=== PATIENT | female | born 1945 | race Caucasian/White ===

== ENCOUNTER → 2016-08-02 | Outpatient (CLI) | payer MEDICARE, MEDICAID | LOC: NC 10:16 | PROVIDERS: ATTEND Family Medicine | DX: R30.0 Dysuria (principal) ==

== ENCOUNTER → 2016-08-10 | Outpatient (CLI) | payer MEDICARE, MEDICAID | LOC: NC 10:35 | PROVIDERS: ATTEND Family Medicine | DX: R30.0 Dysuria (principal) ==

== ENCOUNTER → 2016-09-18 | Outpatient (CLI) | payer MEDICARE, MEDICAID | END | disposition home or self-care (01) | LOC: LAB.NP 12:31 | PROVIDERS: ATTEND Internal Medicine Gastroenterology | DX: R63.4 Abnormal weight loss (principal); R19.7 Diarrhea, unspecified ==

== ENCOUNTER → 2016-09-20 | Outpatient (CLI) | payer MEDICARE, MEDICAID ==
--- NOTE | 2016-09-20 09:47 | CT ---
EXAM DESCRIPTION: Abdomen/Pelvis w/wo Contrast CLINICAL HISTORY: ABNORMAL WEIGHT LOSS COMPARISON: None. TECHNIQUE: CT of the abdomen and pelvis was performed prior to and after the administration of IV contrast.. Multiple axial images and multiplanar reconstructions were generated. FINDINGS: There is moderate emphysema seen within the lung base. There is a spiculated area of groundglass seen within the right lung base. Degenerative change of the spine noted. Aortic stent noted. Negative for obstruction. The liver enhances homogeneously. Portal vein is widely patent. Gallbladder is not visualized. The common bile duct is prominent measuring 7 mm in diameter. This can be seen in the postcholecystectomy patient. Spleen, bilateral adrenal glands and bilateral kidneys are unremarkable. No renal stones noted. No small bowel obstruction. Patient is status post hysterectomy. There is air seen within the urinary bladder or the urinary bladder wall. No catheter is noted. No lymphadenopathy noted on today's study. IMPRESSION: 1. The urinary bladder wall is thickened with stranding adjacent to the serosa. Additionally there is air noted within the urinary bladder. This can be seen with emphysematous cystitis. No evidence of a Eastman catheter at this time to suggest iatrogenic air. 2. There is a spiculated area of groundglass seen within the emphysematous lungs of the right lung base. Recommend CT of the chest for evaluation of the remaining lung to rule out the possibility of a pulmonary neoplasm. 3. There is common bile duct enlargement. This is a normal finding in a patient is status post cholecystectomy. If patient does not have a history of cholecystectomy then an ERCP is suggested to rule out the possibility of an ampullary lesion resulting in dilatation of the common bile duct. Electronically signed by: Lance Kuo MD 09/20/2016 9:45 AM BUSINESS PROCESS MODELER
== END | disposition home or self-care (01) ==
LOC: CT 08:26
PROVIDERS: ATTEND Internal Medicine Gastroenterology
DX: R63.4 Abnormal weight loss (principal)

== ENCOUNTER → 2016-10-02 | Outpatient (CLI) | payer MEDICARE, MEDICAID | LOC: NC 14:24 | PROVIDERS: ATTEND Family Medicine | DX: R30.0 Dysuria (principal) ==

== ENCOUNTER → 2016-10-03 | Outpatient (CLI) | payer MEDICARE, MEDICAID | END | disposition home or self-care (01) | LOC: NC 15:25 | PROVIDERS: ATTEND Family Medicine | DX: J44.9 Chronic obstructive pulmonary disease, unspecified (principal); I12.9 Hypertensive chronic kidney disease with stage 1 through stage 4 chronic kidney disease, or unspecified chronic kidney disease; N18.3 Chronic kidney disease, stage 3 (moderate) ==

== ENCOUNTER 2016-10-11 11:20 | Inpatient (IN) | payer MEDICARE, MEDICAID ==
--- NOTE | 2016-10-11 11:46 | ED.PDOC ---
History of Present Illness - General Chief Complaint: GI Problem Stated Complaint: n/v/d Time Seen by Provider: 10/11/16 11:23 Source: patient, RN notes reviewed, Vital Signs reviewed, EMS Exam Limitations: no limitations - History of Present Illness Initial Comments: Patient comes in for weakness and dehydration. She has been having diarrhea for quite a while. Yesterday she had an upper endoscopy. She has been feeling nauseated for several days and vomited this morning. Yesterday she also noticed her urine was really dark. Last night her muscles started cramping which she reports always happens when her dehydration gets bad. She has been admitted to the hospital in the past for dehydration. EMS reports her BP was initially 89/ 60 but improved with a 200cc NS bolus to 130/80's. She also became more alert after fluid bolus. Patient also report she is on her second round of antibiotics for a UTI - currently on Macrobid which culture reports she is sensitive to. Timing/Duration: getting worse - over past 3 days Severity: moderate Improving Factors: other - IV fluids Worsening Factors: nothing Associated Symptoms: headaches, loss of appetite, malaise, nausea/vomiting, weakness Allergies/Adverse Reactions: Allergies Ondansetron [From Zofran] Allergy (Verified 10/11/16 11:34) Home Medications: Ambulatory Orders Albuterol Sulfate Nebs [Proventil Nebs] 2.5 mg INH RTQID PRN 02/02/14 Clopidogrel Bisulfate [Plavix] 75 mg PO DAILY 02/02/14 Colestipol HCl 1 gm PO BID 02/02/14 Dicyclomine HCl [Bentyl] 10 mg PO BID 02/02/14 Levetiracetam [Keppra] 500 mg PO BID 02/02/14 Loperamide HCl [Imodium A-D] 1 - 2 ea PO DAILY PRN 02/02/14 Melatonin 5 mg PO BEDTIME 02/02/14 Multiple Vitamins W/ Minerals 1 tab PO DAILY 02/02/14 Olopatadine HCl [Pataday] 1 drop OP DAILY PRN 02/02/14 Promethazine Tab [Phenergan Tablet] 25 mg PO Q4-6H PRN 02/02/14 Sertraline HCl [Zoloft] 50 mg PO BEDTIME 02/02/14 Acetaminophen W/ Codeine [Tylenol W/ CODEINE #3] 1 ea PO Q6-8H PRN 07/09/14 B-Complex Vitamins [B Complex] 1 cap PO DAILY 07/09/14 Trazodone HCl 50 mg PO BEDTIME 07/09/14 Arformoterol Tartrate [Brovana] 15 mcg IN BID 04/03/15 Loratadine 10 mg PO BEDTIME 10/10/15 Pantoprazole Sodium [Protonix] 40 mg PO DAILY 10/10/15 amLODIPine BESYLATE [Norvasc] 10 mg PO DAILY 10/10/15 Budesonide (Inhalation) [Pulmicort] 0.25 mg IN BID 11/07/15 Potassium Chloride [K-Tab] 20 meq PO DAILY #30 tab 11/11/15 ALPRAZolam [Xanax] 0.5 mg PO BEDTIME 03/14/16 Cranberry (Vaccinium Macrocarp [Cranberry Extract] 250 mg PO DAILY 03/14/16 Cyclobenzaprine HCl 5 mg PO Q8H PRN 03/14/16 Ipratropium [place] 0.02 % IN BID PRN 03/14/16 Metoprolol Succinate [Metoprolol Succinate ER] 50 mg PO DAILY 03/15/16 Levofloxacin [Levaquin] 250 mg PO DAILY #12 tab 03/16/16 Review of Systems - Review of Systems Constitutional: States: malaise, weakness. Denies: chills, diaphoresis, fever EENTM: States: no symptoms reported Respiratory: States: no symptoms reported. Denies: short of breath Cardiology: States: no symptoms reported. Denies: chest pain, edema, palpitations Gastrointestinal/Abdominal: States: see HPI, diarrhea, nausea, vomiting Genitourinary: States: see HPI Musculoskeletal: States: see HPI - Muscle cramping Skin: States: no symptoms reported Neurological: States: headache. Denies: numbness, paresthesia, tingling, tremors Endocrine: States: no symptoms reported Hematologic/Lymphatic: States: no symptoms reported Past Medical History (General) - Patient Medical History Hx Seizures: No Hx Stroke: Yes Hx Dementia: No Hx Asthma: Yes Hx of COPD: Yes Hx Cardiac Disorders: Yes - stints Hx Congestive Heart Failure: No Hx Pacemaker: No Hx Hypertension: Yes Hx Thyroid Disease: No Hx Diabetes: No Hx Gastroesophageal Reflux: Yes Hx Renal Disease: Yes - ARF 2014 Hx Cancer: Yes - OVIARIAN Hx of HIV: No Hx Hepatitis C: No Hx MRSA: Yes Surgical History: appendectomy, cholecystectomy, tonsillectomy, Hysterectomy - Vaccination History Hx Tetanus, Diphtheria Vaccination: Yes Hx Influenza Vaccination: Yes Hx Pneumococcal Vaccination: Yes Immunizations Up to Date: Yes - Social History Hx Tobacco Use: Yes Hx Chewing Tobacco Use: No Hx Alcohol Use: No Hx Substance Use: No Hx Substance Use Treatment: No Hx Depression: No Hx Physical Abuse: No Hx Emotional Abuse: No Hx Suspected Abuse: No - Female History Patient is a Female of Child Bearing Age (10 -59 yrs old): No Patient : No Family Medical History - Family History Brother Family History: Unknown Living Status: Hx Family Asthma: No Hx Family Congestive Heart Failure: No Hx Family Hypertension: Yes Hx Family Stroke: No Hx Cardiac Disease: No Hx Family Diabetes: No Hx Family Cancer: No Hx Family;Other: liver/ etoh abuse Mother Family History: Unknown Living Status: Hx Family Asthma: No Hx Family Congestive Heart Failure: No Hx Family Hypertension: Yes Hx Family Stroke: No Hx Cardiac Disease: No Hx Family Diabetes: No Hx Family Cancer: Yes Hx Family;Other: copd Physical Exam - Physical Exam General Appearance: Alert, Comfortable, Frail, No apparent distress, Well Groomed Eye Exam: bilateral normal Ears, Nose, Throat: hearing grossly normal, other - Dry mucus membranes Neck: non-tender, full range of motion, supple, normal inspection Respiratory: chest non-tender, lungs clear, normal breath sounds, no respiratory distress, no accessory muscle use Cardiovascular/Chest: normal peripheral pulses, regular rate, rhythm, no edema, no gallop, no JVD Peripheral Pulses: dorsalis pedis,right: 2+, dorsalis pedis,left: 2+ Gastrointestinal/Abdominal: normal bowel sounds, soft, tenderness - Patient reports this is due to her hernia and is always present Extremity: normal range of motion, non-tender, normal inspection, no pedal edema Neurologic: no motor/sensory deficits, alert, normal mood/affect, oriented x 3 Skin Exam: normal color, warm/dry Lymphatic: no adenopathy Comments: Vital Signs - 24 hr 10/11/16 10/11/16 11:34 12:11 Temperature 96.0 F L Pulse Rate [ 79 71 MONITOR] Respiratory 18 16 Rate Blood Pressure 124/84 146/73 [Left Arm] O2 Sat by Pulse 98 98 Oximetry Progress - Progress Progress: 10/11/16 12:24 Patient is resting comfortably with ~800cc of NS infused. Will go ahead and order labs and urine. May need a second L of NS. 10/11/16 12:57 Patient reports she is feeling restless. May be related to the Phenergan. Will give a small dose of Ativan. 10/11/16 13:34 Patient discussed with hospitalist. Will admit for dehydration and acute renal failure. 10/11/16 13:36 Ativan changed to PO Valium due to need to replace IV and patient c/o muscle cramping. - Results/Orders Results/Orders: Laboratory Tests 10/11/16 12:40 WBC 13.1 H RBC 5.69 H Hgb 16.5 H Hct 50.3 H MCV 88.4 MCH 28.9 MCHC 32.8 L RDW 13.8 Plt Count 194 MPV 9.1 Absolute Neuts (auto) 10.90 H Absolute Lymphs (auto) 1.20 Absolute Monos (auto) 0.80 Absolute Eos (auto) 0.20 Absolute Basos (auto) 0.10 Neutrophils % 83.0 H Lymphocytes % 9.5 L Monocytes % 5.8 Eosinophils % 1.2 Basophils % 0.5 Sodium 141 Potassium 4.2 Chloride 103 Carbon Dioxide 23 Anion Gap 19.2 H BUN 74 H Creatinine 3.17 H BUN/Creatinine Ratio 23.3 H Random Glucose 147 H Serum Osmolality 305.9 H Calcium 10.5 H Total Bilirubin 0.6 AST 18 ALT 14 Alkaline Phosphatase 116 B-Natriuretic Peptide 180.0 H Serum Total Protein 9.6 H Albumin 4.8 Globulin 4.8 H Albumin/Globulin Ratio 1.0 L Departure - Departure Clinical Impression: Severe dehydration Renal failure, acute Qualifiers: Acute renal failure type: unspecified Qualifier Code: (N17.9) Acute kidney failure, unspecified Time of Disposition: 13:35 Disposition: Admit Patient Condition: Poor Departure Forms: ED Discharge - Pt. Copy, Patient Portal Self Enrollment Home Medications: Ambulatory Orders Albuterol Sulfate Nebs [Proventil Nebs] 2.5 mg INH RTQID PRN 02/02/14 Clopidogrel Bisulfate [Plavix] 75 mg PO DAILY 02/02/14 Colestipol HCl 1 gm PO BID 02/02/14 Dicyclomine HCl [Bentyl] 10 mg PO BID 02/02/14 Levetiracetam [Keppra] 500 mg PO BID 02/02/14 Loperamide HCl [Imodium A-D] 1 - 2 ea PO DAILY PRN 02/02/14 Melatonin 5 mg PO BEDTIME 02/02/14 Multiple Vitamins W/ Minerals 1 tab PO DAILY 02/02/14 Olopatadine HCl [Pataday] 1 drop OP DAILY PRN 02/02/14 Promethazine Tab [Phenergan Tablet] 25 mg PO Q4-6H PRN 02/02/14 Sertraline HCl [Zoloft] 50 mg PO BEDTIME 02/02/14 Acetaminophen W/ Codeine [Tylenol W/ CODEINE #3] 1 ea PO Q6-8H PRN 07/09/14 B-Complex Vitamins [B Complex] 1 cap PO DAILY 07/09/14 Trazodone HCl 50 mg PO BEDTIME 07/09/14 Arformoterol Tartrate [Brovana] 15 mcg IN BID 04/03/15 Loratadine 10 mg PO BEDTIME 10/10/15 Pantoprazole Sodium [Protonix] 40 mg PO DAILY 10/10/15 amLODIPine BESYLATE [Norvasc] 10 mg PO DAILY 10/10/15 Budesonide (Inhalation) [Pulmicort] 0.25 mg IN BID 11/07/15 Potassium Chloride [K-Tab] 20 meq PO DAILY #30 tab 11/11/15 ALPRAZolam [Xanax] 0.5 mg PO BEDTIME 03/14/16 Cranberry (Vaccinium Macrocarp [Cranberry Extract] 250 mg PO DAILY 03/14/16 Cyclobenzaprine HCl 5 mg PO Q8H PRN 03/14/16 Ipratropium [place] 0.02 % IN BID PRN 03/14/16 Metoprolol Succinate [Metoprolol Succinate ER] 50 mg PO DAILY 03/15/16 Levofloxacin [Levaquin] 250 mg PO DAILY #12 tab 03/16/16 Decision To Admit - Decistion To Admit Decision to Admit Reason: Admit from ER - Dehydration, acute renal failure
[2016-10-11] MEDS ORDERED: diazePAM 5 MG TAB PO ONE (13:24)
[2016-10-11] MEDS ORDERED: diazePAM 5 MG TAB ONE (13:26)
[2016-10-11] MEDS ORDERED: SODIUM CHLORIDE 0.9% 1000ML 1,000 ML IVS ONE (13:30)
--- NOTE | 2016-10-11 14:42 | HP ---
SUPERVISING PHYSICIAN: Mikhail Trejo M.D. CHIEF COMPLAINT: Nausea, vomiting and diarrhea. HISTORY OF PRESENT ILLNESS: Ms. Olmedo is a 71 year-old female that presented to the Emergency Department today complaining of severe dehydration. She has a longstanding history of diarrhea. Yesterday, she did have an upper endoscopy procedure and has been feeling nauseated for several days and vomited this morning. She also notes that her urine is significantly dark and she is having some dysuria. She was recently treated for a urinary tract infection on 10/02 with identified culture of Escherichia coli that was pansensitive and started on Macrobid. Last night, she reported she was having muscles that were cramping in her legs which is normally typical of her state of dehydration when it gets really bad. She was last admitted to the hospital on 03/14/16 for similar symptoms. Initial blood pressure by the EMS on arrival showed the patient to have a blood pressure of 89/60 which did improve after she was given a bolus of saline to 130/80. The patient does have a history of chronic kidney disease stage III and today chemistries showed that her BUN and creatinine were elevated with BUN of 74, creatinine 3.17, but her serum osmolality was 305. Her electrolytes were all within normal limits. White count showed to be elevated at 13.1 with a left shift, hemoglobin 16.5, hematocrit 50.3. Given that the patient is having significant symptoms and is obviously dehydrated with nausea, vomiting and chronic diarrhea, the patient is to be admitted for further treatment and evaluation. She was admitted in stable condition. PAST MEDICAL HISTORY: 1. Coronary artery disease. 2. Chronic obstructive pulmonary disease. 3. History of smoking having stopped 2-1/2 years previously. 4. Chronic functional diarrhea. 5. History of cerebrovascular accidents. 6. Chronic kidney disease stage III. 7. Hypertension. 8. Ovarian cancer. 9. Irritable bowel syndrome. 10. Gastroesophageal reflux disease for which she just had a recent endoscopy. 11. History of falls. 12. Dizziness. PAST SURGICAL HISTORY: 1. Right carotid endarterectomy with stents. 2. Cholecystectomy. 3. Appendectomy. 4. Removal of cancerous growths from her labia. CURRENT MEDICATIONS: Please see an updated list in the electronic medical records for verified medications. ALLERGIES: ZOFRAN. SHE DOES HAVE AN ADVERSE REACTION TO GIBSON INHIBITORS WHICH MAKES HER KIDNEY FUNCTION WORSE. FAMILY HISTORY: Positive for diabetes, cancer, heart disease and strokes. SOCIAL HISTORY: She lives alone in [place]. She does have a daughter. She does have a history of smoking, but stopped previously 2-1/2 years. She is retired and she denies any alcohol or illicit drug use. REVIEW OF SYSTEMS: She denies any chills, diaphoresis or fever. Does note that she has general malaise and weakness. HEENT: Denies any sinus symptoms, ear pain, eye pain or sore throat. RESPIRATORY: Denies any shortness of breath , coughing or wheezing. CARDIOVASCULAR: Denies any chest pains, palpitations, syncopal episodes or edema. GASTROINTESTINAL: As noted in the history of present illness, chronic diarrhea, nausea and vomiting prior to admission, but denies any constipation or bloody stools. NEUROLOGIC: She denies any headaches or seizures. No paresthesias, tingling or tremors. Does note that she had a headache on admission to the Emergency Department which has improved since fluids were started. PHYSICAL EXAMINATION: VITAL SIGNS: Temperature 96.0, pulse 79, blood pressure 135/88, respirations 18 , O2 sat 98% on 2 liters nasal cannula. Admission weight was 40.9 kg. GENERAL: The patient appears to be comfortable, in no distress but quite frail. She is alert. HEENT: Tympanic membranes are clear bilaterally. Oropharynx is known to be dry with cracking mucosal membranes. Dry tongue. No lesions. NECK: No jugular venous distention. CHEST: Lungs are clear to auscultation without any rhonchi, wheezing or rales noted. CARDIOVASCULAR: Regular rate and rhythm with no gallops, rubs or appreciable murmurs. ABDOMEN: She does have some mild tenderness which she notes is always present secondary to her hernia. There is no rebound tenderness. Bowel sounds are hyperactive. EXTREMITIES: No clubbing, cyanosis or edema. NEUROLOGIC: She is alert and oriented times three. Cranial nerves II-XII are grossly intact. Facial features are symmetrical. Extraocular movements are within normal limits. There is no notable lateralizing or localizing neuromotor deficits. LABORATORY: CBC shows white count of 13.1, hemoglobin 16.5, hematocrit 50.3, platelet count 184,000. Differential does show a left shift. Chemistries show normal electrolytes with BUN of 74, creatinine 3.17. Glucose 147, serum osmolality 305, calcium 10.5. Liver functions show to be within normal limits with BNP of 180. Serum total protein was 9.6. Urinalysis is pending. RADIOLOGY: There are no radiographic studies for review. ASSESSMENT: 1. Acute on chronic renal failure with acute exacerbation of chronic renal failure possibly secondary to medications administered for last treatment of urinary tract infection including Macrobid and complicated by previous endoscopy preparation, and nausea and vomiting. 2. Nausea and vomiting with a history of chronic diarrhea. 3. Moderate dehydration likely secondary to ongoing diarrhea. 4. History of recent urinary tract infection being treated for Escherichia coli that was pansensitive and started on Macrobid, finished 10 day antibiotics the day of admission. The patient continues to have dysuria despite having finished treatment plan. 5. History of functional chronic diarrhea. 6. Gastroesophageal reflux disease. 7. History of hypertension. 8. Chronic obstructive pulmonary disease in a previous smoker without any signs or symptoms of exacerbation. PLAN: The patient will be admitted to the Medical/Surgical floor for continued treatment and evaluation. She was given a liter of saline in the E. R. This will be continued with additional saline 1 liter at 200 mL and hour with a repeat of electrolytes in the morning, and continued fluids to assist with rehydration. Will await a urinary culture as the patient continues to be somewhat symptomatic. Will start on DVT prophylaxis as per protocol. Anticipated length of stay to be 2 to 3 days. Until discharge, will continue to monitor the patient closely and treat appropriately. #[id number] [facility]
[2016-10-11] MEDS ORDERED: SODIUM CHLORIDE 0.9% (FLUSH) 10 ML SYG IV PRN (15:41)
[2016-10-11] MEDS ORDERED: ACETAMINOPHEN 325 MG TAB PO PRN (15:41)
[2016-10-11] MEDS ORDERED: IV SET AND CAP CHANGE INJ INJ SCH (16:00)
[2016-10-11] MEDS ORDERED: BUDESONIDE NEBS 0.5 MG/2 ML VIAL NEB PRN (19:26)
[2016-10-11] MEDS ORDERED: OLOPATADINE HCL OP PRN (19:26)
[2016-10-11] MEDS ORDERED: PROMETHAZINE HCL 25 MG TAB PO PRN (19:26)
[2016-10-11] MEDS ORDERED: LOPERAMIDE CAP 2 MG CAP PO PRN (19:26)
[2016-10-11] MEDS ORDERED: ACETAMINOPHEN W/COD #3 TAB (ER Disp) PO PRN (19:26)
[2016-10-11] MEDS ORDERED: CYCLOBENZAPRINE HCL 5 MG TAB PO PRN (19:26)
--- NOTE | 2016-10-11 19:34 | PCM.CORE ---
Physician DVT/VTE - Nurse DVT Assessment & Total Each Risk Factor Represents 2 Points: Age 60-74 Each Risk Factor Represents 1 Point: Medical PT at Bed Rest Each Risk Factor is 1 Point: Hx of Inflammatory Bowel Disease DVT Assessment Score: 4 - 5 or more Very High Risk Treatments: Early Ambulation *, Sequential Compression Device Pharmacological: Enoxaparin 40mg SQ Daily
[2016-10-11] MEDS ORDERED: ENOXAPARIN SODIUM 30 MG/0.3 ML SYG SUBCU ONE (19:55)
[2016-10-11] MEDS: KCL 20MEQ/D5 1/2NS 1,000 ML IVS PRN (20:00)
[2016-10-11] MEDS ORDERED: ENOXAPARIN SODIUM 40 MG/0.4 ML SYG SUBCU SCH (20:00)
[2016-10-11] MEDS ORDERED: ACETAMINOPHEN W/COD #3 TAB 1 EA TAB ONE (20:19)
[2016-10-11] MEDS ORDERED: ACETAMINOPHEN W/COD #3 TAB 1 EA TAB PO PRN (20:24)
[2016-10-11] MEDS ORDERED: DICYCLOMINE HCL 20 MG TAB ONE (20:41)
[2016-10-11] MEDS ORDERED: levETIRAcetam 250 MG TAB ONE (20:41)
[2016-10-11] MEDS: METOPROLOL SUCCINATE XL 50 MG TAB PO SCH (20:52)
[2016-10-11] MEDS: COLESTIPOL HCL 1 GM TAB PO SCH (20:52)
[2016-10-11] MEDS: SERTRALINE HCL 50 MG TAB PO SCH (20:52)
[2016-10-11] MEDS: ALPRAZolam 0.5 MG TAB PO SCH (20:52)
[2016-10-11] MEDS ORDERED: DICYCLOMINE HCL 10 MG PO SCH (21:00)
[2016-10-11] MEDS ORDERED: traZODone HCL 50 MG TAB PO SCH (21:00)
[2016-10-11] MEDS ORDERED: NON-FORMULARY MEDICATION 1 EA MIS (Melatonin [Melatonin] 5 MG) PO SCH (21:00)
[2016-10-11] MEDS ORDERED: NON-FORMULARY MEDICATION 1 EA MIS (Levetiracetam [Keppra] 500 MG) PO SCH (21:00)
[2016-10-11] MEDS ORDERED: NON-FORMULARY MEDICATION 1 EA MIS (Arformoterol Tartrate [Brovana] 15 MCG) IN SCH ×2 (21:00→22:15)
[2016-10-11] MEDS ORDERED: MELATONIN 3 MG TAB ONE (21:16)
[2016-10-11] MEDS: MELATONIN 3 MG TAB PO SCH (21:20)
[2016-10-11] MEDS ORDERED: NON-FORMULARY MEDICATION 1 EA MIS (Metoprolol Tartrate [Lopressor] 100 MG) PO SCH (21:30)
[2016-10-11] MEDS ORDERED: METOPROLOL TARTRATE 25 MG TAB ONE (21:36)
[2016-10-12] MEDS ORDERED: DICYCLOMINE HCL 20 MG TAB ONE (07:00)
[2016-10-12] MEDS ORDERED: levETIRAcetam 250 MG TAB ONE (07:00)
[2016-10-12] MEDS ORDERED: POTASSIUM CHLORIDE 20 MEQ TAB ONE (07:01)
[2016-10-12] MEDS: KCL 20MEQ/D5 1/2NS 1,000 ML IVS PRN (08:16)
[2016-10-12] MEDS ORDERED: METOPROLOL TARTRATE 50 MG TAB PO SCH (09:00)
[2016-10-12] MEDS ORDERED: PANTOPRAZOLE SODIUM TAB 40 MG PO SCH (09:00)
[2016-10-12] MEDS: amLODIPine BESYLATE 5 MG TAB PO SCH (09:43)
[2016-10-12] MEDS: COLESTIPOL HCL 1 GM TAB PO SCH ×2 (09:43→22:29)
[2016-10-12] MEDS: levETIRAcetam 250 MG TAB PO SCH ×2 (09:44→20:43)
[2016-10-12] MEDS: DICYCLOMINE HCL 20 MG TAB PO SCH ×2 (09:44→20:42)
[2016-10-12] MEDS: CLOPIDOGREL 75 MG TAB PO SCH (09:44)
[2016-10-12] MEDS: LORATADINE 10 MG TAB PO SCH (09:44)
[2016-10-12] MEDS: POTASSIUM CHLORIDE 20 MEQ TAB PO SCH (09:46)
[2016-10-12] MEDS: METOPROLOL SUCCINATE XL 100 MG TAB PO SCH (09:58)
[2016-10-12] MEDS: METOPROLOL SUCCINATE XL 50 MG TAB PO SCH ×2 (10:01→20:54)
[2016-10-12] MEDS ORDERED: SODIUM BICARBONATE VIAL 50 MEQ/50 ML VIAL ONE ×2 (11:00→17:12)
[2016-10-12] MEDS ORDERED: DEXTROSE 5% 1000ML 1,000 ML IVS ONE ×2 (11:00→17:12)
[2016-10-12] MEDS: SODIUM BICARBONATE VIAL 75 MEQ in DEXTROSE 5% 1000ML 1,000 ML IVS PRN ×2 (11:03→17:16)
[2016-10-12] MEDS ORDERED: ACETAMINOPHEN W/COD #3 TAB 1 EA TAB PO PRN (11:22)
[2016-10-12] MEDS ORDERED: SODIUM CHL 0.9% 50ML MIN-BAG+ 50 ML IVPB ONE (12:09)
[2016-10-12] MEDS ORDERED: cefTRIAXone SODIUM 1 GM VIAL ONE (12:09)
[2016-10-12] MEDS: B COMPLEX 1 EA TAB PO SCH (12:12)
[2016-10-12] MEDS: cefTRIAXone SODIUM 1 GM in SODIUM CHL 0.9% 50ML MIN-BAG+ 50 ML IVPB SCH (12:12)
[2016-10-12] MEDS: NITROGLYCERIN 0.4 MG/HR PATCH TOP SCH (12:19)
[2016-10-12] MEDS ORDERED: traZODone HCL 100 MG TAB PO ONE (19:47)
[2016-10-12] MEDS ORDERED: MELATONIN 3 MG TAB ONE (19:47)
[2016-10-12] MEDS ORDERED: COLESTIPOL HCL 1 GM TAB PO ONE (19:47)
[2016-10-12] MEDS ORDERED: ENOXAPARIN SODIUM 30 MG/0.3 ML SYG SUBCU ONE (19:48)
[2016-10-12] MEDS ORDERED: METOPROLOL SUCCINATE XL 50 MG TAB ONE (19:49)
[2016-10-12] MEDS ORDERED: PANTOPRAZOLE SODIUM TAB 40 MG PO ONE (19:50)
--- NOTE | 2016-10-12 20:08 | PN ---
DATE: 10/12/16 SUPERVISING PHYSICIAN: Jayden Ferrera M.D. SUBJECTIVE: The patient continues to be weak. She remains afebrile. She still has some diarrhea which is chronic for her. She does know that she is having some dysuria but no nausea or vomiting. OBJECTIVE: VITAL SIGNS: T max 98.4, pulse 60, blood pressure 134/73, respirations 16, O2 sat showing 98% on nasal cannula at 2 liters. I's and O's show a positive balance today of 1362 with 2062 in, 700 out. CHEST: Lungs are clear to auscultation bilaterally. HEART: Regular rate and rhythm. ABDOMEN: Obese with some mild tenderness noted over the suprapubic area, but no rebound tenderness. Bowel sounds are present. EXTREMITIES: No clubbing, cyanosis or edema. NEUROLOGIC: She is alert and oriented times three. LABORATORY: White count remains elevated today at 14.0 with hemoglobin 14.4, hematocrit 44.6, platelet count 184,000. Differential today shows left shift has resolved. Chemistries show normal electrolytes, BUN still remains elevated at 75, creatinine went up to 3.33, calcium 8.8, serum osmolality had decreased to 299 from 305 on admission. MICROBIOLOGY: Urine culture shows gram-negative rods. ASSESSMENT: 1. Acute on chronic renal failure with acute exacerbation of renal failure possibly secondary to medications administered for last treatment of urinary tract infection including Macrobid and complicated by previous endoscopy preparation, and nausea and vomiting with continued elevation of creatinine. 2. Nausea and vomiting with a history of chronic diarrhea, resolved after starting IV fluids. 3. Moderate dehydration likely secondary to ongoing diarrhea showing some improvement after starting IV fluids. 4. History of recent urinary tract infection having been treated for Escherichia coli that was pansensitive and started on Macrobid, finished 10 day antibiotics at the day of admission. Culture results initially on urine on admission shows gram-negative rods and the patient does have some dysuria continued. The patient currently on parenteral antibiotics to include Rocephin pending further culture results. 5. History of functional chronic diarrhea. 6. Gastroesophageal reflux disease. 7. History of hypertension. 8. Chronic obstructive pulmonary disease in a previous smoker without any signs or symptoms of exacerbation. 9. Leukocytosis persistent possibly related to underlying urinary tract infection. PLAN: Will continue with fluids today but change to alkalinization with D5W with 1.5 amps of bicarb to run at 150. I did talk with Dr. Ortega. We went over the patient's laboratory studies and he agreed that she continues to probably be somewhat dehydrated but will hopefully benefit from alkalinization of her urine. Will continue with alkalinization for the next 24 hours and monitor the patient closely, repeat laboratory studies in the morning to include CBC and CMP. I will discuss findings with Dr. Ortega in the morning to further assist with management of the patient's kidney function. Given the patient has been on antibiotics previously and is continuing to have diarrhea, will go ahead and do stool cultures as well as a Clostridium Difficile to further rule out any complications from antibiotic therapy given she continues to have a high white count. Hopefully will be able to discharge the patient within the next 2 to 3 days. Until then, will continue to monitor the patient closely and treat appropriately. Should she show a decline in her renal function or any other decline, the patient will need possible transfer to [facility] for a higher level of care to include comic artist. #[id number] [facility]
[2016-10-12] MEDS: BIFIDOBACTERIUM INFANTIS 4 MG CAP PO SCH (20:42)
[2016-10-12] MEDS: ENOXAPARIN SODIUM 30 MG/0.3 ML SYG SUBCU SCH (20:43)
[2016-10-12] MEDS: MELATONIN 3 MG TAB PO SCH (20:43)
[2016-10-12] MEDS: traZODone HCL 100 MG TAB PO SCH (20:43)
[2016-10-12] MEDS: SERTRALINE HCL 50 MG TAB PO SCH (20:44)
[2016-10-12] MEDS: ALPRAZolam 0.5 MG TAB PO SCH (20:44)
[2016-10-12] MEDS: ALBUTEROL SULFATE 2.5 MG/3 ML VIAL NEB PRN (21:14)
[2016-10-12] MEDS: BUDESONIDE NEBS 0.25 MG/2 ML INH NEB PRN (21:14)
[2016-10-12] MEDS: NON-FORMULARY MEDICATION 1 EA MIS (Arformoterol Tartrate [Brovana] 15 MCG) IN SCH (21:17)
[2016-10-13] MEDS: REMOVE OLD PATCH TOP SCH ×2 (00:24→20:50)
[2016-10-13] MEDS ORDERED: DEXTROSE 5% 1000ML 0 ML IVS ONE (00:27)
[2016-10-13] MEDS ORDERED: SODIUM BICARBONATE VIAL 50 MEQ/50 ML VIAL ONE ×2 (00:27→00:29)
[2016-10-13] MEDS ORDERED: DEXTROSE 5% 1000ML 1,000 ML IVS ONE (00:29)
[2016-10-13] MEDS: SODIUM BICARBONATE VIAL 75 MEQ in DEXTROSE 5% 1000ML 1,000 ML IVS PRN (01:03)
[2016-10-13] MEDS ORDERED: POTASSIUM CHLORIDE 20 MEQ TAB PO ONE ×2 (06:28→10:18)
[2016-10-13] MEDS: PANTOPRAZOLE SODIUM TAB 40 MG PO SCH (06:33)
[2016-10-13] MEDS: POTASSIUM CHLORIDE 20 MEQ TAB PO SCH (08:05)
[2016-10-13] MEDS ORDERED: MAGNESIUM SULFATE PREMIX 2GM 2 GM in PREMIX BAG 1 BAG IVPB ONE (08:25)
[2016-10-13] MEDS: NON-FORMULARY MEDICATION 1 EA MIS (Arformoterol Tartrate [Brovana] 15 MCG) IN SCH ×2 (08:39→20:20)
[2016-10-13] MEDS: BUDESONIDE NEBS 0.25 MG/2 ML INH NEB PRN (08:39)
[2016-10-13] MEDS: ALBUTEROL SULFATE 2.5 MG/3 ML VIAL NEB PRN (08:39)
[2016-10-13] MEDS ORDERED: MAGNESIUM SULFATE PREMIX 2GM 50 ML IVPB ONE (08:55)
[2016-10-13] MEDS: LORATADINE 10 MG TAB PO SCH (09:04)
[2016-10-13] MEDS: BIFIDOBACTERIUM INFANTIS 4 MG CAP PO SCH ×2 (09:04→20:43)
[2016-10-13] MEDS: levETIRAcetam 250 MG TAB PO SCH ×2 (09:04→20:43)
[2016-10-13] MEDS: B COMPLEX 1 EA TAB PO SCH (09:04)
[2016-10-13] MEDS: CLOPIDOGREL 75 MG TAB PO SCH (09:04)
[2016-10-13] MEDS: amLODIPine BESYLATE 5 MG TAB PO SCH (09:04)
[2016-10-13] MEDS: DICYCLOMINE HCL 20 MG TAB PO SCH ×2 (09:05→20:43)
[2016-10-13] MEDS: COLESTIPOL HCL 1 GM TAB PO SCH ×2 (09:05→22:07)
[2016-10-13] MEDS: NITROGLYCERIN 0.4 MG/HR PATCH TOP SCH (09:06)
[2016-10-13] MEDS: METOPROLOL SUCCINATE XL 100 MG TAB PO SCH (09:06)
[2016-10-13] MEDS: KCL 40 MEQ/D5 1/2NS 1,000 ML IVS PRN (10:24)
[2016-10-13] MEDS ORDERED: cefTRIAXone SODIUM 1 GM VIAL ONE (10:29)
[2016-10-13] MEDS ORDERED: SODIUM CHL 0.9% 50ML MIN-BAG+ 50 ML IVPB ONE (10:30)
[2016-10-13] MEDS: cefTRIAXone SODIUM 1 GM in SODIUM CHL 0.9% 50ML MIN-BAG+ 50 ML IVPB SCH (11:59)
--- NOTE | 2016-10-13 15:55 | PN ---
DATE: 10/13/16 SUPERVISING PHYSICIAN: Jayden Ferrera M.D. SUBJECTIVE: The patient is feeling much better today. She continues to have a little diarrhea, but remains afebrile. OBJECTIVE: VITAL SIGNS: T max 98.7, pulse 61, blood pressure 111/65, respirations 20, SpO2 is 96% on nasal cannula at 2 liters. I's and O's show a positive balance of 141 with 3516 in, 3375 out. Weight 44.1 kg. CHEST: Lungs are clear to auscultation bilaterally. HEART: Regular rate and rhythm. ABDOMEN : Soft, non-tender. Positive bowel sounds. EXTREMITIES: No clubbing, cyanosis or edema. NEUROLOGIC: She is alert and oriented times three. LABORATORY: White count now has normalized at 10.1, hemoglobin 13.2, hematocrit 40.0, platelet count 162,000. Differential shows to be without a left shift. Chemistries show low potassium at 2.5, but BUN has improved to 55 from admission of 74 and creatinine has decreased to 1.6 from 3.33. Calcium 8.1 , glucose 128, magnesium was low at 1.5. MICROBIOLOGY: Urine culture did show Escherichia coli that was sensitive to everything but ESBL and Nitrofurantoin. RADIOLOGY: There are no additional radiographic studies today. ASSESSMENT: 1. Acute on chronic renal failure with acute exacerbation of renal failure possibly secondary to medications administered for last treatment of urinary tract infection including Macrobid and complicated by previous endoscopy procedure with nausea and vomiting with continued elevation of creatinine, now with improving creatinine after alkalinization by IV fluids. 2. Nausea and vomiting with history of chronic diarrhea, resolved after starting IV fluids. 3. Electrolyte imbalance to include moderate hypokalemia and hypomagnesemia. 4. Moderate dehydration secondary to ongoing diarrhea showing improvement after starting IV fluids. 5. History of recent urinary tract infection having been treated for Escherichia coli that was pansensitive and having been started on Macrobid, finished 10 days of antibiotics on the date of admission with current culture results showing Escherichia coli again, but this time resistant to Macrobid with the patient having been continuing to have some dysuria on admission. She currently is on parenteral antibiotics to include Rocephin which shows sensitive on final culture results. 6. History of functional chronic diarrhea. 7. Gastroesophageal reflux disease. 8. Hypertension. 9. Chronic obstructive pulmonary disease in a previous smoker without any signs or symptoms of exacerbation. 10. Leukocytosis possibly related to underlying urinary tract infection now showing improvement after starting IV antibiotics and IV fluids. PLAN: The patient's renal function has improved to a good degree today after D5W with 1/2 amps of bicarb over the last 24 hours. Will switch her IV fluids now to D5 and a half with 40 of potassium as well as provide p.o. replacement with an additional 20 of potassium along with her scheduled medications. Will plan to replace her magnesium with 2 grams of magnesium IV and continue to monitor closely. The patient notes that her diarrhea has slowed down. We have yet to see a Clostridium Difficile result. Will anticipate possible discharge tomorrow after reevaluation in the morning. Until then, will continue to monitor the patient closely and treat appropriately. #[id number] [facility]
[2016-10-13] MEDS: MELATONIN 3 MG TAB PO SCH (20:42)
[2016-10-13] MEDS: traZODone HCL 100 MG TAB PO SCH (20:42)
[2016-10-13] MEDS: ENOXAPARIN SODIUM 30 MG/0.3 ML SYG SUBCU SCH (20:42)
[2016-10-13] MEDS: ALPRAZolam 0.5 MG TAB PO SCH (20:42)
[2016-10-13] MEDS: METOPROLOL SUCCINATE XL 50 MG TAB PO SCH (20:43)
[2016-10-13] MEDS: SERTRALINE HCL 50 MG TAB PO SCH (20:43)
[2016-10-14] MEDS: KCL 40 MEQ/D5 1/2NS 1,000 ML IVS PRN (00:35)
[2016-10-14] MEDS: PANTOPRAZOLE SODIUM TAB 40 MG PO SCH (06:11)
[2016-10-14] MEDS: POTASSIUM CHLORIDE 20 MEQ TAB PO SCH (08:08)
[2016-10-14] MEDS: NON-FORMULARY MEDICATION 1 EA MIS (Arformoterol Tartrate [Brovana] 15 MCG) IN SCH (08:40)
[2016-10-14] MEDS: BUDESONIDE NEBS 0.25 MG/2 ML INH NEB PRN (08:45)
[2016-10-14] MEDS: BIFIDOBACTERIUM INFANTIS 4 MG CAP PO SCH (08:58)
[2016-10-14] MEDS: METOPROLOL SUCCINATE XL 100 MG TAB PO SCH (08:58)
[2016-10-14] MEDS: B COMPLEX 1 EA TAB PO SCH (08:59)
[2016-10-14] MEDS: DICYCLOMINE HCL 20 MG TAB PO SCH (08:59)
[2016-10-14] MEDS: amLODIPine BESYLATE 5 MG TAB PO SCH (08:59)
[2016-10-14] MEDS: CLOPIDOGREL 75 MG TAB PO SCH (08:59)
[2016-10-14] MEDS: LORATADINE 10 MG TAB PO SCH (08:59)
[2016-10-14] MEDS: levETIRAcetam 250 MG TAB PO SCH (08:59)
[2016-10-14] MEDS: NITROGLYCERIN 0.4 MG/HR PATCH TOP SCH (09:00)
[2016-10-14] MEDS ORDERED: cefTRIAXone SODIUM 1 GM VIAL IM ONE (09:49)
[2016-10-14 10:05] VITALS: BP 140/70; TEMP 98; O2SAT 95
[2016-10-14] MEDS ORDERED: LIDOCAINE 1% 10 ML VIAL INJ ONE (10:46)
[2016-10-14] MEDS: COLESTIPOL HCL 1 GM TAB PO SCH (10:55)
--- NOTE | 2016-10-15 13:49 | DS ---
SUPERVISING PHYSICIAN: Erick Ferrera MD DISCHARGE DIAGNOSIS: 1. Acute on chronic renal failure with an exacerbation, possibly secondary to medications administered for last treatment of urinary tract infection to include Macrobid, complicated by previous endoscopy procedure with nausea and vomiting and dehydration showing creatinine elevation and improving, normalizing to baseline creatinine after alkalinization with IV fluids and continued IV therapy. 2. Nausea and vomiting with a history of chronic diarrhea, resolved after starting IV fluids, possibly secondary to continued urinary tract infection. 3. Electrolyte imbalance to include moderate hypokalemia and hypomagnesemia, improved after replacement. 4. Moderate dehydration likely secondary to ongoing diarrhea, showing improvement after starting IV fluids. 5. Recent urinary tract infection having been treated in outpatient setting for Escherichia coli that was pansensitive, started on 10 day course of Macrobid with current culture results showing again Escherichia coli, but at this time resistant to Macrobid with the patient having been continued to have dysuria on admission with the patient transitioned to parenteral antibiotics that included Rocephin with sensitivity on culture results. 6. History of functional chronic diarrhea. 7. Gastroesophageal reflux disease. 8. Hypertension. 9. Chronic obstructive pulmonary disease in a previous smoker without any signs or symptoms of exacerbation. 10. Leukocytosis, probably related to underlying urinary tract infection, showing improvement after starting IV antibiotics and IV fluids. HISTORY OF PRESENT ILLNESS: Ms. Olmedo is a 71-year-old female that presented to the Emergency Department on date of admission, 10/11/16, complaining of severe dehydration. She has a longstanding history of functional diarrhea. The day before admission, she did have an upper endoscopy procedure and had been feeling nauseated for several days and vomited that morning. She also noted that her urine is significantly dark and she was having some dysuria. She was recently treated for a urinary tract infection on 10/02/16 with identified culture of Escherichia coli that was pansensitive and started on Macrobid. The night before admission, she reported she was having muscles that were cramping in her legs which is normally typical of her state of dehydration when it gets really bad. She was last admitted to the hospital on 03/14/16 for similar symptoms. Initial blood pressure by the EMS on arrival showed the patient to have a blood pressure of 89/60 which did improve after she was given a bolus of saline to 130/80. The patient does have a history of chronic kidney disease stage III and chemistries on admission showed that her BUN and creatinine were elevated with BUN of 74, creatinine 3.17, but her serum osmolality was 305. Her electrolytes were all within normal limits at time of admission. White count showed to be elevated at 13.1 with a left shift, hemoglobin 16.5, hematocrit 50.3. Given that the patient is having significant symptoms and is obviously dehydrated with nausea, vomiting and chronic diarrhea, the patient was admitted for further treatment and evaluation. She was admitted in stable condition. LABORATORY: Initial white count on admission was 13.1. It did go to a max of 14.0. After initiation of therapy and treatment, at time of discharge, white count had normalized to 8.2. Hemoglobin and hematocrit stabilized to 11.8 and 36.2 at time of discharge with platelet count 148,000. Differential initially did show a left shift which resolved prior to discharge. Chemistries initially showed electrolytes to be within normal limits with potassium 4.2, BUN 74, creatinine 3.17, serum osmolality 305. Calcium 10.5. Liver functions within normal limits with an elevated BNP of 180. After initiation of treatment and fluids and alkalinization of her urine, creatinine and BUN slowly responded and returned to baseline. However, she did drop her potassium and magnesium with magnesium 1.5 and potassium 2.5, BUN 55, creatinine 1.6. Alkalinization was stopped. She was started on normal saline. At time of discharge, her potassium normalized after replacement to 4.5 as well as magnesium to 2.0. At time of discharge, BUN 29, creatinine 1.02, serum osmolality 290. Urinalysis on admission showed specific gravity greater than 1.030, protein greater than 300, small amount of blood, trace leukocyte esterase. Microscopic revealed 5 to 10 RBCs, 20 to 30 WBCs, 10 to 20 epithelials, 2+ amorphus, 4+ bacteria with 1 to 3 hyaline casts. MICROBIOLOGY: Repeat urine culture at admission again demonstrated Escherichia coli, this time it was resistant to Macrobid and ESBL, but sensitive to all other antibiotics to include Bactrim, Cipro, Levaquin, first, second and third generation cephalosporin. RADIOLOGY: There are no radiographic studies completed during this admission. HOSPITAL COURSE: Ms. Olmedo was admitted on 10/11/16 as noted in history of present illness for severe dehydration and worsening kidney function along with a recurrence of urinary tract infection. She was started on IV fluids initially on the day of admission with normal saline and potassium. However, this resulted in minimal improvement. After that point on the next day, she was started on alkalinization with D5 and half with 1.5 amp bicarb at 150 mL per hour. This was continued for 24 hours. She did show good results in her repeat laboratory studies. She was started back no antibiotics that included Rocephin and her symptoms resolved prior to discharge. She showed good clinical improvement, was no longer having nausea and vomiting, continued to have diarrhea, but said that was her baseline status. Electrolytes had balanced out. She was replaced on magnesium with 2 grams of magnesium as well as p.o. potassium and IV potassium. On date of discharge, the patient was feeling much better and was felt stable to be discharged to continue with outpatient treatment plan and to followup with her primary care provider, Dr. Trejo. Dr. Ortega was consulted during this hospitalization via phone and per his recommendations, fluid management was completed and, again, she showed good clinical improvement with kidney function responding well. PLAN: The patient was discharged on 10/14/16 with instructions to continue with her previous medications as directed except for the Macrobid and if she had any left, to stop that. She was encouraged to drink plenty of fluids to prevent dehydration. She was instructed to call Dr. Trejo' office on Saturday to schedule followup in the next week to have repeat laboratory studies including BMP and repeat urinalysis. She was given an IM injection of Rocephin as she had lost her IV prior to discharge and instructed to start her antibiotics in the morning as it was Saturday and she was unable to fill the prescription. She was encouraged to increase activities as tolerated, return to her usual diet, and return to the hospital should she have any worsening or any other concerning symptoms. At discharge, she was provided new prescriptions to include: 1. Ceftin 500 mg twice daily, #16, for total of ten day course treatment including hospitalization. All other medications were continued as prior to hospitalization except for any antibiotics she was on. She was discharged in stable condition. #[id number] [facility]
== END 2016-10-14 11:20 | disposition home or self-care (01) | DRG 683 ==
LOC: ER 11:20 → MS 14:41
PROVIDERS: ADMIT Nurse Practitioner Family; ATTEND Nurse Practitioner Family
DX: N17.9 Acute kidney failure, unspecified (principal); N39.0 Urinary tract infection, site not specified; T37.8X5A Adverse effect of other specified systemic anti-infectives and antiparasitics, initial encounter; E86.0 Dehydration; E87.6 Hypokalemia; E83.42 Hypomagnesemia; B96.20 Unspecified Escherichia coli [E. coli] as the cause of diseases classified elsewhere; I25.10 Atherosclerotic heart disease of native coronary artery without angina pectoris; J44.9 Chronic obstructive pulmonary disease, unspecified; I12.9 Hypertensive chronic kidney disease with stage 1 through stage 4 chronic kidney disease, or unspecified chronic kidney disease; N18.3 Chronic kidney disease, stage 3 (moderate); K58.0 Irritable bowel syndrome with diarrhea; K21.9 Gastro-esophageal reflux disease without esophagitis; Y92.9 Unspecified place or not applicable; Z60.2 Problems related to living alone; Z88.8 Allergy status to other drugs, medicaments and biological substances; Z87.891 Personal history of nicotine dependence; Z85.43 Personal history of malignant neoplasm of ovary; Z86.73 Personal history of transient ischemic attack (TIA), and cerebral infarction without residual deficits; Z95.828 Presence of other vascular implants and grafts; Z79.899 Other long term (current) drug therapy

== ENCOUNTER → 2016-10-23 | Outpatient (CLI) | payer MEDICARE, OTHER | LOC: NC 10:12 | PROVIDERS: ATTEND Family Medicine | DX: I12.9 Hypertensive chronic kidney disease with stage 1 through stage 4 chronic kidney disease, or unspecified chronic kidney disease (principal); N18.3 Chronic kidney disease, stage 3 (moderate); F32.9 Major depressive disorder, single episode, unspecified ==

== ENCOUNTER → 2016-11-23 | Outpatient (CLI) | payer MEDICARE, MEDICAID ==
--- NOTE | 2016-11-24 07:06 | CT ---
Procedure: CT CHEST WITHOUT IV CONTRAST Exam Date: 11/23/2016 Ordering Provider: KIMBERLY DAVILA Clinical Indication: CHRONIC COUGH, ABN CXR, SMOKER Comparison: 09/20/2016 TECHNIQUE: 5 mm images were taken through the chest without intravenous contrast material. Coronal and sagittal reformatted images were generated. This exam was performed according to our departmental dose optimization program which includes use of automated exposure control, adjustment of the mA and/or kV according to patient size and/or use of iterative reconstruction technique. FINDINGS: Lines/Tubes/Devices: None Lungs and large airways: Central airways are patent. No focal lung consolidation. Advanced Emphysematous changes. Calcified granuloma in the right middle lobe. There are a few 3 mm nodules scattered throughout both lungs. There is scarring in the right middle lobe as well as the dependent lower lobes bilaterally. Pleura: No pleural effusion. No pneumothorax. Mediastinum and sadie: Prominent mediastinal lymph nodes. Calcified mediastinal lymph nodes. Heart and great vessels: Heart is not enlarged. No pericardial effusion. No aortic aneurysm. Extensive aortic and coronary artery calcifications. Chest wall, lower neck, axillae: No axillary lymphadenopathy. Unremarkable thyroid. Upper abdomen: No acute abnormalities in the visualized upper abdomen. Bones: Nonacute IMPRESSION: 1. Advanced emphysema. No focal lung consolidation. 2. There are a few 3 mm nodules scattered throughout both lungs. No lung mass. 2017 Fleischner Society Recommendations for Multiple Solid Lung Nodules Follow-Up base on size (average of long- and short-axis diameters). Use most suspicious nodule for followup. Nodule Size <6 mm Low-Risk Patient: No routine follow-up Nodule Size <6 mm High-Risk Patient: Optional CT at 12 months Electronically signed by: Kleber Rosas MD 11/24/2016 7:05 AM CDT
== END | disposition home or self-care (01) ==
LOC: CT 09:03
PROVIDERS: ATTEND Internal Medicine Gastroenterology
DX: J41.0 Simple chronic bronchitis (principal); R63.4 Abnormal weight loss; R19.7 Diarrhea, unspecified

== ENCOUNTER 2016-11-29 12:32 | Inpatient (IN) | payer MEDICARE, MEDICAID ==
--- NOTE | 2016-11-29 13:25 | CT ---
EXAM DESCRIPTION: Head CLINICAL HISTORY: 71 years, Female, fell and hit back of head COMPARISON: None. FINDINGS: Unenhanced images through the brain. Study slightly degraded by suboptimal positioning. This examination was performed according to our departmental dose optimization program, which includes automatic exposure control, adjustment of the MA and/or kV according to the patient size and/or use of iterative reconstruction technique. Mild microischemic change periventricular white matter. No definite hemorrhage or mass. Mild ethmoid sinus mucosal thickening. No depressed calvarial fracture. Large right posterior parietal subcutaneous contusion low to mid convexity. IMPRESSION: Study degraded by motion and suboptimal positioning. No definite intracranial hemorrhage or mass. Mild age-related microischemic ischemic changes. Large left posterior parietal subcutaneous contusion Electronically signed by: Murphy Miranda MD 11/29/2016 1:25 PM CDT
[2016-11-29] MEDS ORDERED: MORPHINE SULFATE INJ 10 MG/ML VIAL IV ONE (13:27)
--- NOTE | 2016-11-29 13:33 | RAD ---
EXAM DESCRIPTION: Hip,Right 2 Views CLINICAL HISTORY: fell onto back and hit head,right hip pain COMPARISON: None Available. TECHNIQUE: AP/frog leg lateral FINDINGS: The exam is obtained through backboard. An aortic stent graft is observed in place. The exam suggests a basicervical right femoral neck fracture. No pelvic fracturing is detected. IMPRESSION: The exam suggests a basicervical femoral neck fracture. The injury is difficult to find is the exam is obtained through backboard. Repeat without the backboard or CT could be considered. Electronically signed by: Rico Damon MD 11/29/2016 1:33 PM CDT
--- NOTE | 2016-11-29 13:41 | CT ---
EXAM DESCRIPTION: Cervical Spine CLINICAL HISTORY: 71 years Female, fell and hit back of head COMPARISON: None. TECHNIQUE: Transaxial images were obtained without intravenous contrast media. Sagittal and coronal reconstruction was performed.This exam was performed according to our departmental dose-optimization program, which includes automated exposure control, adjustment of the mA and/or kV according to patient size and/or use of iterative reconstruction technique. FINDINGS: Calcific atherosclerotic changes observed in both carotid arteries. No further extra spinous abnormality is seen. Lung apices are clear. Surgical clips are observed in the left side of neck. The cervical vertebral bodies are in good AP alignment. Degenerative changes are observed most pronounced at the C5-6 level. A 2 mm posterior disc osteophyte is observed at this level. It is slightly more pronounced to the left. There is mild left neural foraminal narrowing at this level. No fracturing is detected. IMPRESSION: Focal degenerative changes seen at the C5-6 level with a 2 mm posterior disc osteophyte. There is no evidence for fracture. Electronically signed by: Rico Damon MD 11/29/2016 1:40 PM CDT
[2016-11-29] MEDS ORDERED: fentaNYL CITRATE INJ 50 MCG/ML AMP IV ONE ×2 (13:46→14:10)
--- NOTE | 2016-11-29 14:34 | RAD ---
EXAM DESCRIPTION: Hip,Right 2 Views CLINICAL HISTORY: repeat x-ray without backboard per Hay hip fracture COMPARISON: None. TECHNIQUE: AP/lateral FINDINGS: The exam reveals intratrochanteric right hip fracture. The injury is essentially nondisplaced. No pelvic fracturing is observed. IMPRESSION: Nondisplaced right intratrochanteric hip fracture. Electronically signed by: Rico Damon MD 11/29/2016 2:34 PM CDT
--- NOTE | 2016-11-29 15:00 | ED.PDOC ---
History of Present Illness - General Chief Complaint: Lower Extremity Injury Stated Complaint: s/p fall,right hip pain Time Seen by Provider: 11/29/16 13:34 Source: patient, family Exam Limitations: no limitations - History of Present Illness Initial Comments: FELL AT HOME ONTO TILE FLOOR. Occurred: just prior to arrival Severity: severe Pain Location: lower extremity Method of Injury: fall Improving Factors: immobilization Worsening Factors: movement Loss of Consciousness: no loss of consciousness Associated Symptoms (Fall): trouble walking Allergies/Adverse Reactions: Allergies Ondansetron [From Zofran] Allergy (Verified 10/11/16 11:34) Home Medications: Ambulatory Orders Albuterol Sulfate Nebs [Proventil Nebs] 2.5 mg INH RTQID PRN 02/02/14 Clopidogrel Bisulfate [Plavix] 75 mg PO DAILY 02/02/14 Dicyclomine HCl [Bentyl] 10 mg PO BID 02/02/14 Levetiracetam [Keppra] 500 mg PO BID 02/02/14 Loperamide HCl [Imodium A-D] 1 - 2 ea PO DAILY PRN 02/02/14 Melatonin 10 mg PO BEDTIME 02/02/14 Olopatadine HCl [Pataday] 1 drop OP DAILY 02/02/14 Promethazine Tab [Phenergan Tablet] 25 mg PO Q4-6H PRN 02/02/14 Sertraline HCl [Zoloft] 50 mg PO BEDTIME 02/02/14 B-Complex Vitamins [B Complex] 1 cap PO DAILY 07/09/14 Trazodone HCl 50 - 100 mg PO BEDTIME 07/09/14 Loratadine 10 mg PO DAILY 10/10/15 Pantoprazole Tablet [Protonix] 40 mg PO DAILY 10/10/15 amLODIPine BESYLATE [Norvasc] 2.5 mg PO DAILY 10/10/15 Budesonide (Inhalation) [Pulmicort] 0.25 mg IN Q12H PRN 11/07/15 Potassium Chloride [K-Tab] 20 meq PO DAILY #30 tab 11/11/15 ALPRAZolam [Xanax] 1 mg PO BEDTIME 03/14/16 Cranberry (Vaccinium Macrocarp [Cranberry Extract] 250 mg PO DAILY 03/14/16 Cyclobenzaprine HCl 5 mg PO Q8H PRN 03/14/16 Ipratropium [place] 0.02 % IN BID PRN 03/14/16 Arformoterol Tartrate [Brovana] 15 mcg IN Q12H PRN 10/11/16 Nitroglycerin Patch 0.4 mg/Hr [Nitro-Dur PATCH 0.4 mg/hour] 0.4 mg TOP QD Nitroglycerin [Nitrostat] 1 ea SL [id number] PRN 10/11/16 Metoprolol Succinate [Toprol Xl] 100 mg PO .NOON AND HS 10/12/16 Colestipol HCl 1 gm PO BID 11/29/16 Tylenol #3 1 - 2 each PO QID PRN 11/29/16 Review of Systems - Review of Systems Constitutional: States: no symptoms reported EENTM: States: no symptoms reported Respiratory: States: no symptoms reported Cardiology: States: no symptoms reported Gastrointestinal/Abdominal: States: no symptoms reported Genitourinary: States: no symptoms reported Musculoskeletal: States: joint pain, muscle pain. Denies: back pain, neck pain Skin: States: lesions, lumps Neurological: States: no symptoms reported Endocrine: States: no symptoms reported Hematologic/Lymphatic: States: no symptoms reported All other Systems: Reviewed and Negative Past Medical History (General) - Patient Medical History Hx Seizures: Yes - on Keppra Hx Stroke: Yes - rt sided weakness Hx Dementia: No Hx Asthma: No Hx of COPD: Yes Hx Cardiac Disorders: Yes - stints Hx Congestive Heart Failure: No Hx Pacemaker: No Hx Hypertension: Yes Hx Thyroid Disease: No Hx Diabetes: No Hx Gastroesophageal Reflux: Yes Hx Renal Disease: Yes - ARF 2014 Hx Cancer: Yes - OVIARIAN Hx of HIV: No Hx Hepatitis C: No Hx MRSA: No Surgical History: cholecystectomy, Hysterectomy - Vaccination History Hx Tetanus, Diphtheria Vaccination: Yes Hx Influenza Vaccination: Yes Hx Pneumococcal Vaccination: Yes - Social History Hx Tobacco Use: Yes Hx Chewing Tobacco Use: No Hx Alcohol Use: No Hx Substance Use: No Hx Substance Use Treatment: No Hx Depression: No Hx Physical Abuse: No Hx Emotional Abuse: No Hx Suspected Abuse: No - Female History Patient : No Family Medical History - Family History Brother Family History: Unknown Living Status: Hx Family Asthma: No Hx Family Congestive Heart Failure: No Hx Family Hypertension: Yes Hx Family Stroke: No Hx Cardiac Disease: No Hx Family Diabetes: No Hx Family Cancer: No Hx Family;Other: liver/ etoh abuse Mother Family History: Unknown Living Status: Hx Family Asthma: No Hx Family Congestive Heart Failure: No Hx Family Hypertension: Yes Hx Family Stroke: No Hx Cardiac Disease: No Hx Family Diabetes: No Hx Family Cancer: Yes Hx Family;Other: copd Physical Exam - Physical Exam General Appearance: Alert, Obvious distress Head Injury: swelling, tenderness, other - R SUBQ OCCIPITAL SCALP HEMATOMA 6X6 CM. DRIED BLOOD BUT NO ACTIVE HEMORRHAGE AND NO LAC NEEDING REPAIR. Eye Exam: bilateral normal ENT Exam: hearing grossly normal, no dental injury Neck Exam: non-tender, full range of motion Cardiovascular/Respiratory: regular rate, rhythm, no M/R/G, normal breath sounds , no respiratory distress Gastrointestinal/Abdominal: normal bowel sounds, non tender Back Exam: normal inspection, no vertebral tenderness Extremity Exam: pelvis stable, bony-point tenderness, pain with movement - R THIGH, unable to bear weight Neurologic: manager adult II-XII nml as tested, alert, oriented x 3 Skin Exam: other - L FOREARM SKIN TEAR. HEMATOMA PER HEAD EXAM. Progress - Results/Orders Results/Orders: HEAD AND NECK CT NEG FOR ACUTE CHANGES (OTHER THAN SUPERFICIAL SCALP HEMATOMA). R HIP XRAY AND CT = R NONDISPLACED INTERTROCHANTERIC HIP FRX. I SPOKE WITH DR. CORREA, ORTHO. HE WOULD LIKE THE PT ADMITTED HERE FOR SURGERY. I SPOKE WITH JEISON, HOSPITALIST INDUSTRIAL ECONOMIST, WHO ACCEPTED ADMISSION OF THE PT. THANK YOU BOTH VERY MUCH. Departure - Departure Clinical Impression: Intertrochanteric fracture of right hip, Acute right hip pain, Skin tear of left forearm without complication, Subcutaneous hematoma Disposition: Admit Patient Condition: Serious Departure Forms: ED Discharge - Pt. Copy, Patient Portal Self Enrollment Diet: other - NPO Activity: other - NON-WEIGHT BEARING ON RLE. Home Medications: Ambulatory Orders Albuterol Sulfate Nebs [Proventil Nebs] 2.5 mg INH RTQID PRN 02/02/14 Clopidogrel Bisulfate [Plavix] 75 mg PO DAILY 02/02/14 Dicyclomine HCl [Bentyl] 10 mg PO BID 02/02/14 Levetiracetam [Keppra] 500 mg PO BID 02/02/14 Loperamide HCl [Imodium A-D] 1 - 2 ea PO DAILY PRN 02/02/14 Melatonin 10 mg PO BEDTIME 02/02/14 Olopatadine HCl [Pataday] 1 drop OP DAILY 02/02/14 Promethazine Tab [Phenergan Tablet] 25 mg PO Q4-6H PRN 02/02/14 Sertraline HCl [Zoloft] 50 mg PO BEDTIME 02/02/14 B-Complex Vitamins [B Complex] 1 cap PO DAILY 07/09/14 Trazodone HCl 50 - 100 mg PO BEDTIME 07/09/14 Loratadine 10 mg PO DAILY 10/10/15 Pantoprazole Tablet [Protonix] 40 mg PO DAILY 10/10/15 amLODIPine BESYLATE [Norvasc] 2.5 mg PO DAILY 10/10/15 Budesonide (Inhalation) [Pulmicort] 0.25 mg IN Q12H PRN 11/07/15 Potassium Chloride [K-Tab] 20 meq PO DAILY #30 tab 11/11/15 ALPRAZolam [Xanax] 1 mg PO BEDTIME 03/14/16 Cranberry (Vaccinium Macrocarp [Cranberry Extract] 250 mg PO DAILY 03/14/16 Cyclobenzaprine HCl 5 mg PO Q8H PRN 03/14/16 Ipratropium [place] 0.02 % IN BID PRN 03/14/16 Arformoterol Tartrate [Brovana] 15 mcg IN Q12H PRN 10/11/16 Nitroglycerin Patch 0.4 mg/Hr [Nitro-Dur PATCH 0.4 mg/hour] 0.4 mg TOP QD Nitroglycerin [Nitrostat] 1 ea SL [id number] PRN 10/11/16 Metoprolol Succinate [Toprol Xl] 100 mg PO .NOON AND HS 10/12/16 Colestipol HCl 1 gm PO BID 11/29/16 Tylenol #3 1 - 2 each PO QID PRN 11/29/16 Decision To Admit - Decistion To Admit Decision to Admit Reason: Accidental Injury
[2016-11-29] MEDS ORDERED: HYDROmorphone HCL INJ 2 MG/ML VIAL IV ONE (15:07)
--- NOTE | 2016-11-29 15:15 | CT ---
EXAM DESCRIPTION: Lower Extremity CLINICAL HISTORY: hip fx. per Dr Dillon COMPARISON: None. TECHNIQUE: CT of the right hip was performed . Multiple axial images and multiplanar reconstructions were generated. This exam was performed according to our department minimal dose optimization program which includes automated exposure control, adjustment of mA and/or kV according to patient size and/or use of iterative reconstructed techniques. FINDINGS: There is a nearly nondisplaced intertrochanteric fracture of the proximal right femur. There is no varus or valgus abnormality. The femoral head is unremarkable. There is no evidence of an acetabular fracture on today's study. Atherosclerotic disease noted within the femoral vessels. IMPRESSION: 1. Nondisplaced intertrochanteric fracture of the proximal right femur. No evidence of acetabular fracture on today's study. 2. No evidence of degenerative change of the right hip. Electronically signed by: Lance Kuo MD 11/29/2016 3:14 PM CDT
--- NOTE | 2016-11-29 15:29 | HP ---
SUPERVISING PHYSICIAN: Mikhail Trejo MD CHIEF COMPLAINT: Traumatic fall with injury to right hip. HISTORY OF PRESENT ILLNESS: This is a 71-year-old female patient who lives with her daughter. She has been in her usual state of health. She got up this evening and fell. She hit the back of her head as well as her right elbow and right hip. There was no loss of consciousness. After her fall, she had a difficult time getting up and was brought to the Emergency Room. In the Emergency Room, her head CT per radiologic interpretation showed no definite intracranial hemorrhage or mass with mild age-related micro-ischemic changes and a large left posterior subcutaneous contusion. Her cervical spine CT per radiologic interpretation showed focal degenerative changes at C5-C6 level with a 2 mm posterior disc osteophyte, but no evidence for fracture. Her right hip x -ray per radiologic interpretation showed a nondisplaced right intertrochanteric hip fracture. The lower extremity CT per radiologic interpretation showed a nondisplaced intertrochanteric fracture of the proximal right femur with no evidence of an acetabular fracture and no evidence for degenerative change of the right hip. Dr. Dillon was contacted and he agreed to surgical intervention tomorrow. I was called for admission to the Floor. PAST MEDICAL HISTORY: 1. Congestive heart failure of unknown etiology. 2. Hypertension. 3. Chronic obstructive pulmonary disease. 4. Hiatal hernia. 5. History of C. difficile. 6. Acute renal failure due to GIBSON inhibitors and ARBs. 7. Uterine cancer. 8. Osteoarthritis. 9. Esophageal reflux. PAST SURGICAL HISTORY: 1. Cholecystectomy. 2. Hysterectomy. 3. Removal of a tumor on the back. 4. Removal of a labial carcinoma. 5. Ovarian cyst removal. 6. Carotid stents. OUTPATIENT MEDICATIONS: Per the EMR and awaiting verification. ALLERGIES: ZOFRAN, ADVERSE REACTIONS TO GIBSON INHIBITORS AND ARBs DUE TO RENAL FAILURE. SOCIAL HISTORY: She is retired. She is . She has five children. She lives with her daughter. She has a past history of cigarette smoking, but quit in 2013. She denies any ETOH or illicit drug use. REVIEW OF SYSTEMS: Negative except for as per history of present illness. PHYSICAL EXAMINATION: VITAL SIGNS: Temperature 100.2. Pulse 69. Blood pressure 147/53. Respiratory rate 22. Oxygen saturation 94% GENERAL: This is a 71-year-old, thin female who is lying in her hospital bed. She looks to be in mild pain. HEENT: Normocephalic. There is a hematoma to the left occipital region of her head with a small laceration to it that is oozing blood. There is a 4x4 [address]. Pupils are equal and reactive. Oropharynx is dry. NECK: Supple without mass. RESPIRATORY: Somewhat diminished at the bases with hyper-resonant breath sounds. CARDIOVASCULAR: Regular rate and rhythm. ABDOMEN: Soft, nondistended, nontender. Bowel sounds are positive. EXTREMITIES: No cyanosis, clubbing or edema to the lower extremities. There is some pain with palpation to the right lateral thigh. She has a dressing to her right elbow that has a small amount of dried blood on it. NEUROLOGIC: Alert and oriented times three. LABORATORY: WBC 11.8, hemoglobin 13.1, hematocrit 40.1, platelet count 240. PT 11.3, INR 1, PT-T 29.1. Sodium 142, potassium 2.9, chloride 105, carbon dioxide 31, anion gap 8.9, BUN 31, creatinine 1.19, glucose 122. All other labs and films have been reviewed via the EMR. ASSESSMENT: 1. Right intertrochanteric fracture of the proximal right femur, anticipating surgical intervention tomorrow by Dr. Ted Dillon, orthopedic surgeon. 2. Hypokalemia. 3. Dehydration. 4. History of acute renal failure. 5. Laceration to the occipital region of the patient's head due to traumatic fall without loss of consciousness. 6. History of Clostridium difficile. 7. Chronic obstructive pulmonary disease. 8. Hypertension. 9. Congestive heart failure. PLAN: We will admit the patient to the hospital. We place her NPO at midnight. I have given her morphine for pain. I have initiated Dr. Dillon's preoperative orders for right gamma nail. I will hold off on starting her home medications until after surgery tomorrow. I will give her some oral and IV potassium replacement. I will repeat her potassium in the morning. I will also do an elbow x-ray in the morning. Meanwhile, we will continue to monitor the patient closely and follow as needed. I have consulted Dr. Dillon who is aware of the patient's admission. Dr. Trejo is the collaborating physician and available for consultation. #[id number] [facility]
[2016-11-29] MEDS ORDERED: LACTATED RINGERS 1,000 ML IVS PRN (16:42)
[2016-11-29] MEDS ORDERED: SODIUM CHLORIDE 0.9% (FLUSH) 10 ML SYG IV PRN (17:11)
[2016-11-29] MEDS: SODIUM CHLORIDE 0.9% 1000ML 1,000 ML IVS PRN (17:13)
[2016-11-29] MEDS ORDERED: PROCHLORPERAZINE INJ 10 MG/2 ML VIAL IV PRN (17:16)
[2016-11-29] MEDS: MORPHINE SULFATE INJ 10 MG/ML VIAL IV PRN ×3 (17:19→22:51)
[2016-11-29] MEDS: IV SET AND CAP CHANGE INJ INJ SCH (17:20)
[2016-11-29] MEDS ORDERED: IV SET AND CAP CHANGE INJ INJ SCH (17:30)
[2016-11-29] MEDS: PANTOPRAZOLE SODIUM IV 40 MG VIAL IV SCH (20:15)
[2016-11-29] MEDS ORDERED: POTASSIUM CHLORIDE 20 MEQ TAB PO ONE (22:37)
[2016-11-29] MEDS ORDERED: KCL 20MEQ/WATER FOR INJ 100ML 20 MEQ in PREMIX BAG 1 BAG IVPB ONE (22:37)
[2016-11-29] MEDS ORDERED: NON-FORMULARY MEDICATION 1 EA MIS (Arformoterol Tartrate [Brovana] 15 MCG) IN SCH (22:45)
[2016-11-29] MEDS ORDERED: KCL 20MEQ/WATER FOR INJ 100ML 100 ML IVPB ONE (23:09)
[2016-11-30] MEDS: MORPHINE SULFATE INJ 10 MG/ML VIAL IV PRN ×4 (02:11→20:44)
[2016-11-30] MEDS: SODIUM CHLORIDE 0.9% 1000ML 1,000 ML IVS PRN ×2 (04:31→15:10)
[2016-11-30] MEDS ORDERED: SODIUM CHL 0.9% 50ML MIN-BAG+ 50 ML IVPB ONE (05:30)
[2016-11-30] MEDS ORDERED: SODIUM CHLORIDE 0.9% 250ML 250 ML ONE ×2 (05:30→19:40)
[2016-11-30] MEDS ORDERED: ceFAZolin SODIUM 1 GM VIAL ONE ×2 (05:30→07:58)
[2016-11-30] MEDS ORDERED: VANCOMYCIN HCL INJ 1,000 MG VIAL IVPB ONE ×3 (05:30→19:42)
[2016-11-30] MEDS ORDERED: VANCOMYCIN HCL INJ 1,000 MG in SODIUM CHLORIDE 0.9% 250ML 250 ML IVPB ONE (06:00)
[2016-11-30] MEDS ORDERED: ceFAZolin SODIUM 1 GM in SODIUM CHL 0.9% 50ML MIN-BAG+ 50 ML IVPB ONE (06:00)
[2016-11-30] MEDS ORDERED: DEXAMETHASONE INJ 10 MG/ML VIAL ONE (07:00)
[2016-11-30] MEDS ORDERED: PROPOFOL 200 MG/20 ML VIAL IV ONE (07:00)
[2016-11-30] MEDS ORDERED: raNITIdine HCL INJ 25 MG/ML VIAL ONE (07:00)
[2016-11-30] MEDS ORDERED: LIDOCAINE 1% 10 ML VIAL INJ ONE (07:00)
[2016-11-30] MEDS ORDERED: ePHEDrine SULF 50 MG/ML ONE (07:00)
--- NOTE | 2016-11-30 07:34 | RAD ---
Procedure: XR CHEST 1 VIEW Exam Date: 11/30/2016 Ordering Provider: JEISON KRAUSE Clinical Indication: Pre-Op Comparison: 03/14/2016 Findings: Battery pack projects over the right lower chest wall. Cardiac silhouette: Magnified by technique Pulmonary vasculature : Unremarkable Mediastinal contour: Unremarkable Aortic contour: Aortic calcification. Focal lung consolidation: None. Bibasilar scarring. Evidence of prior granulomatous disease. Emphysema. Pleural effusion: No large pleural effusions. Pneumothorax: None Acute bony or soft tissue abnormality: None Impression: 1. No acute abnormalities in the chest. Electronically signed by: Kleber Rosas MD 11/30/2016 7:33 AM CDT
--- NOTE | 2016-11-30 07:34 | RAD ---
Right elbow two views INDICATION: Elbow pain status post trauma IMPRESSION: Small IV catheter is noted. No evidence of acute fracture or dislocation. Bones are osteopenic. Electronically signed by: Madhu Upton MD 11/30/2016 7:33 AM CDT
[2016-11-30] MEDS ORDERED: VANCOMYCIN HCL INJ 1,000 MG in SODIUM CHLORIDE 0.9% 250ML 250 ML IVPB SCH (08:30)
[2016-11-30] MEDS ORDERED: ENOXAPARIN SODIUM 30 MG/0.3 ML SYG SUBCU SCH (08:30)
[2016-11-30] MEDS ORDERED: fentaNYL CITRATE INJ 50 MCG/ML AMP ONE (08:40)
[2016-11-30] MEDS ORDERED: CARBOXYMETHYLCELLULOSE 0.5% 0.4 ML UD ONE (08:40)
[2016-11-30] MEDS ORDERED: ELECTROLYTE-A 1,000 ML IVS ONE (08:40)
[2016-11-30] MEDS ORDERED: MIDAZOLAM INJ 5 MG/5 ML VIAL ONE (08:44)
[2016-11-30] MEDS ORDERED: BUPIVACAINE 0.25% INJ 30 ML VIAL INJ ONE (09:19)
[2016-11-30] MEDS ORDERED: MORPHINE SULFATE INJ 10 MG/ML VIAL ONE (10:52)
[2016-11-30] MEDS: NON-FORMULARY MEDICATION 1 EA MIS (Arformoterol Tartrate [Brovana] 15 MCG) INH SCH ×3 (11:08→20:12)
--- NOTE | 2016-11-30 11:09 | RAD ---
EXAM DESCRIPTION: Hip,Right 2 Views CLINICAL HISTORY: post op nailing COMPARISON: 29 Nov 2016 TECHNIQUE: 2 views FINDINGS: A gamma nail is seen to traverse a intratrochanteric fracture of the right hip the fracture is reduced to near-anatomic alignment. Postoperative air is observed laterally. IMPRESSION: Gamma nail fixation of the right intratrochanteric hip fracture Electronically signed by: Rico Damon MD 11/30/2016 11:09 AM CDT
[2016-11-30] MEDS ORDERED: METOPROLOL SUCCINATE XL 100 MG TAB PO SCH (15:00)
[2016-11-30] MEDS ORDERED: POTASSIUM CHLORIDE 20 MEQ TAB PO ONE (15:37)
[2016-11-30] MEDS: BUDESONIDE NEBS 0.5 MG/2 ML VIAL NEB SCH ×2 (16:20→20:13)
--- NOTE | 2016-11-30 16:24 | PN ---
DATE: 11/30/16 SUPERVISING PHYSICIAN: Jayden Ferrera M.D. SUBJECTIVE: The patient is sitting up in her hospital bed. She is eating Jello. I am seeing her postoperatively after a gamma nail to the right hip per Dr. Dillon. She denies any shortness of breath, nausea or vomiting, chest pain, but she does complain that the back of her head is hurting where the hematoma from her fall yesterday. OBJECTIVE: VITAL SIGNS: Temperature 99.3, pulse 92, blood pressure 136/58, respirations 18, O2 sat 97%. HEENT: Large occipital scalp hematoma with dried blood but no active bleeding at this time. Very tender to palpation. RESPIRATORY: Clear to auscultation bilaterally. Slightly diminished at the bases. CARDIAC: Regular rate and rhythm. ABDOMEN: Soft, nondistended, non- tender. Bowel sounds are positive. EXTREMITIES: She has a dressing to her right lateral hip that is dry and intact. Her lower extremities are warm and dry. Bilateral pedal pulses are palpable at +2. NEUROLOGIC: She is awake, alert and oriented times three. LABORATORY: Sodium 140, potassium 3.2, chloride 108, carbon dioxide 27, BUN 25 , creatinine 1.06, glucose 117. Right elbow x-ray shows no evidence of acute fracture or dislocation. All labs and films have been reviewed via the EMR. ASSESSMENT: 1. Right intertrochanteric fracture of the proximal right femur with surgical repair today with a gamma nail per Dr. Ted Dillon, orthopedic surgeon. 2. Hypokalemia, slightly improved. 3. Dehydration. 4. History of acute renal failure. 5. Laceration to the occipital region of the patient's head due to traumatic fall without loss of consciousness. 6. History of Clostridium difficile. 7. Chronic obstructive pulmonary disease. 8. Hypertension. 9. Congestive heart failure. PLAN: We will continue present supportive care. I will get her home medications restarted. I will recheck her labs in the morning. I will also give her some oral potassium. Will defer orthopedic issues to Dr. Dillon and orthopedic services. She will start her physical therapy tomorrow. Otherwise, we will continue to monitor the patient closely and followup as needed. Dr. Ferrera is the collaborating physician and available for consultation. #[id number] [facility]
[2016-11-30] MEDS: PANTOPRAZOLE SODIUM IV 40 MG VIAL IV SCH (18:00)
[2016-11-30] MEDS ORDERED: DICYCLOMINE HCL 20 MG TAB ONE (19:40)
[2016-11-30] MEDS ORDERED: COLESTIPOL HCL 1 GM TAB PO ONE (19:40)
[2016-11-30] MEDS ORDERED: levETIRAcetam 250 MG TAB ONE (19:40)
[2016-11-30] MEDS ORDERED: MELATONIN 3 MG TAB ONE (19:41)
[2016-11-30] MEDS ORDERED: traZODone HCL 100 MG TAB PO ONE (19:41)
[2016-11-30] MEDS ORDERED: SERTRALINE HCL 50 MG TAB ONE (19:41)
[2016-11-30] MEDS ORDERED: ENOXAPARIN SODIUM 30 MG/0.3 ML SYG SUBCU ONE (19:41)
[2016-11-30] MEDS ORDERED: ALPRAZolam 0.5 MG TAB ONE (19:42)
[2016-11-30] MEDS: VANCOMYCIN HCL INJ 1,000 MG in SODIUM CHLORIDE 0.9% 250ML 250 ML IVPB SCH (20:04)
[2016-11-30] MEDS: SODIUM CHLORIDE 0.9% (FLUSH) 10 ML SYG IV PRN ×2 (20:05→20:44)
[2016-11-30] MEDS: REMOVE OLD PATCH TOP SCH (20:45)
[2016-11-30] MEDS: DICYCLOMINE HCL 20 MG TAB PO SCH (20:51)
[2016-11-30] MEDS: levETIRAcetam 250 MG TAB PO SCH (20:52)
[2016-11-30] MEDS: ALPRAZolam 0.5 MG TAB PO SCH (20:54)
[2016-11-30] MEDS: MELATONIN 3 MG TAB PO SCH (20:54)
[2016-11-30] MEDS: SERTRALINE HCL 50 MG TAB PO SCH (20:54)
[2016-11-30] MEDS: traZODone HCL 50 MG TAB PO SCH (20:55)
[2016-11-30] MEDS: COLESTIPOL HCL 1 GM TAB PO SCH ×2 (20:55→20:57)
[2016-11-30] MEDS ORDERED: traZODone HCL 50 MG TAB PO SCH (21:00)
[2016-11-30] MEDS: ENOXAPARIN SODIUM 30 MG/0.3 ML SYG SUBCU SCH (22:30)
[2016-12-01] MEDS: MORPHINE SULFATE INJ 10 MG/ML VIAL IV PRN ×3 (05:41→20:37)
[2016-12-01] MEDS: SODIUM CHLORIDE 0.9% (FLUSH) 10 ML SYG IV PRN (05:41)
[2016-12-01] MEDS: METOPROLOL TARTRATE 50 MG TAB PO SCH ×3 (06:34→17:16)
[2016-12-01] MEDS ORDERED: LORATADINE 10 MG TAB PO ONE (07:59)
[2016-12-01] MEDS: NON-FORMULARY MEDICATION 1 EA MIS (Arformoterol Tartrate [Brovana] 15 MCG) INH SCH ×2 (08:00→20:45)
[2016-12-01] MEDS ORDERED: amLODIPine BESYLATE 5 MG TAB ONE (08:00)
[2016-12-01] MEDS ORDERED: SODIUM CHLORIDE 0.9% 250ML 250 ML ONE (08:00)
[2016-12-01] MEDS ORDERED: VANCOMYCIN HCL INJ 1,000 MG VIAL IVPB ONE (08:01)
[2016-12-01] MEDS ORDERED: NITROGLYCERIN 0.4 MG/HR PATCH TOP ONE (08:01)
[2016-12-01] MEDS: BUDESONIDE NEBS 0.5 MG/2 ML VIAL NEB SCH ×2 (08:10→21:00)
[2016-12-01] MEDS: POTASSIUM CHLORIDE 20 MEQ TAB PO SCH (08:30)
[2016-12-01] MEDS ORDERED: POTASSIUM CHLORIDE 20 MEQ TAB PO ONE (08:34)
[2016-12-01] MEDS: VANCOMYCIN HCL INJ 1,000 MG in SODIUM CHLORIDE 0.9% 250ML 250 ML IVPB SCH (08:39)
[2016-12-01] MEDS: levETIRAcetam 250 MG TAB PO SCH ×2 (08:40→20:38)
[2016-12-01] MEDS: NITROGLYCERIN 0.4 MG/HR PATCH TOP SCH (08:40)
[2016-12-01] MEDS: LORATADINE 10 MG TAB PO SCH (08:41)
[2016-12-01] MEDS: amLODIPine BESYLATE 5 MG TAB PO SCH (08:41)
[2016-12-01] MEDS: COLESTIPOL HCL 1 GM TAB PO SCH ×2 (08:41→21:40)
[2016-12-01] MEDS: DICYCLOMINE HCL 20 MG TAB PO SCH ×2 (08:41→20:39)
[2016-12-01] MEDS: SODIUM CHLORIDE 0.9% (FLUSH) 10 ML SYG IV SCH ×2 (09:13→20:37)
[2016-12-01] MEDS: OLOPATADINE HCL OP SCH (10:44)
[2016-12-01] MEDS: ENOXAPARIN SODIUM 30 MG/0.3 ML SYG SUBCU SCH ×2 (10:44→22:00)
--- NOTE | 2016-12-01 12:07 | PN ---
DATE: 12/01/16 SUPERVISING PHYSICIAN: Jayedn Ferrera M.D. SUBJECTIVE: The patient is sitting up in bed. She is talking to her family members. She has no complaints of nausea or vomiting, shortness of breath or diarrhea. She does state she is a little bit weak but she is looking forward to getting out of bed today. OBJECTIVE: VITAL SIGNS: She is afebrile, heart rate 81, blood pressure 157/79, respiratory rate 18, O2 sat is 97% on 2 liters nasal cannula. RESPIRATORY: Clear to auscultation bilaterally. CARDIAC: Regular rate and rhythm. ABDOMEN: Soft, nondistended, non-tender. Bowel sounds are positive. EXTREMITIES: She has a dressing to her right lateral hip that is dry and intact. Her lower extremities are warm and dry. Pedal pulses are palpable bilaterally at +2. NEUROLOGIC: She is awake, alert and oriented times three. LABORATORY: White count has normalized at 10.4, hemoglobin 11, hematocrit 33.8. Potassium is slightly low at 3.4. BUN and creatinine have improved to 21 and 0.89. Chest x-ray per radiology interpretation shows no acute abnormalities of the chest. All other labs and films have been reviewed via the EMR. ASSESSMENT: 1. Right intertrochanteric fracture of the proximal right femur with surgical repair on 11/30/[address] Ted Dillon, orthopedic surgeon. Today is postoperative day number 1. 2. Hypokalemia that is improving. 3. Dehydration. 4. History of acute renal failure. 5. Laceration to the occipital region of the patient's head due to a traumatic fall without loss of consciousness. 6. History of Clostridium Difficile. 7. Chronic obstructive pulmonary disease. 8. Hypertension. 9. Congestive heart failure of unknown etiology. PLAN: We will continue present supportive care. Physical Therapy has evaluated her. Initially she required maximum assistance. They will work with her again this afternoon. We may consider Swing Bed at some point for strengthening and conditioning, but otherwise we will continue with physical therapy for strengthening and conditioning. Will defer to Orthopedics for anything to do with her hip. Otherwise we will monitor her closely. Encourage good pulmonary hygiene. I have given her an extra dose of potassium today and will recheck her potassium in the morning. Monitor her closely and followup as needed. Dr. Ferrera is the collaborating physician and available for consultation. #[id number] [facility]
[2016-12-01] MEDS: PANTOPRAZOLE SODIUM IV 40 MG VIAL IV SCH ×2 (17:16→17:40)
[2016-12-01] MEDS ORDERED: PANTOPRAZOLE SODIUM TAB 40 MG PO ONE (18:14)
[2016-12-01] MEDS: PANTOPRAZOLE SODIUM TAB 40 MG PO SCH (18:30)
[2016-12-01] MEDS: REMOVE OLD PATCH TOP SCH (20:37)
[2016-12-01] MEDS: traZODone HCL 50 MG TAB PO SCH (20:38)
[2016-12-01] MEDS: SERTRALINE HCL 50 MG TAB PO SCH (20:39)
[2016-12-01] MEDS: MELATONIN 3 MG TAB PO SCH (20:39)
[2016-12-01] MEDS: ALPRAZolam 0.5 MG TAB PO SCH (20:41)
[2016-12-02] MEDS: NON-FORMULARY MEDICATION 1 EA MIS (Arformoterol Tartrate [Brovana] 15 MCG) INH SCH ×2 (07:35→20:35)
[2016-12-02] MEDS: BUDESONIDE NEBS 0.5 MG/2 ML VIAL NEB SCH ×2 (07:35→20:45)
[2016-12-02] MEDS: METOPROLOL TARTRATE 50 MG TAB PO SCH ×2 (08:05→16:52)
[2016-12-02] MEDS: POTASSIUM CHLORIDE 20 MEQ TAB PO SCH (08:06)
[2016-12-02] MEDS: DICYCLOMINE HCL 20 MG TAB PO SCH ×2 (08:28→21:25)
[2016-12-02] MEDS: COLESTIPOL HCL 1 GM TAB PO SCH ×2 (08:28→21:48)
[2016-12-02] MEDS: amLODIPine BESYLATE 5 MG TAB PO SCH (08:28)
[2016-12-02] MEDS: OLOPATADINE HCL OP SCH (08:28)
[2016-12-02] MEDS: NITROGLYCERIN 0.4 MG/HR PATCH TOP SCH (08:28)
[2016-12-02] MEDS: LORATADINE 10 MG TAB PO SCH (08:28)
[2016-12-02] MEDS: levETIRAcetam 250 MG TAB PO SCH ×2 (08:28→21:25)
[2016-12-02] MEDS: SODIUM CHLORIDE 0.9% (FLUSH) 10 ML SYG IV SCH ×2 (08:29→21:25)
[2016-12-02] MEDS ORDERED: POTASSIUM CHLORIDE 20 MEQ TAB PO ONE (10:23)
[2016-12-02] MEDS ORDERED: NITROGLYCERIN 0.4 MG/HR PATCH TOP SCH (10:30)
--- NOTE | 2016-12-02 12:09 | CT ---
EXAMINATION: CT BRAIN WITHOUT CONTRAST 12/02/2016 10:34 AM CDT INDICATION: MAIN TECHNIQUE: Axial images of the brain were performed without administration of contrast. Sagittal and coronal reconstructions were also performed. COMPARISON: CT chest 10/02/2015, 11/29/2016 Total radiation dose: DLP 773.97 mGy FINDINGS: There is no evidence of intra or extra-axial hemorrhage. Periventricular hypodensities.. No definite acute infarct The ventricles are within normal limits. There is no midline shift or hydrocephalus. The orbits are intact. The sinuses and mastoid air cells are unremarkable. Soft tissues are unremarkable. Osseous structures are unremarkable. IMPRESSION: No acute brain abnormality. Periventricular microangiopathic disease appears stable. Electronically signed by: Aaron Cyr MD 12/02/2016 12:08 PM CDT
[2016-12-02] MEDS: ENOXAPARIN SODIUM 30 MG/0.3 ML SYG SUBCU SCH ×2 (12:39→22:30)
--- NOTE | 2016-12-02 15:53 | PN ---
DATE: 12/02/16 SUPERVISING PHYSICIAN: Jayden Ferrera M.D. SUBJECTIVE: The patient is lying in bed. She does communicate openly but just complains of hurting all over and being very weak. It was reported that she had a very difficult time even pushing up to stand on her feet. Physical Therapy had not been by when I went to see her, but the nursing staff said that she needed full assist with any kind of transferring, although they reported that she did not seem short of breath. She was not quite as alert mentally as she has been in the past. She only received 1 dose of morphine this morning. The patient denies nausea, vomiting or headache, but she does complain of weakness with her legs as well as the back of her head hurts where she has the hematoma. OBJECTIVE: VITAL SIGNS: She is afebrile, heart rate 78, blood pressure 148/66, respiratory rate 20, O2 sat is 98%. HEENT: Her eyes have a difficult time focusing, although she can after of giving her instructions to do so, they seem to gravitate down and to the right but her pupils are equal and reactive. RESPIRATORY: Essentially clear to auscultation bilaterally. She is quite diminished at the bases. CARDIAC: Regular rate and rhythm. ABDOMEN: Soft, nondistended, non-tender. Bowel sounds are positive. EXTREMITIES: The dressing to her right lateral hip is dry and intact. Bilateral pedal pulses are palpable at +1. NEUROLOGIC: She is slightly more lethargic today than yesterday, but she answers questions appropriately and she is oriented times three. LABORATORY: A blood gas was performed and her PCO2 was 42, PO2 was 72, bicarb 23.9, O2 sat is 96. Potassium 3.4, BUN 21, glucose 107. A head CT was done this morning and per radiology interpretation shows no acute brain abnormality and periventricular microangiopathic disease appears stable. All other labs and films have been reviewed via the EMR. ASSESSMENT: 1. Right intertrochanteric fracture of the proximal right femur with surgical repair on 11/30/[address] Ted Dillon, orthopedic surgeon. Today is postoperative day number 2. 2. Change in mental status with a negative head CT that most likely is due to weakness as well as some concussion syndrome. 3. Concussion syndrome related to a traumatic fall without loss of consciousness and a laceration and hematoma to the patient's occipital region. 4. Hypokalemia that continues in spite of supplementation. 5. History of acute renal failure with normal creatinine at this time. 6. History of Clostridium Difficile. 7. Chronic obstructive pulmonary disease. 8. Hypertension. 9. Congestive heart failure of unknown etiology. PLAN: We will continue present supportive care. I am not sure why she is having mental status changes. Her head CT was within normal limits and she does answer questions appropriately. She just may be very weak and her symptoms may be due to a concussive syndrome as well as having surgery and she has poor lung compliance. Hopefully tomorrow when Physical Therapy can be a little bit more aggressive with her we can see what her strength is. Her strengthening and conditioning may just take somewhat longer and she will most likely have to have some sort of rehabilitation at some point. I will check her labs in the morning. We will continue to monitor her closely and followup as needed. Dr. Ferrera is the collaborating physician and available for consultation. #[id number] [facility]
[2016-12-02] MEDS: PANTOPRAZOLE SODIUM TAB 40 MG PO SCH (16:52)
[2016-12-02] MEDS: HYDROcodone 5MG/APAP 325MG 1 EA TAB PO PRN ×2 (16:52→21:47)
[2016-12-02] MEDS: ALPRAZolam 0.5 MG TAB PO SCH (21:25)
[2016-12-02] MEDS: REMOVE OLD PATCH TOP SCH (21:25)
[2016-12-02] MEDS: MELATONIN 3 MG TAB PO SCH (21:25)
[2016-12-02] MEDS: traZODone HCL 50 MG TAB PO SCH (21:25)
[2016-12-02] MEDS: IV SET AND CAP CHANGE INJ INJ SCH (21:25)
[2016-12-02] MEDS: SERTRALINE HCL 50 MG TAB PO SCH (21:25)
[2016-12-03] MEDS: PANTOPRAZOLE SODIUM TAB 40 MG PO SCH ×2 (06:14→17:13)
[2016-12-03] MEDS ORDERED: METOPROLOL TARTRATE 50 MG TAB PO SCH (07:30)
[2016-12-03] MEDS: POTASSIUM CHLORIDE 20 MEQ TAB PO SCH ×2 (08:04→17:12)
[2016-12-03] MEDS: METOPROLOL TARTRATE 50 MG TAB PO SCH ×2 (08:04→17:12)
--- NOTE | 2016-12-03 08:17 | PN ---
DATE: 12/03/16 SUBJECTIVE: Ms. Olmedo is doing pretty well and is resting right now. She has no significant pain at this point. OBJECTIVE: Afebrile. Vital signs stable. Wounds are clean. There are no signs or symptoms of infection. ASSESSMENT: Status post intertrochanteric fracture. PLAN: The plan at this point is for her to continue with physical therapy. We will transition her to Swing Bed when she is a candidate. [facility][id number] [facility]
--- NOTE | 2016-12-03 08:19 | PN ---
DATE: 12/01/16 SUBJECTIVE: Ms. Olmedo is doing well. She is sitting up eating breakfast and not having any significant pain. OBJECTIVE: Afebrile. Vital signs stable. Dressings are clean, dry and intact. ASSESSMENT: Status post gamma nail. PLAN: The plan at this point is for her continue with physical therapy. #[id number] [facility]
--- NOTE | 2016-12-03 08:29 | OP ---
DATE OF PROCEDURE: 11/30/16 PREOPERATIVE DIAGNOSIS: 1. Right intertrochanteric hip fracture. POSTOPERATIVE DIAGNOSIS: 1. Right intertrochanteric hip fracture. PROCEDURE: 1. Right Gamma nail. SURGEON: Ted Dillon MD. RIVET TOSSER: Shant Shipman CST, SA-C. ANESTHESIA: General anesthesia. COMPLICATIONS: None. FINDINGS: Intertrochanteric fracture of the right hip. INDICATION: Ms. Olmedo has a history of a fall with subsequent acute onset of hip pain. Ms. Olmedo was brought to the Emergency Room and x-rays revealed a fracture of the intertrochanteric region. She was admitted and I was consulted. After discussing the risks, benefits and alternatives to operative therapy with she and her family, informed consent was obtained. PROCEDURE: The patient was brought to the Operating Room and placed in the supine position. General anesthesia was administered and the patient was placed on the fracture table. The fracture was provisionally reduced under fluoroscopic imaging and after reduction, the leg and hemipelvis were sterilely prepped and draped. An incision was made just proximal to the greater trochanter and dissection was carried through the iliotibial band and down to the greater trochanter. A starting pin was placed and a one-step reamer was used to open the femoral canal. A 125 degree angled Gamma nail was inserted into the canal to the appropriate level. A guide pin was placed from the lateral cortex into the femoral head. The appropriate length compression screw was measured and inserted with the placement guided under direct imaging. Following that, the distal locking screw was drilled, measured, and placed under imaging. The proximal locking screw was placed through the outrigger into the top of the nail and the outrigger removed. The final construct was imaged and the wounds were thoroughly irrigated, followed by closure with Monocryl suture. Sterile dressings were placed. The patient was awoken from anesthesia and taken to the Recovery Room. POSTOPERATIVE INSTRUCTIONS: She will be partial weight-bearing on postoperative day 1. #[id number] [facility]
[2016-12-03] MEDS: amLODIPine BESYLATE 5 MG TAB PO SCH (08:51)
[2016-12-03] MEDS: COLESTIPOL HCL 1 GM TAB PO SCH ×2 (08:51→21:02)
[2016-12-03] MEDS: DICYCLOMINE HCL 20 MG TAB PO SCH ×2 (08:51→20:59)
[2016-12-03] MEDS: NITROGLYCERIN 0.4 MG/HR PATCH TOP SCH (08:51)
[2016-12-03] MEDS: LORATADINE 10 MG TAB PO SCH (08:51)
[2016-12-03] MEDS: levETIRAcetam 250 MG TAB PO SCH ×2 (08:51→20:57)
[2016-12-03] MEDS: OLOPATADINE HCL OP SCH (08:52)
[2016-12-03] MEDS: SODIUM CHLORIDE 0.9% (FLUSH) 10 ML SYG IV SCH ×2 (08:52→21:07)
[2016-12-03] MEDS: NON-FORMULARY MEDICATION 1 EA MIS (Arformoterol Tartrate [Brovana] 15 MCG) INH SCH ×2 (09:12→20:01)
[2016-12-03] MEDS: BUDESONIDE NEBS 0.5 MG/2 ML VIAL NEB SCH ×2 (09:12→20:00)
[2016-12-03] MEDS: ENOXAPARIN SODIUM 30 MG/0.3 ML SYG SUBCU SCH ×2 (11:00→22:35)
[2016-12-03] MEDS: HYDROcodone 5MG/APAP 325MG 1 EA TAB PO PRN ×2 (11:28→20:56)
--- NOTE | 2016-12-03 12:41 | RAD ---
EXAM DESCRIPTION: Chest,1 View CLINICAL HISTORY: 71 years Female, SOB IMPRESSION: Heart size is stable when compared to November 30, 2016. Prior granulomatous disease. Interval development of small bilateral pleural effusions. No definitive infiltrates at this time Electronically signed by: Lance Kuo MD 12/03/2016 12:41 PM CDT
[2016-12-03] MEDS: IPRATROPIUM/ALBUTEROL 3 ML VIAL NEB SCH ×3 (13:40→19:58)
[2016-12-03] MEDS ORDERED: methylPREDNISolone SODIUM SUC 125 MG/2 ML VIAL IV ONE (15:05)
[2016-12-03] MEDS ORDERED: POTASSIUM CHLORIDE 20 MEQ TAB ONE (15:26)
[2016-12-03] MEDS: SODIUM CHLORIDE 0.9% (FLUSH) 10 ML SYG IV PRN (15:48)
[2016-12-03] MEDS ORDERED: ARFORMOTEROL TARTRATE 15 MCG/2 ML NEB NEB ONE (19:45)
--- NOTE | 2016-12-03 20:37 | PN ---
DATE: 12/03/16 SUPERVISING PHYSICIAN: Mikhail Trejo M.D. SUBJECTIVE: The patient is sitting in the bedside chair visiting family. She says her pain is well controlled. She continues to have difficulty with posttraumatic stress disorder with continuing shortness of breath with any exertional effort. She has not had any nausea, vomiting or diarrhea. She says she does have some weakness but it is bilateral and she denies any significant headaches. OBJECTIVE: VITAL SIGNS: T max 98.6, pulse 76, blood pressure 115/59, respirations 18, satting 92% on nasal cannula at rest. I's and O's show a negative balance of 1,000 with 600 in, 1600 out. She has had 1 bowel movement. CHEST: Lungs are significantly diminished throughout, just very faint expiratory wheezing heard more on the right than the left. HEART: Regular rate and rhythm. ABDOMEN: Soft, non-tender. EXTREMITIES: Right hip has dressing in place and intact. There is no redness. Pulses distally are 1+ with capillary refill brisk. NEUROLOGIC: She is alert to herself and is appropriate answering questions and assisting with family, and seems to be more her baseline status. LABORATORY: Hemoglobin 10.4, hematocrit 31.5 with a normal white count of 8.1. There is no left shift noted. Platelet count remains within normal limits at 166,000. Chemistries show persistent low potassium of 3.0 with BUN 21 creatinine 0.75, glucose 94. RADIOLOGY: Portable chest x-ray today per radiology interpretation showed heart size to be stable compared to 11/30/16 with prior granulomatous disease noted. There is mention of being revealed small bilateral pleural effusions but no definite infiltrative processes at this time. ASSESSMENT: 1. Right intertrochanteric fracture of the proximal right femur with surgical repair on 11/30/[address] Ted Dillon. Postoperative day 3. 2. Previous acute mental status change with negative CT for acute injury with continued weakness felt to be secondary to concussion syndrome with the patient's mental status improving. 3. Concussion syndrome related to traumatic fall same level without mention of loss of consciousness with a large hematoma to the occipital region. 4. Persistent electrolyte imbalance with hypokalemia on supplementation. 5. History of acute renal failure with normal creatinine currently. 6. History of Clostridium Difficile. 7. Chronic obstructive pulmonary disease with advanced emphysemic changes noted on radiographic studies with some mild exacerbation resulting in decreased ability to participate with physical therapy and rehabilitation. 8. Hypertension, stable. 9. Congestive heart failure, unknown etiology. PLAN: She is still having some difficulty participating with physical therapy secondary to shortness of breath. I will go ahead and start her on q.i.d. DuoNeb treatments and aggressive pulmonary hygiene. I have encouraged her to continue with her deep breathing exercises to increase her lung compliance. Will plan to repeat laboratory studies in the morning. Continue to follow the patient closely and treat appropriately. #[id number] [facility]
[2016-12-03] MEDS: ALPRAZolam 0.5 MG TAB PO SCH (20:57)
[2016-12-03] MEDS: MELATONIN 3 MG TAB PO SCH (20:57)
[2016-12-03] MEDS: SERTRALINE HCL 50 MG TAB PO SCH (20:59)
[2016-12-03] MEDS: traZODone HCL 50 MG TAB PO SCH (20:59)
[2016-12-03] MEDS: REMOVE OLD PATCH TOP SCH (21:07)
--- NOTE | 2016-12-03 23:37 | PCM.CORE ---
Physician DVT/VTE - Prophylaxis Currently: Patient already on anticoagulation therapy - Nurse DVT Assessment & Total Each Risk Factor Represents 5 Points: Major Trauma < 1 month Each Risk Factor Represents 2 Points: Age 60-74 Each Risk Factor is 1 Point: Serious Lung disease (pnemonia <1month, COPD, emphysema,etc) DVT Assessment Score: 8 - 5 or more Very High Risk Treatments: Early Ambulation *, Sequential Compression Device Pharmacological: Enoxaparin 30mg SQ BID
[2016-12-04] MEDS: PANTOPRAZOLE SODIUM TAB 40 MG PO SCH ×3 (06:27→17:38)
[2016-12-04] MEDS ORDERED: ARFORMOTEROL TARTRATE 15 MCG/2 ML NEB NEB ONE (07:51)
[2016-12-04] MEDS: METOPROLOL TARTRATE 50 MG TAB PO SCH ×2 (07:53→17:38)
[2016-12-04] MEDS: POTASSIUM CHLORIDE 20 MEQ TAB PO SCH ×2 (07:53→17:37)
[2016-12-04] MEDS: BUDESONIDE NEBS 0.5 MG/2 ML VIAL NEB SCH ×2 (08:27→20:42)
[2016-12-04] MEDS: ARFORMOTEROL TARTRATE 15 MCG/2 ML NEB NEB SCH ×2 (08:27→20:42)
[2016-12-04] MEDS: DICYCLOMINE HCL 20 MG TAB PO SCH ×2 (09:06→21:01)
[2016-12-04] MEDS: levETIRAcetam 250 MG TAB PO SCH ×2 (09:06→21:02)
[2016-12-04] MEDS: COLESTIPOL HCL 1 GM TAB PO SCH ×2 (09:06→21:03)
[2016-12-04] MEDS: LORATADINE 10 MG TAB PO SCH (09:08)
[2016-12-04] MEDS: amLODIPine BESYLATE 5 MG TAB PO SCH (09:08)
[2016-12-04] MEDS: NITROGLYCERIN 0.4 MG/HR PATCH TOP SCH (09:09)
[2016-12-04] MEDS: SODIUM CHLORIDE 0.9% (FLUSH) 10 ML SYG IV SCH ×2 (09:09→21:03)
[2016-12-04] MEDS: IPRATROPIUM/ALBUTEROL 3 ML VIAL NEB SCH ×4 (09:10→20:42)
[2016-12-04] MEDS: OLOPATADINE HCL OP SCH (09:19)
[2016-12-04] MEDS: HYDROcodone 5MG/APAP 325MG 1 EA TAB PO PRN ×2 (09:19→21:14)
[2016-12-04] MEDS: ENOXAPARIN SODIUM 30 MG/0.3 ML SYG SUBCU SCH ×2 (11:00→21:35)
--- NOTE | 2016-12-04 15:18 | PN ---
DATE: 12/04/16 SUBJECTIVE: She is doing well and has been ambulating at increasing distances. OBJECTIVE: Afebrile. Vital signs stable. Wounds are clean. There are no signs or symptoms of infection. ASSESSMENT: Status post Gamma nail for intertrochanteric fracture. PLAN: The plan at this point is for her to continue with her physical therapy. She will continue with inpatient rehab until she meets qualification for discharge. #[id number] [facility]
--- NOTE | 2016-12-04 19:55 | PN ---
DATE: 12/04/16 SUPERVISING PHYSICIAN: Mikhail Trejo M.D. SUBJECTIVE: The patient is doing much better today in regards to her pulmonary function after starting breathing treatments. This has allowed her to sleep better within her physical therapy regimen. She remains afebrile and has no reported chest pains or diarrhea. OBJECTIVE: VITAL SIGNS: T max 98.6, pulse 72, blood pressure 134/72, respirations 18, satting 94% on nasal cannula at rest. I's and O's are fairly well balanced. She has had a couple of bowel movements since admission. Weight currently is 44.3 kg. CHEST: Lungs are much better aerated today. There is no wheezing. Still diminished towards the bases but improved. HEART: Regular rate and rhythm. ABDOMEN: Soft, non-tender. Positive bowel sounds. EXTREMITIES: No clubbing, cyanosis or edema. Right hip has a bandage in place. It is clean. No signs of infection. Pulses are strong distally. Capillary refill is brisk. NEUROLOGIC: She is alert and oriented times three. LABORATORY: Today, normal white count at 8.8 with hemoglobin 10.4, hematocrit 31.5, platelet count was 166,000. Differential shows to be within normal limits. Chemistries show a persistent low potassium at 3.4 with BUN of 26, creatinine 0.78, glucose 152. MICROBIOLOGY: There are no specimens to review. RADIOLOGY: There are no radiographic studies today. She did have a chest x- ray yesterday and per radiology interpretation showed just a small bilateral pleural effusion by no definite infiltrative processes. ASSESSMENT: 1. Right intertrochanteric fracture of the proximal right femur with surgical repair on 11/30/[address] Ted Dillon with being postoperative day 4. 2. Concussion syndrome related to same level fall without any mention of loss of consciousness with large hematoma in the occipital region. 3. Persistent electrolyte imbalance with hypokalemia on supplementation. 4. History of acute renal insufficiency with improvement in her creatinine. 5. History of previous Clostridium Difficile infection. 6. Chronic obstructive pulmonary disease with advanced emphysematous changes with some mild exacerbation with the patient not participating in her incentive spirometry adequately resulting in a delay in her physical therapy, but improved after starting on bronchial therapy and breathing treatments. 7. Hypertension, stable. 8. Congestive heart failure, unknown etiology. PLAN: The patient is starting to do better with her physical therapy after starting on breathing treatments. Will continue this plan at this point and monitor as she progresses through her physical therapy. Anticipate hopefully discharging by Saturday, possibly needing an extended stay through Swing Bed, but if the patient progresses clinically well and meets physical therapy goals, hopefully she can be discharged this coming Saturday. Until then will continue to monitor the patient closely and treat appropriately. #[id number] [facility]
[2016-12-04] MEDS: MELATONIN 3 MG TAB PO SCH (21:02)
[2016-12-04] MEDS: traZODone HCL 50 MG TAB PO SCH (21:02)
[2016-12-04] MEDS: REMOVE OLD PATCH TOP SCH (21:03)
[2016-12-04] MEDS: ALPRAZolam 0.5 MG TAB PO SCH (21:03)
[2016-12-04] MEDS: SERTRALINE HCL 50 MG TAB PO SCH (21:03)
[2016-12-05] MEDS: PANTOPRAZOLE SODIUM TAB 40 MG PO SCH (06:09)
[2016-12-05] MEDS: POTASSIUM CHLORIDE 20 MEQ TAB PO SCH (08:00)
[2016-12-05] MEDS: METOPROLOL TARTRATE 50 MG TAB PO SCH (08:04)
[2016-12-05] MEDS: ARFORMOTEROL TARTRATE 15 MCG/2 ML NEB NEB SCH (08:55)
[2016-12-05] MEDS: BUDESONIDE NEBS 0.5 MG/2 ML VIAL NEB SCH (08:55)
[2016-12-05] MEDS: COLESTIPOL HCL 1 GM TAB PO SCH (09:48)
[2016-12-05] MEDS: levETIRAcetam 250 MG TAB PO SCH (09:48)
[2016-12-05] MEDS: DICYCLOMINE HCL 20 MG TAB PO SCH (09:48)
[2016-12-05] MEDS: NITROGLYCERIN 0.4 MG/HR PATCH TOP SCH (09:48)
[2016-12-05] MEDS: LORATADINE 10 MG TAB PO SCH (09:52)
[2016-12-05] MEDS: amLODIPine BESYLATE 5 MG TAB PO SCH (09:53)
[2016-12-05] MEDS: SODIUM CHLORIDE 0.9% (FLUSH) 10 ML SYG IV SCH (09:53)
[2016-12-05] MEDS: OLOPATADINE HCL OP SCH (09:55)
[2016-12-05] MEDS: ENOXAPARIN SODIUM 30 MG/0.3 ML SYG SUBCU SCH (09:55)
[2016-12-05] MEDS: IPRATROPIUM/ALBUTEROL 3 ML VIAL NEB SCH (10:53)
[2016-12-05] MEDS ORDERED: ALBUTEROL SULFATE 2.5 MG/3 ML VIAL NEB PRN (11:00)
[2016-12-05 12:27] VITALS: BP 135/72; TEMP 97.2; O2SAT 96
--- NOTE | 2016-12-09 15:09 | DS ---
SUPERVISING PHYSICIAN: Jayden Ferrera M.D. DISCHARGE DIAGNOSIS: 1. Right intertrochanteric fracture of the proximal right femur with surgical repair being done on 11/30/[address] Ted Dillon with the patient requiring admission to Swing Bed on postoperative day 4 for continued rehabilitation and strengthening. 2. Concussion syndrome related to same level fall without any evidence of loss of consciousness with large hematoma to the occipital region, stable. 3. Persistent electrolyte imbalance, improved prior to discharge from Acute Care with hypokalemia noted and currently on supplementation on admission to Swing Bed. 4. History of renal insufficiency secondary to previous ARBs and Srinivasa inhibitors showing to be stable. 5. History of previous Clostridium Difficile. 6. History of Chronic obstructive pulmonary disease with advanced emphysematous changes with some mild exacerbation during acute phase prior to discharge to Swing Bed with the patient showing improvement after initiation of pulmonary hygiene and incentive spirometry, bronchial therapy and breathing treatments to allow the patient to better participate with her physical therapy that did decrease her clinical progression and delayed her rehab, therefore need for Swing Bed admission. 7. Hypertension, stable. 8. Congestive heart failure, unknown etiology. HISTORY OF PRESENT ILLNESS: Ms. Olmedo is a 71-year-old female patient that lives with her daughter. On date of admission, 11/29/16, the patient was seen in the Emergency Department after she sustained a same level fall. She noted that she had gotten up one evening and fell, hit the back of her head as well as right elbow and right hip. After the fall, she had a very difficult time getting up and was then brought to the Emergency Room. In the Emergency Room, her head CT per radiologic interpretation showed no definite intracranial hemorrhage or mass with just age-related micro- ischemic changes and a large left posterior subcutaneous contusion. Her cervical spine CT per radiologic interpretation showed focal degenerative changes at C5-C6 with a 2 mm posterior disc osteophyte, but no evidence for fractures. Her right hip x-ray per radiologic interpretation showed a nondisplaced right intertrochanteric hip fracture. The lower extremity CT per radiologic interpretation showed a nondisplaced intertrochanteric fracture of the proximal right femur without any evidence of an acetabular fracture and no evidence for degenerative changes within the right hip. In the Emergency Department, Dr. Dillon was notified of the patient's injuries and the patient was then admitted for surgical intervention that was performed on 11/30/16 after admission. The patient had a right gamma nail procedure for the right intertrochanteric hip fracture performed on 11/30/[address] Ted Dillon, orthopedic surgeon. The patient was then admitted back to the Medical/Surgical floor for continued treatment and rehabilitation. The patient had slow progression of her physical therapy secondary to some mild confusion from the same level fall and contusion to her head as well as significant desaturations noted when she made any attempt to get out of a chair. Change in mental status slowly resolved as well as initiated some bronchial hygiene regimen helped increase her lung function after which she was able to participate with her physical therapy. She did progress clinically but not to a point that she was able to be discharged home. It was felt that the best interest of the patient Swing Bed admission was warranted to help the patient continue to improve physically and gain strength as that once discharged the patient was able to function at home safely. The patient was discharged from the Surgical floor to Swing Bed admission for continued physical therapy and reconditioning. LABORATORY: Initially on admission, white count was 11.8, this had normalized prior to admission to Swing Bed and at discharge it was 8.1. Hemoglobin and hematocrit were stable at 10.4 and 31.5. Platelet count at 166,000. Differential showed to be within normal limits. Coagulation studies all were in normal limits. She had a blood gas that showed essentially to be within normal limits, just a mildly low PO2 of 72. Chemistries initially on admission showed a low potassium at 3.2 which persisted through admission and discharged and it was 3.2 at discharge. BUN and creatinine remained stable, on discharge was 29 and creatinine 0.93. Liver functions all showed to be within normal limits. Urinalysis showed dipstick to be within normal limits with microscopic revealing 3 to 5 WBCs, 1+ bacteria and 1 to 3 hyaline casts and small amount of mucous. MICROBIOLOGY: There were no specimens submitted. RADIOLOGY: She had a chest x-ray that showed no definitive infiltrates or pleural effusions which essentially remained unchanged through admission. She also had a head CT with no contrast and per radiology interpretation there were no acute brain abnormalities. Elbow x-ray of the right elbow showed no evidence of acute fracture or dislocation. She also had a hip x-ray of the right hip and per radiology interpretation after surgery there was noted a gamma nail fixation of the right intertrochanteric hip fracture. She also had a cervical spine CT and per radiology interpretation showed focal degenerative changes of C5 to C6 level with 2 mm posterior disc osteophyte with no evidence of fractures. She had a lower extremity CT and per radiology interpretation showed nondisplaced intertrochanteric fracture of the proximal right femur with no evidence of acetabular fracture. No evidence of degenerative change in the right hip. 12 lead EKG showed sinus rhythm with no notable ST or T wave changes. CONSULTATION: Orthopedic Services by Dr. Ted Dillon. Please refer to his report for full details. HOSPITAL COURSE: Ms. Olmedo was admitted as noted in the History of Present Illness through the Emergency Department on 11/29/16 for right hip fracture which was repaired by Dr. Ted Dillon with a gamma nail. She did well through surgery and through recovery was slowly progressed in regards to her lung function which made it difficult for her to do any physical therapy. She had good pain control and after initiation of bronchial therapy was able to participate with physical therapy. She did progress slowly and it was felt that it would benefit that she go to Swing Bed once she discharged to be safe. The patient did have a slight episode of confusion secondary to concussion, but this had resolved and normalized prior to discharge. She showed no other neurologic symptoms through admission. She was discharged to continue with Swing Bed admission. PLAN: The patient will be discharged on 12/05/16 to continue with rehabilitation and strengthening through Swing Bed admission. Diet as tolerated. Activity as per Physical Therapy. Condition on discharge was stable. #[id number] [facility]
== END 2016-12-05 12:00 | disposition swing bed (61) | DRG 481 ==
LOC: ER 12:32 → MS 15:28
PROVIDERS: ADMIT Nurse Practitioner Acute Care; ATTEND Nurse Practitioner Family
PROC: 0QH634Z Insertion of Internal Fixation Device into Right Upper Femur, Percutaneous Approach (ICD-10-PCS; principal; 2016-11-29)
DX: S72.144A Nondisplaced intertrochanteric fracture of right femur, initial encounter for closed fracture (principal); I69.351 Hemiplegia and hemiparesis following cerebral infarction affecting right dominant side; J44.1 Chronic obstructive pulmonary disease with (acute) exacerbation; E86.0 Dehydration; S00.03XA Contusion of scalp, initial encounter; F32.9 Major depressive disorder, single episode, unspecified; G40.909 Epilepsy, unspecified, not intractable, without status epilepticus; I25.10 Atherosclerotic heart disease of native coronary artery without angina pectoris; K21.9 Gastro-esophageal reflux disease without esophagitis; K44.9 Diaphragmatic hernia without obstruction or gangrene; F07.81 Postconcussional syndrome; E87.6 Hypokalemia; I11.0 Hypertensive heart disease with heart failure; M19.90 Unspecified osteoarthritis, unspecified site; I50.9 Heart failure, unspecified; W19.XXXA Unspecified fall, initial encounter; Y93.9 Activity, unspecified; Y92.009 Unspecified place in unspecified non-institutional (private) residence as the place of occurrence of the external cause; Y99.9 Unspecified external cause status; Z85.42 Personal history of malignant neoplasm of other parts of uterus; Z95.828 Presence of other vascular implants and grafts; Z87.891 Personal history of nicotine dependence; Z88.8 Allergy status to other drugs, medicaments and biological substances; Z79.51 Long term (current) use of inhaled steroids; Z79.899 Other long term (current) drug therapy

== ENCOUNTER 2016-12-05 12:06 | Inpatient (IN) | payer MEDICARE, MEDICAID ==
[2016-12-05] MEDS ORDERED: ACETAMINOPHEN 500 MG TAB PO PRN (12:36)
[2016-12-05] MEDS ORDERED: SODIUM PHOS/BIPHOS ENEMA ADULT 133 ML BTTL PR PRN (12:36)
[2016-12-05] MEDS ORDERED: ALBUTEROL SULFATE 2.5 MG/3 ML VIAL NEB PRN (12:36)
[2016-12-05] MEDS ORDERED: MAGNESIUM HYDROXIDE 30 ML UD PO PRN (12:36)
[2016-12-05] MEDS ORDERED: CYCLOBENZAPRINE HCL 5 MG TAB PO PRN (14:38)
[2016-12-05] MEDS ORDERED: IPRATROPIUM BROMIDE NEBS 0.5 MG/2.5 ML VIAL NEB PRN (14:38)
[2016-12-05] MEDS ORDERED: RIVAROXABAN 10 MG TAB PO SCH (15:00)
--- NOTE | 2016-12-05 15:11 | PCM.CORE ---
Physician DVT/VTE - Prophylaxis Currently: Patient already on anticoagulation therapy - xarelto - Nurse DVT Assessment & Total Each Risk Factor Represents 5 Points: Hip,Pelvis,leg Fx <1month Each Risk Factor Represents 2 Points: Age 60-74 Each Risk Factor Represents 1 Point: Hx Major Surgery <1month Each Risk Factor is 1 Point: Serious Lung disease (pnemonia <1month, COPD, emphysema,etc) DVT Assessment Score: 9 - 5 or more Very High Risk Treatments: Early Ambulation *, Sequential Compression Device
[2016-12-05] MEDS: METOPROLOL TARTRATE 50 MG TAB PO SCH (17:44)
[2016-12-05] MEDS ORDERED: PANTOPRAZOLE SODIUM TAB 40 MG PO ONE (19:27)
[2016-12-05] MEDS ORDERED: COLESTIPOL HCL 1 GM TAB PO ONE (19:27)
[2016-12-05] MEDS ORDERED: traZODone HCL 50 MG TAB ONE (19:27)
[2016-12-05] MEDS ORDERED: DICYCLOMINE HCL 20 MG TAB ONE (19:27)
[2016-12-05] MEDS ORDERED: SERTRALINE HCL 50 MG TAB ONE (19:27)
[2016-12-05] MEDS ORDERED: levETIRAcetam 250 MG TAB ONE (19:27)
[2016-12-05] MEDS ORDERED: MELATONIN 3 MG TAB ONE (19:28)
[2016-12-05] MEDS ORDERED: ALPRAZolam 0.5 MG TAB ONE (19:28)
[2016-12-05] MEDS: BUDESONIDE NEBS 0.5 MG/2 ML VIAL NEB SCH (19:40)
[2016-12-05] MEDS: ARFORMOTEROL TARTRATE 15 MCG/2 ML NEB NEB SCH (19:40)
--- NOTE | 2016-12-05 20:52 | HP ---
SUPERVISING PHYSICIAN: Jayden Ferrera M.D. REASON FOR SWING BED ADMISSION: Continued rehabilitation, physical therapy and strengthening. HISTORY OF PRESENT ILLNESS: Ms. Olmedo is a 71 year-old female patient that lives with her daughter. On date of admission, 11/29/16, the patient was seen in the Emergency Department after she sustained a same level fall. She noted that she had gotten up one evening and fell, and hit the back of her head as well as right elbow and the right hip. After the fall, she had a very difficult time getting up and was then brought to the Emergency Room. In the Emergency Room, her head CT per radiology interpretation showed no definite intracranial hemorrhage or masses, just age- related micro ischemic changes and a large posterior subcutaneous contusion. Her cervical spine CT per radiology interpretation showed focal degenerative changes at C5 to C6 with a 2 mm posterior disc osteophyte but no evidence of fractures. A right hip x-ray per radiology interpretation showed a nondisplaced right intertrochanteric hip fracture. The lower extremity CT per radiology interpretation showed a nondisplaced intertrochanteric fracture of the proximal right femur without any evidence of acetabular fracture and no evidence of degenerative changes within the hip. In the Emergency Department, Dr. Dillon was notified of the patient's injuries and the patient was then admitted for surgical intervention that was performed on 11/30/16 after admission. The patient had a right gamma nail procedure for the right intertrochanteric hip fracture and was performed on 11/29/[address] Ted Dillon, orthopedic surgeon. The patient was then admitted back to the Medical/Surgical floor for continued treatment and rehabilitation. The patient had slow progression of her physical therapy secondary to some mild confusion from the same level fall and contusion to her head as well as she had significant desaturations noted when she would even attempt to even get out of a chair. The change in mental status slowly resolved as well as initiation of bronchial hygiene regimen helped to increase her lung function after which she was able to participate with her physical therapy. She did progress well clinically but not to a point that she was safe to be discharged home. It was felt that in the best interest of the patient Swing Bed admission was warranted to help the patient continue to improve physically and gain strength so that once discharged the patient was able to function at home and safely. The patient is now being discharged from the surgical floor to Swing Bed admission for continued physical therapy and reconditioning. She was admitted in stable condition. PAST MEDICAL HISTORY: 1. Congestive heart failure, unknown etiology. 2. Hypertension. 3. Chronic obstructive pulmonary disease. 4. Hiatal hernia. 5. History of Clostridium Difficile. 6. Acute renal failure due to Srinivasa inhibitors and ARBs. 7. Uterine cancer. 8. Osteoarthritis. 9. Gastroesophageal reflux disease. PAST SURGICAL HISTORY: 1. Recent surgery as noted above, gamma nail to the right hip for right intertrochanteric hip fracture. 2. Cholecystectomy. 3. Hysterectomy. 4. Removal of tumor on the back. 5. Removal of labial carcinoma. 6. Ovarian cancer removal. 7. Carotid stents. HOME MEDICATIONS: 1. Xanax 1 mg at bedtime. 2. Bentyl 10 mg twice daily. 3. Cyclobenzaprine 5 mg every 8 hours as needed. 4. Colestipol 1 gram twice daily. 5. Plavix 75 mg daily. 6. Pulmicort 0.25 mg every 12 hours as needed. 7. B complex vitamin 1 capsule daily. 8. Brovana 15 mcg inhaled every 12 hours. 9. Proventil nebulizers 2.5 mg inhaled q.i.d. as needed. 10. Pataday 1 drop daily. 11. Nitro-Dur patch 0.4 mg per hour, 0.4 mg topical daily. 12. Nitrostat 1 sublingual every 15 minutes times 3 as needed. 13. Lopressor 100 mg twice daily. 14. Melatonin 10 mg at bedtime. 15. Loratadine 10 mg daily. 16. Imodium AD 1 to 2 daily as needed. 17. Keppra 500 mg twice daily. 18. Ipratropium bromide 0.02% inhaled b.i.d. as needed. 19. Potassium chloride 20 mEq daily. 20. Protonix 40 mg daily. 21. Trazodone 100 mg at bedtime. 22. Zoloft 50 mg at bedtime. 23. Xarelto 10 mg daily. 24. Phenergan tablets 25 mg every 4 to 6 hours p.r.n. 25. Amlodipine 2.5 mg daily. 26. Tylenol #3 one to two q.i.d. as needed for pain. ALLERGIES: ZOFRAN. ADVERSE REACTION TO SRINIVASA INHIBITORS AND ARBS DUE TO RENAL FAILURE. SOCIAL HISTORY: The patient is retired. She is . She has 5 children. She lives with her daughter. She has a history of cigarette smoking but quit in 2013. She denies any alcohol or illicit drug use. REVIEW OF SYSTEMS: Negative except as per History of Present Illness. PHYSICAL EXAMINATION: VITAL SIGNS: Temperature 97.2, pulse 55, blood pressure 135/72, respirations 18 , satting 96% on nasal cannula at rest. Admission weight 43.9 kg. GENERAL: The patient is very pleasant, well-nourished and well-hydrated. Appears to be in no acute distress. HEENT: Tympanic membranes are clear bilaterally. Oropharynx is pink and moist without any lesions. NECK: Supple without tenderness. Full range of motion. There is no jugular venous distention. CHEST: Clear to auscultation bilaterally without any rhonchi, wheezing or rales , although diminished towards the bases. CARDIOVASCULAR: Regular rate and rhythm without appreciable murmurs, gallops, or rubs. ABDOMEN: Soft, non-tender. Positive bowel sounds. EXTREMITIES: No clubbing, cyanosis or edema. Right hip has bandage in place. There is no erythema. There is minimal swelling. There is no sign of infection. Distally pulses are strong. Capillary refill is brisk. NEUROLOGIC: She is alert and oriented times three. Facial features are symmetrical. Extraocular movements are within normal limits. Cranial nerves II -XII are grossly intact. LABORATORY: No laboratory pending. RADIOLOGY: No radiographic studies pending. She did have a chest x-ray on and per radiology interpretation showed stable heart size compared to with prior granulomatous disease and interval development of small bilateral pleural effusions but no definite infiltrates on initial exam. ASSESSMENT: 1. Right intertrochanteric fracture of the proximal right femur with surgical repair being done on 11/30/[address] Ted Dillon with the patient being admitted to Swing Bed on postoperative day 4 for continued rehabilitation and strengthening. 2. Concussion syndrome related to her same level fall without any evidence of loss of consciousness with a large hematoma to the occipital region. 3. Persistent electrolyte imbalance although showing improvement prior to discharge with hypokalemia currently on supplementation. 4. History of renal insufficiency secondary to ARBs and Srinivasa inhibitors showing to be stable. 5. History of previous Clostridium Difficile infection. 6. History of chronic obstructive pulmonary disease with advanced emphysematous change with some mild exacerbation during acute phase prior to discharge to Swing Bed with the patient showing improvement which resulted in the patient not being able to participate in her physical therapy and delaying rehab, but improved after starting on aggressive pulmonary hygiene with incentive spirometry, bronchial therapy and breathing treatments. 7. Hypertension, stable. 8. Congestive heart failure, unknown etiology. PLAN: The patient is discharged from Acute Care on 12/05/16 and admitted to Swing Bed on the same date, 12/05/16, for continued rehabilitation and strengthening. Anticipate length of stay to be 3 to 5 days. Will continue to follow the patient closely as she progresses through her rehabilitation efforts. Will continue with breathing treatments as needed. Encourage incentive spirometry to assist with improvement of lung function. Once all of her medications have been updated and re-verified, those will be restarted. She will be on DVT prophylaxis as per protocol. Until discharge, which hopefully will be this Saturday or Saturday, will continue to monitor the patient closely and treat appropriately. #[id number] [facility]
[2016-12-05] MEDS: traZODone HCL 50 MG TAB PO SCH (20:55)
[2016-12-05] MEDS: MELATONIN 3 MG TAB PO SCH (20:55)
[2016-12-05] MEDS: HYDROcodone 5MG/APAP 325MG 1 EA TAB PO PRN (20:55)
[2016-12-05] MEDS: levETIRAcetam 250 MG TAB PO SCH (20:56)
[2016-12-05] MEDS: SERTRALINE HCL 50 MG TAB PO SCH (20:56)
[2016-12-05] MEDS: DICYCLOMINE HCL 20 MG TAB PO SCH (20:56)
[2016-12-05] MEDS: ALPRAZolam 0.5 MG TAB PO SCH (20:56)
[2016-12-05] MEDS: REMOVE OLD PATCH TOP SCH (20:57)
[2016-12-05] MEDS: COLESTIPOL HCL 1 GM TAB PO SCH (20:57)
[2016-12-06] MEDS: PANTOPRAZOLE SODIUM TAB 40 MG PO SCH (06:34)
[2016-12-06] MEDS: POTASSIUM CHLORIDE 20 MEQ TAB PO SCH (08:06)
[2016-12-06] MEDS: METOPROLOL TARTRATE 50 MG TAB PO SCH ×2 (08:06→17:30)
[2016-12-06] MEDS ORDERED: OLOPATADINE HCL OP SCH (09:00)
[2016-12-06] MEDS: ARFORMOTEROL TARTRATE 15 MCG/2 ML NEB NEB SCH ×2 (09:04→19:35)
[2016-12-06] MEDS: BUDESONIDE NEBS 0.5 MG/2 ML VIAL NEB SCH ×2 (09:04→19:35)
[2016-12-06] MEDS: amLODIPine BESYLATE 5 MG TAB PO SCH (09:20)
[2016-12-06] MEDS: NITROGLYCERIN 0.4 MG/HR PATCH TOP SCH (09:20)
[2016-12-06] MEDS: CLOPIDOGREL 75 MG TAB PO SCH (09:20)
[2016-12-06] MEDS: COLESTIPOL HCL 1 GM TAB PO SCH ×3 (09:20→21:56)
[2016-12-06] MEDS: HYDROcodone 5MG/APAP 325MG 1 EA TAB PO PRN ×3 (09:20→21:56)
[2016-12-06] MEDS: RIVAROXABAN 10 MG TAB PO SCH (09:21)
[2016-12-06] MEDS: levETIRAcetam 250 MG TAB PO SCH ×2 (09:21→20:22)
[2016-12-06] MEDS: DICYCLOMINE HCL 20 MG TAB PO SCH ×2 (09:21→20:22)
[2016-12-06] MEDS: DOCUSATE SODIUM 100 MG CAP PO SCH (09:22)
[2016-12-06] MEDS: LORATADINE 10 MG TAB PO SCH (09:22)
[2016-12-06] MEDS: MELATONIN 3 MG TAB PO SCH (20:21)
[2016-12-06] MEDS: ALPRAZolam 0.5 MG TAB PO SCH (20:21)
[2016-12-06] MEDS: SERTRALINE HCL 50 MG TAB PO SCH (20:22)
[2016-12-06] MEDS: traZODone HCL 50 MG TAB PO SCH (20:22)
[2016-12-06] MEDS: REMOVE OLD PATCH TOP SCH (20:25)
[2016-12-07] MEDS: PANTOPRAZOLE SODIUM TAB 40 MG PO SCH (06:08)
[2016-12-07] MEDS: METOPROLOL TARTRATE 50 MG TAB PO SCH ×2 (07:54→17:21)
[2016-12-07] MEDS: POTASSIUM CHLORIDE 20 MEQ TAB PO SCH (07:54)
[2016-12-07] MEDS: ARFORMOTEROL TARTRATE 15 MCG/2 ML NEB NEB SCH ×2 (08:17→20:04)
[2016-12-07] MEDS: BUDESONIDE NEBS 0.5 MG/2 ML VIAL NEB SCH ×2 (08:33→20:04)
[2016-12-07] MEDS: NITROGLYCERIN 0.4 MG/HR PATCH TOP SCH (08:42)
[2016-12-07] MEDS: levETIRAcetam 250 MG TAB PO SCH ×2 (08:42→20:07)
[2016-12-07] MEDS: amLODIPine BESYLATE 5 MG TAB PO SCH (08:42)
[2016-12-07] MEDS: CLOPIDOGREL 75 MG TAB PO SCH (08:42)
[2016-12-07] MEDS: DOCUSATE SODIUM 100 MG CAP PO SCH (08:43)
[2016-12-07] MEDS: LORATADINE 10 MG TAB PO SCH (08:43)
[2016-12-07] MEDS: DICYCLOMINE HCL 20 MG TAB PO SCH ×2 (08:43→20:07)
[2016-12-07] MEDS: COLESTIPOL HCL 1 GM TAB PO SCH ×3 (08:44→22:21)
[2016-12-07] MEDS: RIVAROXABAN 10 MG TAB PO SCH (08:44)
[2016-12-07] MEDS ORDERED: ACETAMINOPHEN W/COD #3 TAB 1 EA TAB PO PRN (10:58)
[2016-12-07] MEDS: HYDROcodone 5MG/APAP 325MG 1 EA TAB PO PRN ×2 (11:33→20:07)
[2016-12-07] MEDS: traZODone HCL 50 MG TAB PO SCH (20:07)
[2016-12-07] MEDS: MELATONIN 3 MG TAB PO SCH (20:07)
[2016-12-07] MEDS: REMOVE OLD PATCH TOP SCH (20:11)
[2016-12-07] MEDS: ALPRAZolam 0.5 MG TAB PO SCH (20:37)
[2016-12-07] MEDS: SERTRALINE HCL 50 MG TAB PO SCH (20:37)
[2016-12-08] MEDS: PANTOPRAZOLE SODIUM TAB 40 MG PO SCH (05:58)
[2016-12-08] MEDS: ARFORMOTEROL TARTRATE 15 MCG/2 ML NEB NEB SCH (08:21)
[2016-12-08] MEDS: BUDESONIDE NEBS 0.5 MG/2 ML VIAL NEB SCH (08:21)
[2016-12-08] MEDS: POTASSIUM CHLORIDE 20 MEQ TAB PO SCH (08:41)
[2016-12-08] MEDS: METOPROLOL TARTRATE 50 MG TAB PO SCH (08:41)
[2016-12-08] MEDS: COLESTIPOL HCL 1 GM TAB PO SCH (08:42)
[2016-12-08] MEDS: levETIRAcetam 250 MG TAB PO SCH (08:42)
[2016-12-08] MEDS: LORATADINE 10 MG TAB PO SCH (08:42)
[2016-12-08] MEDS: DICYCLOMINE HCL 20 MG TAB PO SCH (08:42)
[2016-12-08] MEDS: CLOPIDOGREL 75 MG TAB PO SCH (08:42)
[2016-12-08] MEDS: NITROGLYCERIN 0.4 MG/HR PATCH TOP SCH (08:42)
[2016-12-08] MEDS: DOCUSATE SODIUM 100 MG CAP PO SCH (08:43)
[2016-12-08] MEDS: RIVAROXABAN 10 MG TAB PO SCH (08:43)
[2016-12-08] MEDS: amLODIPine BESYLATE 5 MG TAB PO SCH (08:43)
[2016-12-08 10:09] VITALS: BP 145/74; TEMP 97.8; O2SAT 93
--- NOTE | 2016-12-10 19:03 | DS ---
SUPERVISING PHYSICIAN: Mikhail Trejo M.D. DISCHARGE DIAGNOSIS: 1. Right intertrochanteric fracture of the proximal right femur with surgical repair being done on 11/30/[address] Ted Dillon with the patient requiring admission to Swing Bed on postoperative day 4 for continued rehabilitation and strengthening. 2. Concussion syndrome related to same level fall without any evidence of loss of consciousness with large hematoma to the occipital region, stable. 3. Persistent electrolyte imbalance on Acute Care with hypokalemia noted, continues on supplementation while in Swing Bed. 4. History of renal insufficiency secondary to previous ARBs and Srinivasa inhibitors showing to be stable. 5. History of previous Clostridium Difficile infection. 6. History of chronic obstructive pulmonary disease with advanced emphysematous changes with mild exacerbation during acute phase prior to discharge to Swing Bed with the patient showing improvement after initiation of bronchial hygiene and incentive spirometry, bronchodilator therapy so she can continue with physical therapy showing good progression through Swing Bed. 7. Hypertension, stable. 8. Congestive heart failure, unknown etiology. HISTORY OF PRESENT ILLNESS: Ms. Olmedo is a 71 year-old female patient that lives with her daughter. On date of admission to Acute Care on , the patient was seen in the Emergency Department after she sustained a same level fall after which she presented to the Emergency Department. In the Emergency Department, it was found that she had a right intertrochanteric fracture of the proximal right femur as well as a concussion secondary to a hematoma from same level fall. She was admitted to Acute Care on with surgery being performed on 11/30/[address] Dillon. She progressed slowly through her postoperative phase due to ongoing chronic obstructive pulmonary disease requiring aggressive pulmonary hygiene. She was then admitted to Swing Bed for continued physical therapy secondary to her slow progression. She was admitted to Swing Bed on 12/05/16 to continue rehabilitation and strengthening. LABORATORY: Chemistries showed sodium 145, calcium was low at 3.2, BUN 29, creatinine 0.93. No additional laboratory studies were completed. MICROBIOLOGY: No microbiology specimens submitted for review. RADIOLOGY: No additional radiographic studies. HOSPITAL COURSE: Ms. Olmedo was admitted to Swing Bed as noted in the History of Present Illness on 12/05/16 after she had improvement in her lung function and was able to continue with physical therapy strengthening. She progressed well to report on day of discharge on 12/08/16 it was felt that she could continue in the outpatient setting with home health through [facility]. PLAN: Ms. Olmedo is discharged on 12/08/16 from Swing Bed to have close clinical followup with Dr. Dillon as scheduled in 2 weeks on 12/20/16 at 9:30. She was to have continued physical therapy arranged through [facility]. She was instructed to resume her home medications as instructed and start new prescriptions as directed. She was told to return to the hospital or call Dr. Dillon is any concerning symptoms occurred or she had other questions regarding care. Wound care management was instructed as per Dr. Dillon's postoperative wound management. On discharge, she was discharged with new prescriptions to include: 1. [place] 5/325 one every 4 to 6 hours as needed, #30. 2. Xarelto 10 mg daily for a total of 25 days. All other prescriptions were continued as previous to admission. Diet at discharge was as tolerated. Activity was as per physical therapy to walk with a walker and as directed. Condition at discharge was improved and stable. #[id number] [facility]
== END 2016-12-08 10:30 | disposition home health service (06) | DRG 561 ==
LOC: MS 12:06
PROVIDERS: ADMIT Family Medicine; ATTEND Nurse Practitioner Family
DX: S72.141D Displaced intertrochanteric fracture of right femur, subsequent encounter for closed fracture with routine healing (principal); F07.81 Postconcussional syndrome; E87.6 Hypokalemia; J44.9 Chronic obstructive pulmonary disease, unspecified; I11.0 Hypertensive heart disease with heart failure; I50.9 Heart failure, unspecified; S00.03XD Contusion of scalp, subsequent encounter; K44.9 Diaphragmatic hernia without obstruction or gangrene; M19.90 Unspecified osteoarthritis, unspecified site; K21.9 Gastro-esophageal reflux disease without esophagitis; Z85.42 Personal history of malignant neoplasm of other parts of uterus; Z98.890 Other specified postprocedural states; Z95.828 Presence of other vascular implants and grafts; Z79.02 Long term (current) use of antithrombotics/antiplatelets; Z79.51 Long term (current) use of inhaled steroids; Z79.899 Other long term (current) drug therapy; Z79.01 Long term (current) use of anticoagulants; Z88.8 Allergy status to other drugs, medicaments and biological substances; Z87.891 Personal history of nicotine dependence

== ENCOUNTER → 2016-12-24 | Outpatient (CLI) | payer MEDICARE, MEDICAID ==
--- NOTE | 2016-12-25 09:04 | RAD ---
EXAM DESCRIPTION: Hip,Right 2 Views CLINICAL HISTORY: 71 years, Female, PAIN IN RIGHT HIP COMPARISON: November 30 FINDINGS: Stable position right hip which has been reduced following intertrochanteric fracture. Threaded femoral head screw and intramedullary serafin in satisfactory position. Some interval callus formation noted inferior medially at the fracture site. Resolution of subcutaneous soft tissue changes related to prior surgery. IMPRESSION: Satisfactory appearance of left hip following reduction intertrochanteric fracture. No findings of hardware failure. Slight interval callus formation. Electronically signed by: Murphy Miranda MD 12/25/2016 9:03 AM CDT
== END | disposition home or self-care (01) ==
LOC: RAD 08:59
PROVIDERS: ATTEND Orthopaedic Surgery
DX: M25.551 Pain in right hip (principal)

== ENCOUNTER → 2017-01-24 | Outpatient (CLI) | payer MEDICARE, MEDICAID ==
--- NOTE | 2017-01-24 14:22 | RAD ---
EXAM DESCRIPTION: Hip,Right 2 Views CLINICAL HISTORY: CLOSED FX OF FEMUR COMPARISON: December 24, 2016 TECHNIQUE: AP/frog leg lateral FINDINGS: Two views of the right hip demonstrate internal fixation with an interlocking compression screw and short intramedullary serafin fixed distally in the femoral shaft. The alignment is essentially anatomic and unchanged from prior study 12/24/2016. New injury or abnormality is not apparent. The recent intertrochanteric fracture of the hip is difficult to appreciate on current examination. IMPRESSION: Stable alignment and internal fixation of right intertrochanteric hip fracture. New injuries are not apparent. Electronically signed by: Jayden Davidson MD 01/24/2017 2:21 PM CDT
== END ==
LOC: RAD 08:22
PROVIDERS: ATTEND Orthopaedic Surgery
DX: S72.8X1D Other fracture of right femur, subsequent encounter for closed fracture with routine healing (principal)

== ENCOUNTER → 2017-03-07 | Outpatient (CLI) | payer MEDICARE, MEDICAID ==
--- NOTE | 2017-03-08 10:59 | RAD ---
EXAM DESCRIPTION: Hip,Right 2 Views CLINICAL HISTORY: FX OF FEMUR COMPARISON: January 24, 2017 IMPRESSION: 2 views of the right hip show intramedullary serafin and gamma nail fixation of the proximal femur. Fracture appears healed. No acute fracture, focal bone destruction, or joint dislocation is seen. No hardware failure. No obvious flattening of the femoral head. No advanced osteoarthritic changes. Moderate vascular calcifications are seen. Electronically signed by: Farhat Barros MD 03/08/2017 10:57 AM CDT
== END | disposition home or self-care (01) ==
LOC: RAD 09:38
PROVIDERS: ATTEND Orthopaedic Surgery
DX: S72.8X1D Other fracture of right femur, subsequent encounter for closed fracture with routine healing (principal)

== ENCOUNTER 2017-03-09 18:30 | Emergency (ER) | payer MEDICARE, MEDICAID ==
--- NOTE | 2017-03-09 18:32 | ED.PDOC ---
History of Present Illness - General Chief Complaint: General Stated Complaint: right side of face swollen and fever Time Seen by Provider: 03/09/17 18:31 Source: patient, RN notes reviewed, Vital Signs reviewed Additional Information: Pt presented to ER with daughter c/o right sided jaw swelling/pain/redness x 1 day. Pt noted to have slight fever. She reports having some pain related to her dentures a few days ago. - History of Present Illness Timing/Duration: other - 1 to 3 days Severity: moderate Improving Factors: nothing Worsening Factors: other - chewing Associated Symptoms: fever/chills, malaise Allergies/Adverse Reactions: Allergies Ondansetron [From Zofran] Allergy (Verified 10/11/16 11:34) Home Medications: Ambulatory Orders Albuterol Sulfate Nebs [Proventil Nebs] 2.5 mg INH RTQID PRN 02/02/14 Clopidogrel Bisulfate [Plavix] 75 mg PO DAILY 02/02/14 Dicyclomine HCl [Bentyl] 10 mg PO BID 02/02/14 Levetiracetam [Keppra] 500 mg PO BID 02/02/14 Loperamide HCl [Imodium A-D] 1 - 2 ea PO DAILY PRN 02/02/14 Melatonin 10 mg PO BEDTIME 02/02/14 Olopatadine HCl [Pataday] 1 drop OP DAILY 02/02/14 Promethazine Tab [Phenergan Tablet] 25 mg PO Q4-6H PRN 02/02/14 Sertraline HCl [Zoloft] 50 mg PO BEDTIME 02/02/14 B-Complex Vitamins [B Complex] 1 cap PO DAILY 07/09/14 Trazodone HCl 100 mg PO BEDTIME 07/09/14 Loratadine 10 mg PO DAILY 10/10/15 Pantoprazole Tablet [Protonix] 40 mg PO DAILY 10/10/15 amLODIPine BESYLATE [Norvasc] 2.5 mg PO DAILY 10/10/15 Potassium Chloride [K-Tab] 20 meq PO DAILY #30 tab 11/11/15 ALPRAZolam [Xanax] 1 mg PO BEDTIME 03/14/16 Cranberry (Vaccinium Macrocarp [Cranberry Extract] 250 mg PO DAILY 03/14/16 Cyclobenzaprine HCl 5 mg PO Q8H PRN 08/31/16 Ipratropium [place] 0.02 % IN BID PRN 03/14/16 Arformoterol Tartrate [Brovana] 15 mcg IN Q12H PRN 10/11/16 Nitroglycerin Patch 0.4 mg/Hr [Nitro-Dur PATCH 0.4 mg/hour] 0.4 mg TOP QD Nitroglycerin [Nitrostat] 1 ea SL [id number] PRN 10/11/16 Acetaminophen W/ Codeine [Tylenol W/ CODEINE #3] 1 - 2 ea PO QID PRN #0 Colestipol HCl 1 gm PO BID 11/29/16 Metoprolol Tartrate [Lopressor] 100 mg PO BID 11/30/16 Rivaroxaban [Xarelto] 10 mg PO QD #28 tab 12/05/16 Budesonide Nebs [Pulmicort Respules] 0.5 mg INH BID 12/07/16 HYDROcodone 5MG/APAP 325MG [[place] 5/325] 1 ea PO Q4H PRN #30 12/08/16 Rivaroxaban [Xarelto] 10 mg PO DAILY #25 12/08/16 Amoxicillin & Pot Clavulanate [Augmentin] 875 mg PO BID 12 Days 03/09/17 Review of Systems - Review of Systems Constitutional: States: see HPI, fever, malaise EENTM: States: see HPI, mouth swelling - right side of jaw Respiratory: States: no symptoms reported Cardiology: States: no symptoms reported Gastrointestinal/Abdominal: States: no symptoms reported Genitourinary: States: no symptoms reported Musculoskeletal: States: no symptoms reported Skin: States: see HPI - right cheek with erythema and swelling Neurological: States: no symptoms reported Endocrine: States: no symptoms reported Hematologic/Lymphatic: States: no symptoms reported Past Medical History (General) - Patient Medical History Hx Seizures: Yes Hx Stroke: Yes Hx Dementia: No Hx Asthma: No Hx of COPD: Yes Hx Cardiac Disorders: Yes - stints Hx Congestive Heart Failure: No Hx Pacemaker: No Hx Hypertension: Yes Hx Thyroid Disease: No Hx Diabetes: No Hx Gastroesophageal Reflux: Yes Hx Renal Disease: Yes - ARF 2014 Hx Cancer: Yes - [place]VI[place] Hx of HIV: No Hx Hepatitis C: No Hx MRSA: No - Vaccination History Hx Tetanus, Diphtheria Vaccination: Yes Hx Influenza Vaccination: Yes Hx Pneumococcal Vaccination: Yes - Social History Hx Tobacco Use: Yes Hx Chewing Tobacco Use: No Hx Alcohol Use: No Hx Substance Use: No Hx Substance Use Treatment: No Hx Depression: No Hx Physical Abuse: No Hx Emotional Abuse: No Hx Suspected Abuse: No - Female History Patient : No Family Medical History - Family History Brother Family History: Unknown Living Status: Hx Family Asthma: No Hx Family Congestive Heart Failure: No Hx Family Hypertension: Yes Hx Family Stroke: No Hx Cardiac Disease: No Hx Family Diabetes: No Hx Family Cancer: No Hx Family;Other: liver/ etoh abuse Mother Family History: Unknown Living Status: Hx Family Asthma: No Hx Family Congestive Heart Failure: No Hx Family Hypertension: Yes Hx Family Stroke: No Hx Cardiac Disease: No Hx Family Diabetes: No Hx Family Cancer: Yes Hx Family;Other: copd Physical Exam - Physical Exam General Appearance: Alert, Comfortable, No apparent distress Eye Exam: bilateral normal Ears, Nose, Throat: hearing grossly normal, normal pharynx, other - Right side of mouth (inferior buccal mucosa) with some mild to moderate soft tissue swelling and TTP Neck: non-tender, full range of motion, supple Respiratory: no respiratory distress, no accessory muscle use Cardiovascular/Chest: regular rate, rhythm Extremity: normal range of motion, non-tender, normal inspection Neurologic: checking department supervisor II-XII nml as tested, no motor/sensory deficits, alert, normal mood/affect, oriented x 3 Progress - Progress Progress: 03/10/17 00:20 Pt responded well to 1 liter NS IV as well as Unasyn 3 grams IV x 1. Pt states she felt comfortable going home, stating she felt better than when she came in. Pt knows to take full course of oral antibiotics as prescribed and return to ER if condition worsens. - Results/Orders Results/Orders: Laboratory Results - last 24 hr 03/09/17 03/09/17 03/09/17 18:50 18:50 18:50 WBC 20.5 H* RBC 4.47 Hgb 12.9 Hct 38.7 MCV 86.7 MCH 28.8 MCHC 33.4 RDW 14.1 Plt Count 241 MPV 7.9 Absolute Neuts (auto) Not Reportable Absolute Lymphs (auto) Not Reportable Absolute Monos (auto) Not Reportable Absolute Eos (auto) Not Reportable Neutrophils % Not Reportable Neutrophils % (Manual) 80.0 Lymphocytes % Not Reportable Lymphocytes % (Manual) 10.0 Monocytes % Not Reportable Monocytes % (Manual) 10.0 Eosinophils % Not Reportable Basophils % Not Reportable Platelet Estimate Normal Normal RBC Morphology Normal rbc morph Sodium 136 Potassium 3.3 L Chloride 104 Carbon Dioxide 21 Anion Gap 14.3 BUN 42 H Creatinine 1.50 H BUN/Creatinine Ratio 28.0 H Random Glucose 132 H Serum Osmolality 284.3 Calcium 9.3 Total Bilirubin 0.5 AST 16 ALT 12 Alkaline Phosphatase 110 C-Reactive Protein 18.1 H* Serum Total Protein 7.9 Albumin 3.6 Globulin 4.3 H Albumin/Globulin Ratio 0.8 L Departure - Departure Clinical Impression: Odontogenic infection of jaw Time of Disposition: 20:29 Disposition: Discharge to Home or Self Care Condition: Fair Departure Forms: ED Discharge - Pt. Copy, Patient Portal Self Enrollment Instructions: Tooth Abscess Referrals: Mikhail Trejo MD [Primary Care Provider] - 1-5 Days Prescriptions: Amoxicillin & Pot Clavulanate [Augmentin] 875 mg PO BID 12 Days Home Medications: Ambulatory Orders Albuterol Sulfate Nebs [Proventil Nebs] 2.5 mg INH RTQID PRN 02/02/14 Clopidogrel Bisulfate [Plavix] 75 mg PO DAILY 02/02/14 Dicyclomine HCl [Bentyl] 10 mg PO BID 02/02/14 Levetiracetam [Keppra] 500 mg PO BID 02/02/14 Loperamide HCl [Imodium A-D] 1 - 2 ea PO DAILY PRN 02/02/14 Melatonin 10 mg PO BEDTIME 02/02/14 Olopatadine HCl [Pataday] 1 drop OP DAILY 02/02/14 Promethazine Tab [Phenergan Tablet] 25 mg PO Q4-6H PRN 02/02/14 Sertraline HCl [Zoloft] 50 mg PO BEDTIME 02/02/14 B-Complex Vitamins [B Complex] 1 cap PO DAILY 07/09/14 Trazodone HCl 100 mg PO BEDTIME 07/09/14 Loratadine 10 mg PO DAILY 10/10/15 Pantoprazole Tablet [Protonix] 40 mg PO DAILY 10/10/15 amLODIPine BESYLATE [Norvasc] 2.5 mg PO DAILY 10/10/15 Potassium Chloride [K-Tab] 20 meq PO DAILY #30 tab 11/11/15 ALPRAZolam [Xanax] 1 mg PO BEDTIME 03/14/16 Cranberry (Vaccinium Macrocarp [Cranberry Extract] 250 mg PO DAILY 03/14/16 Cyclobenzaprine HCl 5 mg PO Q8H PRN 03/14/16 Ipratropium [place] 0.02 % IN BID PRN 03/14/16 Arformoterol Tartrate [Brovana] 15 mcg IN Q12H PRN 10/11/16 Nitroglycerin Patch 0.4 mg/Hr [Nitro-Dur PATCH 0.4 mg/hour] 0.4 mg TOP QD Nitroglycerin [Nitrostat] 1 ea SL [id number] PRN 10/11/16 Acetaminophen W/ Codeine [Tylenol W/ CODEINE #3] 1 - 2 ea PO QID PRN #0 Colestipol HCl 1 gm PO BID 11/29/16 Metoprolol Tartrate [Lopressor] 100 mg PO BID 11/30/16 Rivaroxaban [Xarelto] 10 mg PO QD #28 tab 12/05/16 Budesonide Nebs [Pulmicort Respules] 0.5 mg INH BID 12/07/16 HYDROcodone 5MG/APAP 325MG [[place] 5/325] 1 ea PO Q4H PRN #30 12/08/16 Rivaroxaban [Xarelto] 10 mg PO DAILY #25 12/08/16 Amoxicillin & Pot Clavulanate [Augmentin] 875 mg PO BID 12 Days 03/09/17 Additional Instructions: Take full course of antibiotics as prescribed. Take Tylenol 500 to 650 mg every 5 hours as needed for pain. Follow-up with primary care provider if unimproved in 5 to 7 days. Return to ER if condition worsens. Stay well hydrated with at least 1.5 to 2 liters of water daily.
[2017-03-09] MEDS ORDERED: SODIUM CHLORIDE 0.9% 1000ML 1,000 ML IVS ONE (18:35)
[2017-03-09] MEDS ORDERED: AMPICILLIN & SULBACTAM SODIUM 3 GM in SODIUM CHL 0.9% 100ML MINI-BAG 100 ML IVPB ONE (19:09)
[2017-03-09] MEDS ORDERED: AMPICILLIN & SULBACTAM SODIUM 3 GM VIAL ONE (19:17)
[2017-03-09] MEDS ORDERED: SODIUM CHL 0.9% 100ML MINI-BAG 100 ML IVPB ONE (19:18)
[2017-03-09] MEDS ORDERED: AMOXICILLIN & POT CLAVULANATE 875 MG TAB PO ONE (19:39)
[2017-03-09] MEDS ORDERED: ACETAMINOPHEN 500 MG TAB PO ONE (19:39)
[2017-03-09] MEDS ORDERED: AMOXICILLIN & POT CLAVULANATE 875 MG TAB ONE (19:41)
[2017-03-09 20:41] VITALS: BP 137/73; TEMP 101.7; O2SAT 98
== END 2017-03-09 20:42 | disposition home or self-care (01) ==
LOC: ER 18:30
DX: M27.2 Inflammatory conditions of jaws (principal); J44.9 Chronic obstructive pulmonary disease, unspecified; I10 Essential (primary) hypertension; K21.9 Gastro-esophageal reflux disease without esophagitis; Z85.43 Personal history of malignant neoplasm of ovary; Z86.73 Personal history of transient ischemic attack (TIA), and cerebral infarction without residual deficits; Z87.891 Personal history of nicotine dependence; Z88.8 Allergy status to other drugs, medicaments and biological substances; Z79.02 Long term (current) use of antithrombotics/antiplatelets; Z79.899 Other long term (current) drug therapy
CPT/HCPCS: 36415; 80053; 85025; 86140; J0295; J7030; J7050

== ENCOUNTER → 2017-04-16 | Outpatient (CLI) | payer MEDICARE, MEDICAID | END | disposition home or self-care (01) | LOC: NC 19:27 | PROVIDERS: ATTEND Family Medicine | DX: R30.0 Dysuria (principal) ==

== ENCOUNTER 2017-06-26 11:01 | Inpatient (IN) | payer MEDICARE, MEDICAID ==
--- NOTE | 2017-06-26 11:20 | ED.PDOC ---
History of Present Illness - General Chief Complaint: Respiratory Problem Stated Complaint: sob cough Time Seen by Provider: 06/26/17 11:19 Source: patient, family Exam Limitations: no limitations - History of Present Illness Initial Comments: Nata Olmedo 72 y/o female stated that for the past 10 days had been productive cough and 4 days ago has gradually progressive worsening of SOB no chest pains,no fever no chills has .COPD,CAD,HTN.Uses home O2 at 2-3 l /min / NC.Quit smoking 3 years ago. Timing/Duration: other - see hpi Severity: moderate Improving Factors: nothing Worsening Factors: other - weather Associated Symptoms: shortness of breath, other - see hpi Allergies/Adverse Reactions: Allergies Ondansetron [From Zofran] Allergy (Verified 06/26/17 11:20) Home Medications: Ambulatory Orders Albuterol Sulfate Nebs [Proventil Nebs] 2.5 mg INH RTQID PRN 02/02/14 Clopidogrel Bisulfate [Plavix] 75 mg PO DAILY 02/02/14 Dicyclomine HCl [Bentyl] 10 mg PO BID 02/02/14 Levetiracetam [Keppra] 500 mg PO BID 02/02/14 Loperamide HCl [Imodium A-D] 1 - 2 ea PO DAILY PRN 02/02/14 Melatonin 10 mg PO BEDTIME 02/02/14 Olopatadine HCl [Pataday] 1 drop OP DAILY 02/02/14 Promethazine Tab [Phenergan Tablet] 25 mg PO Q4-6H PRN 02/02/14 Sertraline HCl [Zoloft] 50 mg PO BEDTIME 02/02/14 B-Complex Vitamins [B Complex] 1 cap PO DAILY 07/09/14 Trazodone HCl 100 mg PO BEDTIME 07/09/14 Loratadine 10 mg PO DAILY 10/10/15 Pantoprazole Tablet [Protonix] 40 mg PO DAILY 10/10/15 amLODIPine BESYLATE [Norvasc] 2.5 mg PO DAILY 10/10/15 Potassium Chloride [K-Tab] 20 meq PO DAILY #30 tab 11/11/15 ALPRAZolam [Xanax] 1 mg PO BEDTIME 03/14/16 Cranberry (Vaccinium Macrocarp [Cranberry Extract] 250 mg PO DAILY 03/14/16 Cyclobenzaprine HCl 5 mg PO Q8H PRN 03/14/16 Ipratropium [place] 0.02 % IN BID PRN 03/14/16 Arformoterol Tartrate [Brovana] 15 mcg IN Q12H PRN 10/11/16 Nitroglycerin Patch 0.4 mg/Hr [Nitro-Dur PATCH 0.4 mg/hour] 0.4 mg TOP QD Nitroglycerin [Nitrostat] 1 ea SL [id number] PRN 10/11/16 Acetaminophen W/ Codeine [Tylenol W/ CODEINE #3] 1 - 2 ea PO QID PRN #0 Colestipol HCl 1 gm PO BID 11/29/16 Metoprolol Tartrate [Lopressor] 100 mg PO BID 11/30/16 Rivaroxaban [Xarelto] 10 mg PO QD #28 tab 12/05/16 Budesonide Nebs [Pulmicort Respules] 0.5 mg INH BID 12/07/16 HYDROcodone 5MG/APAP 325MG [[place] 5/325] 1 ea PO Q4H PRN #30 12/08/16 Rivaroxaban [Xarelto] 10 mg PO DAILY #25 12/08/16 Amoxicillin & Pot Clavulanate [Augmentin] 875 mg PO BID 12 Days tab 03/09/17 Review of Systems - Review of Systems Constitutional: States: no symptoms reported EENTM: States: no symptoms reported Respiratory: States: see HPI Cardiology: States: no symptoms reported Gastrointestinal/Abdominal: States: no symptoms reported Genitourinary: States: no symptoms reported Musculoskeletal: States: no symptoms reported Skin: States: no symptoms reported Neurological: States: no symptoms reported Hematologic/Lymphatic: States: no symptoms reported Past Medical History (General) - Patient Medical History Hx Seizures: Yes Hx Stroke: Yes Hx Dementia: No Hx Asthma: No Hx of COPD: Yes Hx Cardiac Disorders: Yes - stents Hx Congestive Heart Failure: No Hx Pacemaker: No Hx Hypertension: Yes Hx Thyroid Disease: No Hx Diabetes: No Hx Gastroesophageal Reflux: Yes Hx Renal Disease: Yes - ARF 2014 Hx Cancer: Yes - ovarian Hx of HIV: No Hx Hepatitis C: No Hx MRSA: No Surgical History: cholecystectomy, other - cardiac stents ,left carotid endarterectomy,hysterectomy - Vaccination History Hx Tetanus, Diphtheria Vaccination: Yes Hx Influenza Vaccination: Yes Hx Pneumococcal Vaccination: Yes - Social History Hx Tobacco Use: Yes Hx Chewing Tobacco Use: No Hx Alcohol Use: No Hx Substance Use: No Hx Substance Use Treatment: No Hx Depression: No Hx Physical Abuse: No Hx Emotional Abuse: No Hx Suspected Abuse: No - Activities of Daily Living Patient Lives Alone: No - family Grooming Ability: Independent Eating (Feeding) Ability: Independent Toileting Ability: Independent - Female History Patient : No Family Medical History - Family History Brother Family History: Unknown Living Status: Hx Family Asthma: No Hx Family Congestive Heart Failure: No Hx Family Hypertension: Yes Hx Family Stroke: Yes - brother Hx Cardiac Disease: No Hx Family Diabetes: Yes - brother Hx Family Cancer: Yes - liver cancer -dad Hx Family;Other: liver/ etoh abuse Mother Family History: Unknown Living Status: Hx Family Asthma: No Hx Family Congestive Heart Failure: No Hx Family Hypertension: Yes Hx Family Stroke: No Hx Cardiac Disease: No Hx Family Diabetes: No Hx Family Cancer: Yes Hx Family;Other: copd Physical Exam - Physical Exam General Appearance: Alert, Anxious, No apparent distress Eye Exam: bilateral normal Ears, Nose, Throat: hearing grossly normal, normal ENT inspection Neck: non-tender, full range of motion, supple Respiratory: chest non-tender, no respiratory distress, no accessory muscle use , decreased breath sounds Cardiovascular/Chest: normal peripheral pulses, regular rate, rhythm, no gallop , no murmur Peripheral Pulses: radial,right: 2+, radial,left: 2+ Gastrointestinal/Abdominal: normal bowel sounds, non tender, soft, no organomegaly Extremity: normal range of motion, non-tender, normal inspection Neurologic: alert, normal mood/affect, oriented x 3 Skin Exam: normal color, warm/dry Lymphatic: no adenopathy Progress - Progress Progress: 06/26/17 12:27 Last Vital Signs Temp 99.4 F 06/26/17 11:07 Pulse 68 06/26/17 12:13 Resp 20 06/26/17 12:13 BP 121/54 06/26/17 11:07 Pulse Ox 92 L 06/26/17 12:13 - Results/Orders Results/Orders: Laboratory Tests 06/26/17 06/26/17 06/26/17 11:21 12:03 12:03 WBC 14.2 H RBC 4.36 Hgb 12.7 Hct 38.4 MCV 88.1 MCH 29.1 MCHC 33.0 RDW 13.0 Plt Count 259 MPV 8.0 Absolute Neuts (auto) 11.30 H Absolute Lymphs (auto) 1.60 Absolute Monos (auto) 1.10 H Absolute Eos (auto) 0.20 Absolute Basos (auto) 0.00 Neutrophils % 79.4 H Lymphocytes % 11.2 L Monocytes % 8.0 Eosinophils % 1.1 Basophils % 0.3 D-Dimer, Quantitative pCO2 42 pO2 68 L HCO3 21.6 ABG pH 7.330 L ABG O2 Saturation 95.7 ABG Base Excess -3.8 ABG Deoxyhemoglobin 4.2 Oxyhemoglobin % 93.8 L Carboxyhemoglobin % 1.3 Methemoglobin % Sat 0.7 Calc Total Hemoglobin 15.6 Sodium 134 L Potassium 2.6 L Chloride 97 L Carbon Dioxide 25 Anion Gap 14.6 BUN 33 H Creatinine 1.55 H BUN/Creatinine Ratio 21.3 H Random Glucose 115 H Serum Osmolality 276.4 Calcium 9.5 Magnesium Total Bilirubin 0.4 AST 21 ALT 15 Alkaline Phosphatase 98 Troponin I B-Natriuretic Peptide 282.0 H* Serum Total Protein 8.0 Albumin 3.5 Globulin 4.5 H Albumin/Globulin Ratio 0.8 L 06/26/17 06/26/17 06/26/17 12:03 12:03 12:28 WBC RBC Hgb Hct MCV MCH MCHC RDW Plt Count MPV Absolute Neuts (auto) Absolute Lymphs (auto) Absolute Monos (auto) Absolute Eos (auto) Absolute Basos (auto) Neutrophils % Lymphocytes % Monocytes % Eosinophils % Basophils % D-Dimer, Quantitative 315 H* pCO2 pO2 HCO3 ABG pH ABG O2 Saturation ABG Base Excess ABG Deoxyhemoglobin Oxyhemoglobin % Carboxyhemoglobin % Methemoglobin % Sat Calc Total Hemoglobin Sodium Potassium Chloride Carbon Dioxide Anion Gap BUN Creatinine BUN/Creatinine Ratio Random Glucose Serum Osmolality Calcium Magnesium 1.6 L Total Bilirubin AST ALT Alkaline Phosphatase Troponin I < 0.02 B-Natriuretic Peptide Serum Total Protein Albumin Globulin Albumin/Globulin Ratio - EKG/XRAY/CT EKG: Sinus, nonspecific ST T wave Chg Comments: heart rate-86 XRAY: chest - hazy opacities right mid lung Departure - Departure Clinical Impression: COPD exacerbation, Hypomagnesemia, Hypokalemia Pneumonia Qualifiers: Pneumonia type: due to unspecified organism Laterality: right Lung location: middle lobe of lung Qualified Code(s): J18.1 - Lobar pneumonia, unspecified organism Time of Disposition: 14:04 Disposition: Admit Patient Condition: Fair Departure Forms: ED Discharge - Pt. Copy, Patient Portal Self Enrollment Referrals: Mikhail Trejo MD [Primary Care Provider] - 1-2 Weeks Home Medications: Ambulatory Orders Albuterol Sulfate Nebs [Proventil Nebs] 2.5 mg INH RTQID PRN 02/02/14 Clopidogrel Bisulfate [Plavix] 75 mg PO DAILY 02/02/14 Dicyclomine HCl [Bentyl] 10 mg PO BID 02/02/14 Levetiracetam [Keppra] 500 mg PO BID 02/02/14 Loperamide HCl [Imodium A-D] 1 - 2 ea PO DAILY PRN 02/02/14 Melatonin 10 mg PO BEDTIME 02/02/14 Olopatadine HCl [Pataday] 1 drop OP DAILY 02/02/14 Promethazine Tab [Phenergan Tablet] 25 mg PO Q4-6H PRN 02/02/14 Sertraline HCl [Zoloft] 50 mg PO BEDTIME 02/02/14 B-Complex Vitamins [B Complex] 1 cap PO DAILY 07/09/14 Trazodone HCl 100 mg PO BEDTIME 07/09/14 Loratadine 10 mg PO DAILY 10/10/15 Pantoprazole Tablet [Protonix] 40 mg PO DAILY 10/10/15 amLODIPine BESYLATE [Norvasc] 2.5 mg PO DAILY 10/10/15 Potassium Chloride [K-Tab] 20 meq PO DAILY #30 tab 11/11/15 ALPRAZolam [Xanax] 1 mg PO BEDTIME 03/14/16 Cranberry (Vaccinium Macrocarp [Cranberry Extract] 250 mg PO DAILY 03/14/16 Cyclobenzaprine HCl 5 mg PO Q8H PRN 03/14/16 Ipratropium [place] 0.02 % IN BID PRN 03/14/16 Arformoterol Tartrate [Brovana] 15 mcg IN Q12H PRN 10/11/16 Nitroglycerin Patch 0.4 mg/Hr [Nitro-Dur PATCH 0.4 mg/hour] 0.4 mg TOP QD Nitroglycerin [Nitrostat] 1 ea SL [id number] PRN 10/11/16 Acetaminophen W/ Codeine [Tylenol W/ CODEINE #3] 1 - 2 ea PO QID PRN #0 Colestipol HCl 1 gm PO BID 11/29/16 Metoprolol Tartrate [Lopressor] 100 mg PO BID 11/30/16 Rivaroxaban [Xarelto] 10 mg PO QD #28 tab 12/05/16 Budesonide Nebs [Pulmicort Respules] 0.5 mg INH BID 12/07/16 HYDROcodone 5MG/APAP 325MG [[place] 5/325] 1 ea PO Q4H PRN #30 12/08/16 Rivaroxaban [Xarelto] 10 mg PO DAILY #25 12/08/16 Amoxicillin & Pot Clavulanate [Augmentin] 875 mg PO BID 12 Days tab 03/09/17 Decision To Admit - Decistion To Admit Decision to Admit Reason: Admit from ER Decision to Admit Date: 06/26/17 - D/W Miko Cardenas-ANP/Hospitalist Decision to Admit Time: 14:03
[2017-06-26] MEDS ORDERED: methylPREDNISolone SODIUM SUC 125 MG/2 ML VIAL IV ONE (11:23)
[2017-06-26] MEDS ORDERED: IPRATROPIUM/ALBUTEROL 3 ML VIAL NEB ONE ×2 (11:35→11:39)
--- NOTE | 2017-06-26 12:25 | RAD ---
EXAM DESCRIPTION: Chest,1 View CLINICAL HISTORY: Shortness of breath COMPARISON: December 03, 2016 Findings: Single upright portable frontal view of the chest. Cardiac silhouette and pulmonary vascularity are within normal limits. Calcific atherosclerosis and tortuosity noted of the thoracic aorta. There is subtle hazy opacity over the lateral mid right lung, concerning for early pneumonia. Left lung is clear. Stable calcified granuloma within the right lung. Mild blunting of the right costophrenic angle, tiny pleural effusion versus pleural thickening. No pneumothorax. IMPRESSION: 1. Subtle hazy opacity over the lateral mid right lung, concerning for infectious/inflammatory processes such as pneumonia. Please correlate clinically. 2. Mild blunting of the right costophrenic angle, tiny pleural effusion versus pleural thickening. 3. Prior calcified granulomatous disease, stable. Electronically signed by: Rico Gross MD 06/26/2017 12:23 PM [facility]
[2017-06-26] MEDS ORDERED: POTASSIUM CHLORIDE 20 MEQ TAB PO ONE (12:28)
[2017-06-26] MEDS ORDERED: KCL 40 MEQ/D5 1/2NS 1,000 ML IVS PRN (12:29)
[2017-06-26] MEDS ORDERED: MAGNESIUM SULFATE PREMIX 2GM 2 GM in PREMIX BAG 1 BAG IVPB ONE (12:47)
[2017-06-26] MEDS ORDERED: MAGNESIUM SULFATE PREMIX 2GM 50 ML IVPB ONE (13:25)
[2017-06-26] MEDS ORDERED: cefTRIAXone SODIUM 1 GM in SODIUM CHL 0.9% 50ML MIN-BAG+ 50 ML IVPB ONE ×2 (13:31→17:27)
[2017-06-26] MEDS ORDERED: cefTRIAXone SODIUM 1 GM VIAL ONE ×2 (14:05→18:00)
[2017-06-26] MEDS ORDERED: SODIUM CHL 0.9% 50ML MIN-BAG+ 50 ML IVPB ONE ×2 (14:06→18:00)
--- NOTE | 2017-06-26 15:25 | HP ---
SUPERVISING PHYSICIAN: Mikhail Trejo M.D. CHIEF COMPLAINT: Shortness of breath with a cough. HISTORY OF PRESENT ILLNESS: Ms. Olmedo is a 72 year-old female patient of Dr. Trejo. She had noted that she had been progressively having shortness of breath with a purulent cough and just feeling general malaise. She presented to the clinic today. Due to the patient's past history and the concern for developing pneumonia, she was referred to the Emergency Department for further evaluation and treatment. She does wear O2 at home but was denying any chest pains, but was having worsening shortness of breath with again increasing sputum that was becoming purulent. History is significant for chronic obstructive pulmonary disease. In the Emergency Room, laboratory studies showed that she had a leukocytosis of 14,200 with a left shift. Her blood gas analysis showed mild hypoxemia with a PO2 of 68 with PCO2 of 42, bicarb 21 with a pH of 7.33, base excess was -3.8. She was satting 95% at rest on 2 liters nasal cannula. Her chemistries indicated that she had a moderate hyponatremia with sodium 134 but her potassium was significantly low at 2.6 along with magnesium of 1.6. Radiographic studies completed in the E. R. per radiology interpretation with a single view chest showed a hazy opacity overlying the lateral mid right lung concerning for early pneumonia. Given the degree of leukocytosis with a left shift and radiographic findings concerning for early pneumonia and a longstanding history of COPD, Dr. Landrum, E. R. physician, requested the patient be admitted for treatment of the developing pneumonia with exacerbation of her chronic obstructive pulmonary disease. Blood cultures were completed. She was started on antibiotics initially with Rocephin and also given Solu-Medrol 125 mg. Magnesium was replaced initially with 2 grams in the E. R. along with IV fluids with potassium. She is now to be admitted for ongoing treatment of right sided pneumonia with exacerbation of COPD with severe electrolyte imbalance to include hyponatremia, hypokalemia and hypomagnesemia. She was admitted in stable condition. PAST MEDICAL HISTORY: 1. Congestive heart failure, unknown etiology with on echocardiogram for review at time of admission. 2. Hypertension. 3. Chronic obstructive pulmonary disease. 4. Hiatal hernia. 5. Past history of Clostridium Difficile. 6. Acute renal failure due to previous Srinivasa inhibitor and ARBs. 7. History of uterine cancer. 8. Osteoarthritis. 9. Gastroesophageal reflux disease. PAST SURGICAL HISTORY: 1. Gamma nail to the right hip for a right intertrochanteric hip fracture in November 2016. 2. Cholecystectomy. 3. Hysterectomy. 4. Removal of tumor on her back. 5. Removal of labial carcinoma. 6. Ovarian cancer removal. 7. Carotid stents. HOME MEDICATIONS: 1. Budesonide 0.25 mg every 12 hours as needed. 2. Vitamin B complex 1 tablet daily. 3. Bentyl 10 mg twice daily. 4. Brovana 15 mcg every 12 hours as needed. 5. Cranberry extract 250 mg daily. 6. Imodium AD 2 mg daily as needed. 7. Cyclobenzaprine 5 mg every 8 hours as needed. 8. Ipratropium bromide 0.02% inhaled b.i.d. 9. Levetiracetam 500 mg twice daily. 10. Melatonin 10 mg at bedtime. 11. Loratadine 10 mg daily. 12. Metoprolol succinate extended release 100 mg twice daily. 13. Promethazine 25 mg every 4 hours as needed. 14. Pataday 0.2% ophthalmic drops daily. 15. Potassium chloride 20 mEq daily. 16. Plavix 75 mg daily. 17. Protonix 40 mg daily. 18. Trazodone 1 to 2 tablets at bedtime as needed. 19. Zoloft 50 mg at bedtime. 20. Nitrostat 1 sublingual every 5 minutes as needed for chest pains. 21. Nitroglycerin transdermal patch 0.4 mg transdermally daily. 22. Norvasc 2.5 mg daily. 23. Centrum Adult vitamins 1 tablet daily. 24. Picacho 5/325 one tablet every 4 hours as needed. 25. Tylenol #3 one tablet t.i.d. as needed. 26. Doxepin 50 mg at bedtime. 27. Imitrex 50 mg as needed. 28. Proventil nebs 2.5 mg inhaled as needed. ALLERGIES: ZOFRAN, ADVERSE REACTION TO SRINIVASA INHIBITORS AND ARBs DUE TO RENAL FAILURE. SOCIAL HISTORY: The patient is retired and . She has 5 children. She lives with her daughter. She does have a history of cigarette smoking but quit in 2013. She denies any alcohol or illicit drug use. REVIEW OF SYSTEMS: CONSTITUTIONAL: Notes general malaise but no fever or chills. HEENT: No nasal congestion or sore throat. RESPIRATORY: As noted in History of Present Illness. CARDIOVASCULAR: No chest pains, palpitations or syncopal episodes. GASTROINTESTINAL: No abdominal pains, constipation or diarrhea. No other bowel habit changes. GENITOURINARY: Denies any dysuria, hematuria, nocturia or other urinary symptoms. NEUROLOGIC: Denies any neurological deficits, syncopal episodes, vision changes , hearing changes. PHYSICAL EXAMINATION: VITAL SIGNS: In the Emergency Department, temperature initially 99.4, pulse 83 , blood pressure 121/54 with respirations 20, satting 92 to 96% on nasal cannula at rest on 2 liters. Admission weight 41.3 kg. GENERAL: In the Emergency Room, the patient appeared to be in no acute distress resting comfortably. She is alert and oriented times three, well nourished and well hydrated. HEENT: Tympanic membranes were clear bilaterally. Oropharynx was pink and moist without any lesions. NECK: Supple, non-tender with full range of motion. No jugular venous distention . CHEST: Decreased breath sounds bilaterally with notable rhonchi on the posterior right lateral aspect but no wheezing or rales noted. CARDIOVASCULAR: Heart was regular rate and rhythm without appreciable murmurs, gallops, or rubs. ABDOMEN: Soft, non-tender with positive bowel sounds. EXTREMITIES: No clubbing, cyanosis or edema. NEUROLOGIC: She is alert and oriented times three. Cranial nerves II-XII are grossly intact. Facial features were symmetrical. Extraocular movements are within normal limits. There is no notable nystagmus. LABORATORY STUDIES: CBC showed a leukocytosis of 14,200 with hemoglobin 12.7, hematocrit 38.4, platelet count 259,000. Differential did show a left shift. Coagulation studies showed a D-dimer of 315. Blood gas analysis showed a partially compensated respiratory acidosis with a pH of 7.33, PCO2 was 42, PO2 was 68, bicarb 21, base excess negative at 3.8 satting 95% on 2 liters nasal cannula at rest. Chemistries showed hyponatremia with sodium of 134, hypokalemia with 2.6 potassium, chloride was low at 97, carbon dioxide was normal at 25. She had a normal anion gap. BUN was elevated at 33, creatinine 1.55 with glucose 115. Serum osmolality was 276, calcium normal at 9.6, magnesium was low at 1.6. Liver functions all showed to be within normal limits. Troponin was less than 0.02 with BNP slightly elevated at 282. Urinalysis was pending. MICROBIOLOGY: Sputum culture is pending. Blood culture is pending. RADIOLOGY: Chest x-ray per radiology interpretation of portable chest showed a subtle hazy opacity overlying the lateral mid lung zone concerning for infectious or inflammatory process such as pneumonia with mild blunting of the right costophrenic angle with a tiny pleural effusion versus pleural thickening and prior calcified granulomatous disease, stable. ASSESSMENT: 1. Acute exacerbation of chronic obstructive pulmonary disease with concerns for developing early pneumonia community acquired. 2. Leukocytosis secondary to underlying early pneumonia as noted in #1. 3. Right middle lobe pneumonia community acquire as noted on radiographic studies. 4. Moderate electrolyte imbalance with a hypokalemia, hyponatremia and hypomagnesemia requiring replacement with IV fluids likely chronic with some exacerbation from underlying pneumonia. 5. Renal insufficiency with a prerenal azotemia likely secondary to mild dehydration and developing right sided pneumonia. 6. History of congestive heart failure, unknown etiology with no current echocardiogram for review. 7. Hypertension. PLAN: Ms. Olmedo will be admitted to the Medical/Surgical floor for ongoing treatment of the developing pneumonia and exacerbation of her COPD as well as treatment of underlying electrolyte imbalance. She was started on Rocephin in the Emergency Department. This will be continued with Rocephin 2 grams every 24 hours with Zithromax 500 mg IV. She will be on aggressive pulmonary hygiene with q.i.d. DuoNeb treatments and chest percussive therapy. Will await a sputum culture to further target antibiotic therapy. She will be on DVT prophylaxis as per protocol. Will continue to replace her electrolytes based off repeat laboratory studies both with p.o. potassium and then IV supplements as needed for magnesium and sodium. Will anticipate length of stay to be 2 to 3 days and until clinically stable. Will continue to monitor and treat appropriately. #[id number] [facility]
[2017-06-26] MEDS ORDERED: ALBUTEROL SULFATE 2.5 MG/3 ML VIAL NEB PRN (16:25)
[2017-06-26] MEDS ORDERED: ACETAMINOPHEN 325 MG TAB PO PRN (16:25)
[2017-06-26] MEDS ORDERED: SODIUM CHLORIDE 0.9% (FLUSH) 10 ML SYG IV PRN (16:25)
[2017-06-26] MEDS: IV SET AND CAP CHANGE INJ INJ SCH (16:42)
[2017-06-26] MEDS ORDERED: SODIUM CHLORIDE 0.9% 250ML 250 ML ONE (16:44)
[2017-06-26] MEDS ORDERED: AZITHROMYCIN IV 500 MG VIAL IVPB ONE (16:44)
[2017-06-26] MEDS: AZITHROMYCIN IV 500 MG in SODIUM CHLORIDE 0.9% 250ML 250 ML IVPB SCH (16:49)
[2017-06-26] MEDS ORDERED: traZODone HCL 50 MG TAB PO PRN (17:28)
[2017-06-26] MEDS ORDERED: ACETAMINOPHEN W/COD #3 TAB 1 EA TAB PO PRN (17:28)
[2017-06-26] MEDS ORDERED: HYDROcodone 5MG/APAP 325MG 1 EA TAB PO PRN (17:28)
[2017-06-26] MEDS: CLOPIDOGREL 75 MG TAB PO SCH (18:02)
[2017-06-26] MEDS: KCL 40MEQ/NS 1,000 ML IVS PRN (18:03)
[2017-06-26] MEDS ORDERED: levETIRAcetam 250 MG TAB ONE (20:44)
[2017-06-26] MEDS ORDERED: DOXEPIN HCL 25 MG CAP ONE (20:44)
[2017-06-26] MEDS ORDERED: DICYCLOMINE HCL 20 MG TAB ONE (20:44)
[2017-06-26] MEDS: METOPROLOL SUCCINATE XL 100 MG TAB PO SCH (20:57)
[2017-06-26] MEDS: DICYCLOMINE HCL 10 MG PO SCH (20:57)
[2017-06-26] MEDS: NON-FORMULARY MEDICATION 1 EA MIS (Levetiracetam [Levetiracetam] 500 MG) PO SCH (20:58)
[2017-06-26] MEDS: ALPRAZolam 0.5 MG TAB PO SCH (21:00)
[2017-06-26] MEDS: SERTRALINE HCL 50 MG TAB PO SCH (21:00)
[2017-06-26] MEDS ORDERED: NON-FORMULARY MEDICATION 1 EA MIS (Melatonin [Melatonin] 10 MG) PO SCH (21:00)
[2017-06-26] MEDS ORDERED: NON-FORMULARY MEDICATION 1 EA MIS (Doxepin Hcl [Doxepin Hcl] 50 MG) PO SCH (21:00)
[2017-06-26] MEDS: IPRATROPIUM/ALBUTEROL 3 ML VIAL INH SCH (22:05)
[2017-06-26] MEDS: CYCLOBENZAPRINE HCL 5 MG TAB PO SCH (22:37)
[2017-06-27] MEDS: CYCLOBENZAPRINE HCL 5 MG TAB PO SCH ×3 (06:28→22:52)
[2017-06-27] MEDS ORDERED: PANTOPRAZOLE SODIUM IV 40 MG VIAL IV SCH (06:30)
[2017-06-27] MEDS: KCL 40MEQ/NS 1,000 ML IVS PRN (06:52)
--- NOTE | 2017-06-27 08:07 | RAD ---
EXAM DESCRIPTION: Chest,2 Views CLINICAL HISTORY: Pneumonia COMPARISON: June 26, 2017 TECHNIQUE: PA/lateral FINDINGS: Right midlung field has slightly improved in comparison to prior study but residual patchy infiltrate persists, superimposed upon a pattern of diffuse mild but predominantly basilar fibrotic lung disease. No significant pleural effusion is seen and heart size and vascularity remain normal. Except for interstitial and fibrotic changes left lung remains clear. IMPRESSION: Persistent stranding and coarsened markings right midlung field consistent with patchy pneumonitis with slight interval improvement from previous day's study. Electronically signed by: Jayden Davidson MD 06/27/2017 8:06 AM [facility]
[2017-06-27] MEDS: IPRATROPIUM/ALBUTEROL 3 ML VIAL INH SCH ×4 (08:26→20:25)
[2017-06-27] MEDS ORDERED: cefTRIAXone SODIUM 2 GM in SODIUM CHL 0.9% 100ML MINI-BAG 100 ML IVPB SCH (09:00)
[2017-06-27] MEDS ORDERED: SODIUM CHL 0.9% 100ML MINI-BAG 100 ML IVPB ONE (09:35)
[2017-06-27] MEDS: POTASSIUM CHLORIDE 20 MEQ TAB PO SCH (09:49)
[2017-06-27] MEDS: levETIRAcetam 250 MG TAB PO SCH ×2 (09:50→20:42)
[2017-06-27] MEDS: LORATADINE 10 MG TAB PO SCH (09:50)
[2017-06-27] MEDS: DICYCLOMINE HCL 20 MG TAB PO SCH ×2 (09:50→20:40)
[2017-06-27] MEDS: CLOPIDOGREL 75 MG TAB PO SCH ×2 (09:51→13:13)
[2017-06-27] MEDS: METOPROLOL SUCCINATE XL 100 MG TAB PO SCH ×2 (09:51→20:43)
[2017-06-27] MEDS: NITROGLYCERIN 0.4 MG/HR PATCH TOP SCH (09:52)
[2017-06-27] MEDS: amLODIPine BESYLATE 5 MG TAB PO SCH (09:52)
[2017-06-27] MEDS: OLOPATADINE HCL 0.2% OP SCH (09:53)
[2017-06-27] MEDS ORDERED: MEROPENEM 1 GM in SODIUM CHL 0.9% 50ML MIN-BAG+ 50 ML IVPB SCH (13:00)
[2017-06-27] MEDS: DICYCLOMINE HCL 10 MG PO SCH (13:12)
[2017-06-27] MEDS: NON-FORMULARY MEDICATION 1 EA MIS (Levetiracetam [Levetiracetam] 500 MG) PO SCH (13:13)
[2017-06-27] MEDS ORDERED: SODIUM CHLORIDE 0.9% 250ML 250 ML ONE (13:25)
[2017-06-27] MEDS ORDERED: SODIUM CHL 0.9% 50ML MIN-BAG+ 50 ML IVPB ONE (13:25)
[2017-06-27] MEDS ORDERED: AZITHROMYCIN IV 500 MG VIAL IVPB ONE (13:26)
[2017-06-27] MEDS ORDERED: MEROPENEM 1 GM VIAL IVPB ONE (13:26)
[2017-06-27] MEDS: AZITHROMYCIN IV 500 MG in SODIUM CHLORIDE 0.9% 250ML 250 ML IVPB SCH (17:42)
[2017-06-27] MEDS ORDERED: DOXEPIN HCL 25 MG CAP ONE (19:57)
[2017-06-27] MEDS ORDERED: METOPROLOL SUCCINATE XL 100 MG TAB PO ONE (19:57)
[2017-06-27] MEDS ORDERED: PANTOPRAZOLE SODIUM TAB 40 MG PO ONE (19:58)
[2017-06-27] MEDS ORDERED: MELATONIN 3 MG TAB ONE (19:58)
[2017-06-27] MEDS: MELATONIN 3 MG TAB PO SCH (20:42)
[2017-06-27] MEDS: SODIUM CHLORIDE 0.9% (FLUSH) 10 ML SYG IV SCH (20:42)
[2017-06-27] MEDS: DOXEPIN HCL 25 MG CAP PO SCH (20:43)
[2017-06-27] MEDS: REMOVE OLD PATCH TOP SCH (20:44)
[2017-06-27] MEDS: ALPRAZolam 0.5 MG TAB PO SCH (20:44)
[2017-06-27] MEDS: SERTRALINE HCL 50 MG TAB PO SCH (20:44)
--- NOTE | 2017-06-27 20:55 | PN ---
DATE: 06/27/17 SUPERVISING PHYSICIAN: Mikhail Trejo M.D. SUBJECTIVE: The patient notes that she is feeling better compared to admission. She continues to cough up copious amounts of sputum. She does remain afebrile. She has not had any worsening shortness of breath. Has no nausea or vomiting. OBJECTIVE: VITAL SIGNS: Temperature 98.2, pulse 78, blood pressure 127/71, respirations 18, satting 99% on nasal cannula at 2 liters at rest. I's and O's show a positive balance of 1860 with 2260 in, 400 out. Weight is 42.0 kg. CHEST: Breath sounds are still diminished but somewhat improved from previous assessment with continued very faint rhonchi heard on the posterolateral aspect but no wheezing or rales are noted. HEART: Regular rate and rhythm. ABDOMEN: Soft, non-tender. Positive bowel sounds. EXTREMITIES: No clubbing, cyanosis or edema. NEUROLOGIC: She is alert and oriented times three. LABORATORY: White count remains elevated at 14,000 with a left shift. Hemoglobin and hematocrit are stable at 11.2 and 33.9 with platelet count of 263 ,000. Chemistries show normal electrolytes today with potassium 3.7, sodium 141 , BUN 33, creatinine 1.13 with magnesium of 2.0. Urinalysis showed positive nitrites with trace leukocyte esterase, 20 to 30 WBCs and 2+ bacteria. MICROBIOLOGY: Blood cultures remain negative at 24 hours. Sputum culture shows preliminary Haemophilus influenza and urine culture preliminary shows no growth at 24 hours. RADIOLOGY: Repeat chest x-ray today 2 view chest showed persistent stranding and coarsened markings right mid lung field consistent with patchy pneumonitis with slight interval improvement from previous days' study per radiology interpretation. ASSESSMENT: 1. Acute exacerbation of chronic obstructive pulmonary disease with right middle lobe pneumonia community acquired with preliminary culture results showing Haemophilus influenza with the patient on Rocephin and Azithromycin, and initially started on dose of Meropenem today with concerns for Pseudomonas initially based off initial gram stain of the cultures. 2. Leukocytosis, persistent secondary to underlying pneumonia as noted in #1. 3. Right middle lobe pneumonia community acquired noted on radiographic studies with sputum culture showing Haemophilus influenza and additional species awaiting final culture results. 4. Moderate electrolyte imbalance on admission with hypokalemia, hyponatremia and a low magnesium improving with IV replacement. 5. Renal insufficiency with prerenal azotemia felt to be secondary to dehydration secondary to right sided pneumonia showing some improvement with IV fluids. 6. History of congestive heart failure, unknown etiology and without any current echocardiogram for review. 7. Hypertension. PLAN: Will continue with current plan of care with aggressive pulmonary hygiene with chest physiotherapy. Based off the preliminary culture results I will continue Rocephin and Azithromycin. I did start her on Meropenem this morning initially with the gram stain results showing a gram negative bacilli with concerns for possible Pseudomonas. With the current results, will discontinue the Meropenem and continue with Rocephin as there is a rare occurrence of resistance to Ceftriaxone. Will await additional culture results for the second species that shows to be a hemolytic gram positive cocci. The patient is showing good clinical improvement. Will continue with antibiotic therapy as noted previously. Will continue with DVT prophylaxis. Given that she has normalized her chemistries today, will saline lock her and plan to repeat a chest x-ray in the morning as well as a CBC and BNP to closely monitor renal function. Will anticipate at least another 24 to 48 hours of need for parenteral antibiotics before transitioning to p.o. medication and awaiting further culture results. Until discharge, will continue to monitor and treat appropriately. #[id number] [facility]
--- NOTE | 2017-06-27 21:42 | PCM.CORE ---
Physician DVT/VTE - Nurse DVT Assessment & Total Each Risk Factor Represents 3 Points: Medical PT with Hx of [place], CHF, Severe infection/sepsis Each Risk Factor Represents 2 Points: Age 60-74 Each Risk Factor is 1 Point: Serious Lung disease (pnemonia <1month, COPD, emphysema,etc) DVT Assessment Score: 6 - 5 or more Very High Risk Treatments: Early Ambulation *, Sequential Compression Device Pharmacological: Enoxaparin 40mg SQ Daily
[2017-06-27] MEDS ORDERED: ENOXAPARIN SODIUM 40 MG/0.4 ML SYG SUBCU SCH (22:00)
[2017-06-28] MEDS: CYCLOBENZAPRINE HCL 5 MG TAB PO SCH ×3 (06:27→22:16)
[2017-06-28] MEDS: PANTOPRAZOLE SODIUM TAB 40 MG PO SCH (06:27)
--- NOTE | 2017-06-28 08:24 | RAD ---
EXAM DESCRIPTION: Chest,2 Views CLINICAL HISTORY: pneumonia COMPARISON: March 14, 2016. June 26, 2017. June 27, 2017. FINDINGS: Frontal and lateral views of the thorax. Relatively stable airspace opacity is again seen within the more anterior segment of the right upper lobe. Stable stranding seen along the medial aspect of the right middle lobe. No other new or enlarging airspace opacities present. This is superimposed on chronic lung disease. Heart and mediastinum are within normal limits. Osseous structures are maintained. Surgical clips noted within the lower left neck. IMPRESSION: Stable chest. Electronically signed by: Jesus Fuentes MD 06/28/2017 8:22 AM PREPARATION SUPERVISOR
[2017-06-28] MEDS: IPRATROPIUM/ALBUTEROL 3 ML VIAL INH SCH ×4 (09:02→19:49)
[2017-06-28] MEDS: POTASSIUM CHLORIDE 20 MEQ TAB PO SCH (09:43)
[2017-06-28] MEDS: CLOPIDOGREL 75 MG TAB PO SCH (09:43)
[2017-06-28] MEDS: LORATADINE 10 MG TAB PO SCH (09:44)
[2017-06-28] MEDS: NITROGLYCERIN 0.4 MG/HR PATCH TOP SCH (09:45)
[2017-06-28] MEDS: amLODIPine BESYLATE 5 MG TAB PO SCH (09:46)
[2017-06-28] MEDS: levETIRAcetam 250 MG TAB PO SCH ×2 (09:50→21:08)
[2017-06-28] MEDS ORDERED: VANCOMYCIN PER PHARMACY IVPB SCH (10:30)
[2017-06-28] MEDS: BUDESONIDE NEBS 0.25 MG/2 ML INH NEB SCH ×2 (10:45→20:04)
[2017-06-28] MEDS: ARFORMOTEROL TARTRATE 15 MCG/2 ML NEB NEB SCH ×2 (10:45→20:03)
[2017-06-28] MEDS ORDERED: SODIUM CHL 0.9% 100ML MINI-BAG 100 ML IVPB ONE (11:27)
[2017-06-28] MEDS: SODIUM CHLORIDE 0.9% (FLUSH) 10 ML SYG IV SCH ×2 (11:44→21:09)
[2017-06-28] MEDS: cefTRIAXone SODIUM 2 GM in SODIUM CHL 0.9% 100ML MINI-BAG 100 ML IVPB SCH (11:46)
[2017-06-28] MEDS: OLOPATADINE HCL 0.2% OP SCH (11:48)
[2017-06-28] MEDS: DICYCLOMINE HCL 20 MG TAB PO SCH ×2 (11:48→21:10)
[2017-06-28] MEDS: METOPROLOL SUCCINATE XL 100 MG TAB PO SCH ×2 (11:49→21:08)
[2017-06-28] MEDS ORDERED: VANCOMYCIN HCL INJ 750 MG in SODIUM CHLORIDE 0.9% 250ML 250 ML IVPB SCH (12:00)
[2017-06-28] MEDS ORDERED: SODIUM CHLORIDE 0.9% 250ML 250 ML ONE ×2 (12:17→16:57)
[2017-06-28] MEDS ORDERED: VANCOMYCIN HCL INJ 1,000 MG VIAL IVPB ONE (12:17)
[2017-06-28] MEDS ORDERED: AZITHROMYCIN IV 500 MG VIAL IVPB ONE (16:57)
[2017-06-28] MEDS: AZITHROMYCIN IV 500 MG in SODIUM CHLORIDE 0.9% 250ML 250 ML IVPB SCH (17:05)
--- NOTE | 2017-06-28 19:09 | PN ---
DATE: 06/28/17 SUPERVISING PHYSICIAN: Mikhail Trejo M.D. SUBJECTIVE: The patient continues to note that she is feeling a little bit better. She still produces a copious amount of sputum. She is responding well with chest physiotherapy. She has not had any acute changes in her respiratory effort. I did discuss with her the fact that she has a urinary tract infection as well as pneumonia requiring multiple antibiotics as we have identified 3 separate organisms, one including Haemophilus and another yet to be isolated which possibly could be a Staphylococcus aureus MRSA species along with the urine showing gram-negative rods. She has been having a good appetite. She has not yet been up and active. I have encouraged her to continue with her deep breathing exercises. After we further have results on the sputum cultures , she will be encouraged to ambulate to increase her endurance and prevent any deconditioning. OBJECTIVE: VITAL SIGNS: T max 98.3, blood pressure 124/76, respirations 16, satting 97% on nasal cannula at 2 liters. I's and O's show a positive balance of 370 with 1070 in, 700 out. Weight is 44.4 kg. CHEST: Lungs are somewhat improved today with a little more lung sounds heard towards the bases, but continue to be diminished throughout with no rhonchi heard today nor was there any wheezing noted. HEART: Regular rate and rhythm. ABDOMEN: Soft, non- tender. Positive bowel sounds. EXTREMITIES: No clubbing, cyanosis or edema. NEUROLOGIC: She was alert and oriented times three. LABORATORY: She remains persistently with a leukocytosis. Today it is 14,900 with hemoglobin 11.1, hematocrit 34.0, platelet count 266,000. Differential continues to show a left shift. Chemistries show normal electrolytes with potassium 4.2, BUN 31, creatinine 1.17. Liver functions show to be within normal limits. MICROBIOLOGY: Blood cultures remain negative at 48 hours. Sputum culture showed Haemophilus influenza which was also present with gram positive cocci pending further studies with concerns for possible MRSA. Urine culture showed gram-negative rods with final cultures pending. RADIOLOGY: Chest x-ray today 2 view chest per radiology interpretation showed to be stable with a relatively stable airspace opacity seen within the more anterior segment of the right upper lobe and stable stranding along the middle aspect of the right middle lobe. There are no other new or enlarging airspace opacities present. ASSESSMENT: 1. Acute exacerbation of chronic obstructive pulmonary disease with right middle lobe pneumonia community acquired with 2 separate organisms, the first one being identified as Haemophilus influenza with the patient having been on Rocephin and Azithromycin, and the second organism is gram positive cocci with concerns for MRSA with the patient having been started on vancomycin awaiting further culture results. 2. Right middle lobe pneumonia community acquired again with sputum culture showing Haemophilus influenza and gram positive cocci with the patient being on Rocephin, Azithromycin and vancomycin awaiting final culture results. 3. Persistent leukocytosis despite aggressive antibiotic therapy, although the patient shows clinically to be stable and improving. Given that we have not yet identified one of the species on the sputum and concerns for MRSA, additional antibiotics today included the addition of vancomycin per Pharmacy protocol. 4. Moderate electrolyte imbalance on admission with hypokalemia, hyponatremia and low magnesemia, improved and resolved with IV replacements. 5. Renal insufficiency with prerenal azotemia secondary to dehydration showing improvement and having some exacerbation from underlying right sided pneumonia and showing improvement with IV fluids. 6. History of congestive heart failure, unknown etiology without any current echocardiogram for review. 7. Hypertension. PLAN: Will await final culture results and given the patient's persistent leukocytosis and the number of organisms in the sputum with the one being identified as Haemophilus covered by Rocephin, will utilize vancomycin per Pharmacy protocol to cover for possible MRSA and will continue with Azithromycin to cover for any atypicals. Will continue with aggressive pulmonary hygiene and chest percussive therapy which she has responded to well. Will anticipate hopefully getting an identification on final sputum culture results tomorrow and target antibiotic therapy accordingly with anticipation of , if clinically stable, transitioning the patient in the next 24 to 48 hours to p.o. medications and hopefully discharging. Until then, will continue to monitor and treat appropriately. #[id number] [facility]
[2017-06-28] MEDS ORDERED: ENOXAPARIN SODIUM 40 MG/0.4 ML SYG SUBCU ONE (19:38)
[2017-06-28] MEDS: MELATONIN 3 MG TAB PO SCH (21:08)
[2017-06-28] MEDS: DOXEPIN HCL 25 MG CAP PO SCH (21:08)
[2017-06-28] MEDS: ALPRAZolam 0.5 MG TAB PO SCH (21:08)
[2017-06-28] MEDS: ENOXAPARIN SODIUM 40 MG/0.4 ML SYG SUBCU SCH (21:09)
[2017-06-28] MEDS: SERTRALINE HCL 50 MG TAB PO SCH (21:09)
[2017-06-28] MEDS: REMOVE OLD PATCH TOP SCH (21:10)
[2017-06-29] MEDS: CYCLOBENZAPRINE HCL 5 MG TAB PO SCH ×3 (06:17→21:50)
[2017-06-29] MEDS: PANTOPRAZOLE SODIUM TAB 40 MG PO SCH (06:17)
--- NOTE | 2017-06-29 06:51 | RAD ---
EXAM DESCRIPTION: Chest,2 Views CLINICAL HISTORY: RML pneumonia COMPARISON: 06/28/2017 FINDINGS: Frontal and lateral views of the chest. Atherosclerotic calcification and tortuosity of thoracic aorta. Heart is not enlarged. Findings suggestive of obstructive lung disease. Right mid and lower lung airspace opacity are unchanged. No pneumothorax. Possible small right pleural effusion. No new osseous abnormalities. Upper abdominal soft tissues are unremarkable. IMPRESSION: 1. No significant interval change with persistent right mid and lower lung airspace opacity and possible small right pleural effusion. Electronically signed by: Austen Vance 06/29/2017 6:50 AM COMMUNICATIONS DIRECTOR
[2017-06-29] MEDS ORDERED: AZITHROMYCIN IV 500 MG VIAL IVPB ONE (07:51)
[2017-06-29] MEDS ORDERED: SODIUM CHL 0.9% 100ML MINI-BAG 100 ML IVPB ONE (07:51)
[2017-06-29] MEDS ORDERED: SODIUM CHLORIDE 0.9% 250ML 0 ML ONE (07:51)
[2017-06-29] MEDS: POTASSIUM CHLORIDE 20 MEQ TAB PO SCH (07:57)
[2017-06-29] MEDS: ARFORMOTEROL TARTRATE 15 MCG/2 ML NEB NEB SCH ×2 (08:34→20:36)
[2017-06-29] MEDS: BUDESONIDE NEBS 0.25 MG/2 ML INH NEB SCH ×2 (08:34→20:37)
[2017-06-29] MEDS: IPRATROPIUM/ALBUTEROL 3 ML VIAL INH SCH ×4 (08:34→20:36)
[2017-06-29] MEDS: CLOPIDOGREL 75 MG TAB PO SCH (09:01)
[2017-06-29] MEDS: amLODIPine BESYLATE 5 MG TAB PO SCH (09:01)
[2017-06-29] MEDS: DICYCLOMINE HCL 20 MG TAB PO SCH ×2 (09:03→21:30)
[2017-06-29] MEDS: levETIRAcetam 250 MG TAB PO SCH ×2 (09:03→21:30)
[2017-06-29] MEDS: METOPROLOL SUCCINATE XL 100 MG TAB PO SCH ×2 (09:03→21:30)
[2017-06-29] MEDS: LORATADINE 10 MG TAB PO SCH (09:03)
[2017-06-29] MEDS: SODIUM CHLORIDE 0.9% (FLUSH) 10 ML SYG IV SCH ×2 (09:04→21:30)
[2017-06-29] MEDS: NITROGLYCERIN 0.4 MG/HR PATCH TOP SCH (09:04)
[2017-06-29] MEDS: OLOPATADINE HCL 0.2% OP SCH (09:04)
[2017-06-29] MEDS: cefTRIAXone SODIUM 2 GM in SODIUM CHL 0.9% 100ML MINI-BAG 100 ML IVPB SCH (09:08)
[2017-06-29] MEDS: IV SET AND CAP CHANGE INJ INJ SCH (16:15)
--- NOTE | 2017-06-29 17:37 | PN ---
DATE: 06/29/17 SUPERVISING PHYSICIAN: Mikhail Trejo M.D. SUBJECTIVE: Ms. Olmedo continues to note that she is feeling better. She is still producing copious amounts of sputum. She is responding well to the antibiotics. She is up and ambulating to the bathroom with minimal shortness of breath at present. She has not had any acute changes in her respiratory effort. She was noted to have Haemophilus influenza in her lungs as well as Staphylococcus aureus, however it was not MRSA. She did have Escherichia coli in her urine which is susceptible to the antibiotic she is currently taking. She states that she has been more active. She was encouraged to ambulate in the hallway 3 times a day to the nurses' station and back to her room. This is to increase her endurance and prevent any deconditioning. OBJECTIVE: VITAL SIGNS: Temperature 97.8, pulse 61, blood pressure 134/75, respiratory rate 14, oxygen saturation 96% on 1.5 liters per nasal cannula. Intake and output: Intake is 1970 mL in, out 400 mL. Weight was 43.95 kg today. WBC is improved to 12.2 today. She continues to be slightly anemic with a hemoglobin of 11.1, hematocrit was 34.5, platelet count 278. Her x-ray today indicated no significant interval change with persistent right middle and lower lung airspace opacities and possible small right pleural effusion. On examination, lung sounds have diminished breath sounds bibasilar, particularly right greater than the left. There is no rhonchi auscultated. There is slight expiratory wheezing on the right side. HEART: Sounds normal S1 and S2, regular rate and rhythm. No murmurs, clicks or rubs. Peripheral pulses are palpable bilaterally with no edema of the extremities. ABDOMEN: Soft, non-tender. Bowel sounds are active in all four quadrants. No organomegaly. No masses palpated. EXTREMITIES: No clubbing, cyanosis or edema. NEUROLOGIC: She is intact, alert and oriented times three. Mood and affect are within normal limits. There is no new microbiology. ASSESSMENT: 1. Acute exacerbation of chronic obstructive pulmonary disease with right middle lobe pneumonia community acquired with 2 separate organisms, the first one being identified as Haemophilus influenza with the patient having been on Rocephin and Azithromycin, and the second organism is gram positive cocci with concerns for MRSA with the patient having been started on vancomycin awaiting further culture results. 2. Right middle lobe pneumonia community acquired again with sputum culture showing Haemophilus influenza and gram positive cocci with the patient being on Rocephin, Azithromycin and vancomycin awaiting final culture results. 3. Persistent leukocytosis despite aggressive antibiotic therapy, although the patient shows clinically to be stable and improving. Given that we have not yet identified one of the species on the sputum and concerns for MRSA, additional antibiotics today included the addition of vancomycin per Pharmacy protocol. 4. Moderate electrolyte imbalance on admission with hypokalemia, hyponatremia and low magnesemia, improved and resolved with IV replacements. 5. Renal insufficiency with prerenal azotemia secondary to dehydration showing improvement and having some exacerbation from underlying right sided pneumonia and showing improvement with IV fluids. 6. History of congestive heart failure, unknown etiology without any current echocardiogram for review. 7. Hypertension. PLAN: Discontinue the vancomycin today. We will change her Azithromycin from IV to oral 250 mg p.o. daily. Her Ceftriaxone will be discontinued today and she will be placed on Keflex 500 mg 1 p.o. t.i.d. We will continue aggressive pulmonary hygiene and chest percussive therapy and have her ambulate in the hallway more frequently to improve her conditioning. If she tolerates the ambulation today and tomorrow morning, and tolerates the oral antibiotics well and has no significant changes, she may be discharged tomorrow. Until then, we will continue to monitor and treat her appropriately. Mikhail Trejo M.D. is the supervising physician and is available for consultation by telephone as needed. #[id number] [facility]
[2017-06-29] MEDS: DOXEPIN HCL 25 MG CAP PO SCH (21:30)
[2017-06-29] MEDS: ENOXAPARIN SODIUM 40 MG/0.4 ML SYG SUBCU SCH (21:30)
[2017-06-29] MEDS: ALPRAZolam 0.5 MG TAB PO SCH (21:30)
[2017-06-29] MEDS: MELATONIN 3 MG TAB PO SCH (21:30)
[2017-06-29] MEDS: REMOVE OLD PATCH TOP SCH (21:30)
[2017-06-29] MEDS: SERTRALINE HCL 50 MG TAB PO SCH (21:30)
[2017-06-30] MEDS: CYCLOBENZAPRINE HCL 5 MG TAB PO SCH ×2 (06:12→13:58)
[2017-06-30] MEDS: PANTOPRAZOLE SODIUM TAB 40 MG PO SCH (06:12)
[2017-06-30] MEDS: IPRATROPIUM/ALBUTEROL 3 ML VIAL INH SCH ×2 (08:19→11:55)
[2017-06-30] MEDS: ARFORMOTEROL TARTRATE 15 MCG/2 ML NEB NEB SCH (08:19)
[2017-06-30] MEDS: BUDESONIDE NEBS 0.25 MG/2 ML INH NEB SCH (08:19)
[2017-06-30] MEDS: METOPROLOL SUCCINATE XL 100 MG TAB PO SCH (10:03)
[2017-06-30] MEDS: POTASSIUM CHLORIDE 20 MEQ TAB PO SCH (10:03)
[2017-06-30] MEDS: CLOPIDOGREL 75 MG TAB PO SCH (10:03)
[2017-06-30] MEDS: amLODIPine BESYLATE 5 MG TAB PO SCH (10:04)
[2017-06-30] MEDS: LORATADINE 10 MG TAB PO SCH (10:04)
[2017-06-30] MEDS: NITROGLYCERIN 0.4 MG/HR PATCH TOP SCH (10:04)
[2017-06-30] MEDS: levETIRAcetam 250 MG TAB PO SCH (10:04)
[2017-06-30] MEDS: DICYCLOMINE HCL 20 MG TAB PO SCH (10:04)
[2017-06-30] MEDS: OLOPATADINE HCL 0.2% OP SCH (10:05)
[2017-06-30] MEDS: SODIUM CHLORIDE 0.9% (FLUSH) 10 ML SYG IV SCH (10:05)
[2017-06-30 12:48] VITALS: BP 127/78; TEMP 97.4
[2017-06-30] MEDS ORDERED: CEPHALEXIN MONOHYDRATE 500 MG CAP PO ONE (12:55)
[2017-06-30] MEDS ORDERED: AZITHROMYCIN 250 MG TAB PO SCH (13:00)
[2017-06-30] MEDS ORDERED: INFLUENZA VIRUS VACC (ADULT) 0.5 ML SYG IM ONE (13:19)
[2017-06-30] MEDS ORDERED: PNEUMOCOCCAL VACCINE 0.5 ML INJ IM ONE (13:19)
[2017-06-30] MEDS ORDERED: AZITHROMYCIN 250 MG TAB PO ONE (13:30)
--- NOTE | 2017-06-30 16:05 | DS ---
SUPERVISING PHYSICIAN: Mikhail Trejo M.D. DISCHARGE DIAGNOSIS: 1. Acute exacerbation of chronic obstructive pulmonary disease with right middle lobe pneumonia community acquired with 2 separate organisms, the first one being identified as Haemophilus influenza with the patient having been on Rocephin and Azithromycin, and the second organism is gram positive cocci with concerns for MRSA with the patient having been started on vancomycin awaiting further culture results. 2. Right middle lobe pneumonia community acquired again with sputum culture showing Haemophilus influenza and gram positive cocci with the patient being on Rocephin, Azithromycin and vancomycin awaiting final culture results. 3. Persistent leukocytosis despite aggressive antibiotic therapy, although the patient shows clinically to be stable and improving. Given that we have not yet identified one of the species on the sputum and concerns for MRSA, additional antibiotics today included the addition of vancomycin per Pharmacy protocol. 4. Moderate electrolyte imbalance on admission with hypokalemia, hyponatremia and low magnesemia, improved and resolved with IV replacements. 5. Renal insufficiency with prerenal azotemia secondary to dehydration showing improvement and having some exacerbation from underlying right sided pneumonia and showing improvement with IV fluids. 6. History of congestive heart failure, unknown etiology without any current echocardiogram for review. 7. Hypertension. HISTORY OF PRESENT ILLNESS: Ms. Olmedo is a 72 year-old white female that presented to the Emergency Room with progressively worsening shortness of breath , purulent cough and general malaise. She does wear oxygen at home. She was evaluated in the Emergency Room and admitted to the hospital for the above diagnoses. LABORATORY: Prior to discharge white blood count 12.2, hemoglobin 11.1, hematocrit 34.5. Metabolic panel: Sodium 141, potassium 4.2, chloride 113, carbon dioxide 23, BUN 31, creatinine 1.17. Liver enzymes are stable and normal. Her urine on admission was positive for nitrites. MICROBIOLOGY: She had Escherichia coli in her urine, Haemophilus influenza and Staphylococcus aureus not Methicillin resistant. Blood cultures were negative for growth after 3 days. HOSPITAL COURSE: Ms. Olmedo was admitted to the hospital on 06/26/17. She was started on Rocephin in the Emergency Room and Azithromycin on day 1. She was treated for DVT prophylaxis as per protocol and they continued to replace her electrolytes based off of her lab studies using oral potassium and IV supplementation. On day 2, she was changed from Rocephin and Azithromycin to vancomycin due to possible MRSA, however on day 4 the results of the culture came back and it was not MRSA. The vancomycin was stopped and she was placed on oral vancomycin and oral Keflex. On day 5, she was doing quite well ambulating in the shay without assistance. Her leukocytosis was improving considerably and we discussed discharge. PLAN: Ms. Olmedo will be discharged home in good condition. She will have close followup with Dr. Trejo within the week. She will continue the Azithromycin for 5 days 250 mg and the Keflex for 10 day 500 mg t.i.d. She will continue her home medications. Diet at discharge is as tolerated. Activity as tolerated. She is encouraged to walk and ambulate a good bit. Condition at discharge is good and will improve and is stable. Mikhail Trejo M.D. is available for consultation by telephone. [facility][id number] [facility]ISION[facility]
[2017-06-30 17:54] VITALS: O2SAT 96
[2017-06-30] MEDS ORDERED: CEPHALEXIN 500MG CAP (ER DISP) PO SCH (21:00)
== END 2017-06-30 14:20 | disposition home or self-care (01) | DRG 178 ==
LOC: ER 11:01 → MS 15:10
PROVIDERS: ADMIT Family Medicine; ATTEND Nurse Practitioner Family
DX: J15.211 Pneumonia due to Methicillin susceptible Staphylococcus aureus (principal); J44.0 Chronic obstructive pulmonary disease with (acute) lower respiratory infection; J44.1 Chronic obstructive pulmonary disease with (acute) exacerbation; E87.1 Hypo-osmolality and hyponatremia; J14 Pneumonia due to Hemophilus influenzae; E87.6 Hypokalemia; E83.42 Hypomagnesemia; E86.0 Dehydration; N28.9 Disorder of kidney and ureter, unspecified; I11.0 Hypertensive heart disease with heart failure; I50.9 Heart failure, unspecified; K44.9 Diaphragmatic hernia without obstruction or gangrene; M19.90 Unspecified osteoarthritis, unspecified site; B96.20 Unspecified Escherichia coli [E. coli] as the cause of diseases classified elsewhere; K21.9 Gastro-esophageal reflux disease without esophagitis; Z95.828 Presence of other vascular implants and grafts; Z22.322 Carrier or suspected carrier of Methicillin resistant Staphylococcus aureus; Z99.81 Dependence on supplemental oxygen; Z79.02 Long term (current) use of antithrombotics/antiplatelets; Z79.891 Long term (current) use of opiate analgesic; Z88.8 Allergy status to other drugs, medicaments and biological substances; Z87.891 Personal history of nicotine dependence

== ENCOUNTER → 2017-07-18 | Outpatient (CLI) | payer MEDICARE, MEDICAID ==
--- NOTE | 2017-07-18 15:41 | CT ---
EXAM DESCRIPTION: Chest w/Contrast CT. CLINICAL HISTORY: PULMONARY NODULE COMPARISON: CT scan of the lungs without contrast 11/23/2016. TECHNIQUE: Spiral-axial scans at 5.0 mm intervals through the lungs and thorax without IV contrast. 2.5 mm lung algorithm axial reconstructions. Coronal and sagittal 2.0 Mm reconstructions. No adverse reactions. Total Exam DLP: 244.26 mGy-cm. This exam was performed according to our departmental dose-optimization program which includes automated exposure control, adjustment of the mA and/or kV according to patient size and/or use of iterative reconstruction technique; to reduce radiation dose to as low as reasonably achievable (ALARA). FINDINGS: Bilateral dilated airspaces in the lungs more prominent in the upper lung maier compared to the lung bases. Scattered blebs in the lungs bilaterally. 7 mm calcified nodule in the right lateral middle lobe abutting the horizontal fissure. (Series 4, image 74). 6.4 mm nodule with irregular margins versus scarring in the lateral base of the right upper lobe (image 60 not as well seen on the prior study. Oval-shaped subpleural soft tissue nodule lateral right upper lobe measuring approximately 4.5 mm (image 50) smaller nodule , approximately 3 mm diameter, lateral but more posterior and subpleural. Pleural thickening and parenchymal scarring in the right lower lobe with minimal pleural thickening only in the left lower lobe. Pleural-based blebs and bulla bilaterally. Focal pleural thickening in the left base. Symmetric enhancement in the thyroid gland. No masses at the base of the neck. Small lymph nodes in the mediastinum and hilar regions with short axis within the normal range. 2.9 x 3.2 cm well-defined mass again seen abutting the left atrium and right atrium and the right SVC right atrial junction without enhancement; Hounsfield density ranging from -20 to -40. No axillary mediastinal or hilar adenopathy. Thoracic aorta atherosclerotic calcifications. Atherosclerotic calcifications in the coronary arteries. The included subdiaphragmatic peritoneal space shows no evidence of free air or fluid. Atherosclerotic changes in the abdominal aorta. Adrenal glands are unremarkable. Arterial phase inhomogeneous enhancement of the spleen. Diffuse atherosclerotic calcification of the included aorta. Cannot exclude a aortic stent. Multiple levels of spondylosis in the thoracic spine. Multiple levels of endplate deformities of the thoracic spine but no bone destruction. No bone destruction of the other osseous structures of the chest. IMPRESSION: 1. Focal soft tissue nodules or areas of parenchymal scarring are visible in the right upper lobe. Stable since the prior study November 2016. Based upon 2017 Fleischner Society recommendations for multiple solid lung nodules,, adopted by [employer] Best Practice recommendations, consider follow-up chest CT scan in one year interval. Please see below.* 2. Moderate emphysematous changes in the lungs bilaterally and also affecting the pleura. No acute infiltrate. 3. Atherosclerotic calcifications of the thoracic aorta. Coronary artery calcifications. Stable well-defined lipoma in the right mediastinum abutting the right atrium and right ventricle and superior vena cava. No hilar or mediastinal masses or adenopathy. *2017 Fleischner Society Recommendations for Multiple Solid Lung Nodules Follow-Up base on size (average of long- and short-axis diameters). Use most suspicious nodule for followup. Nodule Size <6 mm Low-Risk Patient: No routine follow-up Nodule Size <6 mm High-Risk Patient: Optional CT at 12 months Nodule Size 6-8 mm Low-Risk Patient: CT at 3-[address] at 18-24 months Nodule Size 6-8 mm High-Risk Patient: CT at 3-6 months then at 18-24 months Nodule Size (mm) >8 Low-Risk Patient: CT at 3-6 months, then consider CT at 18-24 months Nodule Size (mm) >8 High-Risk Patient: CT at 3-6 months, then at 18-24 months Electronically signed by: Shant Carbajal MD 07/18/2017 3:40 PM VEHICLE LEASING AND RENTAL MANAGER
== END | disposition home or self-care (01) ==
LOC: CT 09:39
PROVIDERS: ATTEND Family Medicine
DX: R91.1 Solitary pulmonary nodule (principal)

== ENCOUNTER → 2017-10-14 | Outpatient (CLI) | payer MEDICARE, MEDICAID ==
--- NOTE | 2017-10-14 11:17 | RAD ---
EXAM DESCRIPTION: Hip,Right 2 Views CLINICAL HISTORY: 72 years, Female, CLOSED FRACTURE OF FEMUR RIGHT COMPARISON: Previous study March 07, 2017 TECHNIQUE: AP and frog leg lateral views of the hip FINDINGS: Orthopedic hardware is seen in the proximal right femur. 2 views of the right hip reveal no acute fracture or dislocation. No lytic bone lesion. Bones appear osteopenic. Extensive vascular calcification. There is no joint space abnormality observed. IMPRESSION: Orthopedic hardware in the proximal right femur with no complicating fracture or dislocation. Electronically signed by: Molina Rubin MD 10/14/2017 11:16 AM CDT
== END ==
LOC: RAD 08:52
PROVIDERS: ATTEND Orthopaedic Surgery
DX: S72.8X1D Other fracture of right femur, subsequent encounter for closed fracture with routine healing (principal)

== ENCOUNTER → 2017-10-29 | Outpatient (CLI) | payer MEDICARE, OTHER | LOC: NC 09:25 | PROVIDERS: ATTEND Family Medicine | DX: J44.9 Chronic obstructive pulmonary disease, unspecified (principal); I25.10 Atherosclerotic heart disease of native coronary artery without angina pectoris; I13.0 Hypertensive heart and chronic kidney disease with heart failure and stage 1 through stage 4 chronic kidney disease, or unspecified chronic kidney disease; N18.3 Chronic kidney disease, stage 3 (moderate); Z86.73 Personal history of transient ischemic attack (TIA), and cerebral infarction without residual deficits ==

== ENCOUNTER → 2018-03-25 | Outpatient (CLI) | payer MEDICARE, OTHER | LOC: NC 10:19 | PROVIDERS: ATTEND Family Medicine | DX: J44.9 Chronic obstructive pulmonary disease, unspecified (principal); I25.10 Atherosclerotic heart disease of native coronary artery without angina pectoris; I13.0 Hypertensive heart and chronic kidney disease with heart failure and stage 1 through stage 4 chronic kidney disease, or unspecified chronic kidney disease; I50.9 Heart failure, unspecified ==

== ENCOUNTER → 2018-05-30 | Outpatient (CLI) | payer MEDICARE, OTHER ==
--- NOTE | 2018-05-30 14:41 | RAD ---
EXAM DESCRIPTION: Ribs,Right 3 Views CLINICAL HISTORY: 73 years Female, RIB PAIN COMPARISON: February 14, 2010 x-ray of the chest FINDINGS: 3 views of the right ribs shows remote healed displaced fracture of the right third rib. No acute displaced fracture or focal bone destruction is seen. Calcified pulmonary nodules in the right mid chest are seen consistent with old granulomatous disease. Chronic increased interstitial markings in the lungs are noted. Abdominal aortic stent graft is seen in place. IMPRESSION: Remote fracture of the right third rib is seen. Otherwise negative right rib series. Electronically signed by: Farhat Barros MD 05/30/2018 2:[address] [facility]
--- NOTE | 2018-05-30 14:43 | RAD ---
EXAM DESCRIPTION: Chest,1 View CLINICAL HISTORY: RIB PAIN COMPARISON: June 29, 2017 IMPRESSION: Single AP portable upright view of the chest shows enlargement of the cardiac silhouette without pulmonary vascular congestion. Lungs are normally aerated. Increased interstitial markings in the lower lobes right greater than left are seen likely representing chronic changes on the left. There could be acute infiltrate or atelectasis developing in the right costophrenic angle region.. The right hilar infiltrate seen on previous exam is resolved. Calcified pulmonary nodules in the right lower lobe with calcified lymph nodes in the right hilar region are seen consistent with old granulomatous disease. Electronically signed by: Farhat Barros MD 05/30/2018 2:41 PM FIELD SERVICES MANAGER
== END ==
LOC: RAD 14:01
PROVIDERS: ATTEND Nurse Practitioner Family
DX: S22.31XA Fracture of one rib, right side, initial encounter for closed fracture (principal); R07.82 Intercostal pain; R91.8 Other nonspecific abnormal finding of lung field

== ENCOUNTER → 2018-07-23 | Outpatient (CLI) | payer MEDICARE, OTHER | LOC: NC 08:24 | PROVIDERS: ATTEND Family Medicine | DX: J44.9 Chronic obstructive pulmonary disease, unspecified (principal); I13.0 Hypertensive heart and chronic kidney disease with heart failure and stage 1 through stage 4 chronic kidney disease, or unspecified chronic kidney disease; I50.9 Heart failure, unspecified; N18.3 Chronic kidney disease, stage 3 (moderate); I25.10 Atherosclerotic heart disease of native coronary artery without angina pectoris ==

== ENCOUNTER → 2018-08-13 | Outpatient (CLI) | payer MEDICARE, OTHER ==
--- NOTE | 2018-08-13 11:47 | CT ---
Study: CT abdomen and pelvis. Indication: Diarrhea Technique: Venous and delayed phase CT imaging of the abdomen and pelvis obtained after intravenous administration of contrast. This exam was performed according to our departmental dose-optimization program, which includes automated exposure control, adjustment of the mA and/or kV according to patient size and/or use of iterative reconstruction technique. Comparison: None. Findings: Mild patchy consolidation base of the right lower lobe. Mild to moderate intrahepatic and extrahepatic biliary dilatation which may relate to postcholecystectomy state but is nonspecific. Spleen, adrenal glands, kidneys, and bladder unremarkable. Uterus and ovaries are either small or surgically absent. Scattered fluid noted throughout the colon which can be seen with a diarrheal state. No wall thickening or pericolonic inflammation. Appendix not visualized. Questionable mild wall thickening throughout the stomach which could relate to underdistention. Small bowel unremarkable. No free fluid. No free air. No pathologically enlarged lymphadenopathy. Pronounced atherosclerosis aorta and its branches. Aortic stent graft noted. Degenerative changes of the spine noted. Prior ORIF of a right femoral neck fracture. Likely remote T11 superior endplate fracture noted. Impression: Scattered fluid throughout the colon which can be seen with a diarrheal states. Mild patchy opacity right lower lobe base concerning for pneumonia. Follow up to resolution recommended. Questionable wall thickening of the stomach versus underdistention. Upper GI versus EGD could better evaluate. Mild to moderate intrahepatic and extrahepatic ductal dilatation which could relate to the postcholecystectomy state, however correlation with liver function tests recommended. Additional findings as above. Electronically signed by: Royer Magana MD 08/13/2018 11:46 AM CHECK CASHIER
== END ==
LOC: CT 09:00
PROVIDERS: ATTEND Family Medicine
DX: R19.7 Diarrhea, unspecified (principal)

== ENCOUNTER → 2018-10-29 | Outpatient (CLI) | payer MEDICARE, MEDICAID | LOC: NC 09:11 | PROVIDERS: ATTEND Family Medicine | DX: I13.0 Hypertensive heart and chronic kidney disease with heart failure and stage 1 through stage 4 chronic kidney disease, or unspecified chronic kidney disease (principal); N18.3 Chronic kidney disease, stage 3 (moderate); I50.9 Heart failure, unspecified; J44.9 Chronic obstructive pulmonary disease, unspecified ==

== ENCOUNTER 2018-12-23 16:37 | Inpatient (IN) | payer MEDICARE, MEDICAID ==
--- NOTE | 2018-12-23 16:40 | HP ---
SUPERVISING PHYSICIAN: Jayden Ferrera MD CHIEF COMPLAINT: Shortness of breath, cough. HISTORY OF PRESENT ILLNESS: Ms. Olmedo is a 73 year-old female patient. She was seen today in the walk-in clinic at [facility] due to worsening upper respiratory symptoms including cough, shortness of breath, productive sputum. She does have a significant history of chronic obstructive pulmonary disease. She denies any chest pain, palpitations or other symptoms and had not seen any providers prior to this episode, trying [id number] relief. In the clinic, workup showed she had a leukocytosis with a white count of 15,000 with a left shift, hemoglobin 12.7, hematocrit 30.6. Chest x-ray per radiology interpretation showed no consolidation but emphysemic and chronic obstructive pulmonary disease changes. Vital signs in the clinic did show that saturation on room air into the low 80s, improving with breathing treatments and oxygen up to 92 and 95%. Chemistries showed that she had a slight elevation in her creatinine and BUN, potassium low at 3.2. Otherwise, all other chemistries were within normal limits. Given her significant hypoxemia on evaluation, extensive chronic obstructive pulmonary disease, advanced age and concerns for developing community acquired pneumonia with an exacerbation of chronic obstructive pulmonary disease, Dr. Trejo requested the patient be admitted for treatment of acute exacerbation of chronic obstructive pulmonary disease. She was admitted from the clinic in stable condition. PAST MEDICAL HISTORY: 1. Congestive heart failure, unknown etiology with no echocardiogram for review at time of admission. 2. Hypertension. 3. Chronic obstructive pulmonary disease. 4. Hiatal hernia. 5. Past history of previous Clostridium Difficile.infections. 6. Acute renal failure due to previous Srinivasa inhibitor and ARBs. 7. History of uterine cancer. 8. Osteoarthritis. 9. Gastroesophageal reflux disease. PAST SURGICAL HISTORY: 1. Gamma nail to the right hip for a right intertrochanteric hip fracture in November 2016. 2. Cholecystectomy. 3. Hysterectomy. 4. Removal of tumor on her back. 5. Removal of labial carcinoma. 6. Ovarian cancer removal. 7. Multiple carotid stents. 8. Irritable bowel syndrome. CURRENT MEDICATIONS: 1. Trazodone 50 to 100 mg at bedtime p.r.n. 2. Zoloft 50 mg at bedtime. 3. Potassium chloride 20 mEq daily. 4. Plavix 75 mg daily. 5. Protonix 40 mg daily. 6. Nitroglycerin 0.4 mg as needed sublingual. 7. Nitroglycerin transdermal patch 0.4 mg daily. 8. Multiple vitamin 1 tablet daily. 9. Metoprolol succinate extended release 100 mg daily. 10. Melatonin 5 mg at bedtime. 11. Loratadine 10 mg daily. 12. Imodium AD liquid 7.5 mLs as needed. 13. Levetiracetam 500 mg daily. 14. Duoneb q.i.d. as needed. 15. Vibramycin 100 mg every 12 hours. 16. Doxepin 50 mg at bedtime. 17. Bentyl 10 mg b.i.d. 18. Cyclobenzaprine 5 mg every 8 hours as needed. 19. Cranberry Extract 250 mg daily. 20. Budesonide 0.25 mg every 12 hours as needed. 21. Vitamin B Complex, one capsule daily. 22. Brovana 15 mcg every 12 hours as needed. 23. Norvasc 5 mg daily. 24. Proventil Nebs 2.5 mg every 4 hours as needed. 25. Tylenol No. 3, one tablet every 4 hours as needed. 26. Xanax 0.5 to 1 mg at bedtime. ALLERGIES: ONDANSETRON, ADVERSE REACTION TO SRINIVASA INHIBITORS AND ARBS DUE TO RENAL FAILURE. FAMILY HISTORY: Noncontributory. SOCIAL HISTORY: the patient is retired and . She has 5 children and currently lives with her daughter. She does have a history of cigarette smoking but quit in 2013. She denies any alcohol or illicit drug use. REVIEW OF SYSTEMS: CONSTITUTIONAL: Positive for general malaise but denies fever or chills. HEENT: Negative for nasal congestion, sore throat, earaches or headaches. RESPIRATORY: As noted in History of Present Illness, ongoing shortness of breath with a cough. CARDIOVASCULAR: Denies chest pains, palpitations or syncopal episodes. GASTROINTESTINAL: Denies abdominal pains, constipation, has had some diarrhea but has a history of irritable bowel syndrome but no significant bowel habit changes. GENITOURINARY: Denies any dysuria, hematuria, polyuria or other urinary symptoms. NEUROLOGIC: Denies any neurological deficits, syncopal episodes, vision changes, hearing loss, ataxia or seizures. PHYSICAL EXAMINATION: VITAL SIGNS: In the clinic she was showing saturations in the low 80s on room air, improved to 92 to 93% with 2 liters nasal cannula and breathing treatments. On admission, initial vital signs show a temperature of 98.8, pulse 78, blood pressure 104/53, respirations 18, saturation 88% on room air, showing 94% on 2 liter nasal cannula. Admission weight 38 kg. GENERAL: The patient is thin in appearance, she does appear tired but in no acute distress. She is alert. HEENT: Hearing aids in place. Oropharynx is pink, moist, without lesions. NECK: Supple, non-tender, full range of motion, no jugular venous distention. CHEST: Lung sounds were diminished throughout with some inspiratory and expiratory wheezing. No obvious rhonchi or rales. CARDIOVASCULAR: Heart regular rate and rhythm without appreciable murmurs, rubs, or gallops. ABDOMEN: Soft, non-tender, positive bowel sounds. EXTREMITIES: Without cyanosis, clubbing, or edema. NEUROLOGIC: She is alert and oriented x 3. Skin warm, pink and dry. LABORATORY: Chemistries showed a BUN of 38, creatinine 1.8, potassium 3.2. All other indices were within normal limits including liver function. Magnesium is ordered for the morning. Urinalysis is pending. MICROBIOLOGY: Sputum culture pending. There were no blood cultures drawn. RADIOLOGY: 2-view chest at [facility] per radiology interpretation showed no acute consolidations but just emphysemic and chronic obstructive pulmonary disease changes. ASSESSMENT: 1. Acute exacerbation of chronic obstructive pulmonary disease with significant hypoxia on room air with the patient being O2 dependent at night. . 2. Renal insufficiency probably due to some mild dehydration. 3. Electrolyte imbalance with a mild hypokalemia. 4. Leukocytosis with a left shift probably secondary to #1. 5. History of congestive heart failure with no signs of exacerbation and no current echocardiogram on admission for review. 6. Chronic hypertension. 7. History of past Clostridioides difficile with history of irritable bowel syndrome. 8. History of uterine cancer. 9. Chronic gastroesophageal reflux disease. PLAN: Ms. Olmedo is going to be admitted for exacerbation of chronic obstructive pulmonary disease. I have started her on antibiotic coverage of Rocephin and azithromycin. She is on aggressive pulmonary hygiene with chest percussion therapy as well as Duoneb treatments. We will go ahead and put her on Solu-Medrol, initially 80 mg and will follow this up with 40 every 6 hours for 2 doses and reassess tomorrow. Will go ahead and put her on some IV fluids with D5 normal saline with 20 of potassium. She will be on DVT prophylaxis per protocol with Lovenox. Will resume her medications as soon as they have been updated and verified. Will anticipate her length of stay to be 2 to 3 days. Will repeat chest x-ray and laboratory studies in the morning. Until she can transition to outpatient management, will continue to monitor and treat as needed. [facility][id number] [facility]
[2018-12-23] MEDS ORDERED: SODIUM CHLORIDE 0.9% (FLUSH) 10 ML SYG IV PRN (17:36)
[2018-12-23] MEDS ORDERED: ACETAMINOPHEN 325 MG TAB PO PRN (17:36)
[2018-12-23] MEDS ORDERED: methylPREDNISolone SODIUM SUC 125 MG/2 ML VIAL IV ONE (17:44)
[2018-12-23] MEDS ORDERED: KCL 20MEQ/D5NS 1,000 ML IVS PRN (17:47)
[2018-12-23] MEDS ORDERED: ALBUTEROL SULFATE 2.5 MG/3 ML VIAL NEB PRN (17:48)
[2018-12-23] MEDS ORDERED: cefTRIAXone SODIUM 1 GM in SODIUM CHL 0.9% 50ML MIN-BAG+ 50 ML IVPB SCH (18:00)
[2018-12-23] MEDS ORDERED: IV SET AND CAP CHANGE INJ INJ SCH (18:00)
[2018-12-23] MEDS ORDERED: AZITHROMYCIN IV 500 MG in SODIUM CHLORIDE 0.9% 250ML 250 ML IVPB SCH (18:00)
[2018-12-23] MEDS: IPRATROPIUM/ALBUTEROL 3 ML VIAL NEB SCH ×2 (18:16→20:50)
[2018-12-23] MEDS ORDERED: cefTRIAXone SODIUM 1 GM VIAL ONE (18:22)
[2018-12-23] MEDS ORDERED: SODIUM CHL 0.9% 50ML MIN-BAG+ 50 ML IVPB ONE (18:23)
[2018-12-23] MEDS ORDERED: AZITHROMYCIN IV 500 MG VIAL IVPB ONE (19:26)
[2018-12-23] MEDS ORDERED: SODIUM CHLORIDE 0.9% 250ML 250 ML ONE (19:27)
[2018-12-23] MEDS ORDERED: traZODone HCL 50 MG TAB PO PRN (22:32)
[2018-12-23] MEDS ORDERED: CYCLOBENZAPRINE HCL 5 MG TAB PO PRN (22:32)
[2018-12-23] MEDS ORDERED: ACETAMINOPHEN W/COD #3 TAB (ER Disp) PO PRN (22:32)
[2018-12-23] MEDS ORDERED: METOPROLOL SUCCINATE XL 100 MG TAB PO ONE (22:43)
[2018-12-23] MEDS ORDERED: MELATONIN 3 MG TAB ONE (22:44)
[2018-12-23] MEDS ORDERED: NON-FORMULARY MEDICATION 1 EA MIS (Levetiracetam [Levetiracetam] 500 MG) PO SCH (22:45)
[2018-12-23] MEDS ORDERED: DICYCLOMINE HCL 10 MG PO SCH (22:45)
[2018-12-23] MEDS: NON-FORMULARY MEDICATION 1 EA MIS (Melatonin [Melatonin] 5 MG) PO SCH (22:50)
[2018-12-23] MEDS: SERTRALINE HCL 50 MG TAB PO SCH (22:52)
[2018-12-23] MEDS: METOPROLOL SUCCINATE XL 50 MG TAB PO SCH (22:52)
[2018-12-23] MEDS: ALPRAZolam 0.5 MG TAB PO SCH (22:53)
[2018-12-23] MEDS: NON-FORMULARY MEDICATION 1 EA MIS (Doxepin Hcl [Doxepin Hcl] 50 MG) PO SCH (22:57)
[2018-12-23] MEDS ORDERED: DICYCLOMINE HCL 20 MG TAB ONE (22:58)
[2018-12-23] MEDS ORDERED: levETIRAcetam 250 MG TAB ONE (22:59)
[2018-12-23] MEDS: DOXYCYCLINE HYCLATE CAP 100 MG CAP PO SCH (23:04)
[2018-12-23] MEDS: methylPREDNISolone SODIUM SUC 40 MG/ML VIAL IV SCH (23:57)
[2018-12-24] MEDS ORDERED: methylPREDNISolone SODIUM SUC 40 MG/ML VIAL IV SCH (00:12)
[2018-12-24] MEDS: methylPREDNISolone SODIUM SUC 40 MG/ML VIAL IV SCH (00:14)
[2018-12-24] MEDS: OMEPRAZOLE CAP 20 MG CAP PO SCH (06:12)
--- NOTE | 2018-12-24 07:27 | RAD ---
EXAM DESCRIPTION: Chest,2 Views CLINICAL HISTORY: 73 years Female Pneumonia COMPARISON: Portable chest dated 05/30/2018 TECHNIQUE: PA and lateral views of the chest are obtained. Heart: The heart is normal in size and configuration. Vasculature: There is mild tortuosity and atherosclerosis of the aorta. There is no evidence of aortic aneurysm or acute findings. The pulmonary vascularity is normal. Mediastinum: Unremarkable otherwise. No evidence of mass or adenopathy. Lungs: Lungs are hyperinflated and hyperlucent with diffuse interstitial prominence consistent with centrilobular emphysema and some fibrosis . Superimposed viral lower respiratory tract illness and/or mild interstitial edema also considerations. There is minimal left basilar discoid atelectasis or scarring. No gross consolidation. There is a tiny calcified granuloma in the right lower lobe Pleural spaces: There are no pleural effusions. There are no pneumothoraces. Osseous structures: The bones appear demineralized. Mild anterior wedging noted at T11 or T12, chronicity uncertain. Tubes and catheters: None Upper abdomen: No acute findings. Chest wall: Unremarkable. IMPRESSION: Diffuse centrilobular emphysema and probable fibrosis. Nonspecific interstitial prominence may be acute or chronic as from interstitial edema or an acute lower respiratory tract viral illness versus fibrosis. There is no evidence of acute consolidative pneumonia. Antecedent granulomatous disease. Electronically signed by: Ariana Noriega MD 12/24/2018 7:25 AM CDT
[2018-12-24] MEDS: IPRATROPIUM/ALBUTEROL 3 ML VIAL NEB SCH ×4 (08:37→20:11)
[2018-12-24] MEDS ORDERED: traZODone HCL 50 MG TAB PO PRN (09:00)
[2018-12-24] MEDS: POTASSIUM CHLORIDE 20 MEQ TAB PO SCH (09:09)
[2018-12-24] MEDS: DICYCLOMINE HCL 20 MG TAB PO SCH ×2 (09:09→20:45)
[2018-12-24] MEDS: NITROGLYCERIN 0.4 MG/HR PATCH TOP SCH (09:09)
[2018-12-24] MEDS: B COMPLEX 1 EA TAB PO SCH (09:10)
[2018-12-24] MEDS: DOXYCYCLINE HYCLATE CAP 100 MG CAP PO SCH ×2 (09:10→22:14)
[2018-12-24] MEDS: amLODIPine BESYLATE 5 MG TAB PO SCH (09:10)
[2018-12-24] MEDS: PANTOPRAZOLE SODIUM TAB 40 MG PO SCH (09:10)
[2018-12-24] MEDS: levETIRAcetam 250 MG TAB PO SCH ×2 (09:11→20:46)
[2018-12-24] MEDS: LORATADINE 10 MG TAB PO SCH (09:11)
[2018-12-24] MEDS: ENOXAPARIN SODIUM 30 MG/0.3 ML SYG SUBCU SCH (09:26)
[2018-12-24] MEDS: CLOPIDOGREL 75 MG TAB PO SCH (09:27)
[2018-12-24] MEDS ORDERED: predniSONE 20 MG TAB PO SCH (10:00)
--- NOTE | 2018-12-24 11:44 | PN ---
SUPERVISING PHYSICIAN: Jayden Ferrera MD DATE: 12/24/18 SUBJECTIVE: The patient is sitting in bed. She feels much better than she did yesterday. She continues to have some mild shortness of breath, but she does wear oxygen at night, but again she feels much better. There is no chest pain, nausea, vomiting or diarrhea. OBJECTIVE: VITAL SIGNS: Temperature 98.3. Heart rate 67. Blood pressure 103/64. Respiratory rate 18. O2 saturation 97% on 2 liters nasal cannula. RESPIRATORY: Diminished breath sounds throughout with a few scattered rhonchi. CARDIAC: Regular rate and rhythm. GASTROINTESTINAL: Abdomen is soft, nondistended, nontender. Bowel sounds are positive. NEUROLOGIC: Awake, alert and oriented times three. LABORATORY: WBCs 6.3, hemoglobin 11.9, hematocrit 36.9. She does have a left shift on her differential. Sodium 138, potassium 3.6, chloride 105, carbon dioxide 25, BUN 34, creatinine 1.42. Calcium 8.3. Sputum culture pending. Chest x-ray shows diffuse interlobular emphysema, probable fibrosis, nonspecific interstitial prominence, may be acute or chronic as from interstitial edema or an acute lower respiratory tract viral illness versus fibrosis. There is no evidence of acute consolidative pneumonia. Antecedent granulomatosis disease. All other labs and films have been reviewed via the EMR. ASSESSMENT: 1. Acute exacerbation of chronic obstructive pulmonary disease with significant hypoxia on room air with the patient being O2 dependent at night. 2. Renal insufficiency, probably due to some mild dehydration. 3. Electrolyte imbalance with a mild hypokalemia. 4. Leukocytosis with a left shift, probably secondary to #1. 5. History of congestive heart failure with no signs of exacerbation and no current echocardiogram on admission for review. 6. Chronic hypertension. 7. History of past Clostridioides difficile with history of irritable bowel syndrome. 8. History of uterine cancer. 9. Chronic gastroesophageal reflux disease. PLAN: We will continue present supportive care. She is improved greatly overnight and I will change her IV Solu-Medrol to p.o. prednisone. I have also transitioned her to p.o. antibiotics. I will repeat her lab and chest x-ray in the morning and her IV has been stopped. I encouraged good pulmonary hygiene and monitor sputum culture as those results become available. Hopefully she can be discharged tomorrow or the next day with close followup with Dr. Trejo. #[id number] [facility]
[2018-12-24] MEDS: CEFDINIR 300 MG CAP PO SCH (18:01)
[2018-12-24] MEDS ORDERED: AZITHROMYCIN IV 500 MG in SODIUM CHLORIDE 0.9% 250ML 250 ML IVPB SCH (19:00)
[2018-12-24] MEDS ORDERED: AZITHROMYCIN 250 MG TAB PO ONE (20:05)
[2018-12-24] MEDS ORDERED: predniSONE 20 MG TAB ONE (20:05)
[2018-12-24] MEDS ORDERED: MELATONIN 3 MG TAB ONE (20:06)
[2018-12-24] MEDS: NON-FORMULARY MEDICATION 1 EA MIS (Melatonin [Melatonin] 5 MG) PO SCH (20:44)
[2018-12-24] MEDS: ALPRAZolam 0.5 MG TAB PO SCH (20:44)
[2018-12-24] MEDS: SERTRALINE HCL 50 MG TAB PO SCH (20:45)
[2018-12-24] MEDS: METOPROLOL SUCCINATE XL 50 MG TAB PO SCH (20:45)
[2018-12-24] MEDS: NON-FORMULARY MEDICATION 1 EA MIS (Doxepin Hcl [Doxepin Hcl] 50 MG) PO SCH (20:46)
[2018-12-25] MEDS: OMEPRAZOLE CAP 20 MG CAP PO SCH (05:34)
[2018-12-25] MEDS: CEFDINIR 300 MG CAP PO SCH (05:34)
[2018-12-25] MEDS: predniSONE 20 MG TAB PO SCH ×2 (05:34→08:17)
[2018-12-25] MEDS ORDERED: AZITHROMYCIN 250 MG TAB PO SCH (06:00)
[2018-12-25 06:26] VITALS: BP 150/54; TEMP 98.7
--- NOTE | 2018-12-25 07:12 | RAD ---
CHEST 12/25/2018 CLINICAL HISTORY: COPD exacerbation. COMPARISON: 12/24/2018 TECHNIQUE: AP Chest. FINDINGS: Heart is normal in size. No edema. Lungs are clear. Lungs are hyperinflated. Minimal calcified aortic plaque. Pleural spaces are clear. Calcified 7 mm granuloma within the right lower lobe. Lungs are hyperinflated. Stable surgical clips in the left lower neck subcutaneous tissues. Unremarkable remaining soft tissues. Mild levoconvex mid thoracic spine curve. Minimal degenerative thoracic spine changes. IMPRESSION: 1. Hyperinflation. No acute chest disease. Electronically signed by: Ashley Kaiser DO 12/25/2018 7:10 AM CDT
[2018-12-25] MEDS: LORATADINE 10 MG TAB PO SCH (08:17)
[2018-12-25] MEDS: levETIRAcetam 250 MG TAB PO SCH (08:17)
[2018-12-25] MEDS: DICYCLOMINE HCL 20 MG TAB PO SCH (08:17)
[2018-12-25] MEDS: B COMPLEX 1 EA TAB PO SCH (08:17)
[2018-12-25] MEDS: amLODIPine BESYLATE 5 MG TAB PO SCH (08:18)
[2018-12-25] MEDS: NITROGLYCERIN 0.4 MG/HR PATCH TOP SCH (08:18)
[2018-12-25] MEDS ORDERED: POTASSIUM CHLORIDE 20 MEQ TAB PO ONE (08:18)
[2018-12-25] MEDS: CLOPIDOGREL 75 MG TAB PO SCH (08:18)
[2018-12-25] MEDS: POTASSIUM CHLORIDE 20 MEQ TAB PO SCH (08:18)
[2018-12-25] MEDS: PANTOPRAZOLE SODIUM TAB 40 MG PO SCH (08:18)
[2018-12-25] MEDS: ENOXAPARIN SODIUM 30 MG/0.3 ML SYG SUBCU SCH (08:18)
[2018-12-25] MEDS ORDERED: MAGNESIUM SULFATE PREMIX 2GM 2 GM in PREMIX BAG 1 BAG IVPB ONE (08:18)
[2018-12-25] MEDS ORDERED: MAGNESIUM SULFATE PREMIX 2GM 50 ML IVPB ONE (08:22)
[2018-12-25] MEDS: IPRATROPIUM/ALBUTEROL 3 ML VIAL NEB SCH (08:43)
[2018-12-25 08:46] VITALS: O2SAT 97
--- NOTE | 2018-12-25 10:58 | DS ---
SUPERVISING PHYSICIAN: Jayden Ferrera MD DISCHARGE DIAGNOSIS: 1. Acute exacerbation of chronic obstructive pulmonary disease with significant hypoxia on room air with the patient being O2 dependent at night. 2. Renal insufficiency, most likely due to mild dehydration. 3. Electrolyte imbalance with hypokalemia and hypomagnesemia. She has required supplementation throughout her hospital stay. 4. Leukocytosis with a left shift, probably secondary to #1. 5. History of congestive heart failure with no signs of exacerbation and no current echocardiogram to review. 6. Chronic hypertension. 7. History of past Clostridioides difficile with history of irritable bowel syndrome. 8. History of uterine cancer. 9. Chronic gastroesophageal reflux disease. HISTORY OF PRESENT ILLNESS: This is a 73-year-old female patient who was seen in the walk-in clinic at [facility] due to worsening upper respiratory symptoms including cough, shortness of breath, and productive sputum. She does have a significant history of chronic obstructive pulmonary disease and is O2 dependent at night. She denied any chest pain, palpitations or other symptoms. She tried [id number] relief. She had leukocytosis at the clinic with a white count of 15,000 and a left shift, hemoglobin 12.7, hematocrit 30.6. Chest x-ray per radiology interpretation showed no consolidation but emphysemic and chronic obstructive pulmonary disease changes. Vital signs at the clinic did showed O2 saturation on room air into the low 80s. She improved with multiple breathing treatments and her oxygen saturation came up to 92%. Chemistries showed that she had a slight elevation in her BUN and creatinine with a potassium low at 3.2. Her other chemistries were within normal limits. Given her significant hypoxemia on evaluation, extensive chronic obstructive pulmonary disease, advanced age and concerns for developing community acquired pneumonia with an exacerbation of chronic obstructive pulmonary disease as well as her being oxygen dependent, Dr. Trejo requested the patient be admitted for treatment of acute exacerbation of chronic obstructive pulmonary disease. She was admitted from the clinic to the hospital in stable condition. HOSPITAL COURSE: She was started on antibiotic coverage with Rocephin and azithromycin as well as aggressive pulmonary hygiene with chest percussion and DuoNeb treatments. She got an initial dose of Solu-Medrol 80 mg and then followed by scheduled doses of 40 mg IV. Judicious IV fluids were given. She was also on DVT prophylaxis with Lovenox. Her home medications were resumed. Her IV steroids were transitioned to an oral prednisone taper. Over the last 48 hours, she has improved greatly and has been able to walk in her room. She has required oxygen, but she is oxygen dependent. She will receive a dose of IV magnesium this morning as well as some oral potassium due to her low magnesium and potassium. She will be discharged today after supplementation in stable condition. LABORATORY: As per the history of present illness with the addition of her followup labs. Sodium today was 3.1, BUN 34 and 31. Creatinine today was 1.26. Magnesium 1.4. WBCs on admission were 15,000 and went down to 6.3, but after giving steroids, WBCs are 17,500. Hemoglobin and hematocrit are stable at 11.5 and 35.4. She continues to have a left shift on her differential. MICROBIOLOGY: There was no microbiology to report on this admission. RADIOLOGY: Her followup chest x-ray shows hyperinflation with no acute disease. DISCHARGE PLAN: The patient will be discharged home in stable condition after she receives her magnesium and potassium supplementation. She is to resume her previous diet as well as her previous medications. She is to increase her activity as tolerated. She has a followup appointment with her primary care physician, Dr. Mikhail Trejo, on 12/31/18 at 2:30 PM. In addition to her home medications, she has received a prednisone taper as well as 8 days of cefdinir and 3 additional days of azithromycin. She did have an elevation in her WBCs today which is most likely due to her prednisone and it may be beneficial to recheck her CBC as well as CMP plus magnesium at her followup appointment. She has been encouraged to call Dr. Trejo' office or return to the hospital with any complications or problems. DISCHARGE MEDICATIONS: 1. B-Complex vitamins. 2. Dicyclomine. 3. Brovana. 4. Budesonide. 5. Cranberry extract. 6. Cyclobenzaprine. 7. Levetiracetam. 8. Loratadine. 9. Potassium chloride. 10. Pantoprazole. 11. Trazodone. 12. Sertraline. 13. Alprazolam. 14. Nitroglycerin. 15. Amlodipine. 16. Multivitamins. 17. Acetaminophen with codeine. 18. Doxepin. 19. Metoprolol. 20. Albuterol sulfate. 21. Melatonin. 22. Plavix. 23. Loperamide. 24. DuoNeb. 25. Cefdinir. 26. Prednisone taper. 27. Azithromycin. [id number] [facility]
[2018-12-25] MEDS ORDERED: MELATONIN 3 MG TAB PO SCH (21:00)
== END 2018-12-25 09:20 | disposition home health service (06) | DRG 192 ==
LOC: MS 16:37
PROVIDERS: ADMIT Nurse Practitioner Family; ATTEND Nurse Practitioner Acute Care
DX: J44.1 Chronic obstructive pulmonary disease with (acute) exacerbation (principal); R09.02 Hypoxemia; E86.0 Dehydration; N28.9 Disorder of kidney and ureter, unspecified; E87.6 Hypokalemia; E83.42 Hypomagnesemia; I11.0 Hypertensive heart disease with heart failure; I50.9 Heart failure, unspecified; K21.9 Gastro-esophageal reflux disease without esophagitis; M19.90 Unspecified osteoarthritis, unspecified site; K44.9 Diaphragmatic hernia without obstruction or gangrene; K58.9 Irritable bowel syndrome, unspecified; Z85.42 Personal history of malignant neoplasm of other parts of uterus; Z99.81 Dependence on supplemental oxygen; Z95.828 Presence of other vascular implants and grafts; Z79.02 Long term (current) use of antithrombotics/antiplatelets; Z79.899 Other long term (current) drug therapy; Z88.8 Allergy status to other drugs, medicaments and biological substances; Z87.891 Personal history of nicotine dependence

== ENCOUNTER → 2018-12-31 | Outpatient (CLI) | payer MEDICARE, MEDICAID | LOC: GMAJ 17:06 | PROVIDERS: ATTEND Family Medicine | DX: N18.2 Chronic kidney disease, stage 2 (mild) (principal) ==

== ENCOUNTER → 2019-01-06 | Outpatient (CLI) | payer MEDICARE, MEDICAID | LOC: NC 13:04 | PROVIDERS: ATTEND Family Medicine | DX: D72.829 Elevated white blood cell count, unspecified (principal) ==

== ENCOUNTER → 2019-01-13 | Outpatient (CLI) | payer MEDICARE, MEDICAID | LOC: NC 18:02 | PROVIDERS: ATTEND Family Medicine | DX: E83.42 Hypomagnesemia (principal); I13.0 Hypertensive heart and chronic kidney disease with heart failure and stage 1 through stage 4 chronic kidney disease, or unspecified chronic kidney disease; N18.3 Chronic kidney disease, stage 3 (moderate); I50.9 Heart failure, unspecified ==

== ENCOUNTER 2019-02-13 14:46 | Inpatient (IN) | payer MEDICARE, MEDICAID ==
[2019-02-13] MEDS ORDERED: SODIUM CHLORIDE 0.9% 1000ML 1,000 ML IVS PRN (16:01)
--- NOTE | 2019-02-13 16:23 | ED.PDOC ---
History of Present Illness - General Chief Complaint: General Time Seen by Provider: 02/13/19 16:20 Source: patient, RN notes reviewed, Vital Signs reviewed Additional Information: 73 YEAR OLD PRESENTS WITH WEAKNESS AND DIZZINESS FOR 2 WEEKS SHE HAS HISTORY OF COPD CHRONIC DIARRHEA FOR YEARS BEING ATTENDED BY DR DAVILA [employer] ESTATE CL[employer]ER RECENTLY DIAGNOSED WITH UTI JUST COMPLETED THE COURSE OF ANTIBIOTICS LAST WEEK SHE HAS NO BLOOD OR MUCOUS IN STOOLS - History of Present Illness Timing/Duration: changing over time Severity: moderate Improving Factors: nothing Worsening Factors: nothing Associated Symptoms: weakness Allergies/Adverse Reactions: Allergies Ondansetron [From Zofran] Allergy (Verified 12/23/18 20:37) Unknown Home Medications: Ambulatory Orders ALPRAZolam [Xanax] 0.5 - 1 mg PO BEDTIME 06/26/17 Acetaminophen W/ Codeine [Tylenol W/ CODEINE #3] 1 ea PO Q4H PRN 06/26/17 Amlodipine Besylate [Norvasc] 5 mg PO DAILY 06/26/17 Arformoterol Tartrate [Brovana] 15 mcg IN Q12HR PRN 06/26/17 B-Complex Vitamins [B Complex] 1 cap PO DAILY 06/26/17 Budesonide (Inhalation) [Budesonide] 0.25 mg IN Q12HRS PRN 06/26/17 Cranberry (Vaccinium Macrocarp [Cranberry Extract] 250 mg PO DAILY 06/26/17 Cyclobenzaprine HCl 5 mg PO Q8HR PRN 06/26/17 Dicyclomine HCl [Bentyl] 10 mg PO BID 06/26/17 Doxepin HCl 50 mg PO BEDTIME 06/26/17 Levetiracetam 500 mg PO BID 06/26/17 Loratadine 10 mg PO DAILY 06/26/17 Multiple Vitamins W/ Minerals [Centrum Adults] 1 tablet PO DAILY 06/26/17 Nitroglycerin [Nitroglycerin Transdermal] 0.4 mg TD QAM 06/26/17 Nitroglycerin [Nitrostat] 1 ea SL [id number] PRN 06/26/17 Pantoprazole Tablet [Protonix] 40 mg PO DAILY 06/26/17 Potassium Chloride [K-Tab] 20 meq PO DAILY 06/26/17 Sertraline HCl [Zoloft] 50 mg PO BEDTIME 06/26/17 Trazodone HCl [Trazodone Hydrochloride] 50 - 100 tablet PO BEDTIME PRN 06/26/17 Albuterol Sulfate Nebs [Proventil Nebs] 2.5 mg INH Q4H PRN #75 vial 06/30/17 Metoprolol Succinate [Metoprolol Succinate ER] 100 mg PO BEDTIME 06/30/17 Ipratropium/Albuterol [Duoneb] 3 ml INH RTQID PRN 12/23/18 Loperamide Liquid [Imodium A-D Liquid] 7.5 ml PO PRN PRN 12/23/18 Melatonin 5 mg PO BEDTIME 12/23/18 Plavix 75 mg PO DAILY 12/23/18 Azithromycin Tab [Zithromax Tab] 250 mg PO DAILY #3 tab 12/25/18 Cefdinir [Omnicef] 300 mg PO BID #16 cap 12/25/18 Prednisone See Taper PO DAILY #30 [id number] 12/25/18 Review of Systems - Review of Systems Constitutional: States: no symptoms reported, weakness EENTM: States: no symptoms reported Respiratory: States: no symptoms reported, short of breath Cardiology: States: no symptoms reported Gastrointestinal/Abdominal: States: no symptoms reported Genitourinary: States: no symptoms reported Musculoskeletal: States: no symptoms reported Skin: States: no symptoms reported Neurological: States: no symptoms reported Endocrine: States: no symptoms reported Hematologic/Lymphatic: States: no symptoms reported Past Medical History (General) - Patient Medical History Hx Seizures: Yes Hx Stroke: Yes - 2007 Hx Dementia: No Hx Asthma: No Hx of COPD: Yes Hx Cardiac Disorders: Yes - stents Hx Congestive Heart Failure: No Hx Pacemaker: No Hx Hypertension: Yes Hx Thyroid Disease: No Hx Diabetes: No Hx Gastroesophageal Reflux: Yes Hx Renal Disease: Yes - ARF 2014 Hx Cancer: Yes - ovarian Hx of HIV: No Hx Hepatitis C: No Hx MRSA: No - Vaccination History Hx Tetanus, Diphtheria Vaccination: Yes Hx Influenza Vaccination: Yes Hx Pneumococcal Vaccination: Yes - Social History Hx Tobacco Use: Yes Hx Chewing Tobacco Use: No Hx Alcohol Use: No Hx Substance Use: No Hx Substance Use Treatment: No Hx Depression: No Hx Physical Abuse: No Hx Emotional Abuse: No Hx Suspected Abuse: No - Female History Patient : No Family Medical History - Family History Brother Family History: Unknown Living Status: Hx Family Asthma: No Hx Family Congestive Heart Failure: No Hx Family Hypertension: Yes Hx Family Stroke: Yes - brother Hx Cardiac Disease: No Hx Family Diabetes: Yes - brother Hx Family Cancer: Yes - liver cancer -dad Hx Family;Other: liver/ etoh abuse Mother Family History: Unknown Living Status: Hx Family Asthma: No Hx Family Congestive Heart Failure: No Hx Family Hypertension: Yes Hx Family Stroke: No Hx Cardiac Disease: No Hx Family Diabetes: No Hx Family Cancer: Yes Hx Family;Other: copd Physical Exam - Physical Exam General Appearance: Alert, Emaciated, Frail Ears, Nose, Throat: hearing grossly normal, normal ENT inspection, normal pharynx, other - DRY ORAL MUCOSA Neck: non-tender, full range of motion, supple Respiratory: chest non-tender, lungs clear, normal breath sounds, no respiratory distress, no accessory muscle use Cardiovascular/Chest: normal peripheral pulses, regular rate, rhythm, no edema, no JVD Gastrointestinal/Abdominal: normal bowel sounds, non tender, soft, no organomegaly, no pulsatile mass Back Exam: normal inspection, no CVA tenderness 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 Copy, Patient Portal Self Enrollment Referrals: Mikhail Trejo MD [Primary Care Provider] - 1-2 Weeks Home Medications: Ambulatory Orders ALPRAZolam [Xanax] 0.5 - 1 mg PO BEDTIME 06/26/17 Acetaminophen W/ Codeine [Tylenol W/ CODEINE #3] 1 ea PO Q4H PRN 06/26/17 Amlodipine Besylate [Norvasc] 5 mg PO DAILY 06/26/17 Arformoterol Tartrate [Brovana] 15 mcg IN Q12HR PRN 06/26/17 B-Complex Vitamins [B Complex] 1 cap PO DAILY 06/26/17 Budesonide (Inhalation) [Budesonide] 0.25 mg IN Q12HRS PRN 06/26/17 Cranberry (Vaccinium Macrocarp [Cranberry Extract] 250 mg PO DAILY 06/26/17 Cyclobenzaprine HCl 5 mg PO Q8HR PRN 06/26/17 Dicyclomine HCl [Bentyl] 10 mg PO BID 06/26/17 Doxepin HCl 50 mg PO BEDTIME 06/26/17 Levetiracetam 500 mg PO BID 06/26/17 Loratadine 10 mg PO DAILY 06/26/17 Multiple Vitamins W/ Minerals [Centrum Adults] 1 tablet PO DAILY 06/26/17 Nitroglycerin [Nitroglycerin Transdermal] 0.4 mg TD QAM 06/26/17 Nitroglycerin [Nitrostat] 1 ea SL [id number] PRN 06/26/17 Pantoprazole Tablet [Protonix] 40 mg PO DAILY 06/26/17 Potassium Chloride [K-Tab] 20 meq PO DAILY 06/26/17 Sertraline HCl [Zoloft] 50 mg PO BEDTIME 06/26/17 Trazodone HCl [Trazodone Hydrochloride] 50 - 100 tablet PO BEDTIME PRN 06/26/17 Albuterol Sulfate Nebs [Proventil Nebs] 2.5 mg INH Q4H PRN #75 vial 06/30/17 Metoprolol Succinate [Metoprolol Succinate ER] 100 mg PO BEDTIME 06/30/17 Ipratropium/Albuterol [Duoneb] 3 ml INH RTQID PRN 12/23/18 Loperamide Liquid [Imodium A-D Liquid] 7.5 ml PO PRN PRN 12/23/18 Melatonin 5 mg PO BEDTIME 12/23/18 Plavix 75 mg PO DAILY 12/23/18 Azithromycin Tab [Zithromax Tab] 250 mg PO DAILY #3 tab 12/25/18 Cefdinir [Omnicef] 300 mg PO BID #16 cap 12/25/18 Prednisone See Taper PO DAILY #30 fadumo 12/25/18 Comments: DISCUSSED WITH ME LORETTA BEARD AT 7 PM WILL ADMIT
[2019-02-13] MEDS ORDERED: SODIUM CHLORIDE 0.9% 1000ML 1,000 ML IVS ONE (17:18)
[2019-02-13] MEDS ORDERED: SODIUM BICARBONATE VIAL 50 MEQ/50 ML VIAL IV ONE (18:52)
[2019-02-13] MEDS ORDERED: CALCIUM GLUCONATE INJ 1 GM/10 ML VIAL IV ONE (18:53)
[2019-02-13] MEDS ORDERED: DEXTROSE 50% 25 GM/50 ML SYG IV ONE (18:53)
[2019-02-13] MEDS ORDERED: INSULIN, REG.(HUMAN) 100 U/ML VIAL IV ONE (18:58)
[2019-02-13] MEDS ORDERED: SODIUM CHLORIDE 0.9% 50ML 50 ML ONE (19:18)
[2019-02-13] MEDS ORDERED: SODIUM CHLORIDE 0.9% (FLUSH) 10 ML SYG IV PRN (21:59)
[2019-02-13] MEDS ORDERED: ACETAMINOPHEN 325 MG TAB PO PRN (21:59)
[2019-02-13] MEDS ORDERED: IV SET AND CAP CHANGE INJ INJ SCH (22:00)
[2019-02-13] MEDS: DEX 5% W/NACL 0.45% 1000ML 1,000 ML IVS PRN (23:00)
[2019-02-13] MEDS ORDERED: [UNRECOGNIZED DRUG - OTHER] PO SCH (23:45)
[2019-02-13] MEDS ORDERED: DEXTROMETHORPHAN PO SCH (23:45)
[2019-02-13] MEDS ORDERED: DICYCLOMINE HCL 10 MG PO SCH (23:45)
[2019-02-13] MEDS ORDERED: IPRATROPIUM BROM 0.03% NASAL 30 ML BTTL NAS SCH (23:45)
[2019-02-13] MEDS ORDERED: NON-FORMULARY MEDICATION 1 EA MIS (Levetiracetam [Levetiracetam] 500 MG) PO SCH (23:45)
[2019-02-13] MEDS ORDERED: GUAIFENESIN PO SCH (23:45)
[2019-02-13] MEDS ORDERED: LOPERAMIDE CAP 2 MG CAP PO PRN (23:48)
[2019-02-13] MEDS ORDERED: ACETAMINOPHEN W/COD #3 TAB (ER Disp) PO PRN (23:48)
[2019-02-13] MEDS ORDERED: CYCLOBENZAPRINE HCL 5 MG TAB PO PRN (23:48)
[2019-02-13] MEDS ORDERED: ALBUTEROL SULFATE 2.5 MG/3 ML VIAL NEB PRN (23:48)
[2019-02-13] MEDS ORDERED: LOPERAMIDE 1 MG/5 ML 120 ML BTTL PO PRN (23:54)
[2019-02-14] MEDS ORDERED: DICYCLOMINE HCL 20 MG TAB ONE (00:19)
[2019-02-14] MEDS ORDERED: levETIRAcetam 250 MG TAB ONE (00:19)
[2019-02-14] MEDS: ALPRAZolam 0.5 MG TAB PO SCH ×2 (00:22→20:34)
[2019-02-14] MEDS: ALOSETRON HCL 1 MG PO SCH ×3 (00:25→20:33)
[2019-02-14] MEDS ORDERED: LOPERAMIDE CAP 2 MG CAP ONE (04:30)
[2019-02-14] MEDS: LOPERAMIDE CAP 2 MG CAP PO PRN (04:38)
[2019-02-14] MEDS: IPRATROPIUM/ALBUTEROL 3 ML VIAL NEB PRN ×4 (08:39→20:17)
[2019-02-14] MEDS: CLOPIDOGREL 75 MG TAB PO SCH (08:58)
[2019-02-14] MEDS: levETIRAcetam 250 MG TAB PO SCH ×2 (08:58→20:34)
[2019-02-14] MEDS: BIFIDOBACTERIUM INFANTIS 4 MG CAP PO SCH (08:58)
[2019-02-14] MEDS: PANTOPRAZOLE SODIUM TAB 40 MG PO SCH (08:58)
[2019-02-14] MEDS: amLODIPine BESYLATE 5 MG TAB PO SCH (08:58)
[2019-02-14] MEDS: POTASSIUM CHLORIDE 20 MEQ TAB PO SCH (08:58)
[2019-02-14] MEDS: B COMPLEX 1 EA TAB PO SCH (08:58)
[2019-02-14] MEDS: DICYCLOMINE HCL 20 MG TAB PO SCH ×2 (08:59→20:35)
[2019-02-14] MEDS ORDERED: OLOPATADINE HCL 0.2% OP SCH (09:00)
[2019-02-14] MEDS: LORATADINE 10 MG TAB PO SCH (09:01)
[2019-02-14] MEDS ORDERED: ACETAMINOPHEN W/COD #3 TAB 1 EA TAB PO PRN (09:30)
[2019-02-14] MEDS: MULTIPLE VITAMINS W/ MINERALS 1 EA TAB PO SCH (09:59)
--- NOTE | 2019-02-14 11:20 | HP ---
SUPERVISING PHYSICIAN: Jayden Ferrera MD CHIEF COMPLAINT: Dizziness, weakness. HISTORY OF PRESENT ILLNESS: Ms. Olmedo is a 73 year-old female patient who presented to the Emergency Room today complaining of generalized weakness and dizziness that has been occurring for over 2 weeks. She does have a history of chronic obstructive pulmonary disease and chronic diarrhea for multiple years and is being followed by Dr. Reyez, biofuels production associate. She just recently finished treatments for a urinary tract infection with Bactrim within the last week. She denied any significant change in her stools, no notable blood or mucous. She has had no chest pain. Initially in the Emergency Room, she was noted to be hypotensive with a blood pressure of 79/56, heart rate of 90, oxygen saturation 94% on room air, temperature 97.5. Laboratory studies showed she had a hemoglobin of 15.1 and hematocrit of 45.4. Baseline hemoglobin 11.9. Renal function was showing a significant elevation with creatinine of 2.72, potassium 6.2, carbon dioxide of 19, anion gap 19.2. She was initiated on treatment for hyperkalemia with bicarb, calcium, gluconate and D50 insulin. She was also given a bolus of fluid with good response. Vital signs after initial bolus showed blood pressure 108/58. She is now going to be admitted for hypokalemia treatment, further cardiac telemetry monitoring and evaluation. She is admitted in stable condition. PAST MEDICAL HISTORY: 1. Congestive heart failure, uncertain etiology with no echocardiogram for review at time of admission. 2. Hypertension. 3. Chronic obstructive pulmonary disease. 4. Hiatal hernia. 5. Previous Clostridium Difficile infection. 6. 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 7. History of uterine cancer. 8. Osteoarthritis. 9. Gastroesophageal reflux disease. PAST SURGICAL HISTORY: 1. Gamma nail to the right hip 2016. 2. Cholecystectomy. 3. Hysterectomy. 4. Removal of tumor on her back. 5. Removal of labial carcinoma. 6. Ovarian cancer removal. 7. Multiple carotid stents. 8. Irritable bowel syndrome. CURRENT MEDICATIONS: Awaiting updated list of medications from medical records. ALLERGIES: ONDANSETRON, ADVERSE REACTION TO SRINIVASA INHIBITORS AND ARBS DUE TO RENAL FAILURE. FAMILY HISTORY: Noncontributory. SOCIAL HISTORY: The patient is retired and . She has 5 children and currently lives with her daughter. She does have a history of cigarette smoking but quit in 2013. She denies any alcohol or illicit drug use. REVIEW OF SYSTEMS: CONSTITUTIONAL: Positive for general malaise, denies fever or chills. HEENT: Negative for nasal congestion, sore throat, earaches or headaches. RESPIRATORY: Denies shortness of breath, wheezing or coughing. CARDIOVASCULAR: Denies chest pains, palpitations, has reported orthostatic hypotension. . GASTROINTESTINAL: Denies abdominal pains, constipation, has had chronic diarrhea with a history of irritable bowel syndrome but no significant bowel habit changes apparently. GENITOURINARY: Denies any dysuria, hematuria, polyuria or other urinary symptoms. Just recently for urinary tract infection with Bactrim. NEUROLOGIC: Denies any neurological deficits, has had some dizziness but no syncopal episodes, no vision changes, hearing loss, ataxia or seizures. PHYSICAL EXAMINATION: VITAL SIGNS: Initially in the Emergency Room showed blood pressure of 79/56 with a heart rate of 90, oxygen saturation 94%. Temperature 97.5, initial weight 78.6 kg. GENERAL: The patient appeared to be in no acute distress. She does appear quite dehydrated but is alert. HEENT: Tympanic membranes clear bilateral. Oropharynx is pink, with dry mucous membranes, no lesions. . NECK: Supple, non-tender, full range of motion, no jugular venous distention. CHEST: Lung sounds were clear to auscultation bilaterally without any rhonchi, rales, or wheezes. . CARDIOVASCULAR: Heart regular rate and rhythm without appreciable murmurs, rubs, or gallops. ABDOMEN: Soft, non-tender, positive bowel sounds. EXTREMITIES: Without cyanosis, clubbing, or edema. BACK: Without vertebral or CVA tenderness. NEUROLOGIC: Cranial nerves II through XII grossly intact. No motor or sensory deficits noted. She is alert and oriented x 3. LABORATORY: White count 10,200, hemoglobin 15.1, hematocrit 45.4, platelet count 352,000. Differential showed to be without a left shift. Chemistries showed initial sodium of 135, potassium 6.2 with anion gap of 19.2, BUN 87, creatinine 2.72, osmolality 297. Liver functions within normal limits. Urinalysis is pending. RADIOLOGY: No radiographic studies were obtained at admission. ASSESSMENT: 1. Severe dehydration. 2. Acute renal failure with prerenal azotemia secondary to #1. 3. Dizziness secondary to #1. 4. Hypotension secondary to #1 responding to fluid boluses with orthostatic hypotension. 5. Metabolic acidosis secondary to dehydration and acute renal failure. 6. Electrolyte imbalance with a hyperkalemia secondary to metabolic acidosis exacerbated by dehydration. Patient on potassium supplements. 7. History of chronic obstructive pulmonary disease without any signs of exacerbation on admission. 8. History of congestive heart failure, unknown etiology without any echocardiogram available at time of admission. 9. Chronic hypertension but hypotensive secondary to dehydration with orthostatic hypotension. 8. History of past Clostridioides difficile and history of irritable bowel syndrome followed by Dr. Reyez with no current episodes or bowel habit changes. 9. Recent urinary tract infection having been treated with Bactrim, likely contributed to #1. 10. History of uterine cancer, surgically cured. 11. Chronic gastroesophageal reflux disease. PLAN: Ms. Olmedo is going to be admitted for severe dehydration and hyperkalemia. Initially, she was treated in the Emergency Room for the hyperkalemia with calcium gluconate, bicarb, D50 and insulin. Will continue with IV fluids. Will follow her labs as needed to insure that her potassium is returning to baseline levels and creatinine is responding to treatment. Will anticipate her length of stay to be at least 2 to 3 days. Given her advanced age and small status and frailty, certainly will need to hydrate slowly to prevent any exacerbation of congestive heart failure. Will put her on DVT prophylaxis as per protocol. Will repeat laboratory studies in the morning and until we can transition to outpatient management, continue to monitor and treat as needed. #[id number] [facility]
[2019-02-14] MEDS: DEX 5% W/NACL 0.45% 1000ML 1,000 ML IVS PRN (12:40)
[2019-02-14] MEDS: OLOPATADINE 0.1% OPHTH SOL 1 DROP BOTH_EYES SCH (13:39)
--- NOTE | 2019-02-14 13:50 | PN ---
DATE: 02/14/19 SUPERVISING PHYSICIAN: Jayden Ferrera M.D. SUBJECTIVE: The patient notes that she is feeling a little bit better this morning. She has not had any dizziness. She has had no diarrhea, nausea or vomiting. She remains afebrile. OBJECTIVE: VITAL SIGNS: Temperature 98, pulse 79, blood pressure 100/64, respirations 16, satting 93% on room air. I's and O's are not documented yet. Weight is 38.6 kg. GENERAL: The patient this morning is alert. She appears to be in no acute distress. CHEST: Lung sounds remain clear to auscultation. HEART: Regular rate and rhythm. ABDOMEN: Soft, non-tender. Positive bowel sounds. EXTREMITIES: Without any clubbing, cyanosis or edema. NEUROLOGIC: She is alert and oriented times three. LABORATORY: Hemoglobin this morning is 11.9, hematocrit 35.8 with white count 9,600. Differential shows to be without a left shift. Platelet count 228,000. Chemistries show normal electrolytes with sodium 137, potassium 3.6, BUN 55 down from 87 on admission, creatinine is down from 2.72 to 1.52 with calcium 8.4. RADIOLOGY: No radiographic studies. ASSESSMENT: 1. Severe dehydration showing improvement with IV fluids. 2. Acute renal failure with prerenal azotemia secondary to #1 improving with IV hydration. 3. Dizziness secondary to #1 resolved with fluids and no reported episodes. 4. Hypotension secondary to #1 responding to fluid boluses with orthostatic hypotension improved with treatment with IV fluids. 5. Metabolic acidosis secondary to dehydration and acute renal failure, resolved. 6. Electrolyte imbalance with a hyperkalemia secondary to metabolic acidosis exacerbated by dehydration. Patient on potassium supplements, resolved. 7. History of chronic obstructive pulmonary disease without any signs of exacerbation on admission. 8. History of congestive heart failure, unknown etiology without any echocardiogram available at time of admission. 9. Chronic hypertension but hypotensive secondary to dehydration with orthostatic hypertension. 8. History of past Clostridioides difficile and history of irritable bowel syndrome followed by Dr. Reyez with no current episodes or bowel habit changes. 9. Recent urinary tract infection having been treated with Bactrim, likely contributed to #1. 10. History of uterine cancer, surgically cured. 11. Chronic gastroesophageal reflux disease. PLAN: Will continue with hydration therapy and close monitoring. Will go ahead and get some orthostatic blood pressures later today. She will be on DVT prophylaxis with Lovenox. Hopefully be able to discharge tomorrow. Will recheck labs in the morning. Until we can discharge to transition to outpatient management will continue to monitor and treat as needed. #[id number] [facility]
[2019-02-14] MEDS ORDERED: METOPROLOL SUCCINATE XL 100 MG TAB PO ONE (17:52)
[2019-02-14] MEDS: METOPROLOL SUCCINATE XL 50 MG TAB PO SCH ×2 (18:08→20:36)
[2019-02-14] MEDS: NON-FORMULARY MEDICATION 1 EA MIS (Doxepin Hcl [Doxepin Hcl] 50 MG) PO SCH (20:32)
[2019-02-14] MEDS: MELATONIN 3 MG TAB PO SCH (20:34)
[2019-02-14] MEDS: SERTRALINE HCL 50 MG TAB PO SCH (20:34)
[2019-02-14] MEDS: ENOXAPARIN SODIUM 30 MG/0.3 ML SYG SUBCU SCH (20:36)
[2019-02-15] MEDS: DEX 5% W/NACL 0.45% 1000ML 1,000 ML IVS PRN (03:14)
[2019-02-15] MEDS: IPRATROPIUM/ALBUTEROL 3 ML VIAL NEB PRN (08:26)
[2019-02-15] MEDS: MULTIPLE VITAMINS W/ MINERALS 1 EA TAB PO SCH (09:00)
[2019-02-15] MEDS: B COMPLEX 1 EA TAB PO SCH (09:01)
[2019-02-15] MEDS: DICYCLOMINE HCL 20 MG TAB PO SCH ×2 (09:01→21:45)
[2019-02-15] MEDS: POTASSIUM CHLORIDE 20 MEQ TAB PO SCH (09:01)
[2019-02-15] MEDS: amLODIPine BESYLATE 5 MG TAB PO SCH ×2 (09:01→09:22)
[2019-02-15] MEDS: BIFIDOBACTERIUM INFANTIS 4 MG CAP PO SCH (09:01)
[2019-02-15] MEDS: CLOPIDOGREL 75 MG TAB PO SCH (09:03)
[2019-02-15] MEDS: PANTOPRAZOLE SODIUM TAB 40 MG PO SCH (09:03)
[2019-02-15] MEDS: LORATADINE 10 MG TAB PO SCH (09:03)
[2019-02-15] MEDS: levETIRAcetam 250 MG TAB PO SCH ×2 (09:03→21:45)
[2019-02-15] MEDS: ALOSETRON HCL 1 MG PO SCH ×2 (09:04→21:44)
[2019-02-15] MEDS: OLOPATADINE 0.1% OPHTH SOL 1 DROP BOTH_EYES SCH (09:05)
[2019-02-15] MEDS: LOPERAMIDE CAP 2 MG CAP PO PRN (09:15)
[2019-02-15] MEDS: IPRATROPIUM/ALBUTEROL 3 ML VIAL NEB SCH ×2 (13:51→20:27)
[2019-02-15] MEDS ORDERED: SODIUM CHLORIDE 0.9% (FLUSH) 10 ML SYG IV ONE (14:05)
--- NOTE | 2019-02-15 15:48 | PN ---
DATE: 02/15/19 SUPERVISING PHYSICIAN: Jayden Ferrera M.D. SUBJECTIVE: The patient notes that she is feeling fairly well today. She said her diarrhea has not change but is her usual normal bowel habits. We discussed saline-locking her today and continue with oral fluids. She did have a little episode apparently of rapid heart rate up into the 140s to 150s which was transient. Did not require any resolution as it resolved on its own. I did discuss with her that we will closely monitor her cardiac rehab nurse and anticipate discharge tomorrow, be sure that she does not have any further episodes of tachycardia and needs further intervention. She remains afebrile. OBJECTIVE: VITAL SIGNS: Pulse 74, blood pressure 87/55 with respirations 16, oxygen saturation 98% on room air with temperature of 98. There was report of some tachycardia that resolved without any interventions, 140s to 150s apparently. Her weight is 39.4 kg. GENERAL: The patient appears to be comfortable and in no acute distress. She is alert. CHEST: Lung clear to auscultation bilaterally. HEART: Regular rate and rhythm. ABDOMEN: Soft, non-tender. Positive bowel sounds. EXTREMITIES: Without any edema. NEUROLOGIC: She is alert and oriented times three. LABORATORY: Chemistries today showed normal electrolytes with BUN 26, creatinine now down to baseline levels at 1.15, calcium 7.8. RADIOLOGY: No radiology reports. ASSESSMENT: 1. Severe dehydration showing improvement with IV fluids, now euvolemic after fluid replacement. 2. Acute renal failure with prerenal azotemia secondary to #1 improving with IV hydration with creatinine now returned to baseline levels. 3. Transient episode of tachycardia possibly contributing to some of her dizziness reported prior to admission exacerbated by the dehydration with no further reported episodes of dizziness. 4. Hypotension with some orthostatic hypotension on admission but now showing to be stable, although her blood pressure does run low but she only weighs 84 pounds. We will to continue to monitor. 5. Metabolic acidosis secondary to dehydration and acute renal failure, resolved after fluid replacement. 6. Electrolyte imbalance to include hyperkalemia secondary to metabolic acidosis exacerbated by dehydration with potassium levels now at baseline levels. 7. History of chronic obstructive pulmonary disease without any signs of exacerbation on admission. 8. History of congestive heart failure, unknown etiology without any echocardiogram available at time of admission. 9. Chronic hypertension but hypotensive secondary to dehydration with orthostatic hypotension. 10. History of past Clostridioides difficile and history of irritable bowel syndrome followed by Dr. Reyez with no current episodes or bowel habit changes. 11. Recent urinary tract infection having been treated with Bactrim, likely contributed to #1. 12. History of uterine cancer, surgically cured. 13. Chronic gastroesophageal reflux disease. PLAN: I was hoping to be able to send the patient home today, however, with the transient tachycardia and the fact that she did report some dizziness on and off prior to admission, it would certainly warrant further cardiac monitoring now that she is back to a euvolemic state, therefore we will keep her on cardiac telemetry tonight and monitor. Given that she is now back to a normal fluid level, we will go ahead and saline-lock her. Anticipate discharge tomorrow. It would probably be warranted that we send her home on continued cardiac telemetry for further evaluation as an outpatient. She remains on DVT prophylaxis. Again, will hopefully discharge tomorrow. Until we can discharge to transition to outpatient management will continue to monitor and treat as needed. #[id number] [facility]
[2019-02-15] MEDS: NON-FORMULARY MEDICATION 1 EA MIS (Doxepin Hcl [Doxepin Hcl] 50 MG) PO SCH (21:45)
[2019-02-15] MEDS: ENOXAPARIN SODIUM 30 MG/0.3 ML SYG SUBCU SCH (21:45)
[2019-02-15] MEDS: MELATONIN 3 MG TAB PO SCH (21:46)
[2019-02-15] MEDS: METOPROLOL SUCCINATE XL 50 MG TAB PO SCH (21:46)
[2019-02-15] MEDS: SERTRALINE HCL 50 MG TAB PO SCH (21:46)
[2019-02-15] MEDS: ALPRAZolam 0.5 MG TAB PO SCH (21:46)
[2019-02-16] MEDS: POTASSIUM CHLORIDE 20 MEQ TAB PO SCH (07:37)
[2019-02-16] MEDS: PANTOPRAZOLE SODIUM TAB 40 MG PO SCH (07:37)
[2019-02-16] MEDS: IPRATROPIUM/ALBUTEROL 3 ML VIAL NEB SCH (07:42)
[2019-02-16] MEDS: LORATADINE 10 MG TAB PO SCH (09:08)
[2019-02-16] MEDS: BIFIDOBACTERIUM INFANTIS 4 MG CAP PO SCH (09:08)
[2019-02-16] MEDS: levETIRAcetam 250 MG TAB PO SCH (09:08)
[2019-02-16] MEDS: amLODIPine BESYLATE 5 MG TAB PO SCH (09:08)
[2019-02-16] MEDS: CLOPIDOGREL 75 MG TAB PO SCH (09:08)
[2019-02-16] MEDS: MULTIPLE VITAMINS W/ MINERALS 1 EA TAB PO SCH (09:08)
[2019-02-16] MEDS: OLOPATADINE 0.1% OPHTH SOL 1 DROP BOTH_EYES SCH (09:09)
[2019-02-16] MEDS: DICYCLOMINE HCL 20 MG TAB PO SCH (09:09)
[2019-02-16] MEDS: ALOSETRON HCL 1 MG PO SCH (09:09)
[2019-02-16] MEDS: B COMPLEX 1 EA TAB PO SCH (09:09)
[2019-02-16 10:36] VITALS: BP 108/69; TEMP 97.5; O2SAT 96
--- NOTE | 2019-02-16 13:34 | DS ---
SUPERVISING PHYSICIAN: Espinoza Washington MD DISCHARGE DIAGNOSIS: 1. Severe dehydration showing improvement with IV fluids, now euvolemic after fluid replacement. 2. Acute renal failure with prerenal azotemia secondary to #1, improving with IV hydration with creatinine now returned to baseline levels. 3. Transient episode of tachycardia possibly contributing to some of her dizziness reported prior to admission exacerbated by the dehydration with no further reported episodes of dizziness. 4. Hypotension with some orthostatic hypotension on admission, but now showing to be stable. Her blood pressure does run low but she only weighs 84 pounds. 5. Metabolic acidosis secondary to dehydration and acute renal failure, resolved after fluid replacement. 6. Electrolyte imbalance to include hyperkalemia secondary to metabolic acidosis exacerbated by dehydration with potassium levels now at baseline levels. 7. History of chronic obstructive pulmonary disease without any signs of exacerbation. 8. History of congestive heart failure, unknown etiology without any current echocardiogram available at this time with no signs of exacerbation. 9. Chronic hypertension, but hypotensive secondary to dehydration with orthostatic hypotension. 10. History of past Clostridioides difficile and history of irritable bowel syndrome followed by Dr. Reyez with no current episodes or bowel habit changes. 11. Recent urinary tract infection having been treated with Bactrim, likely contributing to #1. 12. History of uterine cancer, surgically cured. 13. Chronic gastroesophageal reflux disease. HISTORY OF PRESENT ILLNESS: This is a 73-year-old female patient who presented to the Emergency Room after complaining of generalized weakness and dizziness that had been occurring for about 2 weeks. She does have a history of chronic obstructive pulmonary disease and chronic diarrhea for multiple years and is being followed by Dr. Reyez, contract designer. She just recently finished treatments for a urinary tract infection with Bactrim. There had been no changes in her bowel habits, no notable blood or mucous. She had had no chest pain. In the Emergency Room, she was noted to be hypotensive with a blood pressure of 79/56, heart rate of 90, oxygen saturation 94% on room air, temperature 97.5. Laboratory studies showed she had a hemoglobin of 15.1 and hematocrit of 45.4. Her baseline hemoglobin is 11.9. Renal function was showing a significant elevation with creatinine of 2.72, potassium 6.2, carbon dioxide of 19, anion gap 19.2. She was treated for hyperkalemia with bicarb, calcium gluconate and D50 insulin. She was also given fluids with good response. Vital signs after initial bolus showed blood pressure 108/58. She was admitted to the hospital. HOSPITAL COURSE: She was admitted for dehydration and hyperkalemia. After initial treatment in the Emergency Room, she continued with IV fluids. Her labs were followed closely and they did return to baseline. She was hydrated slowly especially given her history of congestive heart failure although she showed no signs of exacerbation that. She was put on DVT prophylaxis. Her labs returned to baseline. There was no dizziness, nausea, vomiting or diarrhea. Initially she was be discharged yesterday, but she had an episode of a rapid heart rate in the 140s to 150s. It resolved without any intervention. We monitored her heart rate overnight. She has had no further complaints of tachycardia, so she will be discharged home today in stable condition with a 48 hour Holter monitor. LABORATORY: WBCs remain stable with her final count being 9,600 with hemoglobin 11.9 and hematocrit 35.8. Her sodium was 134 on admission and is now 139. Potassium came down to 6.2 after her initial evaluation in the Emergency Room and today is 3.6. Initial creatinine was elevated at 2.7 and is now 1.15. Her baseline creatinine is about 1.1. Her serum osmolality normalized to 282.7. She does have a slightly low calcium at 7.8. RADIOLOGY: There is no radiology to report. DISCHARGE PLAN: The patient will be discharged home in stable condition . She is to resume her previous diet and increase her activity as tolerated. She has a followup appointment with her primary care physician, Dr. Trejo on 02/20/19 at 11 AM. She will go home on a 48 hour Holter Monitor and she can review that at her followup appointment with Dr. Trejo. She is to resume her previous medications. There are no new medications to send her home on. She is to return to the hospital or call Dr. Trejo' office for any problems or complications. DISCHARGE MEDICATIONS: 1. B vitamin. 2. Ventolin. 3. Brovana. 4. Budesonide. 5. Cranberry extract. 6. Cyclobenzaprine. 7. Levetiracetam. 8. K-tab. 9. Protonix. 10. Trazodone. 11. Sertraline. 12. Alprazolam. 13. Nitroglycerin. 14. Amlodipine. 15. Multivitamin. 16. Acetaminophen with codeine. 17. Doxepin. 18. Metoprolol. 19. Albuterol. 20. Melatonin. 21. Plavix. 22. DuoNeb. 23. Imitrex. 24. Promethazine. 25. Probiotics. 26. Olopatadine ophthalmic. 27. Nitroglycerin patch. 28. Neomycin topical. 29. Loperamide. 30. Guaifenesin. 31. Lotronex. #[id number] #[id number] [facility]
== END 2019-02-16 10:30 | disposition home or self-care (01) | DRG 641 ==
LOC: ER 14:46 → MS 21:24
PROVIDERS: ADMIT Nurse Practitioner Family; ATTEND Nurse Practitioner Acute Care
DX: E86.0 Dehydration (principal); N17.9 Acute kidney failure, unspecified; I13.0 Hypertensive heart and chronic kidney disease with heart failure and stage 1 through stage 4 chronic kidney disease, or unspecified chronic kidney disease; R00.0 Tachycardia, unspecified; I95.1 Orthostatic hypotension; E78.2 Mixed hyperlipidemia; E87.5 Hyperkalemia; J44.9 Chronic obstructive pulmonary disease, unspecified; I50.9 Heart failure, unspecified; K21.9 Gastro-esophageal reflux disease without esophagitis; N18.9 Chronic kidney disease, unspecified; K44.9 Diaphragmatic hernia without obstruction or gangrene; M19.90 Unspecified osteoarthritis, unspecified site; K58.9 Irritable bowel syndrome, unspecified; Z85.42 Personal history of malignant neoplasm of other parts of uterus; Z88.8 Allergy status to other drugs, medicaments and biological substances; Z87.891 Personal history of nicotine dependence; Z85.43 Personal history of malignant neoplasm of ovary; Z85.89 Personal history of malignant neoplasm of other organs and systems; Z87.440 Personal history of urinary (tract) infections; Z79.891 Long term (current) use of opiate analgesic; Z79.02 Long term (current) use of antithrombotics/antiplatelets; Z79.899 Other long term (current) drug therapy; Z86.73 Personal history of transient ischemic attack (TIA), and cerebral infarction without residual deficits; Z95.5 Presence of coronary angioplasty implant and graft

== ENCOUNTER 2019-05-04 12:35 | Observation (INO) | payer MEDICARE, MEDICAID ==
[2019-05-04] MEDS ORDERED: MORPHINE SULFATE INJ 10 MG/ML VIAL IV ONE (13:01)
[2019-05-04] MEDS ORDERED: SODIUM CHLORIDE 0.9% (FLUSH) 10 ML SYG IV PRN ×2 (13:01→17:53)
[2019-05-04] MEDS ORDERED: PROMETHAZINE HCL INJ 12.5 MG in SODIUM CHLORIDE 0.9% 50ML 50 ML IVPB ONE (13:02)
--- NOTE | 2019-05-04 13:10 | ED.PDOC ---
History of Present Illness - General Chief Complaint: Trauma Time Seen by Provider: 05/04/19 12:51 Source: patient Exam Limitations: no limitations - History of Present Illness Initial Comments: 74 y/o F presents to the ED c/o R hand pain and H/A after 2 falls in the last 3 days. She reports that she fell initially on Saturday evening and landed on her R hand/wrist. Last night when she got up to go to the restroom she started feeling lightheaded and was unable to keep herself from falling. She again landed on her R hand/wrist and also hit her head on the tile floor. She reports brief LOC but was unable to get herself up due to generalized weakness so she laid on the floor until her caregiver came this morning. She denies any abd pain and no hip pain. She is supposed to walk with a walker and normally does but did not have either her walker or cane with her last night. Pain is moderate in severity and worse with palpation and movement. She denies any focal numbness/weakness. Tetanus is UTD within the last 2-3 years. Allergies/Adverse Reactions: Allergies Ondansetron [From Zofran] Allergy (Verified 12/23/18 20:37) Unknown Home Medications: Ambulatory Orders ALPRAZolam [Xanax] 0.5 mg PO BEDTIME 06/26/17 Acetaminophen W/ Codeine [Tylenol W/ CODEINE #3] 1 ea PO Q4H PRN 06/26/17 Amlodipine Besylate [Norvasc] 5 mg PO DAILY 06/26/17 Arformoterol Tartrate [Brovana] 15 mcg IN Q12HR PRN 06/26/17 B-Complex Vitamins [B Complex] 500 mcg PO DAILY 06/26/17 Budesonide (Inhalation) [Budesonide] 0.25 mg IN Q12HRS PRN 06/26/17 Cranberry (Vaccinium Macrocarp [Cranberry Extract] 250 mg PO DAILY 06/26/17 Cyclobenzaprine HCl 5 mg PO Q8HR PRN 06/26/17 Dicyclomine HCl [Bentyl] 10 mg PO BID 06/26/17 Doxepin HCl 50 mg PO BEDTIME 06/26/17 Levetiracetam 500 mg PO BID 06/26/17 Multiple Vitamins W/ Minerals [Centrum Adults] 1 tablet PO DAILY 06/26/17 Nitroglycerin [Nitrostat] 1 ea SL [id number] PRN 06/26/17 Pantoprazole Tablet [Protonix] 40 mg PO DAILY 06/26/17 Potassium Chloride [K-Tab] 20 meq PO DAILY 06/26/17 Sertraline HCl [Zoloft] 50 mg PO BEDTIME 06/26/17 Trazodone HCl [Trazodone Hydrochloride] 50 - 100 tablet PO BEDTIME PRN 06/26/17 Albuterol Sulfate Nebs [Proventil Nebs] 2.5 mg INH Q4H PRN #75 vial 06/30/17 Metoprolol Succinate [Metoprolol Succinate ER] 100 mg PO BEDTIME 06/30/17 Ipratropium/Albuterol [Duoneb] 3 ml INH RTQID PRN 12/23/18 Melatonin 5 mg PO BEDTIME 12/23/18 Plavix 75 mg PO DAILY 12/23/18 Alosetron HCl [Lotronex] 1 mg PO BID 02/13/19 Dextromethorphan-Guaifenesin [Mucinex Dm 30-600 mg] 1 tab PO PRN 02/13/19 Loperamide Cap [Imodium Cap] 2 mg PO DAILY PRN 02/13/19 Lzkujwbt-Qjkajj-Zwgncxye [Neomycin/Polymyxin/Dexame 3.5-39392-7.1] 1 oin OP TID 02/13/19 Nitroglycerin Patch 0.4 mg/Hr [Nitro-Dur PATCH 0.4 mg/hour] 0.4 mg TD DAILY 02/13/19 Olopatadine HCl [Pataday] 0.2 % OP DAILY 02/13/19 Probiotic Product [Futurefleet] 1 cap PO DAILY 02/13/19 Promethazine HCl 25 mg PO Q6H PRN 02/13/19 Sumatriptan Succinate [Imitrex] 50 mg PO DAILY PRN 02/13/19 Loperamide HCl [Imodium A-D] 1 - 2 capsule PO PRN PRN 02/14/19 Review of Systems - Review of Systems Constitutional: Denies: chills, fever EENTM: Denies: blurred vision, double vision, nose congestion, throat pain Respiratory: Denies: cough, short of breath Cardiology: States: syncope. Denies: chest pain, palpitations Gastrointestinal/Abdominal: Denies: abdominal pain, diarrhea, nausea, vomiting Genitourinary: Denies: dysuria, frequency Musculoskeletal: States: joint pain, muscle pain. Denies: neck pain Skin: States: other - multiple skin tears. Denies: rash Neurological: States: headache Past Medical History (General) - Patient Medical History Hx Seizures: Yes - prescribed keppra Hx Stroke: Yes - 2007 right sided weakness Hx Dementia: No Hx Asthma: No Hx of COPD: Yes Hx Cardiac Disorders: Yes - stents Hx Congestive Heart Failure: No Hx Pacemaker: No Hx Hypertension: Yes Hx Thyroid Disease: No Hx Diabetes: No Hx Gastroesophageal Reflux: Yes Hx Renal Disease: Yes - ARF 2014 Hx Cancer: Yes - ovarian Hx of HIV: No Hx Hepatitis C: No Hx MRSA: No - Vaccination History Hx Tetanus, Diphtheria Vaccination: Yes Hx Influenza Vaccination: Yes Hx Pneumococcal Vaccination: Yes - Social History Hx Tobacco Use: Yes Hx Chewing Tobacco Use: No Hx Alcohol Use: No Hx Substance Use: No Hx Substance Use Treatment: No Hx Depression: No Hx Physical Abuse: No Hx Emotional Abuse: No Hx Suspected Abuse: No - Female History Patient : No Family Medical History - Family History Brother Family History: Unknown Living Status: Hx Family Asthma: No Hx Family Congestive Heart Failure: No Hx Family Hypertension: Yes Hx Family Stroke: Yes - brother Hx Cardiac Disease: No Hx Family Diabetes: Yes - brother Hx Family Cancer: Yes - liver cancer -dad Hx Family;Other: liver/ etoh abuse Mother Family History: Unknown Living Status: Hx Family Asthma: No Hx Family Congestive Heart Failure: No Hx Family Hypertension: Yes Hx Family Stroke: No Hx Cardiac Disease: No Hx Family Diabetes: No Hx Family Cancer: Yes Hx Family;Other: copd Physical Exam - Physical Exam General Appearance: Alert, Frail, Other - thin Eye Exam: bilateral normal Ears, Nose, Throat: normal ENT inspection Neck: non-tender, full range of motion, supple, normal inspection Respiratory: chest non-tender, lungs clear, normal breath sounds, no respiratory distress, other - small skin tear to R upper chest wall Cardiovascular/Chest: regular rate, rhythm, no edema Peripheral Pulses: radial,right: 2+, radial,left: 2+, dorsalis pedis,right: 2+, dorsalis pedis,left: 2+ Gastrointestinal/Abdominal: normal bowel sounds, non tender, soft Back Exam: normal inspection, no vertebral tenderness Extremity: deformity - R 4th and 5th fingers held in flexion with ecchymosis and edema over the proximal phalanx. NVID, other - FROM Bilat hips without pain. Ecchymosis to R wrist and 3-5 metacarpls and prox phalanx Progress - Progress Progress: 05/04/19 14:49 Pt recheck: discussed all lab and imaging results discussed with pt and family at the bedside along with plan to admit for continued IV fluids and cardiac monitoring. Pt and family voiced understanding and agree with plan. 05/04/19 14:51 Spoke with Zak Kraus with the hospitalist service, agrees to admit. - Results/Orders Results/Orders: 05/04/19 13:01 IV Care:Saline Lock per Protoc QSHIFT Telemetry ONCE Sodium Chloride 0.9% (Flush) [Saline Flush Syringe] 3 ml IV PRN PRN URINALYSIS Stat 05/04/19 13:03 Vital Signs-Tilt PRN 05/04/19 13:04 Dressing Change,Wet to Dry .PRN Wound Irrigation PRN 05/04/19 13:15 EKG STAT 05/04/19 14:40 Sodium Chloride 0.9% 1000ML [Ns 1000 ml] 1,000 ml IVS .QD 05/05/19 09:00 Pulse Ox Daily Laboratory Results - last 24 hr 05/04/19 13:25 WBC 8.3 RBC 4.83 Hgb 14.3 Hct 42.1 MCV 87.2 MCH 29.7 MCHC 34.1 RDW 13.3 Plt Count 229 MPV 8.1 Absolute Neuts (auto) 5.00 Absolute Lymphs (auto) 1.90 Absolute Monos (auto) 1.10 H Absolute Eos (auto) 0.30 Absolute Basos (auto) 0.10 Neutrophils % 59.7 Lymphocytes % 22.3 Monocytes % 13.6 H Eosinophils % 3.3 Basophils % 1.1 PT 10.4 INR 1.04 PTT (SP) 26.2 Sodium 137 Potassium 3.4 L Chloride 99 L Carbon Dioxide 22 Anion Gap 19.4 H BUN 72 H Creatinine 2.93 H BUN/Creatinine Ratio 24.6 H Random Glucose 100 Serum Osmolality 295.1 H Calcium 9.3 Magnesium 1.6 L Creatine Kinase 27 CK-MB (CK-2) 1.4 CK-MB (CK-2) % Not Reportable Troponin I < 0.02 CT Head: IMPRESSION: 1. No acute intracranial abnormality. 2. Senescent changes. Electronically signed by: Mario Lozano MD 05/04/2019 1:54 PM CDT 1003 R hand XR: IMPRESSION: Degenerative changes and osteopenia are observed. No fracturing is detected. Electronically signed by: Rico Damon MD 05/04/2019 1:46 PM CDT R Wrist XR: IMPRESSION: Osteopenia is observed without evidence of fracturing. Electronically signed by: Rico Damon MD 05/04/2019 1:50 PM CDT CXR: IMPRESSION: I see no acute cardiopulmonary pathology. Electronically signed by: Rico Damon MD 05/04/2019 1:47 PM CDT - EKG/XRAY/CT EKG: Sinus, nonspecific ST T wave Chg Comments: Nl axis. Nl intervals. No ST elevation. Departure - Departure Clinical Impression: LONI (acute kidney injury) Head injury Qualifiers: Encounter type: initial encounter Qualified Code(s): S09.90XA - Unspecified injury of head, initial encounter Skin tear of left forearm without complication Qualifiers: Encounter type: initial encounter Qualified Code(s): S51.812A - Laceration without foreign body of left forearm, initial encounter Contusion of right hand including fingers Qualifiers: Encounter type: initial encounter Qualified Code(s): S60.221A - Contusion of right hand, initial encounter Disposition: Discharge to Home or Self Care Departure Forms: ED Discharge - Pt. Copy, Patient Portal Self Enrollment Instructions: DI for Trauma Referrals: Mikhail Trejo MD [Primary Care Provider] - 1-2 Weeks Home Medications: Ambulatory Orders ALPRAZolam [Xanax] 0.5 mg PO BEDTIME 06/26/17 Acetaminophen W/ Codeine [Tylenol W/ CODEINE #3] 1 ea PO Q4H PRN 06/26/17 Amlodipine Besylate [Norvasc] 5 mg PO DAILY 06/26/17 Arformoterol Tartrate [Brovana] 15 mcg IN Q12HR PRN 06/26/17 B-Complex Vitamins [B Complex] 500 mcg PO DAILY 06/26/17 Budesonide (Inhalation) [Budesonide] 0.25 mg IN Q12HRS PRN 06/26/17 Cranberry (Vaccinium Macrocarp [Cranberry Extract] 250 mg PO DAILY 06/26/17 Cyclobenzaprine HCl 5 mg PO Q8HR PRN 06/26/17 Dicyclomine HCl [Bentyl] 10 mg PO BID 06/26/17 Doxepin HCl 50 mg PO BEDTIME 06/26/17 Levetiracetam 500 mg PO BID 06/26/17 Multiple Vitamins W/ Minerals [Centrum Adults] 1 tablet PO DAILY 06/26/17 Nitroglycerin [Nitrostat] 1 ea SL [id number] PRN 06/26/17 Pantoprazole Tablet [Protonix] 40 mg PO DAILY 06/26/17 Potassium Chloride [K-Tab] 20 meq PO DAILY 06/26/17 Sertraline HCl [Zoloft] 50 mg PO BEDTIME 06/26/17 Trazodone HCl [Trazodone Hydrochloride] 50 - 100 tablet PO BEDTIME PRN 06/26/17 Albuterol Sulfate Nebs [Proventil Nebs] 2.5 mg INH Q4H PRN #75 vial 06/30/17 Metoprolol Succinate [Metoprolol Succinate ER] 100 mg PO BEDTIME 06/30/17 Ipratropium/Albuterol [Duoneb] 3 ml INH RTQID PRN 12/23/18 Melatonin 5 mg PO BEDTIME 12/23/18 Plavix 75 mg PO DAILY 12/23/18 Alosetron HCl [Lotronex] 1 mg PO BID 02/13/19 Dextromethorphan-Guaifenesin [Mucinex Dm 30-600 mg] 1 tab PO PRN 02/13/19 Loperamide Cap [Imodium Cap] 2 mg PO DAILY PRN 02/13/19 Ktyertae-Xzhcul-Xncecmjo [Neomycin/Polymyxin/Dexame 3.5-03135-0.1] 1 oin OP TID 02/13/19 Nitroglycerin Patch 0.4 mg/Hr [Nitro-Dur PATCH 0.4 mg/hour] 0.4 mg TD DAILY 02/13/19 Olopatadine HCl [Pataday] 0.2 % OP DAILY 02/13/19 Probiotic Product [Futurefleet] 1 cap PO DAILY 02/13/19 Promethazine HCl 25 mg PO Q6H PRN 02/13/19 Sumatriptan Succinate [Imitrex] 50 mg PO DAILY PRN 02/13/19 Loperamide HCl [Imodium A-D] 1 - 2 capsule PO PRN PRN 02/14/19 Decision To Admit - Decistion To Admit Decision to Admit Reason: Admit from ER Decision to Admit Date: 05/04/19 Decision to Admit Time: 14:48
[2019-05-04] MEDS ORDERED: PROMETHAZINE HCL INJ 25 MG/ML VIAL ONE (13:15)
[2019-05-04] MEDS ORDERED: SODIUM CHLORIDE 0.9% 50ML 50 ML ONE ×2 (13:16→22:40)
--- NOTE | 2019-05-04 13:48 | RAD ---
EXAM DESCRIPTION: Hand,Right 3 Views CLINICAL HISTORY: fall, pain COMPARISON: None. TECHNIQUE: 3 views right FINDINGS: Mild diffuse osteopenia is observed. Distal interphalangeal joint arthritis is observed. The fingers are held in flexion. No fracturing is detected. IMPRESSION: Degenerative changes and osteopenia are observed. No fracturing is detected. Electronically signed by: Rico Damon MD 05/04/2019 1:46 PM CDT
--- NOTE | 2019-05-04 13:49 | RAD ---
EXAM DESCRIPTION: Chest,1 View CLINICAL HISTORY: syncope COMPARISON: None available TECHNIQUE: AP portable chest FINDINGS: Minimal parenchymal scarring and parenchymal calcifications observed in the right chest. The lungs are free of acute infiltrate. The heart is within range of normal. Surgical clips are observed in the base of the left side of the neck. Deformity of right posterior ribs is observed from prior fracturing. IMPRESSION: I see no acute cardiopulmonary pathology. Electronically signed by: Rico Damon MD 05/04/2019 1:47 PM CDT
--- NOTE | 2019-05-04 13:51 | RAD ---
EXAM DESCRIPTION: Wrist,Right 3 Views CLINICAL HISTORY: fall, pain COMPARISON: None. TECHNIQUE: 3 views right FINDINGS: Diffuse osteopenia is observed. No fracturing is detected. No significant degenerative changes are observed. IMPRESSION: Osteopenia is observed without evidence of fracturing. Electronically signed by: Rico Damon MD 05/04/2019 1:50 PM CDT
--- NOTE | 2019-05-04 13:56 | CT ---
EXAM DESCRIPTION: Head CLINICAL HISTORY: 74 years Female, trauma on plavix COMPARISON: CT head 12/02/2016 TECHNIQUE: Axial images obtained from the skull base to the vertex without intravenous contrast with images. Coronal and sagittal reformations provided. This exam was performed according to our departmental dose-optimization program, which includes automated exposure control, adjustment of the mA and/or kV according to patient size and/or use of iterative reconstruction technique. Time Last Seen Well (If known) for Code Stroke: n/a FINDINGS: Brain Parenchyma, ventricles, meninges, and extra-axial spaces: Mild generalized cerebral volume loss. Moderate Nonspecific white matter hypodensities in the cerebral hemispheres likely related to ischemic small vessel disease. Possible difficulty differentiating a small acute infarction given these hypodensities. No acute intracranial hemorrhage. No abnormal extra-axial fluid collection. Vascular: Atherosclerosis is within the carotid siphons and vertebral arteries. Calvarium, paranasal sinuses, mastoids, and orbits: Calvarium intact. Visualized paranasal sinuses and mastoid air cells clear. Orbits unremarkable. IMPRESSION: 1. No acute intracranial abnormality. 2. Senescent changes. Electronically signed by: Mario Lozano MD 05/04/2019 1:54 PM CDT
[2019-05-04] MEDS ORDERED: SODIUM CHLORIDE 0.9% 1000ML 1,000 ML IVS PRN (14:40)
[2019-05-04] MEDS ORDERED: IV SET AND CAP CHANGE INJ INJ SCH (18:00)
[2019-05-04] MEDS: KCL 20 MEQ/NS 1,000 ML IVS PRN (18:03)
--- NOTE | 2019-05-04 18:06 | PCM.H&P ---
History of Present Illnes - History of Present Illness Reason for Visit: dehydration History of Present Illness: This is a 74 yo female who presented to the ER with right hand pain and headache after falling twice in the last three days. She fell on Saturday and landed on her right wrist. She then also got up and tried to go to the restroom last night, but was unable to stand and fell again. She was unable to get up, and tried to pull a blanket on herself. She was discovered by her caregiver this morning. She normally walks with a walker, but apparently did not last night. Her workup in the ER showed elevation in her creatinine from baseline, which according to an older visit, was 2.[address] of the head and wrist x- rays do not show any acute abnormalities. - Past Medical History Cardiac: CHF, HTN Pulmonary: COPD Gastrointestinal: GERD, Irritable bowel disease - Hiatal Hernia, C-diff Heme/Onc: Cancer - uterine Musculoskeletal: Osteoarthritis Renal/: Chronic renal failure - Past Surgical History Past Surgical History: Cholecystectomy, Hysterectomy, Other - Right hip gamma nail, tumor removal from back, labial tumor removal, carotid stent - Past Family History Family History: CAD, Hyperlipidemia, Hypertension - Past Social History Smoke: Quit Alcohol: None Drugs: None Review of Systems - Review of Systems Constitutional: States: Weakness. Denies: Fever, Chills Eyes: Denies: Pain, Vision Change ENT: Denies: Ear Pain, Nose Discharge, Throat Pain Respiratory: Denies: Cough, Shortness of Breath, SOB with Excertion, Wheezing Cardiovascular: Denies: Chest Pain, Palpitations, Edema Gastrointestinal: States: Diarrhea. Denies: Nausea, Vomiting, Abdominal Pain, Constipation Genitourinary: Denies: Dysuria, Frequency Musculoskeletal: States: Hand Pain. Denies: Neck Pain, Leg Pain Skin: States: Other - abrasion to chest and right hand after fall Neurological: States: Weakness, Other - syncope. Denies: Change in Speech, Confusion - Medications/Allergies Allergies/Adverse Reactions: Allergies Allergy/AdvReac Type Severity Reaction Status Date / Time Ondansetron [From Zofran] Allergy Unknown Verified 05/04/19 17:24 Medications: Current Medications Sodium Chloride (Ns 1000 Ml) 1,000 mls @ 150 mls/hr IVS .QD PRN PRN Reason: IV THERAPY Stop: 06/03/19 14:39 Last Admin: 05/04/19 15:31 Dose: 150 mls/hr Documented by: Potassium Chloride/Sodium Chloride (Ns W/ Kcl 20 Meq/Liter) 1,000 mls @ 100 mls/hr IVS .QD PRN PRN Reason: IV THERAPY Stop: 06/03/19 17:52 Sodium Chloride (Saline Flush Syringe) 3 ml IV PRN PRN PRN Reason: IV THERAPY Stop: 06/03/19 13:00 Last Admin: 05/04/19 13:26 Dose: 3 ml Documented by: Sodium Chloride (Saline Flush Syringe) 3 ml IV PRN PRN PRN Reason: IV THERAPY Stop: 06/03/19 17:52 Exam - Exam Vital Signs: Vital Signs (72 hours) 05/04/19 05/04/19 05/04/19 12:36 13:36 14:36 Temperature 98.4 F Pulse Rate [ 86 Right Brachial] Respiratory 18 20 20 Rate Blood Pressure 115/56 90/63 [Right Arm] O2 Sat by Pulse 93 L Oximetry 05/04/19 05/04/19 05/04/19 15:36 16:36 17:00 Temperature 97.8 F Pulse Rate [ 71 73 Right Brachial] Respiratory 18 18 18 Rate Blood Pressure 113/68 119/73 129/64 [Right Arm] O2 Sat by Pulse 94 L 94 L 94 L Oximetry 05/04/19 05/04/19 17:29 17:43 Temperature 97.8 F 98 F Pulse Rate [ 73 75 Right Brachial] Respiratory 18 16 Rate Blood Pressure 129/64 130/70 [Right Arm] O2 Sat by Pulse 94 L 95 Oximetry General: Alert, Oriented x3, Cooperative HEENT: Atraumatic, PERRLA, EOMI Lungs: Clear to auscultation, Normal air movement Cardiovascular: Regular rate, Normal S1, Normal S2, No murmurs Abdomen: Normal bowel sounds, Soft, No tenderness Extremities: No edema, Normal pulses, Other - right hand in dressing. Neurological: Normal speech Psych/Mental Status: Mental status NL Assessment/Plan - Assessment/Plan Assessment: 1. LONI on CKD 2. Near Syncope 3. Dehydration 4. History of IBS 5. History of COPD with no acute exacerbation 6. History of CHF without acute exacerbation 7. Electrolyte imbalance Plan: We will admit to observation. Starting on NS with 20KCL for volume repletion. Recheck labs in the morning. Will resume home medications as well. Cardiac monitoring and neuro checks to ensure there is no other cause for the near- syncope episodes other than dehydration. Will start on DVT and GI stress ulcer prophylaxis as well.
[2019-05-04] MEDS ORDERED: ALBUTEROL SULFATE 2.5 MG/3 ML VIAL NEB PRN (18:41)
[2019-05-04] MEDS ORDERED: CYCLOBENZAPRINE HCL 5 MG TAB PO PRN (18:41)
[2019-05-04] MEDS ORDERED: BUDESONIDE NEBS 0.25 MG/2 ML INH NEB PRN (18:41)
[2019-05-04] MEDS ORDERED: IPRATROPIUM/ALBUTEROL 3 ML VIAL NEB PRN (18:41)
[2019-05-04] MEDS ORDERED: DICYCLOMINE HCL 20 MG TAB ONE (19:11)
[2019-05-04] MEDS ORDERED: METOPROLOL SUCCINATE XL 100 MG TAB PO ONE (19:11)
[2019-05-04] MEDS ORDERED: levETIRAcetam 250 MG TAB ONE (19:12)
[2019-05-04] MEDS ORDERED: amLODIPine BESYLATE 5 MG TAB ONE (19:12)
[2019-05-04] MEDS ORDERED: MELATONIN 3 MG TAB ONE (19:12)
[2019-05-04] MEDS: ENOXAPARIN SODIUM 30 MG/0.3 ML SYG SUBCU SCH (19:23)
[2019-05-04] MEDS: ALOSETRON HCL 1 MG PO SCH (19:33)
[2019-05-04] MEDS: NON-FORMULARY MEDICATION 1 EA MIS (Doxepin Hcl [Doxepin Hcl] 50 MG) PO SCH (19:33)
[2019-05-04] MEDS: NON-FORMULARY MEDICATION 1 EA MIS (Levetiracetam [Levetiracetam] 500 MG) PO SCH (20:16)
[2019-05-04] MEDS: ALPRAZolam 0.5 MG TAB PO SCH (20:17)
[2019-05-04] MEDS: DICYCLOMINE HCL 10 MG PO SCH (20:17)
[2019-05-04] MEDS: SERTRALINE HCL 50 MG TAB PO SCH (20:17)
[2019-05-04] MEDS: METOPROLOL SUCCINATE XL 50 MG TAB PO SCH (20:18)
[2019-05-04] MEDS ORDERED: BUDESONIDE NEBS 0.25 MG/2 ML INH ONE (20:40)
[2019-05-04] MEDS: ARFORMOTEROL TARTRATE 15 MCG/2 ML NEB NEB SCH (20:50)
[2019-05-04] MEDS ORDERED: NON-FORMULARY MEDICATION 1 EA MIS (Melatonin [Melatonin] 5 MG) PO SCH (21:00)
[2019-05-04] MEDS ORDERED: AMLODIPINE BESYLATE 5 MG PO SCH (21:00)
[2019-05-04] MEDS ORDERED: cefTRIAXone SODIUM 1 GM VIAL ONE (22:39)
[2019-05-04] MEDS: cefTRIAXone SODIUM 1 GM in SODIUM CHL 0.9% 50ML MIN-BAG+ 50 ML IVPB SCH (22:43)
[2019-05-04] MEDS: ACETAMINOPHEN 325 MG TAB PO PRN (23:33)
[2019-05-05] MEDS: KCL 20 MEQ/NS 1,000 ML IVS PRN (03:59)
[2019-05-05] MEDS: PANTOPRAZOLE SODIUM TAB 40 MG PO SCH (06:11)
[2019-05-05] MEDS ORDERED: MAGNESIUM SULFATE PREMIX 2GM 2 GM in PREMIX BAG 1 BAG IVPB ONE (08:03)
[2019-05-05] MEDS ORDERED: CLOPIDOGREL 75 MG TAB ONE (08:19)
[2019-05-05] MEDS ORDERED: MAGNESIUM SULFATE PREMIX 2GM 50 ML IVPB ONE (08:19)
[2019-05-05] MEDS ORDERED: POTASSIUM CHLORIDE 20 MEQ TAB ONE (08:19)
[2019-05-05] MEDS ORDERED: levETIRAcetam 250 MG TAB ONE (08:19)
[2019-05-05] MEDS ORDERED: DICYCLOMINE HCL 20 MG TAB ONE ×2 (08:19→18:54)
[2019-05-05] MEDS: NON-FORMULARY MEDICATION 1 EA MIS (Levetiracetam [Levetiracetam] 500 MG) PO SCH (08:29)
[2019-05-05] MEDS: DICYCLOMINE HCL 10 MG PO SCH (08:30)
[2019-05-05] MEDS: ALOSETRON HCL 1 MG PO SCH ×2 (08:33→20:25)
[2019-05-05] MEDS: B COMPLEX 1 EA TAB PO SCH (08:39)
[2019-05-05] MEDS: levETIRAcetam 250 MG TAB PO SCH ×3 (08:41→20:23)
[2019-05-05] MEDS: ARFORMOTEROL TARTRATE 15 MCG/2 ML NEB NEB SCH ×2 (08:50→21:00)
[2019-05-05] MEDS: BUDESONIDE NEBS 0.25 MG/2 ML INH NEB SCH ×2 (08:50→21:00)
[2019-05-05] MEDS: IPRATROPIUM/ALBUTEROL 3 ML VIAL NEB SCH ×4 (08:50→21:00)
[2019-05-05] MEDS: MULTIPLE VITAMINS W/ MINERALS 1 EA TAB PO SCH (08:58)
[2019-05-05] MEDS ORDERED: NON-FORMULARY MEDICATION 1 EA MIS (Potassium Chloride [K-Tab] 20 MEQ) PO SCH (09:00)
[2019-05-05] MEDS ORDERED: PLAVIX 75 MG PO SCH (09:00)
--- NOTE | 2019-05-05 09:06 | PN ---
SUPERVISING PHYSICIAN: Ignacio Hinojosa MD DATE: 05/05/19 SUBJECTIVE: The patient feels okay this morning with no complaints of dizziness. She gets up and ambulates with the nurse and does some with a walker. OBJECTIVE: VITAL SIGNS: Blood pressure 110/56. Heart rate 59. Respiratory rate 16. Temperature 97.6. Oxygen saturation 95%. GENERAL: Ms. Olmedo is a 74-year-old female in no active distress. NEUROLOGIC: Alert and oriented. LUNGS: Clear to auscultation bilaterally. CARDIOVASCULAR: Regular rate and rhythm. Normal S1, S2. ABDOMEN: Soft. Positive bowel sounds. EXTREMITIES: Lower extremities with no edema. LABORATORY: Las this morning show a sodium of 141, potassium 3.4, chloride 105, carbon dioxide 21, BUN 61, creatinine 2.32, glucose 93, calcium 8.2, magnesium 1.3. Urinalysis done yesterday was consistent with urinary tract infection. ASSESSMENT: 1. Acute on chronic kidney disease. 2. Near syncope. 3. Dehydration. 4. Urinary tract infection. 5. History of irritable bowel syndrome. 6. History of chronic obstructive pulmonary disease with no acute exacerbation. 7. History of congestive heart failure without acute exacerbation. 8. Electrolyte imbalance. PLAN: At this time, we will continue the normal saline with 20 of potassium. We are going to give another dose of magnesium as one was given in the Emergency Room yesterday. Also last night, I started Rocephin due to the urinary tract infection. We will continue that as well and monitor urine culture. We will continue all other medications at this time. [id number]
[2019-05-05] MEDS ORDERED: amLODIPine BESYLATE 5 MG TAB ONE (18:55)
[2019-05-05] MEDS ORDERED: SODIUM CHL 0.9% 50ML MIN-BAG+ 50 ML IVPB ONE (18:55)
[2019-05-05] MEDS ORDERED: MELATONIN 3 MG TAB ONE (18:56)
[2019-05-05] MEDS ORDERED: cefTRIAXone SODIUM 1 GM VIAL ONE (18:56)
[2019-05-05] MEDS: ENOXAPARIN SODIUM 30 MG/0.3 ML SYG SUBCU SCH (19:18)
[2019-05-05] MEDS: SERTRALINE HCL 50 MG TAB PO SCH (20:23)
[2019-05-05] MEDS: ALPRAZolam 0.5 MG TAB PO SCH (20:23)
[2019-05-05] MEDS: DICYCLOMINE HCL 20 MG TAB PO SCH (20:25)
[2019-05-05] MEDS: NON-FORMULARY MEDICATION 1 EA MIS (Doxepin Hcl [Doxepin Hcl] 50 MG) PO SCH (20:25)
[2019-05-05] MEDS: METOPROLOL SUCCINATE XL 50 MG TAB PO SCH (20:25)
[2019-05-05] MEDS ORDERED: amLODIPine BESYLATE 5 MG TAB PO SCH (21:00)
[2019-05-05] MEDS ORDERED: MELATONIN 3 MG TAB PO SCH (21:00)
[2019-05-05] MEDS: cefTRIAXone SODIUM 1 GM in SODIUM CHL 0.9% 50ML MIN-BAG+ 50 ML IVPB SCH (21:38)
[2019-05-06] MEDS: KCL 20 MEQ/NS 1,000 ML IVS PRN (02:58)
[2019-05-06] MEDS: ACETAMINOPHEN 325 MG TAB PO PRN (05:29)
[2019-05-06] MEDS: PANTOPRAZOLE SODIUM TAB 40 MG PO SCH (05:31)
[2019-05-06 08:08] VITALS: BP 112/57; TEMP 98.2
[2019-05-06] MEDS: levETIRAcetam 250 MG TAB PO SCH (08:09)
[2019-05-06] MEDS: DICYCLOMINE HCL 20 MG TAB PO SCH (08:09)
[2019-05-06] MEDS: MULTIPLE VITAMINS W/ MINERALS 1 EA TAB PO SCH (08:09)
[2019-05-06] MEDS: ALOSETRON HCL 1 MG PO SCH (08:09)
[2019-05-06] MEDS: B COMPLEX 1 EA TAB PO SCH (08:10)
[2019-05-06] MEDS: BUDESONIDE NEBS 0.25 MG/2 ML INH NEB SCH (08:26)
[2019-05-06] MEDS: ARFORMOTEROL TARTRATE 15 MCG/2 ML NEB NEB SCH (08:26)
[2019-05-06] MEDS: IPRATROPIUM/ALBUTEROL 3 ML VIAL NEB SCH (08:26)
[2019-05-06] MEDS ORDERED: POTASSIUM CHLORIDE 20 MEQ TAB PO SCH (09:00)
[2019-05-06] MEDS ORDERED: CLOPIDOGREL 75 MG TAB PO SCH (09:00)
[2019-05-06 16:41] VITALS: O2SAT 97
--- NOTE | 2019-05-06 20:22 | DS ---
SUPERVISING PHYSICIAN: Ignacio Hinojosa M.D. ADMISSION DIAGNOSIS: 1. Acute on chronic kidney disease. 2. Near syncope. 3. Dehydration. 4. History of irritable bowel syndrome. 5. History of chronic obstructive pulmonary disease without an acute exacerbation. 6. History of congestive heart failure without acute exacerbation. 7. Electrolyte imbalance. DISCHARGE DIAGNOSIS: 1. Acute on chronic kidney disease. 2. Near syncope. 3. Dehydration. 4. History of irritable bowel syndrome. 5. History of chronic obstructive pulmonary disease without an acute exacerbation. 6. History of congestive heart failure without acute exacerbation. 7. Electrolyte imbalance. HOSPITAL COURSE: This is a 74 year-old female who was brought to the E. R. with right hand pain and headache after falling twice over the last 3 days. In the E. R. her workup included labs and x-rays. There were no acute fractures. Her labs did show she was dehydrated with acute on chronic kidney disease. Therefore she was referred for admission for rehydration. The patient initially was found to have a urinary tract infection. Therefore over the 2 days she was here she was given IV fluids and antibiotics. Creatinine greatly improved on day of discharge to around her baseline which is about 1.5. She was discharged in stable condition with a prescription for Ceftriaxone for her urinary tract infection. Cultures are still pending on that by the way. Activity is as tolerated but she does use a walker on a regular basis. She will followup with her primary care physician, Dr. Trejo, in 1 to 2 weeks. [facility][id number] [facility]
== END 2019-05-06 10:05 | disposition home or self-care (01) ==
LOC: ER 12:35 → MS 15:39
PROVIDERS: ADMIT Nurse Practitioner; ATTEND Nurse Practitioner
DX: I13.0 Hypertensive heart and chronic kidney disease with heart failure and stage 1 through stage 4 chronic kidney disease, or unspecified chronic kidney disease (principal); N18.9 Chronic kidney disease, unspecified; I50.9 Heart failure, unspecified; N17.9 Acute kidney failure, unspecified; N39.0 Urinary tract infection, site not specified; E86.0 Dehydration; E87.8 Other disorders of electrolyte and fluid balance, not elsewhere classified; R55 Syncope and collapse; M79.641 Pain in right hand; R51 Headache; R29.6 Repeated falls; J44.9 Chronic obstructive pulmonary disease, unspecified; K58.9 Irritable bowel syndrome, unspecified; K21.9 Gastro-esophageal reflux disease without esophagitis; I69.351 Hemiplegia and hemiparesis following cerebral infarction affecting right dominant side; M19.90 Unspecified osteoarthritis, unspecified site; M85.89 Other specified disorders of bone density and structure, multiple sites; Z79.02 Long term (current) use of antithrombotics/antiplatelets; Z79.899 Other long term (current) drug therapy; Z88.8 Allergy status to other drugs, medicaments and biological substances; Z91.81 History of falling; Z87.891 Personal history of nicotine dependence; Z95.5 Presence of coronary angioplasty implant and graft; Z85.42 Personal history of malignant neoplasm of other parts of uterus; Z85.43 Personal history of malignant neoplasm of ovary; Z90.710 Acquired absence of both cervix and uterus; Z90.49 Acquired absence of other specified parts of digestive tract; Z82.49 Family history of ischemic heart disease and other diseases of the circulatory system; Z83.49 Family history of other endocrine, nutritional and metabolic diseases; Z80.0 Family history of malignant neoplasm of digestive organs
CPT/HCPCS: 96366 ×2; 96367 ×2; 96365; 96375; 96376 ×2; 96372 ×2; J0696 ×2; J1650 ×3; J2270; J2550; J7030; A4216 ×2; J7620 ×5; J7626 ×3; J3475; J3480 ×4; J7050; 80048 ×3; 87086; 36415 ×3; 82550; 82553; 85025; 85730; 85610; 84484; 87077; 87186; 81001; 83735; 71045; 73110; 73130; 70450; 94640 ×6; 94760 ×5; 99285; 93005

== ENCOUNTER 2019-10-28 12:21 | Inpatient (IN) | payer MEDICARE, MEDICAID ==
[2019-10-28] MEDS ORDERED: SODIUM CHLORIDE 0.9% (FLUSH) 10 ML SYG IV PRN ×2 (12:53→18:26)
[2019-10-28] MEDS ORDERED: SODIUM CHLORIDE 0.9% 1000ML 1,000 ML IVS PRN ×3 (12:53→16:55)
--- NOTE | 2019-10-28 12:58 | ED.PDOC ---
History of Present Illness - General Chief Complaint: General Time Seen by Provider: 10/28/19 12:46 Source: patient, family, old records Exam Limitations: no limitations - History of Present Illness Initial Comments: Pt is a 74 yo female with PMH of COPD who presents to ED for 5 day h/o dizziness. States 5 days ago she was walking to the bathroom at 0330 and tripped and fell. Denies LOC, but did hit the back of her head and has wound in this area. Also reports left upper arm skin tear sustained during the fall. Denies other injuries. States she has felt dizzy since the fall and fatigued. Denies YOON, nausea, vomiting, vision changes, or CP. She has had diarrhea which is normal for her and has felt short of breath which is also normal for her due to her COPD. Last tetanus was 3 years ago. Reports takes Plavix daily Allergies/Adverse Reactions: Allergies Ondansetron [From Zofran] Allergy (Verified 05/04/19 17:24) Unknown Home Medications: Ambulatory Orders ALPRAZolam [Xanax] 0.5 mg PO BEDTIME 06/26/17 Amlodipine Besylate [Norvasc] 5 mg PO BEDTIME 06/26/17 Arformoterol Tartrate [Brovana] 15 mcg IN Q12HR PRN 06/26/17 B-Complex Vitamins [B Complex] 500 mcg PO DAILY 06/26/17 Budesonide (Inhalation) [Budesonide] 0.25 mg IN Q12HRS PRN 06/26/17 Cranberry (Vaccinium Macrocarp [Cranberry Extract] 250 mg PO DAILY 06/26/17 Cyclobenzaprine HCl 5 mg PO Q8HR PRN 06/26/17 Dicyclomine HCl [Bentyl] 10 mg PO BID 06/26/17 Doxepin HCl 50 mg PO BEDTIME 06/26/17 Levetiracetam 500 mg PO BID 06/26/17 Multiple Vitamins W/ Minerals [Centrum Adults] 1 tablet PO DAILY 06/26/17 Nitroglycerin [Nitrostat] 1 ea SL [id number] PRN 06/26/17 Pantoprazole Tablet [Protonix] 40 mg PO DAILY 06/26/17 Potassium Chloride [K-Tab] 20 meq PO DAILY 06/26/17 Sertraline HCl [Zoloft] 50 mg PO BEDTIME 06/26/17 Trazodone HCl [Trazodone Hydrochloride] 50 - 100 tablet PO BEDTIME PRN 06/26/17 Albuterol Sulfate Nebs [Proventil Nebs] 2.5 mg INH Q4H PRN #75 vial 06/30/17 Metoprolol Succinate [Metoprolol Succinate ER] 100 mg PO BEDTIME 06/30/17 Ipratropium/Albuterol [Duoneb] 3 ml INH RTQID PRN 12/23/18 Melatonin 10 mg PO BEDTIME 12/23/18 Plavix 75 mg PO DAILY 12/23/18 Alosetron HCl [Lotronex] 1 mg PO BID 02/13/19 Oruqujuh-Jlrqie-Gxobuvma [Neomycin/Polymyxin/Dexame 3.5-33227-0.1] 1 oin OP TID 02/13/19 Nitroglycerin Patch 0.4 mg/Hr [Nitro-Dur PATCH 0.4 mg/hour] 0.4 mg TD DAILY 02/13/19 Probiotic Product [CircleBuilder] 1 cap PO DAILY 02/13/19 Promethazine HCl 25 mg PO Q6H PRN 02/13/19 Cefuroxime Axetil [Ceftin] 500 mg PO Q12H 7 Days #14 tablet 05/06/19 Review of Systems - Review of Systems Constitutional: Denies: chills, fever, weakness EENTM: Denies: blurred vision, nose congestion, throat pain Respiratory: States: short of breath. Denies: cough, wheezing Cardiology: Denies: chest pain, edema, palpitations, syncope Gastrointestinal/Abdominal: States: diarrhea. Denies: abdominal pain, nausea, vomiting Genitourinary: Denies: dysuria, frequency, hematuria Musculoskeletal: Denies: back pain, joint pain, neck pain Skin: States: other - skin tear left arm Neurological: Denies: headache, paresthesia, seizure Hematologic/Lymphatic: Denies: easy bleeding, easy bruising All other Systems: Reviewed and Negative Past Medical History (General) - Patient Medical History Hx Seizures: Yes - prescribed keppra Hx Stroke: Yes - 2007 right sided weakness Hx Dementia: No Hx Asthma: No Hx of COPD: Yes Hx Cardiac Disorders: Yes - stents Hx Congestive Heart Failure: No Hx Pacemaker: No Hx Hypertension: Yes Hx Thyroid Disease: No Hx Diabetes: No Hx Gastroesophageal Reflux: Yes Hx Renal Disease: Yes - ARF 2015 Hx Cancer: Yes - ovarian Hx of HIV: No Hx Hepatitis C: No Hx MRSA: No - Vaccination History Hx Tetanus, Diphtheria Vaccination: Yes Hx Influenza Vaccination: Yes Hx Pneumococcal Vaccination: Yes - Social History Hx Tobacco Use: Yes Hx Chewing Tobacco Use: No Hx Alcohol Use: No Hx Substance Use: No Hx Substance Use Treatment: No Hx Depression: No Hx Physical Abuse: No Hx Emotional Abuse: No Hx Suspected Abuse: No - Female History Patient : No Family Medical History - Family History Brother Family History: Unknown Living Status: Hx Family Asthma: No Hx Family Congestive Heart Failure: No Hx Family Hypertension: Yes Hx Family Stroke: Yes - brother Hx Cardiac Disease: No Hx Family Diabetes: Yes - brother Hx Family Cancer: Yes - liver cancer -dad Hx Family;Other: liver/ etoh abuse Mother Family History: Unknown Living Status: Hx Family Asthma: No Hx Family Congestive Heart Failure: No Hx Family Hypertension: Yes Hx Family Stroke: No Hx Cardiac Disease: No Hx Family Diabetes: No Hx Family Cancer: Yes Hx Family;Other: copd Physical Exam - Physical Exam General Appearance: Alert, Comfortable, No apparent distress Eye Exam: bilateral other - PERRLL Ears, Nose, Throat: normal ENT inspection, normal pharynx, other - there is a 3x3 cm occipital scalp hematoma. No active bleeding Neck: non-tender, full range of motion, supple, other - No vertebral tenderness to neck or back Respiratory: chest non-tender, lungs clear, normal breath sounds, no respiratory distress, no accessory muscle use Cardiovascular/Chest: regular rate, rhythm, no edema, no murmur Gastrointestinal/Abdominal: non tender, soft, no pulsatile mass Back Exam: no CVA tenderness, no vertebral tenderness Extremity: other - No bony tenderness. Has FROM in all extremities. Neurologic: no motor/sensory deficits, alert, normal mood/affect Skin Exam: other - skin tear to left upper arm with no surrounding erythema Progress - Progress Progress: 10/28/19 14:11 Pt presents with 5 day h/o dizziness after GLF at home. CT trauma imaging is ne gative except for scalp hematoma. She has h/o CKD and per records has had several admits for LONI that resolved with hydration. Creatinine is 3.9 today. Will plan to admit for IVF hydration and continued evaluation. SRP given. D/W Shirley Albert hospitalist. Will admit - Results/Orders Results/Orders: EKG-- sinus rhythm, rate 79, occasional PAC's, nml intervals, nonspecific ST abnormality EXAM DESCRIPTION: Chest,1 View CLINICAL HISTORY: dizziness COMPARISON: May 04, 2019 IMPRESSION: Single AP portable upright view of the chest shows cardiac silhouette and pulmonary vasculature to be within normal limits. Lungs are normally aerated and clear. Stable calcified pulmonary nodule in the right lung with stable calcified bilateral hilar lymph nodes suggest old granulomatous disease. No obvious pleural effusion or pneumothorax is seen. Remote appearing right-sided rib fractures are stable. CT C spine IMPRESSION: No CT evidence of acute fracture or posttraumatic positional abnormality of the cervical spine. Spondylitic changes of the cervical spine are again seen most prominent at C5-6. CT Brain FINDINGS: The midline structures are not displaced. Sulci are age-appropriate. There are areas of decreased attenuation in the periventricular white matter and the white matter of the centrum semiovale. There is no evidence of mass, mass- effect, hydrocephalus, or acute intracranial hemorrhage. No abnormal extra axial fluid collection is seen. Bone windows show no evidence of depressed skull fracture. Localized area of increased attenuation and thickening of the scalp soft tissue to the left of midline posteriorly measures 4 mm AP by 2 cm transverse. Scalp soft tissue increased attenuation extends more cephalic along the midline. Mild calcifications of the intracranial arterial vasculature. The visualized paranasal sinuses are unremarkable. IMPRESSION: 1. Age-appropriate atrophy with evidence of old small vessel ischemic type changes seen. 2. Small posterior scalp soft tissue hematoma and swelling. Departure - Departure Clinical Impression: LONI (acute kidney injury), Dizziness Blunt head trauma Qualifiers: Encounter type: initial encounter Qualified Code(s): S09.8XXA - Other specified injuries of head, initial encounter Hematoma of scalp Qualifiers: Encounter type: initial encounter Qualified Code(s): S00.03XA - Contusion of scalp, initial encounter Disposition: Discharge to Home or Self Care Condition: Fair Departure Forms: ED Discharge - Pt. Copy, Patient Portal Self Enrollment Referrals: Mikhail Trejo MD [Primary Care Provider] - 1-2 Weeks Home Medications: Ambulatory Orders ALPRAZolam [Xanax] 0.5 mg PO BEDTIME 06/26/17 Amlodipine Besylate [Norvasc] 5 mg PO BEDTIME 06/26/17 Arformoterol Tartrate [Brovana] 15 mcg IN Q12HR PRN 06/26/17 B-Complex Vitamins [B Complex] 500 mcg PO DAILY 06/26/17 Budesonide (Inhalation) [Budesonide] 0.25 mg IN Q12HRS PRN 06/26/17 Cranberry (Vaccinium Macrocarp [Cranberry Extract] 250 mg PO DAILY 06/26/17 Cyclobenzaprine HCl 5 mg PO Q8HR PRN 06/26/17 Dicyclomine HCl [Bentyl] 10 mg PO BID 06/26/17 Doxepin HCl 50 mg PO BEDTIME 06/26/17 Levetiracetam 500 mg PO BID 06/26/17 Multiple Vitamins W/ Minerals [Centrum Adults] 1 tablet PO DAILY 06/26/17 Nitroglycerin [Nitrostat] 1 ea SL [id number] PRN 06/26/17 Pantoprazole Tablet [Protonix] 40 mg PO DAILY 06/26/17 Potassium Chloride [K-Tab] 20 meq PO DAILY 06/26/17 Sertraline HCl [Zoloft] 50 mg PO BEDTIME 06/26/17 Trazodone HCl [Trazodone Hydrochloride] 50 - 100 tablet PO BEDTIME PRN 06/26/17 Albuterol Sulfate Nebs [Proventil Nebs] 2.5 mg INH Q4H PRN #75 vial 06/30/17 Metoprolol Succinate [Metoprolol Succinate ER] 100 mg PO BEDTIME 06/30/17 Ipratropium/Albuterol [Duoneb] 3 ml INH RTQID PRN 12/23/18 Melatonin 10 mg PO BEDTIME 12/23/18 Plavix 75 mg PO DAILY 12/23/18 Alosetron HCl [Lotronex] 1 mg PO BID 02/13/19 [id number] [Neomycin/Polymyxin/Dexame 3.5-24812-5.1] 1 oin OP TID 02/13/19 Nitroglycerin Patch 0.4 mg/Hr [Nitro-Dur PATCH 0.4 mg/hour] 0.4 mg TD DAILY 02/13/19 Probiotic Product [CircleBuilder] 1 cap PO DAILY 02/13/19 Promethazine HCl 25 mg PO Q6H PRN 02/13/19 Cefuroxime Axetil [Ceftin] 500 mg PO Q12H 7 Days #14 tablet 05/06/19 Decision To Admit - Decistion To Admit Decision to Admit Reason: Admit from ER Decision to Admit Date: 10/28/19 Decision to Admit Time: 13:41
--- NOTE | 2019-10-28 13:19 | RAD ---
EXAM DESCRIPTION: Chest,1 View CLINICAL HISTORY: dizziness COMPARISON: May 04, 2019 IMPRESSION: Single AP portable upright view of the chest shows cardiac silhouette and pulmonary vasculature to be within normal limits. Lungs are normally aerated and clear. Stable calcified pulmonary nodule in the right lung with stable calcified bilateral hilar lymph nodes suggest old granulomatous disease. No obvious pleural effusion or pneumothorax is seen. Remote appearing right-sided rib fractures are stable. Electronically signed by: Farhat Barros MD 10/28/2019 1:18 PM CDT
--- NOTE | 2019-10-28 13:23 | CT ---
EXAM DESCRIPTION: Cervical Spine CLINICAL HISTORY: trauma COMPARISON: November 29, 2016 TECHNIQUE: Axial noncontast CT of the cervical spine with coronal and sagittal reformats. This exam was performed according to our departmental dose-optimization program, which includes automated exposure control, adjustment of the mA and/or kV according to patient size and/or use of iterative reconstruction technique. FINDINGS: Cervical vertebral body heights are maintained. Straightening of the normal cervical lordosis. No acute fracture or posttraumatic positional abnormality of the cervical spine is seen. Mild disc space narrowing is again seen at C3-4 and C4-5 with moderate disc space narrowing at C5-6. Ventral ridging disc osteophyte complex at C5-C6 again results in mild to moderate spinal canal stenosis with moderate bilateral foraminal encroachment. Mild osteopenia the osseous structures. C1-2 relationship is maintained. Mild facet hypertrophic and degenerative changes left greater than right at C7-T1 are seen without significant spinal canal stenosis or foraminal encroachment. Surgical clips associated with left carotid endarterectomy are seen. Severe concentric calcified plaque of the right carotid bulb to proximal ICA is again seen. Visualized lung apices show severe emphysematous changes. IMPRESSION: No CT evidence of acute fracture or posttraumatic positional abnormality of the cervical spine. Spondylitic changes of the cervical spine are again seen most prominent at C5-6. Electronically signed by: Farhat Barros MD 10/28/2019 1:22 PM CDT
--- NOTE | 2019-10-28 13:32 | CT ---
EXAM DESCRIPTION: Head CLINICAL HISTORY: trauma COMPARISON: May 04, 2019 TECHNIQUE: Noncontrast transaxial CT images of the head are obtained from base to vertex. This exam was performed according to our departmental dose-optimization program, which includes automated exposure control, adjustment of the mA and/or kV according to patient size and/or use of iterative reconstruction technique. FINDINGS: The midline structures are not displaced. Sulci are age-appropriate. There are areas of decreased attenuation in the periventricular white matter and the white matter of the centrum semiovale. There is no evidence of mass, mass-effect, hydrocephalus, or acute intracranial hemorrhage. No abnormal extra axial fluid collection is seen. Bone windows show no evidence of depressed skull fracture. Localized area of increased attenuation and thickening of the scalp soft tissue to the left of midline posteriorly measures 4 mm AP by 2 cm transverse. Scalp soft tissue increased attenuation extends more cephalic along the midline. Mild calcifications of the intracranial arterial vasculature. The visualized paranasal sinuses are unremarkable. IMPRESSION: 1. Age-appropriate atrophy with evidence of old small vessel ischemic type changes seen. 2. Small posterior scalp soft tissue hematoma and swelling. Electronically signed by: Farhat Barros MD 10/28/2019 1:31 PM CDT
--- NOTE | 2019-10-28 16:50 | HP ---
SUPERVISING PHYSICIAN: Austen Washington MD CHIEF COMPLAINT: Dizziness with falls. HISTORY OF PRESENT ILLNESS: This is a 74 year-old female patient who lives at home alone. She has a significant history of chronic obstructive pulmonary disease and came to the Emergency Room due to increasing dizziness. On Saturday she went to the bathroom at 3:30 in the morning and tripped and fell. She denies any loss of consciousness but she did hit the back of her head and has a hematoma in this area. She also had a skin tear on her left upper arm. She did not come to the Emergency Room at that time but over the last 5 days she has had increased dizziness and weakness. She came to the Emergency Room today and her initial vital signs showed a temperature of 98.6, heart rate 65, blood pressure 110/77, respiratory rate 20, oxygen saturation 94%. WBC 10,500 with hemoglobin of 16.6, hematocrit 48.6. There was no left shift on the differential. Chemistries showed a sodium of 132, potassium 4.5, chloride 94, carbon dioxide 23, BUN 76, creatinine 3.94. Baseline creatinine is 1.5, liver enzymes within normal limits. Protein 8.7. Urinalysis showed 100 urine protein, small amount of urine blood, positive urine nitrite, small amount of urine leukocyte esterase, 3 to 5 urine RBCs, greater than 15 urine WBCs and 4+ urine bacteria. Urine culture was done. Head CT showed: 1. Age appropriate atrophy with evidence of old small vessel ischemic type changes. 2. Small posterior scalp soft tissue hematoma with swelling. Her chest x-ray showed stable chest. Cervical spine CT showed no CT evidence of acute fracture or posttraumatic positional abnormality of the cervical spine. I was called for hospital admission. PAST MEDICAL HISTORY: 1. Congestive heart failure. 2. Hypertension. 3. Chronic obstructive pulmonary disease. 4. Gastroesophageal reflux disease. 5. Irritable bowel syndrome. 6. Hiatal hernia. 7. C-diff. 8. Uterine cancer. 9. Osteoarthritis. 10. Chronic renal failure. PAST SURGICAL HISTORY: 1. Cholecystectomy. 2. Hysterectomy. 3. Right hip gamma nail. 4. Tumor excision from her back. 5. Carotid stent. 6. Labial tumor removal. CURRENT MEDICATIONS: As per the EMR and awaiting verification. ALLERGIES: Ondansetron.. SOCIAL HISTORY: She quit smoking several years ago. She denies any ETOH use or drug use. She lives alone in [place]. REVIEW OF SYSTEMS: GENERAL: Positive for weakness, negative for fever or chills. HEENT: Negative for sinus symptoms, ear pain, vision changes, sore throat. RESPIRATORY: Negative for coughing, wheezing, shortness of breath. CARDIAC: Negative for chest pain, palpitations, tachycardia. GI: Positive for chronic diarrhea, negative for constipation, nausea or vomiting. GENITOURINARY: Negative for hematuria, dysuria, polyuria. MUSCULOSKELETAL: Negative for arthralgias, myalgias. SKIN: Negative for lesions or rashes. NEUROLOGICAL: Positive for weakness and negative for headaches or seizures. . PHYSICAL EXAMINATION: VITAL SIGNS: Temperature 98.7, heart rate 68, blood pressure 105/71, respiratory rate 17, oxygen saturation 95% on room air. GENERAL: This is a 74 year-old female patient lying in her hospital bed. She is in no acute distress. HEENT: Normocephalic and atraumatic. Pupils are equal and reactive. Oropharynx is clear. She does have an abrasion on the back of her head that is somewhat tenderness to palpation but there is no fluctuance or bleeding noted. CHEST: Lungs are essentially clear to auscultation bilaterally. There is equal rise and fall of the chest with inspiration and expiration. CARDIOVASCULAR: Regular rate and rhythm. ABDOMEN: Soft, nondistended, non-tender. Bowel sounds are positive. EXTREMITIES: No cyanosis, clubbing, or edema. NEUROLOGIC: She is awake, alert, and oriented x3. Cranial nerves II through XII are grossly intact as tested. Labs and films are as per the history of present illness. ASSESSMENT: 1. Acute on chronic kidney disease. 2. Urinary tract infection. 3. Head laceration after same-level fall. 4. Dehydration. 5. History of irritable bowel syndrome. 6. Chronic obstructive pulmonary disease with no evidence of acute exacerbation. 7. History of congestive heart failure with no acute exacerbation. PLAN: The patient has been admitted to the hospital. We will give her general fluids overnight to hopefully correct her kidney dysfunction as well as her dehydration. I will give her Rocephin for her urinary tract infection and will monitor her cultures as they become available. She has Lovenox for DVT prophylaxis, PPI for ulcer prophylaxis. I will order lab for in the morning, fluids overnight and neuro checks. I have ordered physical therapy to assess her safety for discharge. She may warrant a nephrology consultation with Dr. Ortega in [place] due to her kidney function. We will continue to monitor her closely and follow as needed #[id number] [facility]
[2019-10-28] MEDS ORDERED: ONDANSETRON INJ 4 MG/2 ML VIAL IV PRN (18:26)
[2019-10-28] MEDS ORDERED: traZODone HCL 50 MG TAB PO PRN (18:29)
[2019-10-28] MEDS ORDERED: IV SET AND CAP CHANGE INJ INJ SCH (18:30)
[2019-10-28] MEDS ORDERED: ALBUTEROL SULFATE 2.5 MG/3 ML VIAL NEB PRN (18:34)
[2019-10-28] MEDS ORDERED: DICYCLOMINE HCL 20 MG TAB ONE (19:30)
[2019-10-28] MEDS ORDERED: levETIRAcetam 250 MG TAB ONE (19:30)
[2019-10-28] MEDS ORDERED: amLODIPine BESYLATE 5 MG TAB ONE (19:31)
[2019-10-28] MEDS ORDERED: MELATONIN 3 MG TAB ONE (19:31)
[2019-10-28] MEDS: ALBUTEROL SULFATE 2.5 MG/3 ML VIAL NEB SCH (20:35)
[2019-10-28] MEDS: ARFORMOTEROL TARTRATE 15 MCG/2 ML NEB NEB SCH (20:35)
[2019-10-28] MEDS: ALPRAZolam 0.5 MG TAB PO SCH (20:59)
[2019-10-28] MEDS: METOPROLOL SUCCINATE XL 50 MG TAB PO SCH (20:59)
[2019-10-28] MEDS ORDERED: NON-FORMULARY MEDICATION 1 EA MIS (Melatonin [Melatonin] 10 MG) PO SCH (21:00)
[2019-10-28] MEDS ORDERED: NON-FORMULARY MEDICATION 1 EA MIS (Levetiracetam [Levetiracetam] 500 MG) PO SCH (21:00)
[2019-10-28] MEDS ORDERED: AMLODIPINE BESYLATE 5 MG PO SCH (21:00)
[2019-10-28] MEDS ORDERED: DICYCLOMINE HCL 10 MG PO SCH (21:00)
[2019-10-28] MEDS: SERTRALINE HCL 50 MG TAB PO SCH (21:00)
[2019-10-28] MEDS: ENOXAPARIN SODIUM 30 MG/0.3 ML SYG SUBCU SCH (21:03)
[2019-10-28] MEDS: ALOSETRON HCL 1 MG PO SCH (21:05)
[2019-10-28] MEDS: NON-FORMULARY MEDICATION 1 EA MIS (Doxepin Hcl [Doxepin Hcl] 50 MG) PO SCH (21:05)
[2019-10-28] MEDS: SODIUM CHLORIDE 0.9% (FLUSH) 10 ML SYG IV SCH (21:13)
[2019-10-29] MEDS ORDERED: PANTOPRAZOLE SODIUM IV 40 MG VIAL IV SCH (06:30)
[2019-10-29] MEDS ORDERED: MAGNESIUM SULFATE PREMIX 2GM 2 GM in PREMIX BAG 1 BAG IVPB ONE (08:24)
[2019-10-29] MEDS ORDERED: KCL 20MEQ/0.45% NS 1,000 ML IVS ONE (08:26)
[2019-10-29] MEDS: ALBUTEROL SULFATE 2.5 MG/3 ML VIAL NEB SCH ×4 (08:45→20:50)
[2019-10-29] MEDS: ARFORMOTEROL TARTRATE 15 MCG/2 ML NEB NEB SCH ×2 (08:45→20:45)
[2019-10-29] MEDS ORDERED: levETIRAcetam 250 MG TAB ONE (08:56)
[2019-10-29] MEDS ORDERED: CLOPIDOGREL 75 MG TAB ONE (08:57)
[2019-10-29] MEDS ORDERED: SODIUM CHL 0.9% 50ML MIN-BAG+ 50 ML IVPB ONE (08:57)
[2019-10-29] MEDS ORDERED: MAGNESIUM SULFATE PREMIX 2GM 50 ML IVPB ONE (08:58)
[2019-10-29] MEDS ORDERED: cefTRIAXone SODIUM 1 GM VIAL ONE (08:58)
[2019-10-29] MEDS: BIFIDOBACTERIUM INFANTIS 4 MG CAP PO SCH (09:14)
[2019-10-29] MEDS: CLOPIDOGREL 75 MG TAB PO SCH (09:14)
[2019-10-29] MEDS: NITROGLYCERIN 0.4 MG/HR PATCH TOP SCH (09:15)
[2019-10-29] MEDS: ACETAMINOPHEN 325 MG TAB PO PRN ×2 (09:15→20:45)
[2019-10-29] MEDS: DICYCLOMINE HCL 20 MG TAB PO SCH ×2 (09:15→20:41)
[2019-10-29] MEDS: cefTRIAXone SODIUM 1 GM in SODIUM CHL 0.9% 50ML MIN-BAG+ 50 ML IVPB SCH (09:16)
[2019-10-29] MEDS: levETIRAcetam 250 MG TAB PO SCH ×2 (09:16→20:43)
[2019-10-29] MEDS: SODIUM CHLORIDE 0.9% (FLUSH) 10 ML SYG IV SCH ×2 (09:17→20:44)
[2019-10-29] MEDS: POTASSIUM CHLORIDE 20 MEQ TAB PO SCH (09:19)
[2019-10-29] MEDS: ALOSETRON HCL 1 MG PO SCH ×2 (10:46→20:41)
--- NOTE | 2019-10-29 11:02 | PN ---
DATE: 10/29/19 SUPERVISING PHYSICIAN: Austen Washington MD SUBJECTIVE: The patient is sitting up in bed. She said she feels much stronger. She felt her physical therapy went well this morning and has said she would like to have [facility] on discharge. She denies any shortness of breath, chest pain, nausea or vomiting. OBJECTIVE: VITAL SIGNS: Temperature 97.4, heart rate 72, blood pressure 100/62, respiratory rate 16, oxygen saturation 97% on room air. RESPIRATORY: Essentially clear to auscultation bilaterally. CARDIAC: Regular rate and rhythm. ABDOMEN: Soft, nondistended, non-tender. Bowel sounds are positive. NEURO: Awake, alert, and oriented x3. LABORATORY: CBC is unremarkable. Chemistries show a sodium of 136, potassium 3.5, chloride 103, BUN 68. Her creatinine has improved to 2.89 with magnesium of 1.3, calcium 8.1. Urinalysis shows 100 urine protein, small amount of urine blood, positive urine nitrite, small amount of urine leukocyte esterase, 3 to 5 urine RBCs, greater than 50 urine WBCs and 4+ urine bacteria. Urine culture is pending. All other labs and films have been reviewed via the EMR. ASSESSMENT: 1. Acute on chronic kidney disease. Her admitting creatinine was 3.94. Her baseline creatinine is about 1.5. 2. Urinary tract infection. 3. Head laceration after same-level fall 5 days ago. 4. Dehydration, improved. 5. History of irritable bowel syndrome. 6. Chronic obstructive pulmonary disease with no evidence of acute exacerbation. 7. History of congestive heart failure with no acute exacerbation. PLAN: We will continue present supportive care. I have given her another liter of fluids and will recheck her labs in the morning. She has also received magnesium supplementation. Rocephin will be continued for her urinary tract infection. I have encouraged good pulmonary hygiene. We will continue to monitor closely and follow as needed. [facility][id number] [facility]
[2019-10-29] MEDS ORDERED: PANTOPRAZOLE SODIUM TAB 40 MG PO ONE (19:03)
[2019-10-29] MEDS: NON-FORMULARY MEDICATION 1 EA MIS (Doxepin Hcl [Doxepin Hcl] 50 MG) PO SCH (20:42)
[2019-10-29] MEDS: ENOXAPARIN SODIUM 30 MG/0.3 ML SYG SUBCU SCH (20:43)
[2019-10-29] MEDS: SERTRALINE HCL 50 MG TAB PO SCH (20:43)
[2019-10-29] MEDS: ALPRAZolam 0.5 MG TAB PO SCH (20:43)
[2019-10-29] MEDS: amLODIPine BESYLATE 5 MG TAB PO SCH ×2 (20:44→20:53)
[2019-10-29] MEDS: METOPROLOL SUCCINATE XL 50 MG TAB PO SCH (20:45)
[2019-10-29] MEDS ORDERED: REMOVE OLD PATCH TOP SCH (21:00)
[2019-10-29] MEDS ORDERED: MELATONIN 3 MG TAB PO SCH (21:00)
[2019-10-30] MEDS ORDERED: LOPERAMIDE CAP 2 MG CAP PO ONE (04:14)
[2019-10-30] MEDS ORDERED: PANTOPRAZOLE SODIUM TAB 40 MG PO SCH (06:30)
[2019-10-30] MEDS ORDERED: SODIUM CHL 0.9% 50ML MIN-BAG+ 50 ML IVPB ONE (06:58)
[2019-10-30] MEDS ORDERED: cefTRIAXone SODIUM 1 GM VIAL ONE (06:59)
[2019-10-30] MEDS: ALBUTEROL SULFATE 2.5 MG/3 ML VIAL NEB SCH (08:09)
[2019-10-30] MEDS: ARFORMOTEROL TARTRATE 15 MCG/2 ML NEB NEB SCH (08:09)
[2019-10-30] MEDS: BIFIDOBACTERIUM INFANTIS 4 MG CAP PO SCH (08:42)
[2019-10-30] MEDS: DICYCLOMINE HCL 20 MG TAB PO SCH (08:42)
[2019-10-30] MEDS: NITROGLYCERIN 0.4 MG/HR PATCH TOP SCH (08:42)
[2019-10-30] MEDS: CLOPIDOGREL 75 MG TAB PO SCH (08:42)
[2019-10-30] MEDS: SODIUM CHLORIDE 0.9% (FLUSH) 10 ML SYG IV SCH (08:42)
[2019-10-30] MEDS: levETIRAcetam 250 MG TAB PO SCH (08:42)
[2019-10-30] MEDS: cefTRIAXone SODIUM 1 GM in SODIUM CHL 0.9% 50ML MIN-BAG+ 50 ML IVPB SCH (08:42)
[2019-10-30] MEDS: POTASSIUM CHLORIDE 20 MEQ TAB PO SCH (08:42)
[2019-10-30] MEDS: ALOSETRON HCL 1 MG PO SCH (08:49)
[2019-10-30 08:56] VITALS: O2SAT 94
[2019-10-30 10:48] VITALS: BP 123/73; TEMP 97.3
--- NOTE | 2019-10-30 13:48 | DS ---
SUPERVISING PHYSICIAN: Espinoza Washington MD DISCHARGE DIAGNOSIS: 1. Acute on chronic kidney disease. Her admitting creatinine was 3.94. Her baseline creatinine is about 1.5 to 1.8. Creatinine today is 1.7. 2. Urinary tract infection. 3. Head laceration after same-level fall 5 days ago. 4. Dehydration, improved. 5. History of irritable bowel syndrome. 6. Chronic obstructive pulmonary disease with no evidence of acute exacerbation. 7. History of congestive heart failure with no acute exacerbation. HISTORY OF PRESENT ILLNESS: This is a 74-year-old female patient who lives at home alone. She has a significant history of chronic obstructive pulmonary disease and came to the Emergency Room due to increased dizziness. On Saturday, she went to the bathroom at 3:30 in the morning and tripped and fell. She denied any loss of consciousness but she did hit the back of her head and has a hematoma in this area. She also had a skin tear on her left upper arm. She did not come to the Emergency Room at that time, but over the last 5 days, she has had increased dizziness and weakness. She came to the Emergency Room today and her initial vital signs showed a temperature of 98.6, heart rate 65, blood pressure 110/77, respiratory rate 20, oxygen saturation 94%. WBCs were 10,500 with hemoglobin of 16.6, hematocrit 48.6. There was no left shift on the differential. Chemistries showed a sodium of 132, potassium 4.5, chloride 94, carbon dioxide 23, BUN 76, creatinine 3.94. Baseline creatinine is 1.5 to 1.7. Liver enzymes within normal limits. Protein 8.7. Urinalysis showed 100 urine protein, small amount of urine blood, positive urine nitrites, small amount of urine leukocyte esterase, 3 to 5 urine RBCs, greater than 15 urine WBCs and 4+ urine bacteria. Urine culture was done. Her head CT showed 1) Age appropriate atrophy with evidence of old small vessel ischemic type changes. 2) Small posterior scalp soft tissue hematoma with swelling. Her chest x-ray showed stable chest. Cervical spine CT showed no CT evidence of acute fracture or posttraumatic positional abnormality of the cervical spine. The patient was admitted to the hospital for acute on chronic kidney disease as well as urinary tract infection. HOSPITAL COURSE: She was given gentle fluids over the next 24 hours and her kidney function improved. She was also given Rocephin for her urinary tract infection. Lovenox was given for DVT prophylaxis and PPI for ulcer prophylaxis. She did have physical therapy evaluate her. They felt she was safe to go home. She does not have home health, but decided she most likely would benefit from some home monitoring, so she has decided to have [facility] on discharge. Her referral has been sent. Although her urine cultures have not been resulted, she can be discharged home today in stable condition. LABORATORY: WBCs remain normal at 10.8, hemoglobin 12.7, hematocrit 38.3. Sodium improved to 136. Potassium did drop to 3.5 and she had potassium supplementation. Today, it is 3.6. Her chloride on admission was low and is now 107. Her BUN improved to 52. Creatinine on admission was 3.94 and is now 1.7. Glucose remained stable at 94. Calcium dropped to 8.5. Magnesium was as low as 1.3 and required supplementation. Today, it is 2. Urine culture is pending. Cervical spine CT in the Emergency Room shows no CT evidence of acute fracture or posttraumatic positional abnormality of the cervical spine. Spondylotic changes of the cervical spine are again seen, most prominent at C5 and 6. Her head CT in the Emergency Room showed 1) Age appropriate atrophy with evidence of old small vessel ischemic type changes. 2) Small posterior scalp soft tissue hematoma with swelling. Her chest x-ray showed single AP portable upright view of the chest with cardiac silhouette and pulmonary vascular to be within normal limits. Lungs are normally aerated and clear. Stable calcified pulmonary nodule in the right lung with stable calcified bilateral hilar lymph nodes suggestive of old granulomatis disease. No obvious pleural effusions or pneumothorax seen. Remote appearing right sided rib fractures are stable. DISCHARGE PLAN: The patient will be discharged home in stable condition. She will have [facility] and she needs to have a physical therapy evaluation by [facility]. She is to resume her usual diet and increase her activity as tolerated. She has a telemedicine followup with Dr. Trejo, her primary care physician, on 11/04/19 at 9:45 AM. I have also sent some cefdinir for her urinary tract infection in addition to her routine home medications. I would recommend that her urine culture be reviewed at her hospital followup visit. She is to return to the hospital or followup with Dr. Trejo for any problems or complications. DISCHARGE MEDICATIONS: 1. Bentyl. 2. Brovana. 3. Budesonide. 4. Cranberry extract. 5. Levetiracetam. 6. Potassium chloride. 7. Pantoprazole. 8. Trazodone. 9. Sertraline. 10. Alprazolam. 11. Nitroglycerin. 12. Amlodipine. 13. Multivitamins. 14. Doxepin. 15. Metoprolol. 16. Albuterol. 17. Melatonin. 18. Plavix. 19. Promethazine. 20. Probiotic. 21. Nitroglycerin patch. 22. Lotronex. 23. Cyanocobalamin. 24. Cefdinir. #[id number] [facility]
== END 2019-10-30 11:13 | disposition home health service (06) | DRG 683 ==
LOC: ER 12:21 → OBSVTOIN 16:48 → MS 16:48
PROVIDERS: ADMIT Nurse Practitioner Acute Care; ATTEND Nurse Practitioner Acute Care
DX: N17.9 Acute kidney failure, unspecified (principal); N39.0 Urinary tract infection, site not specified; I13.0 Hypertensive heart and chronic kidney disease with heart failure and stage 1 through stage 4 chronic kidney disease, or unspecified chronic kidney disease; I69.351 Hemiplegia and hemiparesis following cerebral infarction affecting right dominant side; N18.3 Chronic kidney disease, stage 3 (moderate); E86.0 Dehydration; J44.9 Chronic obstructive pulmonary disease, unspecified; I50.9 Heart failure, unspecified; E83.42 Hypomagnesemia; S00.03XA Contusion of scalp, initial encounter; W01.0XXA Fall on same level from slipping, tripping and stumbling without subsequent striking against object, initial encounter; Y92.002 Bathroom of unspecified non-institutional (private) residence as the place of occurrence of the external cause; K21.9 Gastro-esophageal reflux disease without esophagitis; K58.0 Irritable bowel syndrome with diarrhea; K44.9 Diaphragmatic hernia without obstruction or gangrene; M19.90 Unspecified osteoarthritis, unspecified site; Z85.42 Personal history of malignant neoplasm of other parts of uterus; Z88.8 Allergy status to other drugs, medicaments and biological substances; Z87.891 Personal history of nicotine dependence; Z79.02 Long term (current) use of antithrombotics/antiplatelets; Z79.899 Other long term (current) drug therapy; Z95.5 Presence of coronary angioplasty implant and graft

== ENCOUNTER → 2019-11-17 | Outpatient (CLI) | payer MEDICARE, MEDICAID | LOC: NC 12:26 | PROVIDERS: ATTEND Family Medicine | DX: I13.0 Hypertensive heart and chronic kidney disease with heart failure and stage 1 through stage 4 chronic kidney disease, or unspecified chronic kidney disease (principal); N18.9 Chronic kidney disease, unspecified; N17.8 Other acute kidney failure; J44.9 Chronic obstructive pulmonary disease, unspecified; I50.9 Heart failure, unspecified ==

== ENCOUNTER → 2019-12-16 | Outpatient (CLI) | payer MEDICARE, MEDICAID | LOC: NC 09:30 | PROVIDERS: ATTEND Family Medicine | DX: I13.0 Hypertensive heart and chronic kidney disease with heart failure and stage 1 through stage 4 chronic kidney disease, or unspecified chronic kidney disease (principal); N18.9 Chronic kidney disease, unspecified; I50.9 Heart failure, unspecified ==

== ENCOUNTER 2019-12-20 09:53 | Inpatient (IN) | payer MEDICARE, MEDICAID ==
[2019-12-20] MEDS ORDERED: ALBUTEROL SULFATE 2.5 MG/3 ML VIAL NEB ONE (10:17)
[2019-12-20] MEDS ORDERED: IPRATROPIUM/ALBUTEROL 3 ML VIAL INH ONE (10:17)
[2019-12-20] MEDS ORDERED: SODIUM CHLORIDE 0.9% (FLUSH) 10 ML SYG IV PRN ×2 (10:17→15:33)
--- NOTE | 2019-12-20 11:13 | RAD ---
EXAM DESCRIPTION: Chest, x-ray 1 View CLINICAL HISTORY: sob COMPARISON: October 28, 2019 FINDINGS: Cardiac silhouette is within normal limits. Dense nodular opacity within the right lower lung compatible with a calcified pulmonary nodule. EKG leads project over the chest. There is no focal parenchymal or pleural disease. There is no acute osseous process visualized. IMPRESSION: No evidence of acute cardiopulmonary disease. Electronically signed by: Michael Salguero MD 12/20/2019 11:11 AM CDT
--- NOTE | 2019-12-20 11:49 | ED.PDOC ---
History of Present Illness - General Chief Complaint: Respiratory Problem Stated Complaint: headache, shortness of breath Time Seen by Provider: 12/20/19 10:17 Source: patient, RN notes reviewed, Vital Signs reviewed Exam Limitations: no limitations - History of Present Illness Initial Comments: Patient is a 74-year-old white female who presents with complaints of shortness of breath and a headache. Patient has been short of breath for a day or 2. Nothing seems to make the shortness of breath worse. Slightly better when she put on oxygen. It is moderate in intensity. Timing/Duration: getting worse Severity: moderate Activities at Onset: none Possible Cause: frequent episodes Improving Factors: medication - Oxygen Worsening Factors: nothing Associated Symptoms: cough, fever, weakness Respiratory Risk Factors: other - COPD Allergies/Adverse Reactions: Allergies Ondansetron [From Zofran] Allergy (Verified 05/04/19 17:24) Unknown Home Medications: Ambulatory Orders ALPRAZolam [Xanax] 0.5 mg PO BEDTIME 06/26/17 Amlodipine Besylate [Norvasc] 5 mg PO BEDTIME 06/26/17 Arformoterol Tartrate [Brovana] 15 mcg IN Q12HR PRN 06/26/17 Budesonide (Inhalation) [Budesonide] 0.25 mg IN Q12HRS PRN 06/26/17 Cranberry (Vaccinium Macrocarp [Cranberry Extract] 250 mg PO DAILY 06/26/17 Dicyclomine HCl [Bentyl] 10 mg PO BID 06/26/17 Doxepin HCl 50 mg PO BEDTIME 06/26/17 Levetiracetam 500 mg PO BID 06/26/17 Multiple Vitamins W/ Minerals [Centrum Adults] 1 tablet PO DAILY 06/26/17 Nitroglycerin [Nitrostat] 1 ea SL [id number] PRN 06/26/17 Pantoprazole Tablet [Protonix] 40 mg PO DAILY 06/26/17 Potassium Chloride [K-Tab] 20 meq PO DAILY 06/26/17 Sertraline HCl [Zoloft] 50 mg PO BEDTIME 06/26/17 Trazodone HCl [Trazodone Hydrochloride] 50 - 100 tablet PO BEDTIME PRN 06/26/17 Albuterol Sulfate Nebs [Proventil Nebs] 2.5 mg INH Q4H PRN #75 vial 06/30/17 Metoprolol Succinate [Metoprolol Succinate ER] 100 mg PO BEDTIME 06/30/17 Melatonin 10 mg PO BEDTIME 12/23/18 Plavix 75 mg PO DAILY 12/23/18 Alosetron HCl [Lotronex] 1 mg PO BID 02/13/19 [id number] [Neomycin/Polymyxin/Dexame 3.5-50694-8.1] 1 oin OP TID 02/13/19 Nitroglycerin Patch 0.4 mg/Hr [Nitro-Dur PATCH 0.4 mg/hour] 0.4 mg TD DAILY 02/13/19 Probiotic Product [[employer]] 1 cap PO DAILY 02/13/19 Promethazine HCl 25 mg PO Q6H PRN 02/13/19 Cyanocobalamin [B-12] 500 mcg PO DAILY 10/28/19 Cefdinir 300 mg PO BID #20 capsule 10/30/19 Review of Systems - Review of Systems Constitutional: States: see HPI, chills, fever, weakness EENTM: States: no symptoms reported. Denies: blurred vision, double vision, throat pain, throat swelling Respiratory: States: see HPI, cough, short of breath, wheezing Cardiology: States: no symptoms reported. Denies: chest pain, palpitations, syncope Gastrointestinal/Abdominal: States: no symptoms reported. Denies: abdominal pain, diarrhea, nausea, vomiting Genitourinary: States: no symptoms reported Musculoskeletal: States: no symptoms reported. Denies: back pain, neck pain Skin: States: no symptoms reported. Denies: change in color, dryness, rash Neurological: States: no symptoms reported. Denies: numbness, paresthesia Endocrine: States: no symptoms reported Hematologic/Lymphatic: States: no symptoms reported All other Systems: No Change from Baseline Past Medical History (General) - Patient Medical History Hx Seizures: Yes - prescribed keppra Hx Stroke: Yes - 2007 right sided weakness Hx Dementia: No Hx Asthma: No Hx of COPD: Yes Hx Cardiac Disorders: Yes - stents Hx Congestive Heart Failure: No Hx Pacemaker: No Hx Hypertension: Yes Hx Thyroid Disease: No Hx Diabetes: No Hx Gastroesophageal Reflux: Yes Hx Renal Disease: Yes - ARF 2014 Hx Cancer: Yes - ovarian Hx of HIV: No Hx Hepatitis C: No Hx MRSA: No Surgical History: other - Vaccination History Hx Tetanus, Diphtheria Vaccination: Yes Hx Influenza Vaccination: Yes Hx Pneumococcal Vaccination: Yes - Social History Hx Tobacco Use: Yes Hx Chewing Tobacco Use: No Hx Alcohol Use: No Hx Substance Use: No Hx Substance Use Treatment: No Hx Depression: No Hx Physical Abuse: No Hx Emotional Abuse: No Hx Suspected Abuse: No - Female History Patient : No Family Medical History - Family History Brother Family History: Unknown Living Status: Hx Family Asthma: No Hx Family Congestive Heart Failure: No Hx Family Hypertension: Yes Hx Family Stroke: Yes - brother Hx Cardiac Disease: No Hx Family Diabetes: Yes - brother Hx Family Cancer: Yes - liver cancer -dad Hx Family;Other: liver/ etoh abuse Mother Family History: Unknown Living Status: Hx Family Asthma: No Hx Family Congestive Heart Failure: No Hx Family Hypertension: Yes Hx Family Stroke: No Hx Cardiac Disease: No Hx Family Diabetes: No Hx Family Cancer: Yes Hx Family;Other: copd Physical Exam - Physical Exam General Appearance: Alert, Anxious, Frail, Obvious distress, Well Groomed, Well Hydrated, Well Nourished Eyes, Ears, Nose, Throat Exam: PERRL/EOMI, normal ENT inspection, pharynx normal Neck: non-tender, full range of motion, supple Respiratory: chest non-tender, no accessory muscle use, respiratory distress - Mild, decreased breath sounds, rhonchi - Diffusely throughout, wheezing - End expiratory Cardiovascular/Chest: normal peripheral pulses, regular rate, rhythm, no edema, no gallop, no JVD Peripheral Pulses: radial,right: 2+, radial,left: 2+ Gastrointestinal/Abdominal: normal bowel sounds, non tender, soft, no organomegaly, no pulsatile mass Extremity: normal range of motion, non-tender, normal inspection Neurologic: 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 12/20/19 12:59 Work-up at this point is negative for source of infection. Awaiting urinalysis. 12/20/19 13:45 Urinalysis shows UTI. Plan admission for IV antibiotics and continued respiratory therapy for her COPD and hypoxia. I discussed this plan of care with the patient she voices understanding and agreement. I discussed this patient with Zak Cardenas NP, and he has accepted the patient for admission. Liborio Obrien M.D. #[id number] - Results/Orders Results/Orders: EXAM DESCRIPTION: Chest, x-ray 1 View CLINICAL HISTORY: sob COMPARISON: October 28, 2019 FINDINGS: Cardiac silhouette is within normal limits. Dense nodular opacity within the right lower lung compatible with a calcified pulmonary nodule. EKG leads project over the chest. There is no focal parenchymal or pleural disease. There is no acute osseous process visualized. IMPRESSION: No evidence of acute cardiopulmonary disease. Electronically signed by: Michael Salguero MD 12/20/2019 11:11 AM EKG performed 20 December 2019 at 0959 hrs.: Normal sinus rhythm with sinus arrhythmia at 81 bpm, septal infarct, age indeterminate, abnormal EKG. No previous EKG available for comparison at this time. ` 12/20/19 10:17 Sodium Chloride 0.9% (Flush) [Saline Flush Syringe] 10 ml IV PRN PRN 12/20/19 10:18 SPUTUM CULTURE Stat 12/20/19 10:30 EKG STAT 12/20/19 11:17 BLOOD CULTURE Stat 12/20/19 11:32 SARS-COV2 PCR HIGH RISK Stat 12/20/19 12:20 URINALYSIS Stat 12/20/19 12:30 LACTIC ACID Q2H 12/20/19 14:30 LACTIC ACID Q2H 12/20/19 16:30 LACTIC ACID Q2H 12/20/19 18:30 LACTIC ACID Q2H 12/20/19 20:30 LACTIC ACID Q2H 12/20/19 22:30 LACTIC ACID Q2H 12/21/19 09:00 Pulse Ox Daily Laboratory Results - last 24 hr 12/20/19 12/20/19 12/20/19 11:17 11:45 11:45 WBC 9.7 RBC 4.25 Hgb 12.5 Hct 39.1 MCV 91.9 MCH 29.5 MCHC 32.1 L RDW 13.8 Plt Count 188 MPV 8.4 Absolute Neuts (auto) 7.90 H Absolute Lymphs (auto) 0.90 L Absolute Monos (auto) 0.60 Absolute Eos (auto) 0.10 Absolute Basos (auto) 0.10 Neutrophils % 81.6 H Lymphocytes % 9.8 L Monocytes % 6.7 Eosinophils % 1.3 Basophils % 0.6 PT INR PTT (SP) Sodium 144 Potassium 3.8 Chloride 102 Carbon Dioxide 35 H Anion Gap 10.8 L BUN 30 H Creatinine 0.94 BUN/Creatinine Ratio 31.9 H Random Glucose 106 H Serum Osmolality 293.4 Lactic Acid Calcium 8.5 Total Bilirubin 0.5 AST 18 ALT 13 Alkaline Phosphatase 62 Troponin I 0.04 B-Natriuretic Peptide 594.0 H* Serum Total Protein 6.6 Albumin 3.5 Globulin 3.1 Albumin/Globulin Ratio 1.1 12/20/19 12/20/19 11:45 11:45 WBC RBC Hgb Hct MCV MCH MCHC RDW Plt Count MPV Absolute Neuts (auto) Absolute Lymphs (auto) Absolute Monos (auto) Absolute Eos (auto) Absolute Basos (auto) Neutrophils % Lymphocytes % Monocytes % Eosinophils % Basophils % PT 10.6 INR 1.07 PTT (SP) 24.7 Sodium Potassium Chloride Carbon Dioxide Anion Gap BUN Creatinine BUN/Creatinine Ratio Random Glucose Serum Osmolality Lactic Acid 0.8 Calcium Total Bilirubin AST ALT Alkaline Phosphatase Troponin I B-Natriuretic Peptide Serum Total Protein Albumin Globulin Albumin/Globulin Ratio Vital Signs 12/20/19 12/20/19 12/20/19 10:00 10:23 10:59 Temperature 101.0 F H Pulse Rate 84 Pulse Rate [ 84 left brachial] Respiratory 28 H 20 Rate Blood Pressure 167/72 [left brachial] O2 Sat by Pulse 87 L 93 L 94 L Oximetry 12/20/19 12/20/19 11:00 12:00 Temperature 100.6 F H 100.1 F H Pulse Rate Pulse Rate [ 73 78 left brachial] Respiratory 24 22 Rate Blood Pressure 146/65 151/71 [left brachial] O2 Sat by Pulse 91 L 90 L Oximetry Departure - Departure Clinical Impression: COPD exacerbation, Hypoxia Urinary tract infection Qualifiers: Urinary tract infection type: site unspecified Hematuria presence: without hematuria Qualified Code(s): N39.0 - Urinary tract infection, site not specified Time of Disposition: 13:46 Disposition: Admit Patient Condition: Fair Home Medications: Ambulatory Orders ALPRAZolam [Xanax] 0.5 mg PO BEDTIME 06/26/17 Amlodipine Besylate [Norvasc] 5 mg PO BEDTIME 06/26/17 Arformoterol Tartrate [Brovana] 15 mcg IN Q12HR PRN 06/26/17 Budesonide (Inhalation) [Budesonide] 0.25 mg IN Q12HRS PRN 06/26/17 Cranberry (Vaccinium Macrocarp [Cranberry Extract] 250 mg PO DAILY 06/26/17 Dicyclomine HCl [Bentyl] 10 mg PO BID 06/26/17 Doxepin HCl 50 mg PO BEDTIME 06/26/17 Levetiracetam 500 mg PO BID 06/26/17 Multiple Vitamins W/ Minerals [Centrum Adults] 1 tablet PO DAILY 06/26/17 Nitroglycerin [Nitrostat] 1 ea SL [id number] PRN 06/26/17 Pantoprazole Tablet [Protonix] 40 mg PO DAILY 06/26/17 Potassium Chloride [K-Tab] 20 meq PO DAILY 06/26/17 Sertraline HCl [Zoloft] 50 mg PO BEDTIME 06/26/17 Trazodone HCl [Trazodone Hydrochloride] 50 - 100 tablet PO BEDTIME PRN 06/26/17 Albuterol Sulfate Nebs [Proventil Nebs] 2.5 mg INH Q4H PRN #75 vial 06/30/17 Metoprolol Succinate [Metoprolol Succinate ER] 100 mg PO BEDTIME 06/30/17 Melatonin 10 mg PO BEDTIME 12/23/18 Plavix 75 mg PO DAILY 12/23/18 Alosetron HCl [Lotronex] 1 mg PO BID 02/13/19 [id number]-[id number] [Neomycin/Polymyxin/Dexame 3.5-50330-9.1] 1 oin OP TID 02/13/19 Nitroglycerin Patch 0.4 mg/Hr [Nitro-Dur PATCH 0.4 mg/hour] 0.4 mg TD DAILY 02/13/19 Probiotic Product [[employer]] 1 cap PO DAILY 02/13/19 Promethazine HCl 25 mg PO Q6H PRN 02/13/19 Cyanocobalamin [B-12] 500 mcg PO DAILY 10/28/19 Cefdinir 300 mg PO BID #20 capsule 10/30/19 Decision To Admit - Decistion To Admit Decision to Admit Date: 12/20/19 Decision to Admit Time: 12:55
--- NOTE | 2019-12-20 13:29 | HP ---
SUPERVISING PHYSICIAN: Ignacio Hinojosa MD CHIEF COMPLAINT: Shortness of breath. HISTORY OF PRESENT ILLNESS: This is a 74 year-old female female with a longstanding history of chronic obstructive pulmonary disease. She presented to the Emergency Department today complaining of some shortness of breath over the last 3 or 4 days. She notes she has been acting short of breath more so than normal for 2 weeks but in the last 3 or 4 days it has gotten significantly worse. In fact, this weekend she said she was to the point where she actually had gotten a little confused at times as to what day of the week it was. She denies chest pains, does have a slight cough but it was noted on admission to the Emergency Room. She did have a fever of 101, oxygen saturation 97% on room air. Initial lab work showed a white count of 9,700 and did have a left shift. Chemistries showed an elevated BNP of 594, slightly elevated BUN of 30, creatinine normal at 0.94. Lactic acid was 0.08. Urinalysis showed positive nitrites on dipstick with 4+ bacteria and 5 to 10 RBCs and WBCs. She was initially started on antibiotics for a urinary tract infection and is now going to be admitted for exacerbation of chronic obstructive pulmonary disease with underlying sepsis, probably secondary to the urinary tract infection and developing community acquired pneumonia. The patient was admitted in stable condition. PAST MEDICAL HISTORY: 1. Congestive heart failure without a current echocardiogram on admission. 2. Hypertension. 3. Chronic obstructive pulmonary disease with recent hospitalization for exacerbation of pneumonia in October 2019. 4. Gastroesophageal reflux disease. 5. Irritable bowel syndrome. 6. Hiatal hernia. 7. C-difficile infection. 8. Uterine cancer. 9. Osteoarthritis. 10. Chronic renal failure. PAST SURGICAL HISTORY: 1. Cholecystectomy. 2. Hysterectomy. 3. Right hip gamma nail. 4. Tumor excision from her back. 5. Carotid stent placement. 6. Labial tumor removal. CURRENT MEDICATIONS: 1. Trazodone 100 mg at bedtime. 2. Imitrex 15 mg p.r.n. 3. Zoloft 50 mg at bedtime. 4. Promethazine 25 mg p.r.n. 5. Probiotic daily. 6. Potassium chloride 20 mEq daily. 7. Protonix 40 mg daily. 8. Olopatadine 1 drop in both eyes daily. 9. Nitroglycerin 0.4 mg per hour patch daily. 10. Nitrostat 0.4 mg as needed. 11. Multiple vitamin, 1 tablet daily. 12. Metoprolol succinate extended release 100 mg at bedtime. 13. Melatonin 10 mg at bedtime. 14. Imodium 2 mg p.r.n. 15. Levetiracetam 500 mg b.i.d. 16. Ipratropium bromide q.i.d. 17. Doxepin 50 mg at bedtime. 18. Bentyl 10 mg b.i.d. 19. Mucinex every 12 hours needed. 20. Flexeril 5 mg every 8 hours as needed. 21. Vitamin B12, 500 mcg daily. 22. Cranberry Extract 350 mg daily. 23. Plavix 75 mg daily. 24. Budesonide 0.25 mg q12 hours as needed. 25. Brovana 15 mcg q12 hours as needed. 26. Norvasc 5 mg at bedtime. 27. Lotronex 1 mg b.i.d. 28. Albuterol nebulizer 2.5 mg every 4 hours as needed. 29. Xanax 0.5 mg at bedtime. ALLERGIES: ZOFRAN. FAMILY HISTORY: Noncontributory. SOCIAL HISTORY: The patient lives alone in [place]. She is a past smoker but quit many years previous. She denies any alcohol or illicit drug use. REVIEW OF SYSTEMS: GENERAL: Positive for weakness and fever, negative chills. HEENT: Negative for ear ache, sore throat, nasal congestion, does have chronic headaches. RESPIRATORY: Positive for coughing, wheezing, increasing shortness of breath as noted in history of present illness. CARDIAC: Negative for chest pain, palpitations, tachycardia. GI: Positive for chronic diarrhea, negative for constipation, nausea or vomiting or abdominal pain. GENITOURINARY: Negative for hematuria, dysuria, polyuria. Does have an active urinary tract infection. MUSCULOSKELETAL: Negative for arthralgias, myalgias. SKIN: Negative for lesions or rashes, moles or unexplained changes. NEUROLOGICAL: Positive for generalized weakness, frequent headaches. Denies seizures or ataxia or other focal deficits. HEMATOLOGIC: Denies easy bruising, unexplained bleeding or transfusion reactions. PHYSICAL EXAMINATION: VITAL SIGNS: Temperature 101.0, pulse 84, blood pressure 162/72, respirations 28, oxygen saturation 97% on room air. GENERAL: On admission to the medical/surgical floor, the patient was resting comfortably did not appear be in any acute distress. She is alert. HEENT: Tympanic membranes clear bilaterally. Oropharynx is pink and moist without lesions. NECK: Supple, non-tender, full range of motion, no jugular venous distention. CHEST: Lung sounds were decreased bilaterally. There was some diffuse wheezing and rhonchi heard throughout. CARDIOVASCULAR: Regular rate and rhythm. No appreciable murmurs, rubs, or gallops. ABDOMEN: Soft, non-tender. Bowel sounds are positive. EXTREMITIES: No cyanosis, clubbing, or edema. NEUROLOGIC: Cranial nerves II through XII are grossly intact. Facial features were symmetrical. Extraocular movements were normal, no nystagmus. She is alert and oriented x3. SKIN: Warm, pink and dry. LABORATORY: White count 9,700 but did show a left shift. Hemoglobin 12.5, hematocrit 39.1 Coagulation studies showed normal PT/PTT. Chemistries showed elevated carbon dioxide, otherwise electrolytes within normal limits. BUN 30, creatinine 0.94, lactic acid normal at 0.8. Liver functions within normal limits. Troponin 0.04, BNP elevated at 594. Urinalysis showed 100 protein, small amount of blood, positive nitrates, leukoesterase trace. MICROSCOPIC: 5 to 10 WBC and WBC, no epithelials, 4+ bacteria. MICROBIOLOGY: Blood cultures pending. Urine culture pending. Influenza A and B by PCR was negative. Covid-19 pending. RADIOLOGY: Single view chest in the Emergency Room per radiology interpretation showed no active acute cardiopulmonary disease. There was again a dense nodular opacity within the right upper lobe. Right lower lobe compatible with a calcified pulmonary nodule. ASSESSMENT: 1. Acute exacerbation of chronic obstructive pulmonary disease with concerns for developing community acquired pneumonia with the patient having been on IV antibiotics within the last 90 days, last hospitalization was 11/02/19. 2. Urinary tract infection. 3. Sepsis secondary to #1 and #2. 4. Chronic congestive heart failure with elevated BNP on admission with no current echocardiogram available for review. 5. Chronic hypertension. 6. Chronic gastroesophageal reflux disease. 7. Irritable bowel syndrome. 7. Hiatal hernia. 8. Past infection secondary to antibiotic administration. 9. History of uterine cancer. 10. Osteoarthritis. 11. Chronic renal failure with creatinine at baseline levels at time of admission. 12. High risk Covid-19 due to age and comorbidities. Testing pending. PLAN: The patient is going to be admitted, started on both treatment for urinary tract infection and her chronic obstructive pulmonary disease exacerbation. Taking in the fact that she was just on IV antibiotics within the last 60 days and has frequency of chronic obstructive pulmonary disease exacerbations and is quite advanced in her end-stage process, we will go ahead and treat her fairly aggressively with coverage for MRSA and Pseudomonas. Therefore, will start her on Levaquin 750 mg every 24 hours along with vancomycin per pharmacy protocol and Cefepime 2 gram every 12 hours. Will await culture results of the urine. If she is able for sputum, will certainly culture that. She is currently screening for Covid due to her high risk factors and fever. We will await that result, she will be in airborne isolation. Will have aggressive pulmonary hygiene, currently will try handheld inhalers with spacers if those are unsuccessful and the patient needs, we will certainly go to a nebulizer system as needed. I anticipate her length of stay to be at least 2 to 3 days. I have also started her on steroids but did not give her a loading dose given her body size. She is fairly stable at this point. Due to her infections and past history, will go ahead and put her on 40 every 6 hours and titrate to oral as patient tolerated. She will be on DVT prophylaxis per protocol with Lovenox. She is also on GI prophylaxis with a PPI. I have also ordered an echocardiogram. At this point, I could not find one. If we do find one, certainly will put it in her medical records but right now I do not know there is an updated one, we can check with the clinic tomorrow. Until we can transition heir to outpatient management, we will continue to monitor and treat as needed. #[id number] [facility]
[2019-12-20] MEDS ORDERED: cefTRIAXone SODIUM 1 GM in SODIUM CHL 0.9% 50ML MIN-BAG+ 50 ML IVPB ONE (13:36)
[2019-12-20] MEDS ORDERED: ACETAMINOPHEN 325 MG TAB PO ONE (14:25)
[2019-12-20] MEDS ORDERED: CEFEPIME 2 GM in SODIUM CHL 0.9% 100ML MINI-BAG 100 ML IVPB SCH (15:30)
[2019-12-20] MEDS ORDERED: VANCOMYCIN PER PHARMACY IVPB SCH (15:30)
[2019-12-20] MEDS ORDERED: LOPERAMIDE CAP 2 MG CAP PO PRN (15:36)
[2019-12-20] MEDS ORDERED: ALBUTEROL INHALER 64 PUFF/8GM INH PRN (15:36)
[2019-12-20] MEDS ORDERED: traZODone HCL 50 MG TAB PO PRN (15:36)
[2019-12-20] MEDS ORDERED: CYCLOBENZAPRINE HCL 5 MG TAB PO PRN (15:36)
[2019-12-20] MEDS ORDERED: IV SET AND CAP CHANGE INJ INJ SCH (16:00)
[2019-12-20] MEDS: levoFLOXacin 750MG IV 750 MG in PREMIX BAG 1 BAG IVPB SCH (16:43)
[2019-12-20] MEDS: ALBUTEROL INHALER 64 PUFF/8GM INH SCH ×2 (17:00→20:30)
[2019-12-20] MEDS: SODIUM CHLORIDE 0.45% 1000ML 1,000 ML IVS PRN (17:30)
[2019-12-20] MEDS ORDERED: traZODone HCL 100 MG TAB PO PRN (17:30)
[2019-12-20] MEDS: methylPREDNISolone SODIUM SUC 40 MG/ML VIAL IV SCH ×2 (17:41→17:54)
[2019-12-20] MEDS: CEFEPIME 2 GM in SODIUM CHL 0.9% 100ML MINI-BAG 100 ML IVPB SCH (17:42)
[2019-12-20] MEDS ORDERED: VANCOMYCIN HCL INJ 1,000 MG VIAL IVPB ONE (19:10)
[2019-12-20] MEDS ORDERED: SODIUM CHLORIDE 0.9% 250ML 250 ML ONE (19:11)
[2019-12-20] MEDS ORDERED: amLODIPine BESYLATE 5 MG TAB ONE (19:17)
[2019-12-20] MEDS ORDERED: ALPRAZolam 0.5 MG TAB ONE (19:17)
[2019-12-20] MEDS ORDERED: DICYCLOMINE HCL 20 MG TAB ONE (19:17)
[2019-12-20] MEDS ORDERED: MELATONIN 3 MG TAB ONE (19:18)
[2019-12-20] MEDS ORDERED: SERTRALINE HCL 50 MG TAB ONE (19:18)
[2019-12-20] MEDS ORDERED: levETIRAcetam 250 MG TAB ONE (19:18)
[2019-12-20] MEDS ORDERED: ENOXAPARIN SODIUM 40 MG/0.4 ML SYG SUBCU ONE (19:19)
[2019-12-20] MEDS: ACETAMINOPHEN 325 MG TAB PO PRN (19:26)
[2019-12-20] MEDS ORDERED: VANCOMYCIN HCL INJ 1,000 MG in SODIUM CHLORIDE 0.9% 250ML 250 ML IVPB ONE (19:30)
[2019-12-20] MEDS: ENOXAPARIN SODIUM 40 MG/0.4 ML SYG SUBCU SCH (20:37)
[2019-12-20] MEDS: levETIRAcetam 250 MG TAB PO SCH (20:37)
[2019-12-20] MEDS: MELATONIN 3 MG TAB PO SCH (20:37)
[2019-12-20] MEDS: SERTRALINE HCL 50 MG TAB PO SCH (20:37)
[2019-12-20] MEDS: ALPRAZolam 0.5 MG TAB PO SCH (20:37)
[2019-12-20] MEDS: amLODIPine BESYLATE 5 MG TAB PO SCH (20:37)
[2019-12-20] MEDS: DICYCLOMINE HCL 20 MG TAB PO SCH (20:38)
[2019-12-20] MEDS: NON-FORMULARY MEDICATION 1 EA MIS (Doxepin Hcl [Doxepin Hcl] 50 MG) PO SCH (23:45)
[2019-12-20] MEDS: ALOSETRON HCL 1 MG PO SCH (23:45)
[2019-12-21] MEDS: methylPREDNISolone SODIUM SUC 40 MG/ML VIAL IV SCH ×4 (00:24→17:18)
[2019-12-21] MEDS ORDERED: PANTOPRAZOLE SODIUM IV 40 MG VIAL ONE (03:32)
[2019-12-21] MEDS: SODIUM CHLORIDE 0.45% 1000ML 1,000 ML IVS PRN ×2 (04:26→17:18)
[2019-12-21] MEDS ORDERED: PANTOPRAZOLE SODIUM IV 40 MG VIAL IV SCH (06:30)
[2019-12-21] MEDS: CEFEPIME 2 GM in SODIUM CHL 0.9% 100ML MINI-BAG 100 ML IVPB SCH ×2 (06:39→17:18)
[2019-12-21] MEDS ORDERED: CYANOCOBALAMIN 1,000 MCG TAB ONE (07:18)
[2019-12-21] MEDS ORDERED: CLOPIDOGREL 75 MG TAB ONE (07:19)
[2019-12-21] MEDS: POTASSIUM CHLORIDE 10 MEQ TAB PO SCH (07:28)
--- NOTE | 2019-12-21 07:29 | RAD ---
EXAM DESCRIPTION: Chest,1 View CLINICAL HISTORY: Pneumonia FINDINGS/ IMPRESSION: Comparison 12/20/2019 Normal heart size. Tortuous atherosclerotic aorta. Lungs are hyperinflated consistent with COPD. No pulmonary edema, focal infiltrate or effusion is a calcified granuloma in the right lung No pneumothorax. Osteopenia. No acute bony abnormality Electronically signed by: Jayden Hernandez MD 12/21/2019 7:28 AM CDT
[2019-12-21] MEDS ORDERED: BIFIDOBACTERIUM INFANTIS 4 MG CAP ONE (07:32)
[2019-12-21] MEDS: CLOPIDOGREL 75 MG TAB PO SCH (08:04)
[2019-12-21] MEDS: CYANOCOBALAMIN 1,000 MCG TAB PO SCH (08:04)
[2019-12-21] MEDS: levETIRAcetam 250 MG TAB PO SCH ×2 (08:04→20:45)
[2019-12-21] MEDS: BIFIDOBACTERIUM INFANTIS 4 MG CAP PO SCH (08:04)
[2019-12-21] MEDS: DICYCLOMINE HCL 20 MG TAB PO SCH ×2 (08:05→20:44)
[2019-12-21] MEDS: ALBUTEROL INHALER 64 PUFF/8GM INH SCH ×4 (08:20→20:00)
[2019-12-21] MEDS: ACETAMINOPHEN 325 MG TAB PO PRN (08:31)
[2019-12-21] MEDS: OLOPATADINE 0.1% OPHTH SOL 1 DROP BOTH_EYES SCH (09:01)
[2019-12-21] MEDS: ALOSETRON HCL 1 MG PO SCH ×2 (09:08→20:34)
--- NOTE | 2019-12-21 15:22 | PN ---
SUPERVISING PHYSICIAN: Austen Washington MD DATE: 12/21/19 SUBJECTIVE: The patient is sleeping, she awakens easily. She is still somewhat short of breath but denies any chest pain, nausea or vomiting. She acts as if she is very weak. OBJECTIVE: VITAL SIGNS: Temperature 98.8, heart rate 88, blood pressure 136/80, respiratory rate 18 to 22, oxygen saturation 93% on 2.5 liters nasal cannula. RESPIRATORY: Diminished breath sounds throughout. She does have a few scattered expiratory wheezes and some rhonchi. She is slightly tachypneic and can only speak in 2 to 3-word phrases. HEART: Regular rate and rhythm. GI: Abdomen soft, nondistended, non-tender. Bowel sounds are positive. NEUROLOGIC: She is awake, alert, and oriented x3. LABORATORY: CBC is unremarkable. Electrolytes are basically within normal limits with the exception of her chloride is 98 and calcium is 8.3. Urine culture is pending. Preliminary blood cultures show no growth after 24 hours. RADIOLOGY: Chest x-ray shows normal heart size, tortuous atherosclerotic aorta, lungs are hyperinflated consistent with chronic obstructive pulmonary disease or pulmonary edema, focal infiltrate or effusion. There is a calcified granuloma in the right lung with no pneumothorax, osteopenia and no acute bony abnormality. All other labs and films have been reviewed via the EMR. ASSESSMENT: 1. Acute exacerbation of chronic obstructive pulmonary disease with concerns for developing community acquired pneumonia with the patient having been on IV antibiotics within the last 90 days, last hospitalization was 11/02/19. 2. Urinary tract infection. 3. Sepsis secondary to #1 and #2. 4. Chronic congestive heart failure with elevated BNP on admission with no current echocardiogram available for review. 5. Chronic hypertension. 6. Chronic gastroesophageal reflux disease. 7. Irritable bowel syndrome. 7. Hiatal hernia. 8. Past infection secondary to antibiotic administration. 9. History of uterine cancer. 10. Osteoarthritis. 11. Chronic renal failure with creatinine at baseline levels at time of admission. 12. High risk Covid-19 due to age and comorbidities. Testing pending. PLAN: We will continue present supportive care. We will continue with her Levaquin, Cefepime and vancomycin. We will continue to wait for culture results as well as COVID-19 results. Encouraged good pulmonary hygiene. Slowly titrate off her steroids, repeat her labs for in the morning. We will to monitor closely and follow as needed. [facility][id number] [facility]
[2019-12-21] MEDS: VANCOMYCIN HCL INJ 750 MG in SODIUM CHLORIDE 0.9% 250ML 250 ML IVPB SCH (19:20)
[2019-12-21] MEDS: NON-FORMULARY MEDICATION 1 EA MIS (Doxepin Hcl [Doxepin Hcl] 50 MG) PO SCH (20:44)
[2019-12-21] MEDS: ENOXAPARIN SODIUM 40 MG/0.4 ML SYG SUBCU SCH (20:45)
[2019-12-21] MEDS: MELATONIN 3 MG TAB PO SCH (20:45)
[2019-12-21] MEDS: amLODIPine BESYLATE 5 MG TAB PO SCH (20:48)
[2019-12-21] MEDS: SERTRALINE HCL 50 MG TAB PO SCH (20:48)
[2019-12-21] MEDS: ALPRAZolam 0.5 MG TAB PO SCH (20:48)
[2019-12-22] MEDS: methylPREDNISolone SODIUM SUC 40 MG/ML VIAL IV SCH ×4 (00:17→21:22)
[2019-12-22] MEDS ORDERED: PANTOPRAZOLE SODIUM TAB 40 MG PO ONE (05:04)
[2019-12-22] MEDS: CEFEPIME 2 GM in SODIUM CHL 0.9% 100ML MINI-BAG 100 ML IVPB SCH ×2 (05:30→17:54)
[2019-12-22] MEDS: PANTOPRAZOLE SODIUM TAB 40 MG PO SCH (06:00)
[2019-12-22] MEDS: IPRATROPIUM/ALBUTEROL 3 ML VIAL NEB SCH ×4 (08:18→20:45)
[2019-12-22] MEDS: POTASSIUM CHLORIDE 10 MEQ TAB PO SCH (08:39)
[2019-12-22] MEDS: ALBUTEROL INHALER 64 PUFF/8GM INH SCH ×4 (08:43→20:45)
[2019-12-22] MEDS: BIFIDOBACTERIUM INFANTIS 4 MG CAP PO SCH (08:44)
[2019-12-22] MEDS: levETIRAcetam 250 MG TAB PO SCH ×2 (08:44→21:24)
[2019-12-22] MEDS: CYANOCOBALAMIN 1,000 MCG TAB PO SCH (08:44)
[2019-12-22] MEDS: DICYCLOMINE HCL 20 MG TAB PO SCH ×2 (08:44→21:24)
[2019-12-22] MEDS: CLOPIDOGREL 75 MG TAB PO SCH (08:44)
[2019-12-22] MEDS: OLOPATADINE 0.1% OPHTH SOL 1 DROP BOTH_EYES SCH (08:45)
[2019-12-22] MEDS: ALOSETRON HCL 1 MG PO SCH ×2 (08:45→21:46)
[2019-12-22] MEDS ORDERED: MAGNESIUM SULFATE PREMIX 2GM 2 GM in PREMIX BAG 1 BAG IVPB ONE (10:32)
[2019-12-22] MEDS: POTASSIUM CHLORIDE 20 MEQ TAB PO SCH ×2 (12:07→15:28)
[2019-12-22] MEDS: levoFLOXacin 750MG IV 750 MG in PREMIX BAG 1 BAG IVPB SCH (15:30)
[2019-12-22] MEDS ORDERED: METOPROLOL TARTRATE INJ 5 MG/5 ML VIAL IV ONE ×2 (17:20)
[2019-12-22] MEDS ORDERED: VANCOMYCIN HCL INJ 1,000 MG in SODIUM CHLORIDE 0.9% 250ML 250 ML IVPB SCH (19:41)
[2019-12-22] MEDS ORDERED: VANCOMYCIN HCL INJ 1,000 MG VIAL IVPB ONE (19:43)
[2019-12-22] MEDS ORDERED: SODIUM CHLORIDE 0.9% 250ML 250 ML ONE (19:43)
[2019-12-22] MEDS: VANCOMYCIN HCL INJ 750 MG in SODIUM CHLORIDE 0.9% 250ML 250 ML IVPB SCH (20:04)
[2019-12-22] MEDS ORDERED: METOPROLOL SUCCINATE XL 100 MG TAB PO ONE (20:10)
[2019-12-22] MEDS ORDERED: METOPROLOL SUCCINATE XL 50 MG TAB PO SCH (21:00)
[2019-12-22] MEDS: ENOXAPARIN SODIUM 40 MG/0.4 ML SYG SUBCU SCH (21:22)
[2019-12-22] MEDS: amLODIPine BESYLATE 5 MG TAB PO SCH (21:23)
[2019-12-22] MEDS: MELATONIN 3 MG TAB PO SCH (21:23)
[2019-12-22] MEDS: ALPRAZolam 0.5 MG TAB PO SCH (21:24)
[2019-12-22] MEDS: SERTRALINE HCL 50 MG TAB PO SCH (21:25)
[2019-12-22] MEDS: NON-FORMULARY MEDICATION 1 EA MIS (Doxepin Hcl [Doxepin Hcl] 50 MG) PO SCH (21:46)
[2019-12-23] MEDS: CEFEPIME 2 GM in SODIUM CHL 0.9% 100ML MINI-BAG 100 ML IVPB SCH (05:16)
[2019-12-23] MEDS: methylPREDNISolone SODIUM SUC 40 MG/ML VIAL IV SCH (05:17)
[2019-12-23] MEDS: PANTOPRAZOLE SODIUM TAB 40 MG PO SCH (06:20)
--- NOTE | 2019-12-23 07:17 | RAD ---
CHEST, ONE VIEW XR CLINICAL HISTORY: copd COMPARISON: 12/21/2019 TECHNIQUE: AP Chest. FINDINGS: Heart is normal in size. Mild aortic atherosclerosis. Normal pulmonary vascularity. Lungs are hyperinflated. Minimal left lower lobe atelectasis. 6 mm calcified nodule right middle lobe consistent with granuloma. Pleural spaces are clear. No pneumothorax. Mild levoconvex midthoracic curve. Unremarkable soft tissues. IMPRESSION: 1. COPD. No acute chest disease. Electronically signed by: Ashley Kaiser DO 12/23/2019 7:16 AM CDT
[2019-12-23] MEDS: POTASSIUM CHLORIDE 10 MEQ TAB PO SCH (07:56)
--- NOTE | 2019-12-23 08:18 | PN ---
SUPERVISING PHYSICIAN: Austen Washington MD DATE: 12/22/19 SUBJECTIVE: The patient is sitting up in her room. She still has some weakness and some shortness of breath, but it is improved. She has no nausea, vomiting or chest pain. OBJECTIVE: VITAL SIGNS: Temperature 97.7, heart rate 91, blood pressure 150/79, respiratory rate 22, oxygen saturation 96% on 2 liters nasal cannula. RESPIRATORY: Diminished throughout, but no wheezing or rhonchi noted. HEART: Regular rate and regular rhythm. GASTROINTESTINAL: Abdomen soft, nondistended, nontender. Bowel sounds are positive. NEUROLOGIC: She is awake, alert and oriented x3. LABORATORY: WBCs have gone up to 13,300, hemoglobin 12.7, hematocrit 39.3. She has a lefts shift on her differential. Sodium 139, potassium 2.9, chloride 102. Magnesium 1.4. MICROBIOLOGY: Preliminary blood cultures show no growth after 48 hours. Sputum culture is pending. Urine culture is pending. COVID-19 results are negative. All other labs and films have been reviewed via the EMR. ASSESSMENT: 1. Acute exacerbation of chronic obstructive pulmonary disease with concerns for developing community acquired pneumonia with the patient having been on IV antibiotics within the last 90 days, last hospitalization was 11/02/19. 2. Urinary tract infection. 3. Sepsis secondary to #1 and #2. 4. Chronic congestive heart failure with elevated BNP on admission with no current echocardiogram available for review. 5. Chronic hypertension. 6. Chronic gastroesophageal reflux disease. 7. Irritable bowel syndrome. 7. Hiatal hernia. 8. Past infection secondary to antibiotic administration. 9. History of uterine cancer. 10. Osteoarthritis. 11. Chronic renal failure with creatinine at baseline levels at time of admission. 12. High risk for COVID-19. Her testing is negative. PLAN: We will continue present supportive care. Encourage good pulmonary hygiene and we will continue with her antibiotics as previously ordered. I have given her magnesium and potassium supplementation. We will repeat labs in the morning. Her IV steroids have been titrated off and she will begin prednisone orally in the morning. Hopefully she can be discharged in the next 24 to 48 hours. We will continue to monitor the patient closely and follow as needed. [facility][id number] [facility]
[2019-12-23] MEDS: ALBUTEROL INHALER 64 PUFF/8GM INH SCH ×2 (08:22→13:58)
[2019-12-23] MEDS: IPRATROPIUM/ALBUTEROL 3 ML VIAL NEB SCH ×2 (08:22→13:58)
[2019-12-23 08:38] VITALS: O2SAT 97
[2019-12-23] MEDS ORDERED: CLOPIDOGREL 75 MG TAB PO SCH (09:00)
[2019-12-23] MEDS ORDERED: predniSONE 20 MG TAB PO SCH (09:00)
[2019-12-23] MEDS: CYANOCOBALAMIN 1,000 MCG TAB PO SCH (09:10)
[2019-12-23] MEDS: DICYCLOMINE HCL 20 MG TAB PO SCH (09:10)
[2019-12-23] MEDS: CLOPIDOGREL 75 MG TAB PO SCH (09:10)
[2019-12-23] MEDS: OLOPATADINE 0.1% OPHTH SOL 1 DROP BOTH_EYES SCH (09:10)
[2019-12-23] MEDS: levETIRAcetam 250 MG TAB PO SCH (09:10)
[2019-12-23] MEDS: BIFIDOBACTERIUM INFANTIS 4 MG CAP PO SCH (09:10)
[2019-12-23] MEDS: ALOSETRON HCL 1 MG PO SCH (09:11)
[2019-12-23] MEDS: NITROGLYCERIN 0.4 MG/HR PATCH TOP SCH ×2 (09:52→09:58)
[2019-12-23 10:06] VITALS: BP 172/68; TEMP 98.1
--- NOTE | 2019-12-23 15:26 | DS ---
SUPERVISING PHYSICIAN: Espinoza Washington MD DISCHARGE DIAGNOSIS: 1. Acute exacerbation of chronic obstructive pulmonary disease with concerns for developing community acquired pneumonia with the patient having been on IV antibiotics within the last 90 days, last hospitalization was 11/02/19. 2. Urinary tract infection. 3. Sepsis secondary to #1 and #2. 4. Chronic congestive heart failure with elevated BNP on admission with no current echocardiogram available for review. 5. Chronic hypertension. 6. Chronic gastroesophageal reflux disease. 7. Irritable bowel syndrome. 7. Hiatal hernia. 8. Past infection secondary to antibiotic administration. 9. History of uterine cancer. 10. Osteoarthritis. 11. Chronic renal failure with creatinine at baseline levels at time of admission. 12. High risk for COVID-19. Her testing is negative. HISTORY OF PRESENT ILLNESS: This is a 74 year-old female patient with a longstanding history of chronic obstructive pulmonary disease. She presented to the Emergency Department on the date of admission complaining of shortness of breath that had been progressively worsening over 3 or 4 days prior to admission. It had actually been going on for 2 weeks, but the last 3 or 4 days it had gotten significantly worse to the point where she actually had to come to the hospital. She had also gotten a little confused. She had a cough, shortness of breath and her fever was up to 101 with oxygen saturation 97% on room air. Initial lab work showed a white count of 9,700 and did have a left shift. Chemistries showed an elevated BNP of 594, slightly elevated BUN of 30, creatinine normal at 0.94. Lactic acid was 0.08. Urinalysis showed positive nitrites on dipstick with 4+ bacteria and 5 to 10 RBCs and WBCs. She was initially started on antibiotics for a urinary tract infection and was also admitted for exacerbation of chronic obstructive pulmonary disease with underlying sepsis, probably secondary to the urinary tract infection and possible developing community acquired pneumonia. The patient was also at high risk for COVID-19 and was tested for the coronavirus. The patient was admitted in stable condition. HOSPITAL COURSE: She was started on Levaquin and because she had been on antibiotics within the last 60 days, she was also started on vancomycin and cefepime for fairly aggressive coverage for MRSA and Pseudomonas. She was also placed in isolation until we received her COVID results. She was given aggressive pulmonary hygiene including p.r.n. and scheduled handheld inhalers. She was started on IV steroids and they were titrated off until she was able to go onto p.o. steroids. Initially an echocardiogram was ordered, but they were unable to do the testing. She continued to be quite short of breath over the next few days, but she does have end-stage COPD. She slowly improved. Her COVID results came back negative and she was moved out of isolation. She was continued with aggressive pulmonary hygiene. Today, clinically she is improved and she will be home today with close followup with her primary care physician, Dr. Trejo. LABORATORY: WBCs started at 9,700. They went up to as high as 15,900, but she was started on steroids. Her hemoglobin and hematocrit were stable at 12.5 and 39.4. Her sodium was stable at 140. Potassium did go down as low as 2.9, but she received supplementation and today it was 3.7. Chloride 102. BUN 30, creatinine 0.92. Her calcium dropped as low as 8.3 and today is 8.5. She had a low magnesium at 1.4 and after supplementation, it was 2. Her liver enzymes were within normal limits. MICROBIOLOGY: Sputum culture is still pending. Her urine culture came back positive for Klebsiella pneumoniae and is mostly christopher sensitive including Levaquin which she is on. Her preliminary blood cultures showed no growth after 48 hours. Her influenza types A and B per PCR were both negative. RADIOLOGY: Her chest x-ray today shows COPD with no acute chest disease. DISCHARGE PLAN: The patient will be discharged home in stable condition. She will have [facility]. She is to resume her previous diet and increase her activity as tolerated. She is also to resume her previous medications. In addition to her routine medications, she will have 5 days of Levaquin, 7 days of cefepime and prednisone taper. She will have a Telehealth followup appointment with Dr. Trejo on 12/29/19 at 9:45 am. She has been given instructions for the Telehealth visit. She is to return to the hospital or followup with Dr. Trejo for any problems or complications. DISCHARGE MEDICATIONS: 1. Bentyl. 2. Brovana. 3. Budesonide. 4. Cranberry extract. 5. Levetiracetam. 6. Potassium chloride. 7. Protonix. 8. Trazodone. 9. Zoloft. 10. Xanax. 11. Nitroglycerin. 12. Amlodipine. 13. Multivitamins with minerals. 14. Doxepin. 15. Metoprolol. 16. Albuterol sulfate nebulizers. 17. Melatonin. 18. Promethazine. 19. Probiotic. 20. Nitroglycerin patch. 21. Neomycin/polymyxin ointment. 22. Lotronex. 23. Cyanocobalamin. 24. Imitrex. 25. Olopatadine eye solution. 26. Ipratropium. 27. Loperamide. 28. Cyclobenzaprine. 29. Mucinex DM. 30. Plavix. 31. Cefdinir. 32. Levaquin. 33. Prednisone. [facility][id number] [facility]
== END 2019-12-23 13:17 | disposition home health service (06) | DRG 871 ==
LOC: ER 09:53 → OBSVTOIN 13:26 → UNDOADMOB 13:26 → INTOOBSV 13:26 → MS 13:26 → OBSVTOIN 12-21 20:50 → MS 12-21 20:50
PROVIDERS: ADMIT Nurse Practitioner Family; ATTEND Nurse Practitioner Acute Care
DX: A41.9 Sepsis, unspecified organism (principal); J18.9 Pneumonia, unspecified organism; J44.0 Chronic obstructive pulmonary disease with (acute) lower respiratory infection; N39.0 Urinary tract infection, site not specified; J44.1 Chronic obstructive pulmonary disease with (acute) exacerbation; I13.0 Hypertensive heart and chronic kidney disease with heart failure and stage 1 through stage 4 chronic kidney disease, or unspecified chronic kidney disease; I69.351 Hemiplegia and hemiparesis following cerebral infarction affecting right dominant side; R51 Headache; I50.9 Heart failure, unspecified; K21.9 Gastro-esophageal reflux disease without esophagitis; K58.9 Irritable bowel syndrome, unspecified; M19.90 Unspecified osteoarthritis, unspecified site; N18.9 Chronic kidney disease, unspecified; B96.1 Klebsiella pneumoniae [K. pneumoniae] as the cause of diseases classified elsewhere; Z95.820 Peripheral vascular angioplasty status with implants and grafts; Z85.42 Personal history of malignant neoplasm of other parts of uterus; Z79.02 Long term (current) use of antithrombotics/antiplatelets; Z88.8 Allergy status to other drugs, medicaments and biological substances; Z79.899 Other long term (current) drug therapy; Z87.891 Personal history of nicotine dependence

== ENCOUNTER → 2019-12-31 | Outpatient (CLI) | payer MEDICARE, MEDICAID | LOC: GMAJ 09:29 | PROVIDERS: ATTEND Family Medicine | DX: I10 Essential (primary) hypertension (principal); I50.22 Chronic systolic (congestive) heart failure ==

== ENCOUNTER → 2020-09-02 | Outpatient (CLI) | payer MEDICARE, OTHER | LOC: SOLHO 16:09 | PROVIDERS: ATTEND Family Medicine | DX: Z20.822 Contact with and (suspected) exposure to COVID-19 (principal) ==